=== PATIENT | female | born 1950 | race African-American/Black ===

== ENCOUNTER 2017-09-14 17:20 | Inpatient (IN) | payer OTHER ==
[~2017-09-14] VITALS: Ht 157.5 cm; Wt 89.8 kg
[2017-09-14] MEDS ORDERED: SODIUM CHLORIDE 0.9% 1000ML 1,000 ML IV STA (17:35)
[2017-09-14] MEDS ORDERED: PANTOPRAZOLE 40 MG 10ML VIAL IV STA (17:35)
[2017-09-14] MEDS ORDERED: FUROSEMIDE INJ 10 MG/ML 4 ML VIAL IV ONE (17:45)
[2017-09-14 17:51] LABS: BILIRUBIN,URINE NEGATIVE (NEGATIVE); CLARITY,URINE CLEAR (CLEAR); COLOR,URINE YELLOW (YELLOW); KETONES,URINE NEGATIVE (NEGATIVE); LEUKOCYTE ESTERASE ,URINE NEGATIVE (NEGATIVE); NITRITE,URINE NEGATIVE (NEGATIVE); URINE UROBILINOGEN 0.2 mg/dL (0.2 - 1)
[2017-09-14 17:52] LABS: PROTEIN,URINE DIPSTICK 2+ (NEGATIVE)
[2017-09-14] MEDS ORDERED: JANUVIA100 MG PO (17:52)
[2017-09-14 17:53] LABS: BASOPHILS % 0.6 % (0.0-1.0); EOSINOPHILS # (AUTO) 0.2 (0.0-0.4); EOSINOPHILS % 3.4 % (0.0-6.0); LYMPHOCYTES # (AUTO) 0.6 (1.0-3.2); LYMPHOCYTES % 10.9 % (18.0-39.1); MEAN CORPUSCULAR HEMOGLOBIN 27.1 pg (28-32); MEAN CORPUSCULAR HGB CONC 31.2 g/dL (31-35); MEAN CORPUSCULAR VOLUME 86.9 fL (81-99); MONOCYTES # (AUTO) 0.6 (0.2-0.8); MONOCYTES % 12.3 % (4.4-11.3); NEUTROPHILS # (AUTO) 3.7 (2.1-6.9); NEUTROPHILS % 72.6 % (38.7-80.0); PLATELET COUNT 247 x10e3/uL (140-360); RED BLOOD COUNT 2.14 x10e6/uL (3.6-5.1)
[2017-09-14] MEDS ORDERED: LORATADINE10 MG PO (17:54)
[2017-09-14] MEDS ORDERED: HYDRALAZINE HCL25 MG PO (17:54)
[2017-09-14] MEDS ORDERED: PRAVASTATIN SOD40 MG PO (17:54)
[2017-09-14] MEDS ORDERED: FUROSEMIDE40 MG PO (17:54)
[2017-09-14] MEDS ORDERED: FOLIC ACID1 MG PO (17:54)
[2017-09-14] MEDS ORDERED: CARVEDILOL12.5 MG PO (17:54)
[2017-09-14] MEDS ORDERED: FERROUS SULFAT325 M1 PO (17:54)
[2017-09-14] MEDS ORDERED: GLIMEPIRIDE2 MG PO (17:54)
[2017-09-14] MEDS ORDERED: AMLODIPINE BESY10 MG PO (17:54)
[2017-09-14 17:57] LABS: HEMATOCRIT 18.6 % (34.2-44.1); HEMOGLOBIN 5.8 g/dL (12.0-16.0)
[2017-09-14 18:00] LABS: INR 1.28
[2017-09-14 18:01] LABS: PARTIAL THROMBOPLASTIN TIME 33.6 seconds (23.8-35.5)
[2017-09-14 18:05] LABS: EPITHELIAL CELLS,URINE MANY /LPF
[2017-09-14 18:09] LABS: ALBUMIN 3.4 g/dL (3.5-5.0); ALBUMIN/GLOBULIN RATIO 0.8 (0.8-2.0); CALCIUM 8.7 mg/dL (8.4-10.2); CREATININE, SERUM 6.56 mg/dL (0.57-1.11); MAGNESIUM 2.7 MG/DL (1.3-2.1)
[2017-09-14] MEDS ORDERED: ACETAMINOPHEN 325 MG TAB PO STA (18:16)
--- NOTE | 2017-09-14 18:24 | Diagnostic Imaging Report ---
PROCEDURE:X-RAY RIGHT SHOULDER, COMPLETE COMPARISON:None. INDICATIONS:SHOULDER SORENESS FINDINGS: Mild osteopenia. No acute displaced fracture or dislocation. No lytic or blastic lesion. 1.4 cm calcified oval shaped structure lateral to the right humeral head likely represents ligamentous calcification. Moderate to marked degenerative changes in the acromioclavicular joint. No a.c. separation. Soft tissues are grossly unremarkable. CONCLUSION: 1. No acute displaced fracture or dislocation. 2. Moderate to marked degenerative changes in the right acromioclavicular joint. MRI of shoulder is recommended if there is continued pain and clinical concern for ligamentous or labral injury Nathanael Clark M.D. Dictated by: Nathanael Clark M.D. on 09/14/2017 at 18:24 Electronically approved by: Nathanael Clark M.D. on 09/14/2017 at 18:24
[2017-09-14 18:28] LABS: CREATINE KINASE MB 2.5 ng/mL (0-5.0); THYROID STIMULATING HORMONE 0.747 uIU/mL (0.350-4.940)
[2017-09-14] MEDS ORDERED: DIPHENHYDRAMINE HCL INJ 50 MG/ML VIAL IV ONE ×2 (18:30→23:30)
[2017-09-14] MEDS ORDERED: DEXTROSE 50% SYRINGE 50 ML IV PRN (18:30)
[2017-09-14] MEDS ORDERED: SODIUM CHLORIDE 0.9% 250ML 250 ML IV ONE (18:30)
--- NOTE | 2017-09-14 18:32 | Diagnostic Imaging Report ---
PROCEDURE: CT ABDOMEN AND PELVIS WITHOUT CONTRAST TECHNIQUE: The abdomen and pelvis were scanned utilizing a multidetector helical scanner from the diaphragm to the lesser trochanter after the oral administration of water. No IV contrast was administered due to renal failure. Coronal and sagittal multiplanar reformations were obtained. COMPARISON: None. INDICATIONS: renal failure, anemia, stone protocol, sob, swelling in legs FINDINGS: ABSENCE OF INTRAVENOUS CONTRAST DECREASES SENSITIVITY FOR DETECTION OF FOCAL LESIONS AND VASCULAR PATHOLOGY. LOWER THORAX: Bilateral lower lobe, lingular, and right middle lobe Mosaic attenuation/groundglass opacities. 2 mm pulmonary nodule in the lateral right lower lobe (series 3, image 8). 3 mm pulmonary nodule in the right lower lobe (series 3, image 18). Calcification of the mitral annulus. HEPATOBILIARY: No focal hepatic lesions. No biliary ductal dilatation. Layering material in the dependent portion of the gallbladder lumen likely represents sludge. No radiopaque stones. No wall thickening or pericholecystic fluid. SPLEEN: No splenomegaly. PANCREAS: No focal masses or ductal dilatation. ADRENALS: No adrenal nodules. KIDNEYS/URETERS: No hydronephrosis, stones, or renal contour abnormalities. PELVIC ORGANS/BLADDER: The bladder is grossly unremarkable. The uterus is enlarged and shows innumerable lobulations and dystrophic and rounded calcifications, likely representing multiple calcified fibroids. No adnexal masses. PERITONEUM / RETROPERITONEUM: No ascites. LYMPH NODES: No lymphadenopathy. VESSELS: Atherosclerotic calcification of the abdominal aorta, aortic branches, and iliac vessels. GI TRACT: Bowel shows no dilation or evidence of obstruction. Appendix is well identified and normal in caliber. BONES AND SOFT TISSUES: No aggressive lytic lesion. Generalized anasarca. IMPRESSION: 1. no acute abdominopelvic abnormalities. 2. Findings in the lung bases, likely represent interstitial edema. Given the generalized anasarca and history of renal failure, findings are consistent with fluid overload. 3. Nonspecific subcentimeter pulmonary nodules in the lung bases. Per Fleischner Society 2017 criteria, no followup is indicated if this is a low risk patient. 4. Enlarged, distorted uterus likely secondary to innumerable fibroids, most of which are calcified. 5. Findings in the gallbladder lumen likely represents sludge. No radiopaque stones or CT evidence of cholecystitis. Nathanael Clark M.D. Dictated by: Nathanael Clark M.D. on 09/14/2017 at 18:32 Electronically approved by: Nathanael Clark M.D. on 09/14/2017 at 18:32
--- OUTSIDE RECORDS SUMMARY | 2017-09-14 18:54 | XMS REPORT ---
Author Author [facility] Address Unknown Phone Unavailable Care Team Providers Care Librarian Special Library Name Role Phone MAXIMILIANO MALLORY Unavailable Unavailable Problems This patient has no known problems. Allergies, Adverse Reactions, Alerts This patient has no known allergies or adverse reactions. Medications This patient has no known medications. Results Test Description Test Time Test Comments Text Results Atomic Results Result Comments SHOULDER RIGHT COMPLETE [place] [address] Patient Name: LEIGHTON GUERRERO MR #: [id number] : 1950 Age/Sex: 66/F Req #: [id number] [facility] Physician: Ordered by: MOHAMUD ELLIS, MAXIMILIANO ELLIS Report #: [id number] Location: ER Room/Bed: Procedure: [id number] DX/SHOULDER RIGHT COMPLETE Exam Date: 09/14/17 Exam Time: 1806 REPORT STATUS: Signed PROCEDURE: X-RAY RIGHT SHOULDER, COMPLETE COMPARISON: None. INDICATIONS: SHOULDER SORENESS FINDINGS: Mild osteopenia. No acute displaced fracture or dislocation. No lytic or blastic lesion. 1.4 cm calcified oval shaped structure lateral to the right humeral head likely represents ligamentous calcification. Moderate to marked degenerative changes in the acromioclavicular joint. No a.c. separation. Soft tissues are grossly unremarkable. CONCLUSION: 1. No acute displaced fracture or dislocation. 2. Moderate to marked degenerative changes in the right acromioclavicular joint. MRI of shoulder is recommended if there is continued pain and clinical concern for ligamentous or labral injury John Clark M.D. Dictated by: John Clark M.D. on 02/2018 at 18:24 Electronically approved by: John Clark M.D. on 09/14/2017 at 18:24 Dictated By: JOHN CLARK MD 23 Transcribed By: NEISHA on 09/14/171823 COPY TO: MAXIMILIANO MALLORY CT ABDOMEN/PELVIS WO [place] [address] Patient Name: LEIGHTON GUERRERO MR #: [id number] : 1950 Age/Sex: 66/F Req #: [id number] Adm Physician: Ordered by: MAXIMILIANO MALLORY MD, MD Report #: [id number] Location: ER Room/Bed: Procedure: [id number] CT/CT ABDOMEN/PELVIS WO Exam Date: 09/14/17 Exam Time: 1757 REPORT STATUS: Signed PROCEDURE: CT ABDOMEN AND PELVIS WITHOUT CONTRAST TECHNIQUE: The abdomen and pelvis were scanned utilizing a multidetector helical scanner from the diaphragm to the lesser trochanter after the oral administration of water. No IV contrast was administered due to renal failure. Coronal and sagittal multiplanar reformations were obtained. COMPARISON: None. INDICATIONS: renal failure, anemia, stone protocol, sob, swelling in legs FINDINGS: ABSENCE OF INTRAVENOUS CONTRAST DECREASES SENSITIVITY FOR DETECTION OF FOCAL LESIONS AND VASCULAR PATHOLOGY. LOWER THORAX: Bilateral lower lobe , lingular, and right middle lobe Mosaic attenuation/groundglass opacities. 2 mm pulmonary nodule in the lateral right lower lobe (series 3, image 8). 3 mm pulmonary nodule in the right lower lobe (series 3, image 18). Calcification of the mitral annulus. HEPATOBILIARY: No focal hepatic lesions. No biliary ductal dilatation. Layering material in the dependent portion of the gallbladder lumen likely represents sludge. No radiopaque stones. No wall thickening or pericholecystic fluid. SPLEEN: No splenomegaly. PANCREAS: No focal masses or ductal dilatation. ADRENALS: No adrenal nodules. KIDNEYS/URETERS: No hydronephrosis, stones, or renal contour abnormalities. PELVIC ORGANS/BLADDER: The bladder is grossly unremarkable. The uterus is enlarged and shows innumerable lobulations and dystrophic and rounded calcifications, likely representing multiple calcified fibroids. No adnexal masses. PERITONEUM / RETROPERITONEUM: No ascites. LYMPH NODES: No lymphadenopathy. VESSELS: Atherosclerotic calcification of the abdominal aorta, aortic branches, and iliac vessels. GI TRACT: Bowel shows no dilation or evidence of obstruction. Appendix is well identified and normal in caliber. BONES AND SOFT TISSUES: No aggressive lytic lesion. Generalized anasarca. IMPRESSION: 1. no acute abdominopelvic abnormalities. 2. Findings in the lung bases, likely represent interstitial edema. Given the generalized anasarca and history of renal failure, findings are consistent with fluid overload. 3. Nonspecific subcentimeter pulmonary nodules in the lung bases. Per Fleischner Society 2017 criteria, no followup is indicated if this is a low risk patient. 4. Enlarged, distorted uterus likely secondary to innumerable fibroids, most of which are calcified. 5. Findings in the gallbladder lumen likely represents sludge. No radiopaque stones or CT evidence of cholecystitis. John Clark M.D. Dictated by: John Clark M.D. on 09/14/2017 at 18:32 Electronically approved by: John Clark M.D. on 2017 at 18:32 Dictated By: JOHN CLARK MD 31 Transcribed By: NEISHA on 1831 COPY TO: MAXIMILIANO MALLORY
[2017-09-14] MEDS ORDERED: FUROSEMIDE INJ 10 MG/ML 2 ML VIAL IV PRN (19:00)
--- NOTE | 2017-09-14 19:36 | Diagnostic Imaging Report ---
EXAMINATION: CHEST SINGLE (PORTABLE) INDICATION: \S\ERMD ORDER \S\[id number] \S\1802 \S\Y COMPARISON: None FINDINGS: AP view TUBES and LINES: None. LUNGS: Lungs are well inflated. Bilateral central pulmonary vascular congestion. No lobar consolidations. PLEURA: No pleural effusion or pneumothorax. HEART AND MEDIASTINUM: Moderate enlargement of the cardiac silhouette.. BONES AND SOFT TISSUES: No acute osseous lesion. Soft tissues are unremarkable. UPPER ABDOMEN: No free air under the diaphragm. IMPRESSION: Moderate enlargement of the cardiac silhouette due to cardiomegaly and/or pericardial effusion. Bilateral central pulmonary vascular congestion. Signed by: Dr. Dione Yost M.D. on 09/14/2017 7:32 PM
[2017-09-14 20:04] LABS: PHOSPHORUS 5.6 MG/DL (2.3-4.7)
[2017-09-14 20:07] LABS: CREATININE,URINE RANDOM 43.23 mg/dL (47-110); TOTAL PROTEIN, URINE 89.1 mg/dL (1-14)
--- NOTE | 2017-09-14 20:58 | Consultation ---
DATE OF CONSULTATION: September 14, 2017 REASON FOR CONSULTATION: Chronic kidney disease. This is a 66-year-old female who came in with worsening edema that started 14 days ago. The patient also stated that she had a stress test in mid August and was told 2 weeks later that she had hemoglobin of 6 and to come to the emergency room. The patient has seen me previously a few years back in the clinic. The patient also stated that she was told that her kidney function recently has deteriorated to 10%. PAST MEDICAL HISTORY: 1. Type 2 diabetes mellitus. 2. Hypertension. 3. Coronary artery disease. 4. Peripheral vascular disease. 5. Diabetic retinopathy. 6. Retinal detachment. 7. Congestive heart failure. PAST SURGICAL HISTORY: Retinal repair 2013. ALLERGIES: NO KNOWN DRUG ALLERGIES. REVIEW OF SYSTEMS: Positive for shortness of breath, positive edema, positive increased weight, positive decreased appetite. No nausea, no vomiting, no blood in the stool. No blood in the urine. No sensory loss. No motor loss. No new changes on her skin. Basically, otherwise negative. PHYSICAL EXAMINATION VITAL SIGNS: Blood pressure 136/49, afebrile. GENERAL: Alert and following commands. HEENT: Pupils equal and react to light and accommodation. NECK: No JVD, no bruits. LUNGS: Rhonchi, no rales. HEART: Regular rate and rhythm. No S3 or S4. ABDOMEN: Nontender, nondistended, no hepatosplenomegaly. EXTREMITIES: Positive anasarca. LABORATORY DATA: White count 5.4, hemoglobin 5.8, platelets 247,000. Sodium 137, potassium 5, chloride 107, BUN 76, creatinine 6.56, glucose 139, AST 26, albumin 3.4. ASSESSMENT AND PLAN: 1. Worsening renal function with severe volume overload. The patient is receiving Lasix 40, but for now change her Lasix to 80 IV q.8 h. We have her on strict I and O. Will also get a renal ultrasound, and fractional secretion of sodium and urine protein electrophoresis. 2. The patient also is having severe anemia, so she will be transfused today, and between units will give her Lasix. Will also evaluate her for iron deficiency and anemia of chronic disease. So, in short, this is a patient who might be in end-stage renal disease, requiring dialysis soon, but for now we will treat her medically with IV Lasix, transfusion as needed. Work up to evaluate treatment for anemia and for worsening renal function. If no improvement, as in cardiorenal cases, usually the renal will improve once the patient is euvolemic, and then will need to start heading towards a diagnosis of end-stage renal disease. Job#: [id number] ELLIE
[2017-09-14] MEDS ORDERED: SODIUM CHLORIDE 0.9% 50ML 50 ML ONE (21:54)
[2017-09-14 22:00] VITALS: BP 193/79
[2017-09-14] MEDS ORDERED: FUROSEMIDE INJ 10 MG/ML 4 ML VIAL IV SCH (22:00)
[2017-09-14] MEDS: INSULIN REGULAR, HUMAN 100 UNIT/1 ML 3ML VIAL SQ SCH (22:30)
[2017-09-14] MEDS ORDERED: HYDRALAZINE HCL 25 MG TAB PO ONE (23:30)
[2017-09-14] MEDS: ACETAMINOPHEN 325 MG TAB PO PRN (23:43)
[2017-09-15] VITALS: BP 194/82
[2017-09-15] MEDS ORDERED: SODIUM CHLORIDE 0.9% 250ML 250 ML ONE (00:27)
[2017-09-15] MEDS ORDERED: FUROSEMIDE INJ 10 MG/ML 2 ML VIAL IV PRN (03:28)
[2017-09-15 04:00] VITALS: BP 186/92
[2017-09-15 06:19] LABS: BASOPHILS % 0.8 % (0.0-1.0); EOSINOPHILS # (AUTO) 0.3 (0.0-0.4); EOSINOPHILS % 4.8 % (0.0-6.0); LYMPHOCYTES # (AUTO) 0.5 (1.0-3.2); LYMPHOCYTES % 9.4 % (18.0-39.1); MEAN CORPUSCULAR HGB CONC 31.3 g/dL (31-35); MEAN CORPUSCULAR VOLUME 86.5 fL (81-99); MONOCYTES # (AUTO) 0.6 (0.2-0.8); NEUTROPHILS # (AUTO) 3.8 (2.1-6.9); NEUTROPHILS % 72.8 % (38.7-80.0); PLATELET COUNT 217 x10e3/uL (140-360); RED BLOOD COUNT 2.44 x10e6/uL (3.6-5.1); RED CELL DISTRIBUTION WIDTH 16.5 % (11.7-14.4)
[2017-09-15 06:40] LABS: CREATINE KINASE MB 3.2 ng/mL (0-5.0)
[2017-09-15 06:46] LABS: ALBUMIN 3.2 g/dL (3.5-5.0); ALBUMIN/GLOBULIN RATIO 0.8 (0.8-2.0); ANION GAP 17.7 mmol/L (8-16); CALCIUM 8.7 mg/dL (8.4-10.2); CREATININE, SERUM 6.33 mg/dL (0.57-1.11); POTASSIUM 4.7 mmol/L (3.5-5.1)
[2017-09-15 06:47] LABS: HEMATOCRIT 21.1 % (34.2-44.1); HEMOGLOBIN 6.6 g/dL (12.0-16.0)
[2017-09-15] MEDS: INSULIN REGULAR, HUMAN 100 UNIT/1 ML 3ML VIAL SQ SCH ×4 (07:23→21:00)
[2017-09-15 07:49] VITALS: BP 168/88
[2017-09-15] MEDS: FERROUS SULFATE 325 MG TAB PO SCH (08:02)
[2017-09-15] MEDS: CARVEDILOL 12.5 MG TAB PO SCH ×2 (08:02→18:03)
[2017-09-15] MEDS: FOLIC ACID 1 MG TAB PO SCH (08:02)
[2017-09-15] MEDS: GLIMEPIRIDE 2 MG TAB PO SCH (08:02)
[2017-09-15] MEDS: LORATADINE 10 MG TAB PO SCH (08:02)
[2017-09-15] MEDS: SITAGLIPTIN 100 MG TAB PO SCH (08:02)
[2017-09-15] MEDS: PRAVASTATIN 20 MG TAB PO SCH (08:03)
[2017-09-15] MEDS: AMLODIPINE BESYLATE 10 MG TAB PO SCH (08:03)
[2017-09-15] MEDS ORDERED: FUROSEMIDE INJ 10 MG/ML 4 ML VIAL IV SCH (09:00)
[2017-09-15] MEDS ORDERED: FUROSEMIDE 40 MG TAB PO SCH (09:00)
[2017-09-15] MEDS ORDERED: HYDRALAZINE HCL 25 MG TAB PO SCH (09:00)
[2017-09-15] MEDS ORDERED: SODIUM CHLORIDE 0.9% 250ML 250 ML IV ONE (10:00)
[2017-09-15] MEDS ORDERED: FUROSEMIDE INJ 10 MG/ML 2 ML VIAL IV SCH (10:00)
--- NOTE | 2017-09-15 10:10 | History and Physical ---
She is a 66-year-old female patient of [facility] who is chronically very sick with a history of anemia, chronic kidney disease, diabetes mellitus, hypertension, hypertensive heart disease, nephrotic syndrome, anemia, and chronic arthritis, who presented to the emergency room with the complaint of generalized swelling and severe leg swelling. Also, having some shortness of breath. REVIEW OF SYSTEMS: Generalized swelling and shortness of breath. The patient denied any chest pain or fevers. SURGICAL HISTORY: The patient had retinal surgery in 2013. PAST MEDICAL HISTORY: Significant for history of diabetes mellitus, coronary artery disease, peripheral arterial disease, cataracts, chronic back pain, arthritis, diastolic congestive heart failure. ALLERGIES: NO KNOWN DRUG ALLERGIES. SOCIAL HISTORY: Denies smoking. Denies using alcohol. FAMILY HISTORY: Diabetes mellitus, hypertension. PHYSICAL EXAMINATION GENERAL: She is an elderly female patient lying in bed not in any acute distress. VITALS: Temperature 98, pulse rate 88, respiratory rate 20, blood pressure 170/90, O2 sat 99%. HEENT: Normocephalic and atraumatic. JVD present. LUNGS: Bilateral basal rales present. HEART: S1 and S2 regular. Systolic murmur. Heart sounds muffled. NEUROLOGICAL: No focal neurological deficit. EXTREMITIES: Four plus pedal edema. Hemoglobin on admission was 5.8. Phosphorus was 5.6. BNP was 1959. Creatinine of 6.33. ADMITTING IMPRESSION/DIAGNOSES 1. Severe anemia. 2. Anemia of chronic disease, possible blood loss complicating the matter. 3. Diabetes mellitus. 4. Hypertension. 5. Hypertensive heart disease. 6. Shoulder arthritis. PLAN: The patient will be admitted with the above diagnoses. Will give the patient IV Lasix and packed RBCs. Blood transfusion and also obtain GI and hematology consultation. Probably going to need IV iron. Will do Accu-Cheks a.c. and at night with sliding scale. Case discussed with quality assurance calibrator, Dr. Mello. The patient does need hemodialysis, but at this time the patient had refused for any hemodialysis treatment. Job#: [id number] LEVON
--- NOTE | 2017-09-15 10:46 | Consultation ---
DATE OF CONSULTATION: September 14, 2017 CARDIOLOGY CONSULTATION REASON FOR CONSULTATION: CHF. CONSULTING PHYSICIAN: Dr. Santos HPI: This is a 66-year-old female that presented with shortness of breath. According to the patient, for the last 2 weeks she had increased shortness of breath and increased bilateral lower extremity edema that she presented to the ER for evaluation. She stated having a history of CHF and being treated by the PCP with beta jessie and diuretics. She also stated she had a recent stress test in August. She denies any chest pain, any palpitation, any dizziness, headache, or diaphoresis. Troponin was negative. EKG showed normal sinus rhythm with no S/T abnormalities. BNP 1959. Chest x-ray showed bilateral central pulmonary vascular congestion. PAST MEDICAL HISTORY: Hypertension, diabetes, CHF, anemia, CAD, PVD, diabetic retinopathy, retinal detachment. PAST SURGICAL HISTORY: Bilateral retina repair. FAMILY HISTORY: Positive for hypertension. SOCIAL HISTORY: No smoking. No drinking. She lives at home with the that smokes. MEDICATIONS: She was on Norvasc, Coreg, ferrous sulfate, folic acid, furosemide, glimepiride, hydralazine, Claritin, Pravastatin, and Januvia. ALLERGIES: SHE IS NOT ALLERGIC TO ANY MEDICATIONS. REVIEW OF SYSTEMS: Negative except those mentioned above. Positive for shortness of breath and +4 bilateral lower extremity edema. PHYSICAL EXAMINATION VITAL SIGNS: Temperature 98, heart rate 87, blood pressure 180/92, respirations 15, oxygen saturation 96% on 2 L nasal cannula. GENERAL: She is morbidly obese, awake, alert, and oriented times 3. HEENT: Mucous membranes moist. NECK: Supple. LUNGS: Bilateral with decreased breath sounds. CARDIOVASCULAR: S1 and S2 present. ABDOMEN: Soft. NEUROLOGICAL: Intact. EXTREMITIES: Bilateral lower extremities with 4+ edema. LABS: Sodium 140, potassium 4.7, chloride 108, CO2 19, BUN is 74, creatinine 6.33, glucose 100. White blood cells 5.23, hemoglobin is 6.6, hematocrit 21.1, and platelets 217,000. PT 15, PTT 33.6 and INR is 1.28. IMPRESSION 1. Congestive heart failure. 2. Fluid overload. 3. Anemia. 4. Chronic kidney disease. 5. Hypertension. 6. Diabetes. 7. Generalized anasarca. ASSESSMENT AND PLAN: She received 1 unit of blood yesterday. She went from 5.8 to 6.6 today. Will get an echo to assess the LV and the valve function. Will continue diuretics, beta jessie and calcium channel jessie. No MALA inhibitor for now. Will get bilateral lower extremity venous Doppler to rule out any DVT. Renal is on the case and hematology. Further cardiac workup pending clinical course. Thank you for this consultation. DICTATED BY GRACE TERRAZAS NP Job#: [id number] LEVON
[2017-09-15 11:13] VITALS: BP 168/88
[2017-09-15 12:41] LABS: % IRON SATURATION 18 % (15-50); IRON 49 ug/dL (50-170); TOTAL IRON BINDING CAPACITY 274 ug/dL (261-478); TRANSFERRIN 196 mg/dL (180-382)
[2017-09-15] MEDS ORDERED: SODIUM CHLORIDE 0.9% 250ML 250 ML IV NR (15:00)
[2017-09-15 15:11] LABS: CREATINE KINASE MB 2.4 ng/mL (0-5.0)
--- NOTE | 2017-09-15 15:38 | Diagnostic Imaging Report ---
EXAM: Renal Ultrasound INDICATION: \S\renal fasilure COMPARISON: CT dated 09/14/2017 TECHNIQUE: Transverse and longitudinal images of the kidneys and bladder were obtained. FINDINGS: Right Kidney: Size: 9.7 cm Echogenicity: Normal Parenchymal thickness: Normal Collecting system: No hydronephrosis Stones: None Cyst/Mass: None Left Kidney: Size: 8.5 cm Echogenicity: Normal Parenchymal thickness: Normal Collecting system: No hydronephrosis Stones: None Cyst/Mass: None Bladder: Decompressed by a Stewart catheter in place. IMPRESSION: Unremarkable renal ultrasound exam. Signed by: Dr. Ad Sargent MD on 09/15/2017 3:35 PM
--- NOTE | 2017-09-15 15:40 | Consultation ---
DATE OF CONSULTATION: September 15, 2017 REQUESTING PHYSICIAN: Dr. Benito Hurst. REASON FOR CONSULTATION: Anemia. Thank you very kindly Dr. Hurst for letting me participate in the care of this very pleasant 66-year-old -[place] female. I have interviewed the patient, examined her, reviewed the chart. Briefly, she was admitted with weakness, shortness of breath, and swelling of the feet. The patient stated that she had been generally well till a few weeks back and developed what she thought was a flu-like illness and she has progressively declined since that time becoming increasingly weak, short of breath with minimal activity, and increasing swelling of the feet. She denies any history of bleeding or fever. She has gained some weight. No history of change in bowel habits and as mentioned, no history of bleeding from any site that she could recognize. PAST HISTORY: Positive for diabetes mellitus, hypertension. She thought she was told that there might be mild renal dysfunction in the past. No history of liver disease. No history of GI problems previously. SOCIAL HISTORY: The patient does not smoke and does not use alcohol. FAMILY HISTORY: Positive for heart disease. Denied any history of malignancy. SYSTEM REVIEW: Positive for weight gain, weakness, shortness of breath, swelling of feet. Negative for bone pains, bleeding, or chest pains. PHYSICAL EXAMINATION GENERAL: She is well-developed, ill-looking, using supplemental oxygen. HEENT: Conjunctivae are pale. There is no icterus. NECK: There is no palpable peripheral adenopathy. BREASTS: Negative. LUNGS: Limited by patient's shallow respiration. HEART: Size cannot be well demarcated. ABDOMEN: Modestly distended. There is edema of the abdominal wall. EXTREMITIES: Diffuse edema of the both lower extremities. LABORATORY EVALUATION: Significant for hemoglobin of 6.1, normocytic, normochromic, white count of 5.2, and platelet count of 217,000. Renal function was markedly abnormal with creatinine of 6.33 and BUN of 74. INR was 1.28. Liver functions were normal. Serum globulin levels were elevated. IMPRESSION 1. Renal failure, probably [id number]. 2. Severe anemia, normocytic, normochromic with no history of bleeding. 3. Elevated globulin. The anemia could be chronic anemia from renal failure with possibly an element of acute blood loss, though there is no history of it. The indices are normal suggesting that this unlikely to be a chronic blood loss. Dr. Chery, the information security, has already ordered serum protein studies to evaluate for the possibility of a myeloma. She is getting transfusion and management of congestive heart failure. I will follow the patient and await serum protein studies. Job#: [id number] VAS cc:DR JAIRO NOGUEIRA
[2017-09-15] MEDS: HYDRALAZINE HCL 25 MG TAB PO SCH ×2 (16:45→21:36)
[2017-09-15] MEDS: FUROSEMIDE INJ 100 MG in SODIUM CHLORIDE 0.9% 100 ML 90 ML IV SCH (18:02)
[2017-09-15 21:11] VITALS: BP 156/72
[2017-09-15] MEDS ORDERED: PEG (High)/E-LYTE SOLN 4,000 ML BTL PO ONE (23:00)
[2017-09-16 00:43] VITALS: BP 162/86
[2017-09-16] MEDS: ACETAMINOPHEN 325 MG TAB PO PRN ×3 (00:45→17:51)
[2017-09-16] MEDS: HYDRALAZINE HCL 25 MG TAB PO SCH ×4 (06:00→21:14)
[2017-09-16 07:01] LABS: BASOPHILS % 0.5 % (0.0-1.0); EOSINOPHILS # (AUTO) 0.5 (0.0-0.4); EOSINOPHILS % 7.7 % (0.0-6.0); HEMATOCRIT 25.1 % (34.2-44.1); LYMPHOCYTES # (AUTO) 0.6 (1.0-3.2); LYMPHOCYTES % 9.3 % (18.0-39.1); MEAN CORPUSCULAR HEMOGLOBIN 26.4 pg (28-32); MEAN CORPUSCULAR HGB CONC 31.9 g/dL (31-35); MEAN CORPUSCULAR VOLUME 82.8 fL (81-99); MONOCYTES # (AUTO) 0.8 (0.2-0.8); MONOCYTES % 12.8 % (4.4-11.3); NEUTROPHILS # (AUTO) 4.2 (2.1-6.9); NEUTROPHILS % 69.4 % (38.7-80.0); PLATELET COUNT 228 x10e3/uL (140-360); RED BLOOD COUNT 3.03 x10e6/uL (3.6-5.1); RED CELL DISTRIBUTION WIDTH 17.1 % (11.7-14.4)
[2017-09-16 07:18] LABS: ALBUMIN 3.1 g/dL (3.5-5.0); ALBUMIN/GLOBULIN RATIO 0.8 (0.8-2.0); CALCIUM 8.6 mg/dL (8.4-10.2); CREATININE, SERUM 6.05 mg/dL (0.57-1.11)
[2017-09-16] MEDS: INSULIN REGULAR, HUMAN 100 UNIT/1 ML 3ML VIAL SQ SCH ×4 (07:30→20:33)
[2017-09-16] MEDS: GLIMEPIRIDE 2 MG TAB PO SCH (08:00)
[2017-09-16 08:24] VITALS: BP 159/67
[2017-09-16 08:28] LABS: FOLATE > 20.0 ng/mL (7.0-15.4)
[2017-09-16] MEDS: LORATADINE 10 MG TAB PO SCH (08:45)
[2017-09-16] MEDS: FERROUS SULFATE 325 MG TAB PO SCH (08:46)
[2017-09-16] MEDS: SITAGLIPTIN 100 MG TAB PO SCH (08:46)
[2017-09-16] MEDS: AMLODIPINE BESYLATE 10 MG TAB PO SCH (08:46)
[2017-09-16] MEDS: FOLIC ACID 1 MG TAB PO SCH (08:46)
[2017-09-16] MEDS: CARVEDILOL 12.5 MG TAB PO SCH ×2 (08:46→17:10)
[2017-09-16] MEDS: PRAVASTATIN 20 MG TAB PO SCH (08:46)
[2017-09-16] MEDS: FUROSEMIDE INJ 100 MG in SODIUM CHLORIDE 0.9% 100 ML 90 ML IV SCH (08:46)
[2017-09-16 10:34] VITALS: BP 159/67
[2017-09-16 11:36] VITALS: BP 165/74
[2017-09-16 16:25] VITALS: BP 160/63
[2017-09-16 20:05] VITALS: BP 159/72
[2017-09-17] VITALS (7 sets, daily range): BP systolic 136–177; BP diastolic 73–96
[2017-09-17] MEDS: HYDRALAZINE HCL 25 MG TAB PO SCH ×5 (05:37→22:07)
[2017-09-17] MEDS: INSULIN REGULAR, HUMAN 100 UNIT/1 ML 3ML VIAL SQ SCH ×4 (07:30→22:32)
[2017-09-17 07:44] LABS: BASOPHILS % 0.3 % (0.0-1.0); EOSINOPHILS # (AUTO) 0.3 (0.0-0.4); HEMATOCRIT 25.9 % (34.2-44.1); HEMOGLOBIN 8.4 g/dL (12.0-16.0); LYMPHOCYTES # (AUTO) 0.6 (1.0-3.2); LYMPHOCYTES % 8.5 % (18.0-39.1); MEAN CORPUSCULAR HEMOGLOBIN 26.7 pg (28-32); MEAN CORPUSCULAR HGB CONC 32.4 g/dL (31-35); MEAN CORPUSCULAR VOLUME 82.2 fL (81-99); MONOCYTES # (AUTO) 0.9 (0.2-0.8); MONOCYTES % 13.1 % (4.4-11.3); NEUTROPHILS # (AUTO) 4.9 (2.1-6.9); NEUTROPHILS % 72.7 % (38.7-80.0); PLATELET COUNT 235 x10e3/uL (140-360); RED BLOOD COUNT 3.15 x10e6/uL (3.6-5.1); RED CELL DISTRIBUTION WIDTH 17.1 % (11.7-14.4)
[2017-09-17] MEDS: GLIMEPIRIDE 2 MG TAB PO SCH (07:58)
[2017-09-17 08:06] LABS: ANION GAP 17.3 mmol/L (8-16); CALCIUM 8.4 mg/dL (8.4-10.2); CREATININE, SERUM 6.01 mg/dL (0.57-1.11); POTASSIUM 4.3 mmol/L (3.5-5.1)
[2017-09-17] MEDS: LORATADINE 10 MG TAB PO SCH (09:23)
[2017-09-17] MEDS: SITAGLIPTIN 100 MG TAB PO SCH (09:23)
[2017-09-17] MEDS: FUROSEMIDE INJ 100 MG in SODIUM CHLORIDE 0.9% 100 ML 90 ML IV SCH (09:23)
[2017-09-17] MEDS: PRAVASTATIN 20 MG TAB PO SCH (09:23)
[2017-09-17] MEDS: FERROUS SULFATE 325 MG TAB PO SCH (09:23)
[2017-09-17] MEDS: CARVEDILOL 12.5 MG TAB PO SCH ×2 (09:23→17:00)
[2017-09-17] MEDS: FOLIC ACID 1 MG TAB PO SCH (09:23)
[2017-09-17] MEDS: AMLODIPINE BESYLATE 10 MG TAB PO SCH (09:24)
[2017-09-17] MEDS: ACETAMINOPHEN 325 MG TAB PO PRN (17:27)
[2017-09-18] VITALS (7 sets, daily range): BP systolic 142–163; BP diastolic 65–81
[2017-09-18] MEDS: HYDRALAZINE HCL 25 MG TAB PO SCH ×5 (05:39→21:13)
[2017-09-18] MEDS: ACETAMINOPHEN 325 MG TAB PO PRN ×2 (05:44→18:54)
[2017-09-18 06:40] LABS: BASOPHILS % 0.6 % (0.0-1.0); EOSINOPHILS # (AUTO) 0.4 (0.0-0.4); EOSINOPHILS % 5.5 % (0.0-6.0); HEMATOCRIT 29.5 % (34.2-44.1); HEMOGLOBIN 9.4 g/dL (12.0-16.0); LYMPHOCYTES # (AUTO) 0.6 (1.0-3.2); LYMPHOCYTES % 7.9 % (18.0-39.1); MEAN CORPUSCULAR HEMOGLOBIN 26.6 pg (28-32); MEAN CORPUSCULAR HGB CONC 31.9 g/dL (31-35); MEAN CORPUSCULAR VOLUME 83.3 fL (81-99); MONOCYTES # (AUTO) 0.8 (0.2-0.8); MONOCYTES % 11.6 % (4.4-11.3); NEUTROPHILS # (AUTO) 5.4 (2.1-6.9); NEUTROPHILS % 74.1 % (38.7-80.0); PLATELET COUNT 248 x10e3/uL (140-360); RED BLOOD COUNT 3.54 x10e6/uL (3.6-5.1); RED CELL DISTRIBUTION WIDTH 16.3 % (11.7-14.4)
[2017-09-18 07:02] LABS: ALBUMIN 3.2 g/dL (3.5-5.0); ALBUMIN/GLOBULIN RATIO 0.8 (0.8-2.0); ANION GAP 19.2 mmol/L (8-16); CALCIUM 8.9 mg/dL (8.4-10.2); CREATININE, SERUM 5.83 mg/dL (0.57-1.11); POTASSIUM 4.2 mmol/L (3.5-5.1)
[2017-09-18] MEDS: INSULIN REGULAR, HUMAN 100 UNIT/1 ML 3ML VIAL SQ SCH ×4 (07:30→21:00)
[2017-09-18] MEDS: FERROUS SULFATE 325 MG TAB PO SCH (09:00)
[2017-09-18] MEDS: AMLODIPINE BESYLATE 10 MG TAB PO SCH (09:00)
[2017-09-18] MEDS: SITAGLIPTIN 100 MG TAB PO SCH (09:00)
[2017-09-18] MEDS: FOLIC ACID 1 MG TAB PO SCH (09:00)
[2017-09-18] MEDS: CARVEDILOL 12.5 MG TAB PO SCH ×2 (09:00→17:51)
[2017-09-18] MEDS: GLIMEPIRIDE 2 MG TAB PO SCH (09:00)
[2017-09-18] MEDS: LORATADINE 10 MG TAB PO SCH (09:00)
[2017-09-18] MEDS: PRAVASTATIN 20 MG TAB PO SCH (09:00)
[2017-09-18] MEDS: FUROSEMIDE INJ 100 MG in SODIUM CHLORIDE 0.9% 100 ML 90 ML IV SCH (09:45)
[2017-09-19] VITALS (7 sets, daily range): BP systolic 133–164; BP diastolic 60–75
[2017-09-19 06:32] LABS: BASOPHILS % 0.5 % (0.0-1.0); EOSINOPHILS # (AUTO) 0.2 (0.0-0.4); EOSINOPHILS % 2.4 % (0.0-6.0); HEMOGLOBIN 8.2 g/dL (12.0-16.0); LYMPHOCYTES # (AUTO) 0.5 (1.0-3.2); LYMPHOCYTES % 8.7 % (18.0-39.1); MEAN CORPUSCULAR HGB CONC 32.8 g/dL (31-35); MEAN CORPUSCULAR VOLUME 82.2 fL (81-99); MONOCYTES # (AUTO) 0.9 (0.2-0.8); MONOCYTES % 14.4 % (4.4-11.3); NEUTROPHILS # (AUTO) 4.6 (2.1-6.9); NEUTROPHILS % 73.7 % (38.7-80.0); PLATELET COUNT 224 x10e3/uL (140-360); RED BLOOD COUNT 3.04 x10e6/uL (3.6-5.1)
[2017-09-19 06:46] LABS: MAGNESIUM 1.9 MG/DL (1.3-2.1); PHOSPHORUS 5.8 MG/DL (2.3-4.7)
[2017-09-19 06:55] LABS: ALBUMIN/GLOBULIN RATIO 0.8 (0.8-2.0); ANION GAP 14.8 mmol/L (8-16); CALCIUM 8.2 mg/dL (8.4-10.2); CREATININE, SERUM 5.8 mg/dL (0.57-1.11); POTASSIUM 3.8 mmol/L (3.5-5.1)
[2017-09-19] MEDS ORDERED: ACETAMINOPHEN 325 MG TAB PO PRN (07:30)
[2017-09-19] MEDS: INSULIN REGULAR, HUMAN 100 UNIT/1 ML 3ML VIAL SQ SCH ×4 (07:30→21:00)
[2017-09-19 08:17] LABS: ALPHA 2 GLOBULIN URINE PEP 9.2 % (.)
[2017-09-19] MEDS: GLIMEPIRIDE 2 MG TAB PO SCH (08:19)
[2017-09-19] MEDS: HYDRALAZINE HCL 25 MG TAB PO SCH ×3 (08:20→21:19)
[2017-09-19] MEDS: FERROUS SULFATE 325 MG TAB PO SCH (08:20)
[2017-09-19] MEDS: FOLIC ACID 1 MG TAB PO SCH (08:20)
[2017-09-19] MEDS: LORATADINE 10 MG TAB PO SCH (08:20)
[2017-09-19] MEDS: SITAGLIPTIN 100 MG TAB PO SCH (08:20)
[2017-09-19] MEDS: CARVEDILOL 12.5 MG TAB PO SCH ×2 (08:20→16:51)
[2017-09-19] MEDS: AMLODIPINE BESYLATE 10 MG TAB PO SCH (08:20)
[2017-09-19] MEDS: FUROSEMIDE INJ 100 MG in SODIUM CHLORIDE 0.9% 100 ML 90 ML IV SCH ×2 (08:21→18:34)
[2017-09-19] MEDS: PRAVASTATIN 20 MG TAB PO SCH (08:21)
[2017-09-19] MEDS ORDERED: SITAGLIPTIN 100 MG TAB PO SCH (09:00)
[2017-09-19] MEDS ORDERED: FAMOTIDINE 20 MG TAB PO SCH (09:00)
[2017-09-19] MEDS: FUROSEMIDE 40 MG TAB PO SCH (18:34)
[2017-09-19] MEDS ORDERED: SIMETHICONE 80 MG CHEW PO PRN (19:30)
[2017-09-20] VITALS: BP 142/71
[2017-09-20 04:00] VITALS: BP 147/65
[2017-09-20] MEDS: FUROSEMIDE INJ 100 MG in SODIUM CHLORIDE 0.9% 100 ML 90 ML IV SCH ×2 (04:40→13:45)
[2017-09-20] MEDS: FUROSEMIDE 40 MG TAB PO SCH (05:16)
[2017-09-20 06:42] LABS: BASOPHILS % 0.5 % (0.0-1.0); EOSINOPHILS # (AUTO) 0.3 (0.0-0.4); EOSINOPHILS % 4.9 % (0.0-6.0); HEMATOCRIT 24.9 % (34.2-44.1); HEMOGLOBIN 8.2 g/dL (12.0-16.0); LYMPHOCYTES # (AUTO) 0.6 (1.0-3.2); MEAN CORPUSCULAR HEMOGLOBIN 26.8 pg (28-32); MEAN CORPUSCULAR HGB CONC 32.9 g/dL (31-35); MEAN CORPUSCULAR VOLUME 81.4 fL (81-99); MONOCYTES # (AUTO) 1.1 (0.2-0.8); MONOCYTES % 18.4 % (4.4-11.3); NEUTROPHILS # (AUTO) 3.7 (2.1-6.9); NEUTROPHILS % 64.5 % (38.7-80.0); PLATELET COUNT 207 x10e3/uL (140-360); RED BLOOD COUNT 3.06 x10e6/uL (3.6-5.1); RED CELL DISTRIBUTION WIDTH 15.9 % (11.7-14.4)
[2017-09-20 06:49] LABS: ANION GAP 14.8 mmol/L (8-16); CALCIUM 7.9 mg/dL (8.4-10.2); CREATININE, SERUM 6.09 mg/dL (0.57-1.11); POTASSIUM 3.8 mmol/L (3.5-5.1)
[2017-09-20] MEDS ORDERED: FAMOTIDINE 20 MG TAB PO SCH (07:30)
[2017-09-20] MEDS: INSULIN REGULAR, HUMAN 100 UNIT/1 ML 3ML VIAL SQ SCH ×2 (07:30→11:30)
[2017-09-20 07:57] VITALS: BP 155/72
[2017-09-20 08:00] VITALS: BP 155/72
[2017-09-20] MEDS ORDERED: GLIMEPIRIDE 2 MG TAB PO SCH (08:00)
[2017-09-20] MEDS: FOLIC ACID 1 MG TAB PO SCH (09:00)
[2017-09-20] MEDS: HYDRALAZINE HCL 25 MG TAB PO SCH (09:00)
[2017-09-20] MEDS: CARVEDILOL 12.5 MG TAB PO SCH (09:00)
[2017-09-20] MEDS: PRAVASTATIN 20 MG TAB PO SCH (09:00)
[2017-09-20] MEDS: AMLODIPINE BESYLATE 10 MG TAB PO SCH (09:00)
[2017-09-20] MEDS: LORATADINE 10 MG TAB PO SCH (09:00)
[2017-09-20] MEDS: FERROUS SULFATE 325 MG TAB PO SCH (09:00)
[2017-09-20] MEDS ORDERED: GLIMEPIRIDE2 MG PO ×2 (09:42→09:43)
[2017-09-20 12:00] VITALS: BP 158/67
[2017-09-23] MEDS ORDERED: EPOETIN ALFA 10000 UNIT/ML VIAL SC SCH (09:00)
== END 2017-09-20 14:58 | disposition home or self-care (01) | DRG 291 ==
LOC: ER 17:20 → ERHOLD 18:52 → MED/SURG2 21:00
PROVIDERS: ADMIT Internal Medicine; ATTEND Internal Medicine
PROC: 30233N1 Transfusion of Nonautologous Red Blood Cells into Peripheral Vein, Percutaneous Approach (ICD-10-PCS; principal; 2017-09-15)
DX: I13.2 Hypertensive heart and chronic kidney disease with heart failure and with stage 5 chronic kidney disease, or end stage renal disease (principal); I50.33 Acute on chronic diastolic (congestive) heart failure; N17.9 Acute kidney failure, unspecified; E11.22 Type 2 diabetes mellitus with diabetic chronic kidney disease; E11.51 Type 2 diabetes mellitus with diabetic peripheral angiopathy without gangrene; D59.9 Acquired hemolytic anemia, unspecified; E11.319 Type 2 diabetes mellitus with unspecified diabetic retinopathy without macular edema; N18.5 Chronic kidney disease, stage 5; D63.1 Anemia in chronic kidney disease; M19.019 Primary osteoarthritis, unspecified shoulder; I25.10 Atherosclerotic heart disease of native coronary artery without angina pectoris; D64.9 Anemia, unspecified; K30 Functional dyspepsia
CPT/HCPCS: 36415; 36430; 51700; 71045; 74176; 76770; 80048; 80053; 81001; 82270; 82550; 82553; 82570; 82607; 82746; 82948; 83540; 83690; 83735; 83880; 83970; 84100; 84156; 84166; 84300; 84443; 84466; 84484; 85025; 85610; 85730; 86160; 86850; 86900; 86920; 87086; 93005; 93306; 93970; 99284; J1200; J1940; J7030; J7050; J7799; P9016

== ENCOUNTER 2019-01-15 23:56 | Inpatient (IN) | payer OTHER ==
[~2019-01-15] VITALS: Ht 157.5 cm; Wt 58.7 kg
[~2019-01-15 23:56] MED LIST: AMLODIPINE BESY10 MG PO; CARVEDILOL12.5 MG PO; FERROUS SULFAT325 M1 PO; FOLIC ACID1 MG PO; FUROSEMIDE40 MG PO; GLIMEPIRIDE2 MG PO; HYDRALAZINE HCL25 MG PO; JANUVIA100 MG PO; LORATADINE10 MG PO; PRAVASTATIN SOD40 MG PO
[2019-01-16] VITALS (9 sets, daily range): BP systolic 144–185; BP diastolic 64–80
--- OUTSIDE RECORDS SUMMARY | 2019-01-16 | XMS REPORT | Continuity of Care Document ---
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 Name Role Phone [facility] Unavailable Unavailable Problems Problem Status Onset Date Classification Date Reported Comments Source Type 2 diabetes mellitus with other specified complication 06/27/2018 01/07/2019 [facility] DKA, ACUTE RENAL FAILURE Active 06/09/2018 [facility] SHOULDER PAIN OR INJURY Active 06/11/2013 [facility] COMPLICATIONS AFFECTING OTHER SPECIFIED BODY SYSTEMS, H Active 02/08/2012 [facility] ROUTINE SCREENING Active 08/24/2011 [facility] Anemia Active Problem 2017 [facility] Cardiomegaly Active Problem 2017 [facility] Congestive heart failure with left ventricular diastolic dysfunction Active Problem 2017 [facility] Kidney failure Active Problem 2017 [facility] Obesity Active Problem 2017 [facility] Weakness Active Problem 2017 [facility] Diabetes mellitus type 2 Active Problem 01/07/2019 [facility] HTN - Hypertension Active Problem 01/07/2019 [facility] Hyperlipidemia Active Problem 01/07/2019 [facility] Acute kidney failure, unspecified 01/07/2019 [facility] Gas gangrene 01/07/2019 [facility] Osteomyelitis, unspecified 01/07/2019 [facility] Non-pressure chronic ulcer of left heel and midfoot with unspecified severity 01/07/2019 [facility] Non-pressure chronic ulcer of right heel and midfoot with unspecified severity 01/07/2019 [facility] Hypertensive heart and chronic kidney disease with heart failure and with stage 5 chronic kidney disease, or end stage renal disease 01/07/2019 [facility] Hypo-osmolality and hyponatremia 01/07/2019 [facility] Acidosis 01/07/2019 [facility] Type 2 diabetes mellitus with diabetic peripheral angiopathy with gangrene 01/07/2019 [facility] Cutaneous abscess of left foot 01/07/2019 [facility] Cellulitis of left lower limb 01/07/2019 [facility] Type 2 diabetes mellitus with foot ulcer 01/07/2019 [facility] Type 2 diabetes mellitus with diabetic nephropathy 01/07/2019 [facility] Type 2 diabetes mellitus with hyperglycemia 01/07/2019 [facility] End stage renal disease 01/07/2019 [facility] Type 2 diabetes mellitus with unspecified diabetic retinopathy without macular edema 01/07/2019 [facility] Heart failure, unspecified 01/07/2019 [facility] Hyperlipidemia, unspecified 01/07/2019 [facility] Type 2 diabetes mellitus with diabetic polyneuropathy 01/07/2019 [facility] Patient's noncompliance with other medical treatment and regimen 01/07/2019 [facility] Personal history of nicotine dependence 01/07/2019 [facility] Hypokalemia 01/07/2019 [facility] [employer] use of insulin 01/07/2019 [facility] Type 2 diabetes mellitus with diabetic chronic kidney disease 01/07/2019 [facility] ACUTE KIDNEY FAILURE, UNSPECIFIED Active [facility] SINGLE LIVEBORN INFANT, DELIVERED VAGINA Active [facility] Medications Medication Details Route Status Patient Instructions Ordering Provider Order Date Source Doxycycline 150 MG Oral Capsule 150 mg=1 cap, PO, BID, X 10 day, # 84 cap, 0 Refill(s), Pharmacy: [facility] [id number] No Longer Active 06/20/2018 [facility] Ciprofloxacin 500 MG Oral Tablet [Cipro] 500 mg=1 tab, PO, Q12H, # 84 tab, 0 Refill(s), Pharmacy: [facility] [id number] Inactive 06/20/2018 [facility] Hydralazine 10 mg, 0.5 mL, Route: IV, Drug form: INJ, ONCE, Dosing Weight 71.727, kg, Start date: 06/18/18 15:41:00 PROPERTY MASTER, Stop date: 06/18/18 15:41:00 CSTNotes: (Same as: Apresoline) Push over 5 minutes Inactive 06/18/2018 [facility] Acetaminophen 325 MG / Hydrocodone Bitartrate 7.5 MG Oral Tablet [[place] 7.5/325] 1 tab, Route: PO, Drug Form: TAB, Dosing Weight 71.727, kg, Q6H, PRN Pain Score 4-6, Start date: 06/16/18 11:53:00 PROPERTY MASTER, Duration: 30 day, Stop date: 07/16/18 11:52:00 CSTNotes: Same as [place] 325-7.5mg Do not exceed 4gm/day of acetaminophen. No Longer Active 06/16/2018 [facility] Oxycodone 5 mg, 1 tab, Route: PO, Drug form: TAB, Q4H, Dosing Weight 71.727, kg, PRN Pain Score 4-6, Start date: 06/15/18 16:21:00 PROPERTY MASTER, Duration: 30 day, Stop date: 07/15/18 16:20:00 CSTNotes: (Same as: Roxicodone) No Longer Active 06/15/2018 [facility] Acetaminophen 1,000 mg, 2 tab, Route: PO, Drug form: TAB, ONCE, Dosing Weight 71.727, kg, PRN Pain Score 1-3, Start date: 06/15/18 16:21:00 CSTNotes: Max acetaminophen 4000 mg/day (4 gm/day). (Same as: Tylenol Extra Strength) No Longer Active 06/15/2018 [facility] Labetalol 10 mg, 2 mL, Route: IVP, Drug form: INJ, Q5Min, Dosing Weight 71.727, kg, PRN Elevated BP, Start date: 06/15/18 16:21:00 PROPERTY MASTER, Duration: 5 doses or times, Stop date: Limited # of timesNotes: (Same as: No rmodyne, Trandate) Push over 2 minutes Give bolus over 2-3 minutes. No Longer Active 06/15/2018 [facility] Hydralazine 10 mg, 0.5 mL, Route: IVP, Drug form: INJ, Q20Min, Dosing Weight 71.727, kg, PRN Elevated BP, Start date: 06/15/18 16:21:00 PROPERTY MASTER, Duration: 2 doses or times, Stop date: Limited # of timesNotes: (Same as: Apresoline) Push over 5 minutes No Longer Active 06/15/2018 [facility] Ondansetron 4 mg, 2 mL, Route: IVP, Drug form: INJ, ONCE, Dosing Weight 71.727, kg, PRN Nausea & Vomiting, Start date: 06/15/18 16:21:00 CSTNotes: (Same as: Zofran) MEDICATION WASTE Product Size: 4 mg Product Wasted: ___ mg No Longer Active 06/15/2018 [facility] Diphenhydramine 12.5 mg, 0.25 mL, Route: IVP, Drug form: INJ, Q6H, Dosing Weight 71.727, kg, PRN Itching, Start date: 06/15/18 16:21:00 PROPERTY MASTER, Duration: 30 day, Stop date: 07/15/18 16:20:00 CSTNotes: (Same as: Manasa caballero) No Longer Active 06/15/2018 [facility] Naloxone 0.4 mg, 1 mL, Route: IVP, Drug form: INJ, Q2MIN, Dosing Weight 71.727, kg, PRN Narcotic Reversal, Start date: 06/15/18 16:21:00 PROPERTY MASTER, Duration: 8 doses or times, Stop date: Limited # of timesNotes: Same as Narcan No Longer Active 06/15/2018 [facility] Flumazenil 0.2 mg, 2 mL, Route: IVP, Drug form: INJ, PRN, Dosing Weight 71.727, kg, PRN Benzodiazepine Reversal, Initial dose, Start date: 06/15/18 16:21:00 PROPERTY MASTER, Duration: 30 day, Stop date: 07/15/18 16:20:00 C STNotes: (Same as: Romazicon) No Longer Active 06/15/2018 [facility] Fentanyl 50 microgram, 1 mL, Route: IVP, Drug form: INJ, Q5Min, Dosing Weight 71.727, kg, PRN Pain Score 7-10, Priority: Routine, Start date: 06/15/18 16:21:00 PROPERTY MASTER, Duration: 2 doses or times, Stop date: Limited # of timesNotes: (Same as: Sublimaze) Preservative free. No Longer Active 06/15/2018 [facility] Hydromorphone 0.5 mg, 0.5 mL, Route: IVP, Drug form: SOLN, Q5Min, Dosing Weight 71.727, kg, PRN Pain Score 7-10, Start date: 06/15/18 16:21:00 PROPERTY MASTER, Duration: 4 doses or times, Stop date: Limited # of timesNotes: ( Same as: Dilaudid) No Longer Active 06/15/2018 [facility] phenylephrine (ANES) Route: IV, Drug form: INJ, ONCE, Stop date: 06/15/18 16:03:00 PROPERTY MASTER Inactive 06/15/2018 [facility] metoclopramide (ANES) Route: IV, Drug form: INJ, ONCE, Stop date: 06/15/18 15:48:00 PROPERTY MASTER Inactive 06/15/2018 [facility] propofol (ANES) Route: IV, Drug form: INJ, ONCE, Stop date: 06/15/18 15:48:00 PROPERTY MASTER Inactive 06/15/2018 [facility] fentaNYL (ANES) Route: IV, Drug form: INJ, ONCE, Stop date: 06/15/18 15:48:00 PROPERTY MASTER Inactive 06/15/2018 [facility] lidocaine (ANES) Route: IV, Drug form: INJ, ONCE, Stop date: 06/15/18 15:48:00 PROPERTY MASTER Inactive 06/15/2018 [facility] ondansetron (ANES) Route: IV, Drug form: INJ, ONCE, Stop date: 06/15/18 15:48:00 PROPERTY MASTER Inactive 06/15/2018 [facility] midazolam (ANES) Route: IV, Drug form: SOLN, ONCE, Stop date: 06/15/18 15:43:00 PROPERTY MASTER Inactive 06/15/2018 [facility] Sodium Chloride 0.9% IV (ANES) 1000 mL Route: IV, Total Volume: 1,000, Start date: 06/15/18 14:58:00 PROPERTY MASTER, Stop date: 06/15/18 15:58:00 PROPERTY MASTER Inactive 06/15/2018 [facility] NS 500 mL 500 mL, Rate: 10 ml/hr, Infuse over: 50 hr, Route: IV, Dosing Weight 71.727 kg, Total Volume: 500, Start date: 06/15/18 13:53:00 PROPERTY MASTER, Duration: 1 day, Stop date: 06/16/18 13:52:00 PROPERTY MASTER, 1.78, m2 No Longer Active 06/15/2018 [facility] Clonidine 0.1 mg, 1 tab, Route: PO, Drug form: TAB, Q6H, Dosing Weight 71.727, kg, PRN Elevated BP, Start date: 06/14/18 6:40:00 PROPERTY MASTER, Duration: 30 day, Stop date: 07/14/18 6:39:00 CSTNotes: (Same As: Catapres) No Longer Active 06/14/2018 [facility] Lasix 40 mg, 4 mL, Route: IVP, Drug form: INJ, ONCE, Dosing Weight 71.727, kg, Start date: 06/13/18 17:48:00 PROPERTY MASTER, Stop date: 06/13/18 17:48:00 CSTNotes: (Same as: Lasix) MEDICATION WASTE Product Size: 40 mg Product Wasted: ___ mg Inactive 06/13/2018 [facility] Potassium Chloride 40 mEq, 2 tab, Route: PO, Drug form: ERTAB, ONCE, Dosing Weight 71.727, kg, Start date: 06/12/18 16:21:00 PROPERTY MASTER, Stop date: 06/12/18 16:21:00 CSTNotes: (Same as: K-Dur 20) "Do Not Crush" Give with food and full glass of water For patients unable to swallow tablet, dissolve in one half glass of water. Allow about 2 minutes for the tablets to disintegrate. Stir before giving to prepare slurry and administer. Please exclude Patients with feeding tube less than 14 Swedish (Dobhoff, J-tube etc) and pediatric and patients. Inactive 06/12/2018 [facility] Zyvox 600 mg, 1 tab, Route: PO, Drug form: TAB, [id number], Dosing Weight 71.727, kg, Start date: 06/12/18 12:00:00 PROPERTY MASTER, Duration: 10 day, Stop date: 06/22/18 0:00:00 PROPERTY MASTER, ABX Indication: Bone/Joint InfectionNotes: Protect from light. (Same as: Zyvox) No Longer Active 06/12/2018 [facility] Acetaminophen 325 MG / Hydrocodone Bitartrate 5 MG Oral Tablet [[place] 5/325] 1 tab, Route: PO, Drug Form: TAB, Dosing Weight 71.727, kg, Q8H, PRN Pain Score 7-10, Start date: 06/11/18 19:56:00 PROPERTY MASTER, Duration: 30 day, Stop date: 07/11/18 19:55:00 CSTNotes: (Same as: [place] 325/5) Do not exceed 4gm/day of acetaminophen. No Longer Active 06/12/2018 [facility] Vancomycin Dosing Protocol Vancomycin Dosing Protocol, Reminder, Drug form: MISC, Route: MISC, Continuous, 06/11/18 13:30:00 PROPERTY MASTER, Duration: 30 day, Stop date: 07/11/18 13:29:00 PROPERTY MASTER No Longer Active 06/11/2018 [facility] Ceftriaxone 1 gm, Route: IVP, [id number], Dosing Weight 71.727, kg, Start date: 06/11/18 11:00:00 PROPERTY MASTER, Duration: 14 day, Stop date: 06/24/18 11:00:00 PROPERTY MASTER, ABX Indication: Bone/Joint InfectionNotes: (Same As: Rocephin). Use with 100 mL NS and infuse over 30 min MEDICATION WASTE Product Size: 1000 mg Product Wasted: ___ mg No Longer Active 06/11/2018 [facility] Vancomycin 1 ea, Route: MISC, ONCALL, Dosing Weight 71.727, kg, Start date: 06/11/18 11:00:00 PROPERTY MASTER, Duration: 14 day, Stop date: 06/25/18 10:59:00 PROPERTY MASTER, Pharmacy to dose, ABX Indication: Bone/Joint Infection Inactive 06/11/2018 [facility] Pravastatin 40 mg, 2 tab, Route: PO, Drug form: TAB, Daily, Dosing Weight 71.727, kg, Start date: 06/11/18 9:00:00 PROPERTY MASTER, Duration: 30 day, Stop date: 07/10/18 21:00:00 CSTNotes: (Same as: Pravachol) No Longer Active 06/11/2018 [facility] gabapentin 100 MG Oral Capsule 100 mg, 1 cap, Route: PO, Drug form: CAP, BID, Dosing Weight 71.727, kg, Start date: 06/11/18 9:00:00 PROPERTY MASTER, Duration: 30 day, Stop date: 07/10/18 17:00:00 PROPERTY MASTER No Longer Active 06/11/2018 [facility] Famotidine 40 mg, Route: PO, BID, Dosing Weight 71.727, kg, Start date: 06/11/18 9:00:00 PROPERTY MASTER, Duration: 30 day, Stop date: 07/10/18 17:00:00 PROPERTY MASTER No Longer Active 06/11/2018 [facility] Neurontin 50 mg, 1 mL, Route: PO, Drug form: SOLN, Q24H, Start date: 06/10/18 22:00:00 PROPERTY MASTER, Duration: 30 day, Stop date: 07/09/18 22:00:00 CSTNotes: (Same as: Neurontin) No Longer Active 06/11/2018 [facility] famotidine 20 mg, 1 tab, Route: PO, Drug form: TAB, Q24H, Start date: 06/10/18 22:00:00 PROPERTY MASTER, Duration: 30 day, Stop date: 07/09/18 22:00:00 CSTNotes: (Same as: Pepcid) No Longer Active 06/11/2018 [facility] Hydralazine Hydrochloride 50 MG Oral Tablet 50 mg, 1 tab, Route: PO, Drug form: TAB, BID, Dosing Weight 71.727, kg, Start date: 06/10/18 21:30:00 PROPERTY MASTER, Duration: 30 day, Stop date: 07/10/18 17:00:00 CSTNotes: (Same as: Apresoline) May interfere w/enteral feedings Take With Food No Longer Active 06/11/2018 [facility] carvedilol 25 mg, 2 tab, Route: PO, Drug form: TAB, BID, Dosing Weight 71.727, kg, Start date: 06/10/18 21:30:00 PROPERTY MASTER, Duration: 30 day, Stop date: 07/10/18 21:00:00 CSTNotes: Give with food. (Same As: Coreg) No Longer Active 06/11/2018 [facility] Glucagon 1 mg, Route: IM, PRN, Dosing Weight 71.727, kg, PRN Blood Glucose Results, Start date: 06/10/18 20:52:00 PROPERTY MASTER, Duration: 30 day, Stop date: 07/10/18 20:51:00 PROPERTY MASTER Inactive 06/11/2018 [facility] Dextrose 50% Syringe 50 mL, Route: IVP, Dosing Weight 71.727, kg, PRN, PRN Blood Glucose Results, Start date: 06/10/18 20:52:00 PROPERTY MASTER, Duration: 30 day, Stop date: 07/10/18 20:51:00 PROPERTY MASTER Inactive 06/11/2018 [facility] Insulin Lispro 2 unit, 0.02 mL, Route: SUB-Q, Drug form: SOLN, TID-Before Meals, Dosing Weight 71.727, kg, PRN Blood Glucose Results, Start date: 06/10/18 20:52:00 PROPERTY MASTER, Duration: 30 day, Stop date: 07/10/18 20:51:0 0 CSTNotes: (Same as: Humalog ) Roll in palms of hands gently; Do not shake `vigorously. "Single Patient Use Only " WASTE: F/P - Black; E - Municipal Trash Bin Stable for 28 days at room temperature. Expires in days from Date No Longer Active 06/11/2018 [facility] Vancomycin 1,000 mg, Route: IVPB, [id number], Dosing Weight 71.727, kg, Start date: 06/10/18 14:00:00 PROPERTY MASTER, Duration: 1 day, Stop date: 06/10/18 14:00:00 PROPERTY MASTER, ABX Indication: Bone/Joint InfectionNotes: TIME CRITICAL MEDICATION (Same As: Vancocin) Infusion rate 2001 mg: infuse over 2.5 hours For adult patients only: Round to nearest 250 mg per Medical Staff approval MEDICATION WASTE Product Size: 1000 mg Product Wasted: ___ mg Inactive 06/10/2018 [facility] Sodium Bicarbonate 650 mg, 1 tab, Route: PO, Drug form: TAB, TID, Dosing Weight 71.727, kg, Start date: 06/10/18 13:00:00 PROPERTY MASTER, Duration: 30 day, Stop date: 07/10/18 9:00:00 CSTNotes: "Dissolve tablet in a glass of water prior to oral administration. STOMACH WARNING: To avoid serious injury, do not take until tablet is completely dissolved. It is very important not to take this product when overly full from food or drink." No Longer Active 06/10/2018 [facility] Docusate 100 mg, 1 cap, Route: PO, Drug form: CAP, BID, Dosing Weight 71.727, kg, Start date: 06/10/18 9:00:00 PROPERTY MASTER, Duration: 30 day, Stop date: 07/09/18 17:00:00 CSTNotes: (Same as: Colace) (Do Not Crush) No Longer Active 06/10/2018 [facility] gabapentin 100 MG Oral Capsule 100 mg=1 cap, PO, BID, 0 Refill(s) Active 06/10/2018 [facility] Famotidine 40 mg, PO, BID, # 60 tab, 0 Refill(s) Active 06/10/2018 [facility] glimepiride 1 mg oral tablet 1 mg=1 tab, PO, Daily, 0 Refill(s) Active 06/10/2018 [facility] pravastatin 40 mg oral tablet 40 mg=1 tab, PO, Daily, 0 Refill(s) Active 06/10/2018 [facility] carvedilol 25 mg, PO, BID, 0 Refill(s) Active 06/10/2018 [facility] Hydralazine Hydrochloride 50 MG Oral Tablet 50 mg=1 tab, PO, BID, 0 Refill(s) Active 06/10/2018 [facility] Folic Acid 1 MG Oral Tablet 1 mg=1 tab, PO, Daily, 0 Refill(s) Active 06/10/2018 [facility] Furosemide 40 MG Oral Tablet 40 mg=1 tab, PO, Q8H, 0 Refill(s) Active 06/10/2018 [facility] Streptococcus pneumoniae serotype 1 capsular antigen diphtheria [id number] protein conjugate vaccine / Streptococcus pneumoniae serotype 14 capsular antigen diphtheria [id number] protein conjugate vaccine / Streptococcus pneumoniae serotype 18C capsular antigen d 0.5 mL, Route: IM, Drug Form: INJ, ONCALL, Start date: 06/10/18 1:56:07 PROPERTY MASTER, Stop date: 07/10/18 1:51:07 CSTNotes: Shake well prior to use (Same as: Prevnar 13) No Longer Active 06/10/2018 [facility] cefepime 1 gm, Route: IVPB, [id number], Dosing Weight 71.727, kg, (CrCl Notes: (Same As: Maxipime) MEDICATION WASTE Product Size: 1000 mg Product Wasted: ___ mg No Longer Active 06/10/2018 [facility] Clindamycin 600 mg, 50 mL, Route: IVPB, Drug form: INJ, [id number], Dosing Weight 71.727, kg, Start date: 06/10/18 1:00:00 PROPERTY MASTER, Duration: 7 day, Stop date: 06/16/18 17:00:00 PROPERTY MASTER, ABX Indication: Skin/Soft Tissue Inf ection No Longer Active 06/10/2018 [facility] Dextrose 50% Syringe 25 gm, Route: IVP, Dosing Weight 71.727, kg, ONCE, STAT, Start date: 06/10/18 0:39:00 PROPERTY MASTER, Stop date: 06/10/18 0:39:00 PROPERTY MASTER Inactive 06/10/2018 [facility] Insulin Lispro 4 unit, 0.04 mL, Route: SUB-Q, Drug form: SOLN, Bedtime, Dosing Weight 71.727, kg, PRN Blood Glucose Results, Start date: 06/10/18 0:27:00 PROPERTY MASTER, Duration: 30 day, Stop date: 07/10/18 0:26:00 CSTNotes: (S kris as: Humalog ) Roll in palms of hands gently; Do not shake `vigorously. "Single Patient Use Only " WASTE: F/P - Black; E - Municipal Trash Bin Stable for 28 days at room temperature. Expires in days from Date No Longer Active 06/10/2018 [facility] Dextrose 50% Syringe 25 gm, 50 mL, Route: IVP, Drug Form: INJ, Dosing Weight 71.727, kg, PRN, PRN Blood Glucose Results, Start date: 06/10/18 0:27:00 PROPERTY MASTER, Duration: 30 day, Stop date: 07/10/18 0:26:00 PROPERTY MASTER No Longer Active 06/10/2018 [facility] Glucagon 1 mg, Route: IM, Drug form: PDR/INJ, PRN, Dosing Weight 71.727, kg, PRN Blood Glucose Results, Start date: 06/10/18 0:27:00 PROPERTY MASTER, Duration: 30 day, Stop date: 07/10/18 0:26:00 PROPERTY MASTER Inactive 06/10/2018 [facility] NS 1,000 mL 1,000 mL, Rate: 75 ml/hr, Infuse over: 13.3 hr, Route: IV, Dosing Weight 71.727 kg, Total Volume: 1,000, Start date: 06/10/18 0:23:00 PROPERTY MASTER, Duration: 30 day, Stop date: 07/10/18 0:22:00 PROPERTY MASTER, 1.78, m2 No Longer Active 06/10/2018 [facility] Dextrose 50% Syringe 12.5 gm, 25 mL, Route: IVP, Drug Form: INJ, Dosing Weight 71.727, kg, PRN, PRN Blood Glucose Results, Start date: 06/10/18 0:20:00 PROPERTY MASTER, Duration: 30 day, Stop date: 07/10/18 0:19:00 PROPERTY MASTER No Longer Active 06/10/2018 [facility] Acetaminophen 650 mg, 2 tab, Route: PO, Drug form: TAB, Q4H, Dosing Weight 71.727, kg, PRN For Temp > 100.4 F, Start date: 06/10/18 0:20:00 PROPERTY MASTER, Duration: 30 day, Stop date: 07/10/18 0:19:00 CSTNotes: Do not exceed 4 gm/day. (Same as: Tylenol) No Longer Active 06/10/2018 [facility] Glucagon 1 mg, Route: IM, Drug form: PDR/INJ, PRN, Dosing Weight 71.727, kg, PRN Blood Glucose Results, Start date: 06/10/18 0:20:00 PROPERTY MASTER, Duration: 30 day, Stop date: 07/10/18 0:19:00 PROPERTY MASTER No Longer Active 06/10/2018 [facility] Glimepiride 2 Mg Tablet, 4 Mg Oral Active 2017 [facility] [place] 5/325 oral tablet 1-2 tab, PO, Q4-6H, Pain, # 15 tab, 0 Refill(s) Active Surgient 06/12/2013 [facility] Zofran 4 mg, Route: IVP, Drug form: INJ, ONCE, Dosing Weight 81.818, kg, Priority: STAT, Start date: 06/11/13 20:36:00, Stop date: 06/11/13 20:36:00 Inactive Surgient 06/12/2013 [facility] morphine Sulfate 4 mg, Route: IVP, Drug form: INJ, ONCE, Dosing Weight 81.818, kg, Priority: STAT, Start date: 06/11/13 20:35:00, Stop date: 06/11/13 20:35:00 Inactive Surgient 06/12/2013 [facility] Amlodipine Besylate 10 Mg Tablet Daily Active [facility] Carvedilol 12.5 Mg Tablet Twice A Day Active [facility] Ferrous Sulfate 325 Mg Tablet.dr Daily Active [facility] Folic Acid 1 Mg Tablet Daily Active [facility] Furosemide 40 Mg Tablet Daily Active [facility] Glimepiride 2 Mg Tablet Daily Active [facility] Hydralazine Hcl 25 Mg Tab Active [facility] Loratadine 10 Mg Tablet Daily Active [facility] Pravastatin Sodium 40 Mg Tablet Daily Active [facility] Sitagliptin Phosphate (Januvia) 100 Mg Tablet Daily Active [facility] Allergies, Adverse Reactions, Alerts Substance Category Reaction Severity Reaction type Status Date Reported Comments Source No Known Medication Allergies Assertion Drug allergy [facility] Immunizations Immunization Date Given Site Status Last Updated Comments Source influenza virus vaccine, inactivated 06/21/2018 Left Deltoid completed Ty [facility] Results Order Name Results Value Reference Range Date Interpretation Comments Source CHEM PANEL eGFR 10 06/20/2018 Result Comment: The eGFR is calculated using the CKD-EPI formula. In most young, healthy individuals the eGFR will be >90 mL/min/1.73m2. The eGFR declines with age. An eGFR of 60-89 may be normal in some populations, particularly the elderly, for whom the CKD-EPI formula has not been extensively validated. Use of the eGFR is not recommended in the following populations:

Individuals with unstable creatinine concentrations, including patients and those with serious co-morbid conditions.

Patients with extremes in muscle mass or diet.

The data above are obtained from the National Kidney Disease Education Program (NKDEP) which additionally recommends that when the eGFR is used in patients with extremes of body mass index for purposes of drug dosing, the eGFR should be multiplied by the estimated BMI. [facility] CHEM PANEL AGAP 14.5 10.0 - 20.0 06/20/2018 [facility] CHEM PANEL Calcium Lvl 8.1 8.5 - 10.5 06/20/2018 [facility] CHEM PANEL CO2 19 24 - 32 06/20/2018 [facility] CHEM PANEL Chloride Lvl 104 95 - 109 06/20/2018 [facility] CHEM PANEL Potassium Lvl 3.5 3.5 - 5.1 06/20/2018 [facility] CHEM PANEL Creatinine Lvl 4.84 0.50 - 1.40 06/20/2018 [facility] CHEM PANEL BUN 53 7 - 22 06/20/2018 [facility] CHEM PANEL Sodium Lvl 134 135 - 145 06/20/2018 [facility] CHEM PANEL Glucose Lvl 156 70 - 99 06/20/2018 [facility] CHEM PANEL eGFR 10 06/19/2018 Result Comment: The eGFR is calculated using the CKD-EPI formula. In most young, healthy individuals the eGFR will be >90 mL/min/1.73m2. The eGFR declines with age. An eGFR of 60-89 may be normal in some populations, particularly the elderly, for whom the CKD-EPI formula has not been extensively validated. Use of the eGFR is not recommended in the following populations:

Individuals with unstable creatinine concentrations, including patients and those with serious co-morbid conditions.

Patients with extremes in muscle mass or diet.

The data above are obtained from the National Kidney Disease Education Program (NKDEP) which additionally recommends that when the eGFR is used in patients with extremes of body mass index for purposes of drug dosing, the eGFR should be multiplied by the estimated BMI. [facility] CHEM PANEL Chloride Lvl 107 95 - 109 06/19/2018 [facility] CHEM PANEL Sodium Lvl 140 135 - 145 06/19/2018 [facility] CHEM PANEL Creatinine Lvl 4.94 0.50 - 1.40 06/19/2018 [facility] CHEM PANEL BUN 56 7 - 22 06/19/2018 [facility] CHEM PANEL AGAP 17.7 10.0 - 20.0 06/19/2018 [facility] CHEM PANEL Calcium Lvl 7.9 8.5 - 10.5 06/19/2018 [facility] CHEM PANEL CO2 19 24 - 32 06/19/2018 [facility] CHEM PANEL Potassium Lvl 3.7 3.5 - 5.1 06/19/2018 [facility] CHEM PANEL Glucose Lvl 142 70 - 99 06/19/2018 [facility] CHEM PANEL eGFR 9 06/18/2018 Result Comment: The eGFR is calculated using the CKD-EPI formula. In most young, healthy individuals the eGFR will be >90 mL/min/1.73m2. The eGFR declines with age. An eGFR of 60-89 may be normal in some populations, particularly the elderly, for whom the CKD-EPI formula has not been extensively validated. Use of the eGFR is not recommended in the following populations:

Individuals with unstable creatinine concentrations, including patients and those with serious co-morbid conditions.

Patients with extremes in muscle mass or diet.

The data above are obtained from the National Kidney Disease Education Program (NKDEP) which additionally recommends that when the eGFR is used in patients with extremes of body mass index for purposes of drug dosing, the eGFR should be multiplied by the estimated BMI. [facility] CHEM PANEL AGAP 15.8 10.0 - 20.0 06/18/2018 [facility] CHEM PANEL CO2 18 24 - 32 06/18/2018 [facility] CHEM PANEL Calcium Lvl 7.7 8.5 - 10.5 06/18/2018 [facility] CHEM PANEL Chloride Lvl 107 95 - 109 06/18/2018 [facility] CHEM PANEL Potassium Lvl 3.8 3.5 - 5.1 06/18/2018 [facility] CHEM PANEL Sodium Lvl 137 135 - 145 06/18/2018 [facility] CHEM PANEL Creatinine Lvl 5.10 0.50 - 1.40 06/18/2018 [facility] CHEM PANEL BUN 58 7 - 22 06/18/2018 [facility] CHEM PANEL Glucose Lvl 117 70 - 99 06/18/2018 [facility] HEMATOLOGY Lymphocytes # 0.5 1.0 - 5.5 06/16/2018 [facility] HEMATOLOGY Monocytes # 1.6 0.0 - 0.8 06/16/2018 [facility] HEMATOLOGY Basophils # 0.1 0.0 - 0.2 06/16/2018 [facility] HEMATOLOGY Eosinophils 0.1 0.0 - 4.0 06/16/2018 [facility] HEMATOLOGY Monocytes 8.0 2.0 - 12.0 06/16/[address] [facility] Neutrophils # 17.9 1.5 - 8.1 06/16/[address] [facility] Basophils 0.3 0.0 - 1.0 06/16/2018 [facility] HEMATOLOGY Segs 89.1 45.0 - 75.0 06/16/[address] [facility] Lymphocytes 2.5 20.0 - 40.0 06/16/[address] [facility] RDW 15.5 11.5 - 14.5 06/16/[address] [facility] MCHC 31.6 32.0 - 36.0 06/16/[address] [facility] MPV 7.6 7.4 - 10.4 06/16/[address] [facility] Platelet 303 133 - 450 06/16/[address] [facility] Hgb 9.3 12.0 - 16.0 06/16/[address] [facility] RBC 3.32 4.20 - 5.40 06/16/2018 [facility] HEMATOLOGY WBC 20.1 3.7 - 10.4 06/16/2018 [facility] HEMATOLOGY MCV 88.1 80.0 - 98.0 06/16/2018 [facility] HEMATOLOGY Hct 29.3 36.0 - 48.0 06/16/2018 [facility] HEMATOLOGY MCH 27.8 27.0 - 31.0 06/16/2018 [facility] IMIPENEM:SUSC:PT:ISOLATE:ORDQN:KERVIN Gram Stain Report Many Gram Negative Rods Many Gram Positive Cocci Many Wbc 06/15/2018 [facility] IMIPENEM:SUSC:PT:ISOLATE:ORDQN:KERVIN Culture: Wound/Abscess w/Gram Stain Many Citrobacter Freundii Complex Growth In Subculture Broth Only : Enterococcus Species Many Pseudomonas aeruginosa Refer To Culture # [id number], collected on 06/15/18 For Susceptibility Results 06/15/2018 [facility] IMIPENEM:SUSC:PT:ISOLATE:ORDQN:KERVIN Citrobacter Freundii Complex Citrobacter Freundii Complex 06/15/2018 [facility] Culture: Anaerobic No Anaerobes Isolated 06/15/2018 [facility] Culture: Anaerobic Many Prevotella Species Beta Lactamase Negative . Many Bacteroides Species Beta Lactamase Positive 06/15/2018 [facility] CEFEPIME:SUSC:PT:ISOLATE:ORDQN:KERVIN Gram Stain Report Few Wbc'S; Moderate Gram Positive Cocci 06/15/2018 [facility] CEFEPIME:SUSC:PT:ISOLATE:ORDQN:KERVIN Culture: Wound/Abscess w/Gram Stain Few Pseudomonas aeruginosa Moderate Enterococcus Species . Few Yeast 06/15/2018 [facility] CEFEPIME:SUSC:PT:ISOLATE:ORDQN:KERVIN Enterococcus Species Enterococcus Species 06/15/2018 [facility] CEFEPIME:SUSC:PT:ISOLATE:ORDQN:KERVIN Pseudomonas aeruginosa Pseudomonas aeruginosa 06/15/2018 [facility] BLOOD BANK RESULTS ABO/Rh B POS 06/15/2018 [facility] BLOOD BANK RESULTS Antibody Scrn Negative (06/15/18 7:13 AM) 06/15/2018 [facility] HEMATOLOGY Eosinophils # 0.1 0.0 - 0.5 06/15/2018 [facility] HEMATOLOGY Monocytes # 1.5 0.0 - 0.8 06/15/2018 [facility] HEMATOLOGY Basophils # 0.1 0.0 - 0.2 06/15/2018 [facility] HEMATOLOGY Lymphocytes # 0.7 1.0 - 5.5 06/15/2018 [facility] HEMATOLOGY Basophils 0.3 0.0 - 1.0 06/15/2018 [facility] HEMATOLOGY Neutrophils # 15.0 1.5 - 8.1 06/15/2018 [facility] HEMATOLOGY Segs 86.0 45.0 - 75.0 06/15/2018 [facility] HEMATOLOGY Lymphocytes 4.1 20.0 - 40.0 06/15/2018 [facility] HEMATOLOGY Monocytes 8.7 2.0 - 12.0 06/15/2018 [facility] HEMATOLOGY Eosinophils 0.9 0.0 - 4.0 06/15/[address] [facility] MCHC 32.0 32.0 - 36.0 06/15/[address] [facility] RDW 15.3 11.5 - 14.5 06/15/[address] [facility] Platelet 365 133 - 450 06/15/[address] [facility] MPV 7.6 7.4 - 10.4 06/15/[address] [facility] WBC 17.4 3.7 - 10.4 06/15/[address] [facility] MCV 87.5 80.0 - 98.0 06/15/[address] [facility] MCH 28.0 27.0 - 31.0 06/15/[address] [facility] RBC 3.34 4.20 - 5.40 06/15/[address] [facility] Hgb 9.3 12.0 - 16.0 06/15/[address] [facility] Hct 29.2 36.0 - 48.0 06/15/[address] [facility] Basophils # 0.1 0.0 - 0.2 06/14/[address] [facility] Lymphocytes # 0.7 1.0 - 5.5 06/14/[address] [facility] Eosinophils # 0.1 0.0 - 0.5 06/14/[address] [facility] Monocytes # 1.7 0.0 - 0.8 06/14/[address] [facility] Plt Morph Normal (06/14/18 5:45 AM) 06/14/2018 [facility] HEMATOLOGY RBC Morph Normal (06/14/18 5:45 AM) 06/14/[address] [facility] Monocytes 9.1 2.0 - 12.0 06/14/[address] [facility] Eosinophils 0.6 0.0 - 4.0 06/14/[address] [facility] Lymphocytes 4.1 20.0 - 40.0 06/14/[address] [facility] Neutrophils # 15.6 1.5 - 8.1 06/14/2018 [facility] HEMATOLOGY Segs 85.9 45.0 - 75.0 06/14/2018 [facility] HEMATOLOGY Basophils 0.3 0.0 - 1.0 06/14/2018 [facility] HEMATOLOGY Platelet 337 133 - 450 06/14/2018 [facility] HEMATOLOGY RDW 15.3 11.5 - 14.5 06/14/2018 [facility] HEMATOLOGY Hct 29.8 36.0 - 48.0 06/14/2018 [facility] HEMATOLOGY RBC 3.43 4.20 - 5.40 06/14/2018 [facility] HEMATOLOGY Hgb 9.7 12.0 - 16.0 06/14/[address] [facility] MCV 86.8 80.0 - 98.0 06/14/[address] [facility] MPV 7.4 7.4 - 10.4 06/14/[address] [facility] MCHC 32.5 32.0 - 36.0 06/14/[address] [facility] MCH 28.2 27.0 - 31.0 06/14/2018 [facility] HEMATOLOGY WBC 18.1 3.7 - 10.4 06/14/2018 [facility] TOXICOLOGY Vanco Lvl 16.9 06/14/2018 [facility] BLOOD BANK RESULTS RBC product Product available 4 (06/13/18 2:59 PM) 06/13/2018 Result Comment: 06/13/2018 15:36 [id number]
spoke to [email or web address] on 06/13/2018 15:36 by Karri. [facility] CHEM PANEL Phosphorus 5.5 2.5 - 4.5 06/13/2018 [facility] CHEM PANEL Magnesium Lvl 1.8 1.8 - 2.4 06/13/2018 [facility] CHEM PANEL Phosphorus 5.8 2.5 - 4.5 06/12/2018 [facility] CHEM PANEL Magnesium Lvl 1.9 1.8 - 2.4 06/12/2018 [facility] HEMATOLOGY Eosinophils # 0.1 0.0 - 0.5 06/12/2018 [facility] SPECIAL CHEMISTRY Hgb A1C 6.3 <=5.6 % 06/12/2018 [facility] TOXICOLOGY Vanco Lvl 25.2 06/12/2018 [facility] ANEMIA STUDY Ferritin Lvl 839 5 - 204 06/11/2018 [facility] ANEMIA STUDY % Satur Fe 26 12 - 57 06/11/2018 [facility] ANEMIA STUDY Iron 27 30 - 160 06/11/2018 [facility] ANEMIA STUDY TIBC 104 228 - 428 06/11/2018 [facility] ANEMIA STUDY UIBC 77 110 - 370 06/11/2018 [facility] TOXICOLOGY Vanco Lvl 26.6 06/11/2018 [facility] BLOOD BANK RESULTS ABO/Rh B POS 06/11/2018 [facility] BLOOD BANK RESULTS Antibody Scrn Negative (06/11/18 9:31 AM) 06/11/2018 [facility] CHEM PANEL Magnesium Lvl 2.1 1.8 - 2.4 06/11/2018 [facility] CHEM PANEL Phosphorus 6.6 2.5 - 4.5 06/11/2018 [facility] HEMATOLOGY Anisocyte 1+ *ABN* (06/11/18 5:01 AM) None Seen 06/11/2018 [facility] HEMATOLOGY Hypochrom 1+ (06/11/18 5:01 AM) None Seen 06/11/2018 [facility] HEMATOLOGY Plt Morph Normal (06/11/18 5:01 AM) 06/11/2018 [facility] URINE AND STOOL UA Glucose 150 mg/dL Negative mg/dL 06/10/2018 [facility] URINE AND STOOL UA Protein 100 mg/dL Negative mg/dL 06/10/2018 [facility] URINE AND STOOL UA pH 5.0 5.0 - 8.0 06/10/2018 [facility] URINE AND STOOL UA Color Ltyellow 06/10/2018 [facility] URINE AND STOOL UA Turbidity Slight *ABN* (06/10/18 2:04 PM) Clear 06/10/2018 [facility] URINE AND STOOL UA RBC 3 0 - 2 06/10/2018 [facility] URINE AND STOOL UA Bacteria Occasional /HPF None Seen /HPF 06/10/2018 [facility] URINE AND STOOL UA Sq Epi Occasional /LPF Few /LPF 06/10/2018 [facility] URINE AND STOOL UA WBC 24 0 - 5 06/10/2018 [facility] URINE AND STOOL UA Leuk Est Moderate *ABN* (06/10/18 2:04 PM) Negative 06/10/2018 [facility] URINE AND STOOL UA Urobilinogen <=1.0 mg/dL 0.1 - 1.0 06/10/2018 [facility] URINE AND STOOL UA Nitrite Negative (06/10/18 2:04 PM) Negative 06/10/2018 [facility] URINE AND STOOL UA Blood Small *ABN* (06/10/18 2:04 PM) Negative 06/10/2018 [facility] URINE AND STOOL UA Ketones Negative *NA* (06/10/18 2:04 PM) Negative 06/10/2018 [facility] URINE AND STOOL UA Bili Negative *NA* (06/10/18 2:04 PM) Negative 06/10/2018 [facility] URINE AND STOOL UA Spec Grav 1.008 <=1.030 06/10/2018 [facility] URINE CHEM U Protein 94.0 06/10/2018 [facility] URINE CHEM U Creatinine 32.30 06/10/2018 [facility] URINE CHEM U Prot/Creat 2.91 06/10/2018 [facility] CHEM PANEL ALT 32 0 - 65 06/10/2018 [facility] CHEM PANEL AST 22 0 - 37 06/10/2018 [facility] CHEM PANEL Alk Phos 78 39 - 136 06/10/2018 [facility] CHEM PANEL Bili Total 0.3 0.2 - 1.3 06/10/2018 [facility] CHEM PANEL Total Protein 7.4 6.4 - 8.4 06/10/2018 [facility] CHEM PANEL Albumin Lvl 2.1 3.5 - 5.0 06/10/2018 [facility] CHEM PANEL B/C Ratio 11 6 - 25 06/10/2018 [facility] CHEM PANEL A/G Ratio 0.4 0.7 - 1.6 06/10/2018 [facility] CHEM PANEL Globulin 5.3 2.7 - 4.2 06/10/2018 [facility] Capillary blood glucose measurement by glucometer (mass/volume) Capillary blood glucose measurement by glucometer (mass/volume) 92 70 - 120 2017 [facility] Automated blood basophil count (count/volume) Automated blood basophil count (count/volume) 0.0 0.0 - 0.1 2017 [facility] Automated blood basophil count as percentage of total leukocytes Automated blood basophil count as percentage of total leukocytes 0.5 0.0 - 1.0 2017 [facility] Automated blood eosinophil count Automated blood eosinophil count 0.3 0.0 - 0.4 2017 [facility] Automated blood eosinophil count as percentage of total leukocytes Automated blood eosinophil count as percentage of total leukocytes 4.9 0.0 - 6.0 2017 [facility] Automated blood hematocrit (volume fraction) Automated blood hematocrit (volume fraction) 24.9 34.2 - 44.1 2017 [facility] Automated blood lymphocyte count as percentage ot total leukocytes Automated blood lymphocyte count as percentage ot total leukocytes 11.0 18.0 - 39.1 2017 [facility] Automated blood monocyte count as percentage of total leukocytes Automated blood monocyte count as percentage of total leukocytes 18.4 4.4 - 11.3 2017 [facility] Automated blood neutrophil count Automated blood neutrophil count 3.7 2.1 - 6.9 2017 [facility] Automated blood platelet count (count/volume) Automated blood platelet count (count/volume) 207 140 - 360 2017 [facility] Automated blood segmented neutrophil count as percentage of total leukocytes Automated blood segmented neutrophil count as percentage of total leukocytes 64.5 38.7 - 80.0 2017 [facility] Automated erythrocyte mean corpuscular hemoglobin (mass per erythrocyte) Automated erythrocyte mean corpuscular hemoglobin (mass per erythrocyte) 26.8 28 - 32 2017 [facility] Automated erythrocyte mean corpuscular hemoglobin concentration measurement (mass/volume) Automated erythrocyte mean corpuscular hemoglobin concentration measurement (mass/volume) 32.9 31 - 35 2017 [facility] Automated erythrocyte mean corpuscular volume Automated erythrocyte mean corpuscular volume 81.4 81 - 99 2017 [facility] Blood erythrocytes automated count (number/volume) Blood erythrocytes automated count (number/volume) 3.06 3.6 - 5.1 2017 [facility] Blood hemoglobin measurement (moles/volume) Blood hemoglobin measurement (moles/volume) 8.2 12.0 - 16.0 2017 [facility] Blood leukocytes automated count (number/volume) Blood leukocytes automated count (number/volume) 5.75 4.8 - 10.8 2017 [facility] Blood lymphocytes count (number/volume) Blood lymphocytes count (number/volume) 0.6 1.0 - 3.2 2017 [facility] Blood monocytes automated count (number/volume) Blood monocytes automated count (number/volume) 1.1 0.2 - 0.8 2017 [facility] Estimated glomerular filtration rate (GFR) determination Estimated glomerular filtration rate (GFR) determination 8 60 2017 [facility] Glucose measurement Glucose measurement 41 74 - 118 2017 [facility] Serum or plasma anion gap Serum or plasma anion gap 14.8 8 - 16 2017 [facility] Serum or plasma calcium measurement (mass/volume) Serum or plasma calcium measurement (mass/volume) 7.9 8.4 - 10.2 2017 [facility] Serum or plasma carbon dioxide, total measurement (moles/volume) Serum or plasma carbon dioxide, total measurement (moles/volume) 23 22 - 29 2017 [facility] Serum or plasma chloride measurement (moles/volume) Serum or plasma chloride measurement (moles/volume) 99 98 - 107 2017 [facility] Serum or plasma creatinine measurement (mass/volume) Serum or plasma creatinine measurement (mass/volume) 6.09 0.57 - 1.11 2017 [facility] Serum or plasma potassium measurement (moles/volume) Serum or plasma potassium measurement (moles/volume) 3.8 3.5 - 5.1 2017 [facility] Serum or plasma sodium measurement (moles/volume) Serum or plasma sodium measurement (moles/volume) 133 136 - 145 2017 [facility] Serum or plasma urea nitrogen measurement (mass/volume) Serum or plasma urea nitrogen measurement (mass/volume) 63 7 - 26 2017 [facility] Serum or plasma urea nitrogen/creatinine mass ratio Serum or plasma urea nitrogen/creatinine mass ratio 10 6 - 25 2017 [facility] Red Cell Distribution Width 15.9 11.7 - 14.4 2017 [facility] IM GRANULOCYTES % 0.7 0.0 - 1.0 2017 [facility] Absolute Immature Granulocyte (auto 0.04 0 - 0.1 2017 [facility] Phosphorus measurement Phosphorus measurement 5.8 2.3 - 4.7 09/19/2017 [facility] Plasma globulin measurement (mass/volume) Plasma globulin measurement (mass/volume) 3.7 2.3 - 3.5 09/19/2017 [facility] Serum or plasma alanine aminotransferase measurement (enzymatic activity/volume) Serum or plasma alanine aminotransferase measurement (enzymatic activity/volume) 21 0 - 55 09/19/2017 [facility] Serum or plasma albumin measurement (mass/volume) Serum or plasma albumin measurement (mass/volume) 3.0 3.5 - 5.0 09/19/2017 [facility] Serum or plasma albumin/globulin mass ratio Serum or plasma albumin/globulin mass ratio 0.8 0.8 - 2.0 09/19/2017 [facility] Serum or plasma alkaline phosphatase measurement (enzymatic activity/volume) Serum or plasma alkaline phosphatase measurement (enzymatic activity/volume) 76 40 - 150 09/19/2017 [facility] Serum or plasma magnesium measurement (mass/volume) Serum or plasma magnesium measurement (mass/volume) 1.9 1.3 - 2.1 09/19/2017 [facility] Serum or plasma protein measurement (mass/volume) Serum or plasma protein measurement (mass/volume) 6.7 6.5 - 8.1 09/19/2017 [facility] Serum or plasma total bilirubin measurement (mass/volume) Serum or plasma total bilirubin measurement (mass/volume) 0.4 0.2 - 1.2 09/19/2017 [facility] Aspartate Amino Transf (AST/SGOT) 23 5 - 34 09/19/2017 [facility] B-Type Natriuretic Peptide 1274.1 0 - 100 09/19/2017 [facility] Blood cobalamin (vitamin B12) measurement (mass/volume) Blood cobalamin (vitamin B12) measurement (mass/volume) >2000 213 - 816 09/16/2017 [facility] Serum or plasma folate measurement (mass/volume) Serum or plasma folate measurement (mass/volume) >20.0 7.0 - 15.4 09/16/2017 [facility] Stool gastrointestinal hemoglobin detection Stool gastrointestinal hemoglobin detection NEGATIVE NEGATIVE 09/16/2017 [facility] Serum or plasma creatine kinase MB measurement (mass/volume) Serum or plasma creatine kinase MB measurement (mass/volume) 2.40 0 - 5.0 09/15/2017 [facility] Serum or plasma creatine kinase measurement (enzymatic activity/volume) Serum or plasma creatine kinase measurement (enzymatic activity/volume) 78 29 - 168 09/15/2017 [facility] Troponin I measurement by highly sensitive enzyme immunoassay Troponin I measurement by highly sensitive enzyme immunoassay 0.021 0 - 0.300 09/15/2017 [facility] Serum or plasma iron binding capacity measurement (mass/volume) Serum or plasma iron binding capacity measurement (mass/volume) 274 261 - 478 09/15/2017 [facility] Serum or plasma iron measurement (mass/volume) Serum or plasma iron measurement (mass/volume) 49 50 - 170 09/15/2017 [facility] Serum or plasma iron saturation measurement (mass fraction) Serum or plasma iron saturation measurement (mass fraction) 18 15 - 50 09/15/2017 [facility] Serum or plasma transferrin measurement (mass/volume) Serum or plasma transferrin measurement (mass/volume) 196 180 - 382 09/15/2017 [facility] Serum or plasma calcium measurement (mass/volume) Serum or plasma calcium measurement (mass/volume) 8.4 8.7 - 10.3 09/14/2017 [facility] Serum or plasma complement C3 measurement (mass/volume) Serum or plasma complement C3 measurement (mass/volume) 112 82 - 167 09/14/2017 [facility] Serum or plasma complement C4 measurement (mass/volume) Serum or plasma complement C4 measurement (mass/volume) 31 14 - 44 09/14/2017 [facility] Serum or plasma intact pararthyroid hormone measurement (mass/volume) Serum or plasma intact pararthyroid hormone measurement (mass/volume) 436 15 - 65 09/14/2017 [facility] Parathyroid Hormone Interpretation Comment . 09/14/2017 [facility] Activated partial thromboplastin time (aPTT) in platelet poor plasma bycoagulation assay Activated partial thromboplastin time (aPTT) in platelet poor plasma bycoagulation assay 33.6 23.8 - 35.5 09/14/2017 [facility] Automated urine sediment leukocyte count by microscopy (number/high power field) Automated urine sediment leukocyte count by microscopy (number/high power field) NONE 0 - 5 09/14/2017 [facility] Bacteria detection in urine sediment by light microscopy Bacteria detection in urine sediment by light microscopy NONE NONE 09/14/2017 [facility] Epithelial cells detection in urine sediment by light microscopy Epithelial cells detection in urine sediment by light microscopy MANY NONE 09/14/2017 [facility] Erythrocytes detection in urine sediment by light microscopy Erythrocytes detection in urine sediment by light microscopy NONE 0 - 5 09/14/2017 [facility] INR in Platelet poor plasma by Coagulation assay INR in Platelet poor plasma by Coagulation assay 1.28 09/14/2017 [facility] Prothrombin time (PT) in platelet poor plasma by coagulation assay Prothrombin time (PT) in platelet poor plasma by coagulation assay 15.0 11.9 - 14.5 09/14/2017 [facility] Serum or plasma lipase measurement (enzymatic activity/volume) Serum or plasma lipase measurement (enzymatic activity/volume) 19 8 - 78 09/14/2017 [facility] Serum or plasma thyrotropin measurement by detection limit <=0.005 miu/l (units/volume) Serum or plasma thyrotropin measurement by detection limit <=0.005 miu/l (units/volume) 0.747 0.350 - 4.940 09/14/2017 [facility] Specific gravity of Urine by Test strip Specific gravity of Urine by Test strip 1.010 1.010 - 1.025 09/14/2017 [facility] Urine clarity Urine clarity CLEAR CLEAR 09/14/2017 [facility] Urine color determination Urine color determination YELLOW YELLOW 09/14/2017 [facility] Urine erythrocytes detection Urine erythrocytes detection NEGATIVE NEGATIVE 09/14/2017 [facility] Urine glucose detection Urine glucose detection NEGATIVE NEGATIVE 09/14/2017 [facility] Urine ketones detection by automated test strip Urine ketones detection by automated test strip NEGATIVE NEGATIVE 09/14/2017 [facility] Urine leukocyte esterase detection by dipstick Urine leukocyte esterase detection by dipstick NEGATIVE NEGATIVE 09/14/2017 [facility] Urine nitrite detection Urine nitrite detection NEGATIVE NEGATIVE 09/14/2017 [facility] Urine pH measurement by automated test strip Urine pH measurement by automated test strip 6 5 - 7 09/14/2017 [facility] Urine protein measurement by test strip (mass/volume) Urine protein measurement by test strip (mass/volume) 2+ NEGATIVE 09/14/2017 [facility] Urine total bilirubin measurement (mass/volume) Urine total bilirubin measurement (mass/volume) NEGATIVE NEGATIVE 09/14/2017 [facility] Urine urobilinogen measurement by test strip (mass/volume) Urine urobilinogen measurement by test strip (mass/volume) 0.2 0.2 - 1 09/14/2017 [facility] 24 hour urine albumin/total protein ratio by electrophoresis 24 hour urine albumin/total protein ratio by electrophoresis 71.1 . 09/14/2017 [facility] 24 hour urine alpha 1 globulin/total protein by electrophoresis 24 hour urine alpha 1 globulin/total protein by electrophoresis 6.1 . 09/14/2017 [facility] 24 hour urine alpha 2 globulin/total protein by electrophoresis 24 hour urine alpha 2 globulin/total protein by electrophoresis 9.2 . 09/14/2017 [facility] 24 hour urine beta globulin/total protein ratio by electrophoresis 24 hour urine beta globulin/total protein ratio by electrophoresis 7.6 . 09/14/2017 [facility] 24 hour urine gamma globulin/total protein ratio by electrophoresis 24 hour urine gamma globulin/total protein ratio by electrophoresis 6.0 . 09/14/2017 [facility] Urine creatinine measurement (mass/volume) Urine creatinine measurement (mass/volume) 43.23 47 - 110 09/14/2017 [facility] Urine protein measurement (mass/volume) Urine protein measurement (mass/volume) 89.1 1 - 14 09/14/2017 [facility] Urine protein measurement (mass/volume) Urine protein measurement (mass/volume) 90.1 Not Estab. 09/14/2017 [facility] Urine protein monoclonal/total protein by electrophoresis Urine protein monoclonal/total protein by electrophoresis Not Observed Not Observed 09/14/2017 [facility] Urine sodium measurement (moles/volume) Urine sodium measurement (moles/volume) 79 09/14/2017 [facility] Protein Electrophoresis Note Comment . 09/14/2017 [facility] Pathology Reports No Data Provided for This Section Diagnostic Reports Report Value Date Source Ext Lower Arterial bilat w pressure US Please refer to heart lab report, located under Vascular in [facility]. 06/14/2018 [facility] Foot wo contrast MRI MRI left foot without contrast. INDICATION: Left heel ulcer for 2 weeks. Osteomyelitis. Peripheral vascular disease. Neuropathic foot. Diabetes. COMPARISON: 06/10/2018 left radiographs. TECHNIQUE: Multi-planar, multi-sequence MR imaging of the foot was performed using routine protocol without gadolinium-based contrast. A full and complete exam was performed. FINDINGS: . Bones: Moderate to severe degenerative change of the fourth and fifth tarsometatarsal joints and mildly of the remaining tarsometatarsal joints with subchondral cysts/edema and minimal spurring. No acute fracture. No osteomyelitis. . Joints: No joint effusion or malalignment. . Flexor tendons: Partially imaged but within normal limits. . Extensor tendons: Partially imaged but within normal limits. . Peroneal tendons: Partially imaged but within normal limits. . Plantar fascia: Unremarkable in visualized portions. . Soft tissues: Plantar soft tissue wound is seen in the first metatarsal head region as well as plantar hindfoot medially and laterally. Low signal foci within the soft tissues of the lateral hindfoot likely represent gas. No organized drainable fluid collections. Prominent T2 hyperintense soft tissue fluid/edema in this area which does not appear definitively organized. IMPRESSION: 1. Multiple plantar soft tissue wounds present with soft tissue gas in the lateral hindfoot. Prominent soft tissue edema/cellulitis in lateral hindfoot without definite drainable fluid collection. No osteomyelitis. 2. Degenerative changes of the tarsometatarsal joints appearing greatest laterally which may be consistent with neuropathic joint. SL: [id number] 06/13/2018 [facility] Foot wo contrast MRI MRI right foot without contrast. INDICATION: Right foot osteomyelitis. Diabetes. Peripheral vascular disease. Neuropathic foot ulcer. COMPARISON: 06/10/2018 right foot radiographs. TECHNIQUE: Multi-planar, multi-sequence MR imaging of the foot was performed using routine protocol without gadolinium-based contrast. A full and complete exam was performed. FINDINGS: . Bones: Moderate to severe degenerative changes of the tarsometatarsal joints seen appearing greatest laterally with joint space narrowing, subchondral cysts/edema, and spurring. Otherwise normal marrow signal. No acute fracture. No osteomyelitis. . Joints: No joint effusion or malalignment. . Flexor tendons: Partially imaged but within normal limits. . Extensor tendons: Partially imaged but within normal limits. . Peroneal tendons: Partially imaged but within normal limits. . Plantar fascia: Unremarkable in visualized portions. . Soft tissues: Plantar hindfoot soft tissue wound is present with underlying T1 hypointense T2 hyperintense soft tissue changes. No organized drainable fluid collection. IMPRESSION: 1. Plantar hindfoot soft tissue wound. No osteomyelitis or abscess. 2. Moderate to severe degenerative changes of the tarsometatarsal joints which may be consistent with neuropathic joint. SL: [id number] 06/13/2018 [facility] Chest 1view DX Clinical Indication: Abnormal breath sounds. Comparison: None FINDINGS: A portable AP single view radiograph is provided for review. The exam demonstrates limited decreased lung volumes without interstitial or airspace opacities, pleural effusions or pneumothorax. The heart size and pulmonary vasculature are normal. The trachea is midline. There are no clinically significant osseous abnormalities noted. IMPRESSION: No chest radiographic evidence of acute cardiopulmonary disease. RASHMI: RAYRAY 06/12/2018 [facility] Bone scan 3 phase NM Bone scan 3 phase NM CLINICAL HISTORY: - Rule out osteomyelitis of bilateral heel. COMPARISON: Bilateral foot series, 06/10/2018 TECHNIQUE: 26 mCi of technetium 99m MDP were administered intravenously. Flow, blood pool and delayed images of both feet were performed in AP, PA and lateral projections. IV Site: Left forearm FINDINGS: The flow and blood pool images reveal mild increase in tracer activity in the right hindfoot and left hindfoot and in the right midfoot region. The delayed images demonstrate focal increase in tracer activity involving the posterior inferior aspect of the calcaneus bilaterally. Increase tracer activity is present in the right midfoot region at the metatarsophalangeal joints. This may be related to arthrosis. IMPRESSION: Findings suggestive of osteomyelitis involving the posterior inferior aspect of the calcaneus bilaterally. More definitive evaluation may be obtained with MRI of the feet as clinically indicated. SL: [id number] 06/11/2018 [facility] Ext Lower Arterial Doppler bilat US Patient Name: LEIGHTON GUERRERO : 1950; Age: 67 years y/o Female MR: [id number] Study: Ext Lower Arterial Doppler bilat US dated 06/10/2018. Clinical Indication: - BILATERAL LOWER EXTEMOTY WOUNDS CONCERNING FOR PVD; Comparison: None Color Doppler, spectral Doppler waveform analysis and grayscale imaging were performed of the lower extremity arteries bilaterally. Right lower extremity: Atherosclerotic disease is seen along the right common femoral artery. Triphasic waveforms are seen to the right common femoral artery, throughout the right superficial femoral artery and in the right popliteal artery. Monophasic waveforms are seen to the right posterior tibial artery and right dorsalis pedis artery. No elevated velocities are identified to the right lower extremity arteries. Left lower extremity: Monophasic waveforms are seen to the left common femoral artery, throughout the left superficial femoral artery, within the left popliteal artery, left dorsalis pedis artery and left posterior tibial artery. Elevated velocities seen in the left posterior tibial artery to 185 cm/sec. CONCLUSIONS: 1. Findings as above suggesting arterial disease between the right popliteal artery and the right calf arteries. 2. Findings as above suggesting inflow arterial disease to the left lower extremity arteries. SL: [id number] 06/10/2018 [facility] Foot 2 views bilateral DX Study: Bilateral feet, 4 views Clinical Indication: - Rule out osteo-, bilateral foot pain Comparison: None FINDINGS: Multiple views of the bilateral feet show no acute bony fracture, joint dislocation, or discrete osseous erosion. Bones are demineralized. 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 Ulceration along the plantar soft tissues of the bilateral hindfeet are seen. The underlying calcaneus are intact and without osseous erosion. Diffuse arterial calcifications are seen. IMPRESSION: No acute bony abnormality of the bilateral feet and no radiographic evidence of osteomyelitis. SL: [id number] 06/10/2018 [facility] Retroperitoneal Complete US Retroperitoneal ultrasound, complete Clinical Indication: - renal failure. Comparison: 02/13/2012. TECHNIQUE: Multiple longitudinal and transverse real time sonographic images of the kidneys and urinary bladder are obtained. FINDINGS: KIDNEY: The right kidney measures 11.5 cm in length. The left kidney measures 10.2 cm in length. Normal shape, contour, and position. No hydronephrosis. No echogenic foci/nephrolithiasis. No abnormal perinephric collections. BLADDER: Decompressed by a Stewart catheter AORTA AND IVC: Not well seen due to bowel gas. ASCITES: No ascites noted. IMPRESSION: 1. Unremarkable renal ultrasound. SL: [id number] 06/10/2018 [facility] Humerus AP lateral HISTORY: Fall, pain. RIGHT HUMERUS 2 VIEWS: No fracture subluxation or lesion. SL:13 06/11/2013 [facility] Shoulder series HISTORY: Trauma. RIGHT SHOULDER 3 VIEWS: No acute fracture subluxation or lesion is evident. SL:13 06/11/2013 [facility] Consultation Notes No Data Provided for This Section Discharge Summaries No Data Provided for This Section History and Physicals No Data Provided for This Section Vital Signs Vital Sign Value Date Comments Source Systolic (mm Hg) 185 06/21/2018 [facility] Diastolic (mm Hg) 76 06/21/2018 [facility] Heart Rate 88 06/21/2018 [facility] Temperature Oral (F) 98.5 F 06/21/2018 [facility] Heart Rate 82 06/20/2018 [facility] Systolic (mm Hg) 163 06/20/2018 [facility] Diastolic (mm Hg) 69 06/20/2018 [facility] Respitory Rate 18 06/20/2018 [facility] Temperature Oral (F) 98.5 F 06/20/2018 [facility] Systolic (mm Hg) 193 06/20/2018 [facility] Diastolic (mm Hg) 71 06/20/2018 [facility] Temperature Oral (F) 98.4 F 06/20/2018 [facility] Heart Rate 84 06/20/2018 [facility] Respitory Rate 16 06/19/2018 [facility] Respitory Rate 16 06/19/2018 [facility] BMI Calculated 29.88 06/10/2018 [facility] Weight 71.727 06/10/2018 [facility] Height 154.94 cm 06/10/2018 [facility] Weight 71.727 06/10/2018 [facility] BMI Calculated 29.88 06/10/2018 [facility] Height 154.94 cm 06/10/2018 [facility] Systolic (mm Hg) 184 06/12/2013 [facility] Temperature Oral (F) 98.6 F 06/12/2013 [facility] Respitory Rate 18 06/12/2013 [facility] Diastolic (mm Hg) 89 06/12/2013 [facility] Heart Rate 88 06/12/2013 [facility] Weight 81.818 06/12/2013 [facility] Diastolic (mm Hg) 84 06/12/2013 [facility] Heart Rate 95 06/12/2013 [facility] Respitory Rate 20 06/12/2013 [facility] Systolic (mm Hg) 200 06/12/2013 [facility] Temperature Oral (F) 98.3 F 06/12/2013 [facility] Encounters Location Location Details Encounter Type Encounter Number Reason For Visit Attending Provider ADM Date DC Date Status Source [facility] Outpatient [id number] ROUTINE SCREENING LYUBOV HURST 08/30/2011 Active [facility] Outpatient [id number] COMPLICATIONS AFFECTING OTHER SPECIFIED BODY SYSTEMS, Christiana ASHER 02/13/2012 Active [facility] Emergency [id number] SHOULDER PAIN OR INJURY PIERRE DELGADILLO 06/11/2013 06/11/2013 Active [facility] Discharged Inpatient [id number] LYUBOV HURST MD 09/14/2017 2017 [facility] Inpatient [id number] Magy Mougouris 06/10/2018 06/21/2018 [facility] Procedures Procedure Code Date Perfomer Comments Source Ultrasound, renal [id number] 09/15/2017 LAKESH[place] [facility] CT of abdomen and pelvis without contrast [id number] 09/14/2017 MOHAMUD [facility] Cataract surgery<sup>1</sup> [id number] bilateral eyes [facility] Assessment and Plan Assessment and Plan Date Source Extracted from:Title: Clinical Document Author: Jairo Asher MD Date: 06/20/18 Progress Note Nephrology SUBJECTIVE depressed about renal function Physical Exam alert, oriented HEENT : peerla NECK: no jvd, no bruits, HEART : RRR no s3 no S4, no murmur, no rub LUNGS: no wheezes no rales, no rhonci ABDOMEN: NTND no organomegaly no hepatomegaly positive bowel sounds EXT: no clubbing no cyanosis no edema NEURO:no focalities, no sensory defecits, no motor defecits SKIN: no rash, no bruises, wounds no changes ASSESSMENT 1. Acute kidney injury on chronic kidney disease stage V. Patient adamantly refuses to be on dialysis. cr slight improvement at 4.9, had similar course of hospitalization at [facility] 2. Metabolic acidosis on p.o. bicarbonate. 3. Lower extremity diabetic wound, status post debridement. Continue with the wound care and antibiotic.refuses amputation 4. Peripheral arterial disease. Patient is not willing to take a risk on the kidneys to do the angiogram. Dr. Nance is following. Discussed with the . Discussed with them. Discussed with the . PLAN and TREATMENT poor prognosis refuses bka refuses dialysis going home on abx discussed with her again follow up, patient does not comply OBJECTIVE Vitals Tmp(F) Tmp(C) Ttype BP MAP Pulse RR SpO2 FIO2 ETCO2 06/20 19:38 98.5 36.94 oral 185/76 --- 88 -- 97 --- --- 06/20 11:34 98.5 36.94 oral 163/69 100 82 18 99 --- --- 06/20 07:50 98.4 36.89 oral 193/71 --- 84 -- 100 --- --- 06/20 02:56 98.7 37.06 oral 185/73 --- 84 -- 100 --- --- 06/19 22:51 98.4 36.89 oral 174/73 --- 84 -- 98 --- --- 24 Hr Tmax: 98.7F (37.06c) at 06/20 02:56 Vital Signs are the last 5 in the past 48 hours. 24 Hr Tmin: 98.4F (36.89c) at 06/20 07:50 Weights are the last 5 in 60 days, plus initial. Date Wt(kg) Wt(lb) Ht(cm) Ht(in) Method BMI BSA 06/09 (initial) 71.73 157.80 Measured 29.9 1.76 06/09 154.94 61.00 Stated 24 Hr Point of Care Glucoses 06/20 1137 Glucose POC 150 H 06/20 0850 Glucose POC 153 H 06/20 0258 Glucose POC 155 H 06/19 2257 Glucose POC 177 H Most Recent Scores: 06/20/18 Pul[place] Fall Score 12 06/20/18 [place] Coma Score 15 06/20/18 Rivera Score 16 06/20/18 Pain Intensity NRS (0-10) 0 Lines, Tubes, and Drains: 06/18/2018 11:01 Peripheral Lines: Forearm Right 22 gauge Over the needle catheter Surgical Procedures: 06/15/18 15:13 ULCER / BONE DEBRIDEMENT, LORENZO HEEL [id number] Primary Surgeon: Mario Hurst DPM (Service: POD) Input/Output Record In Out Bal 06/20 24hr Tot 190 1300 -1110 06/19 24hr Tot 311 1420 -1109 Scheduled Meds (9):carvedilol, cefTRIAXone + sterile water 10 mL, docusate, famotidine, gabapentin (Neurontin), hydrALAZINE (hydrALAZINE 50 mg oral tablet), linezolid (Zyvox), pravastatin, sodium bicarbonate Unscheduled Meds (1):pneumococcal 13-valent vaccine PRN Meds (15):Dextrose 50% in Water IV (Dextrose 50% Syringe), Dextrose 50% in Water IV (Dextrose 50% Syringe), acetaminophen-hydrocodone ([place] 7.5/325 oral tablet), acetaminophen, cloNIDine, glucagon, insulin lispro, insulin lispro, insulin lispro, insulin lispro, insulin lispro, insulin lispro, insulin lispro, insulin lispro, insulin lispro One Time Meds: None Continuous Infusions: None Labs (Last four charted values) WBC H 20.1 (JUN 16) H 17.4 (JUN 15) H 18.1 (JUN 14) H 19.2 (JUN 13) Hgb L 9.3 (JUN 16) L 9.3 (JUN 15) L 9.7 (JUN 14) C 6.9 (JUN 13) Hct L 29.3 (JUN 16) L 29.2 (JUN 15) L 29.8 (JUN 14) L 21.9 (JUN 13) Plt 303 (JUN 16) 365 (JUN 15) 337 (JUN 14) 346 (JUN 13) Na L 134 (JUN 20) 140 (JUN 19) 137 (JUN 18) 136 (JUN 16) K 3.5 (JUN 20) 3.7 (JUN 19) 3.8 (JUN 18) 3.5 (JUN 16) CO2 L 19 (JUN 20) L 19 (JUN 19) L 18 (JUN 10) L 18 (JUN 16) Cl 104 (JUN 20) 107 (JUN 19) 107 (JUN 18) 108 (JUN 16) Cr H 4.84 (JUN 20) H 4.94 (JUN 19) H 5.10 (JUN 18) H 5.18 (JUN 16) BUN H 53 (JUN 20) H 56 (JUN 19) H 58 (JUN 18) H 62 (JUN 16) Glucose Random H 156 (JUN 20) H 142 (JUN 19) H 117 (JUN 18) 96 (JUN 16) Mg 1.8 (JUN 13) 1.9 (JUN 12) 2.1 (JUN 11) Phos H 5.5 (JUN 13) H 5.8 (JUN 12) H 6.6 (JUN 11) Ca L 8.1 (JUN 20) L 7.9 (JUN 19) L 7.7 (JUN 18) L 7.5 (JUN 16) 06/21/2018 [facility] Plan of Care Plan of Care Date Source Discharge Date 09/20/17 2:58pm Disposition HOME, SELF-CARE Instructions/Education Provided Chest Pain - Noncardiac Prescriptions See Medication Section Referrals JAIRO ASHER MD (Internal Medicine) Order Date: 2 Weeks Entered Date: 2017 9:48am Address: [address] [place] [id number] Additional Instructions/Education ADA DIET ,ACTIVITY TOLERATED ` FLUID RESTRICTION 1200CC PER DAY,MONITOR BLOOD PRESSURE AND FASTING BLOOD SUGAR AT HOME HOLD BLOOD SUGAR MEDICATIONS IF FASTING BLOOD SUGARBELOW 90 , REPEAT BLOOD TEST CBC AND CMP AFTER 5 DAYS 2017 [facility] Social History Social History Date Source Social History TypeResponse Substance Abuse Use: None. Alcohol Past, Last use: 50 years ago. Previous treatment: None. Smoking Status Former smoker; Type: Cigarettes; Previous treatment: None; Concerns about tobacco use in household: No; Exposure to Tobacco Smoke None; Cigarette Smoking Last 365 Days No; Reg Smoking Cessation Counseling No; Stopped at age: 17; entered on: 06/10/18 06/10/2018 [facility] Social History Problem Response Recorded Date/Time Onset Date Status Hx Psychiatric Problems No 09/14/2017 10:00pm Not Applicable Not Applicable Hx Eating Disorder No 09/14/2017 10:00pm Not Applicable Not Applicable Hx Substance Use Disorder No 09/14/2017 10:00pm Not Applicable Not Applicable Hx Depression No 09/14/2017 10:00pm Not Applicable Not Applicable Hx Alcohol Use No 09/14/2017 10:00pm Not Applicable Not Applicable Hx Substance Use Treatment No 09/14/2017 10:00pm Not Applicable Not Applicable Hx Physical Abuse No 09/14/2017 10:00pm Not Applicable Not Applicable Smoking Status Start Date Stop Date Never Smoker 2017 [facility] Family History Value Date Source Relationship Condition Age at Onset Recorded Date/Time 09 Brother Family history of diabetes mellitus Not Recorded 09/15/2017 2:50am 32 Mother Family history of acute myocardial infarction Not Recorded 09/15/2017 2:50am 33 Mother Family history of hypertension Not Recorded 09/15/2017 2:50am 2017 [facility] Advance Directives Order Name Results Value Date Source Advance Directives Advance Directives Directive Response Recorded Date/Time Does the patient have an advance directive? No 11/29/13 1:55pm If yes, is advance directive on file with [facility]? No 09/14/17 10:00pm If not on file with [facility] will patient provide a copy? No 11/29/13 1:55pm Do you have a Directive to Physician? No 09/14/17 5:37pm Do you have a Medical Power of Obstetrician? No 09/14/17 5:37pm Do you have an out of hospital Do Not Resuscitate Order? No 09/14/17 5:37pm Do you have any special needs we should be aware of? No 09/14/17 5:37pm Do you have a support person here with you today? Yes 09/14/17 5:37pm Did patient receive Notice of Privacy Practices? Yes 09/14/17 5:37pm Did patient receive patient rights and responsibilities? Yes 09/14/17 5:37pm 2017 [facility] Functional Status No Data Provided for This Section
--- OUTSIDE RECORDS SUMMARY | 2019-01-16 00:02 | XMS REPORT | Summary of Care ---
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 with unspecified severity (Final) - Non-pressure chronic ulcer of right heel and midfoot with unspecified severity (Final) - Hypertensive heart and chronic kidney disease with heart failure and with stage 5 chronic kidney disease, or end stage renal disease (Final) - Hypo-osmolality and hyponatremia (Final) - Acidosis (Final) - Type 2 diabetes mellitus with diabetic peripheral angiopathy with gangrene (Final) - Cutaneous abscess of left foot (Final) - Cellulitis of left lower limb (Final) - Type 2 diabetes mellitus with foot ulcer (Final) - 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) - Type 2 diabetes mellitus with hyperglycemia (Final) - Acute kidney failure, unspecified (Final) - End stage renal disease (Final) - Type 2 diabetes mellitus with unspecified diabetic retinopathy without macular e salina (Final) - Heart failure, unspecified (Final) - Hyperlipidemia, unspecified (Final) - Type 2 diabetes mellitus with diabetic polyneuropathy (Final) - Patient's noncompliance with other medical treatment and regimen (Final) - Personal history of nicotine dependence (Final) - Hypokalemia (Final) - retirement (current) use of insulin (Final) - Type 2 diabetes mellitus with diabetic chronic kidney disease (Final) - Discharge Disposition: Home Care with Home Health Attending Physician: Magy Contreras MD Admitting Physician: Magy Contreras MD Referring Physician: Tc Mccann MD Vital Signs 1 2 3 Most recent to oldest [Reference Range]: 154.94 cm (06/09/18 11:54 PM) 154.94 cm (06/09/18 11:00 PM) Height 98.5 DegF (06/20/18 7:38 PM) 98.5 DegF (06/20/18 11:34 AM) 98.4 DegF (06/20/18 7:50 AM) Temperature Oral [96.4-99.1 DegF] 185/76 mmHg *HI* (06/20/18 7:38 PM) 163/69 mmHg *HI* (06/20/18 11:34 AM) 193/71 mmHg *HI* (06/20/18 7:50 AM) Blood Pressure [90-140/60-90 mmHg] 18 BRMIN (06/20/18 11:34 AM) 16 BRMIN (06/19/18 4:09 AM) 16 BRMIN (06/18/18 11:50 PM) Respiratory Rate [14-20 BRMIN] 88 bpm (06/20/18 7:38 PM) 82 bpm (06/20/18 11:34 AM) 84 bpm (06/20/18 7:50 AM) Peripheral Pulse Rate [60-100 bpm] 71.727 kg (06/09/18 11:54 PM) 71.727 kg (06/09/18 11:00 PM) Weight 29.88 m2 (06/09/18 11:54 PM) 29.88 m2 (06/09/18 11:00 PM) Body Mass Index Problem List Condition Effective Dates Status Health Status Informant Diabetes mellitus Active type 2(Confirmed) HTN - Active Hypertension(Confirm ed) Hyperlipidemia(Confi Active rmed) Allergies, Adverse Reactions, Alerts No Known Medication Allergies Medications acetaminophen 650 mg, 2 tab, Route: PO, Drug form: TAB, Q4H, Dosing Weight 71.727, kg, PRN For Temp > 100.4 F, Start date: 06/10/18 0:20:00 [employer], Duration: 30 day, Stop date: 07/10/18 0:19:00 [employer] Notes: Do not exceed 4 gm/day. (Same as: Tylenol) Start Date: 06/10/18 Stop Date: 06/20/18 Status: Discontinued ANES acetaminophen 1,000 mg, 2 tab, Route: PO, Drug form: TAB, ONCE, Dosing Weight 71.727, kg, PRN Pain Score 1-3, Start date: 06/15/18 16:21:00 [employer] Notes: Max acetaminophen 4000 mg/day (4 gm/day). (Same as: Tylenol Extra Streng th) Start Date: 06/15/18 Stop Date: 06/16/18 Status: Discontinued ANES diphenhydrAMINE 12.5 mg, 0.25 mL, Route: IVP, Drug form: INJ, Q6H, Dosing Weight 71.727, kg, PRN Itching, Start date: 06/15/18 16:21:00 [employer], Duration: 30 day, Stop date: 16:20:00 [employer] Notes: (Same as: Benadryl) Start Date: 06/15/18 Stop Date: 06/16/18 Status: Discontinued ANES fentaNYL 50 microgram, 1 mL, Route: IVP, Drug form: INJ, Q5Min, Dosing Weight 71.727, kg, PRN Pain Score 7-10, Priority: Routine, Start date: 06/15/18 16:21:00 [employer], Dura tion: 2 doses or times, Stop date: Limited # of times Notes: (Same as: Sublimaze) Preservative free. Start Date: 06/15/18 Stop Date: 06/16/18 Status: Discontinued ANES flumazenil 0.2 mg, 2 mL, Route: IVP, Drug form: INJ, PRN, Dosing Weight 71.727, kg, PRN Clive zodiazepine Reversal, Initial dose, Start date: 06/15/18 16:21:00 [employer], Duration: 30 day, Stop date: 07/15/18 16:20:00 [employer] Notes: (Same as: Romazicon) Start Date: 06/15/18 Stop Date: 06/16/18 Status: Discontinued ANES hydrALAZINE 10 mg, 0.5 mL, Route: IVP, Drug form: INJ, Q20Min, Dosing Weight 71.727, kg, PRN Elevated BP, Start date: 06/15/18 16:21:00 [employer], Duration: 2 doses or times, Stop date: Limited # of times Notes: (Same as: Apresoline)Push over 5 minutes Start Date: 06/15/18 Stop Date: 06/16/18 Status: Discontinued ANES HYDROmorphone 0.5 mg, 0.5 mL, Route: IVP, Drug form: SOLN, Q5Min, Dosing Weight 71.727, kg, WI N Pain Score 7-10, Start date: 06/15/18 16:21:00 [employer], Duration: 4 doses or times , Stop date: Limited # of times Notes: (Same as: Dilaudid) Start Date: 06/15/18 Stop Date: 06/16/18 Status: Discontinued ANES labetalol 10 mg, 2 mL, Route: IVP, Drug form: INJ, Q5Min, Dosing Weight 71.727, kg, PRN El evated BP, Start date: 06/15/18 16:21:00 [employer], Duration: 5 doses or times, Stop d ate: Limited # of times Notes: (Same as: Normodyne, Trandate)Push over 2 minutes Give bolus over 2-3 mi nutes. Start Date: 06/15/18 Stop Date: 06/16/18 Status: Discontinued ANES naloxone 0.4 mg, 1 mL, Route: IVP, Drug form: INJ, Q2MIN, Dosing Weight 71.727, kg, PRN N arcotic Reversal, Start date: 06/15/18 16:21:00 [employer], Duration: 8 doses or times, Stop date: Limited # of times Notes: Same as Narcan Start Date: 06/15/18 Stop Date: 06/16/18 Status: Discontinued ANES ondansetron 4 mg, 2 mL, Route: IVP, Drug form: INJ, ONCE, Dosing Weight 71.727, kg, PRN Naus ea & Vomiting, Start date: 06/15/18 16:21:00 [employer] Notes: (Same as: Meli) MEDICATION WASTE Product Size: 4 mgProduct Was germán: ___ mg Start Date: 06/15/18 Stop Date: 06/16/18 Status: Discontinued ANES oxyCODONE 5 mg, 1 tab, Route: PO, Drug form: TAB, Q4H, Dosing Weight 71.727, kg, PRN Pain Score 4-6, Start date: 06/15/18 16:21:00 [employer], Duration: 30 day, Stop date: 07/15 16:20:00 [employer] Notes: (Same as: Roxicodone) Start Date: 06/15/18 Stop Date: 06/16/18 Status: Discontinued ANES oxyCODONE 10 mg, 2 tab, Route: PO, Drug form: TAB, Q4H, Dosing Weight 71.727, kg, PRN Pain Score 7-10, Start date: 06/15/18 16:21:00 [employer], Duration: 30 day, Stop date: 12/26 16:20:00 [employer] Notes: (Same as: Roxicodone) Start Date: 06/15/18 Stop Date: 06/16/18 Status: Discontinued carvedilol 25 mg, 2 tab, Route: PO, Drug form: TAB, BID, Dosing Weight 71.727, kg, Start da te: 06/10/18 21:30:00 [employer], Duration: 30 day, Stop date: 07/10/18 21:00:00 [employer] Notes: Give with food. (Same As: Coreg) Start Date: 06/10/18 Stop Date: 06/20/18 Status: Discontinued carvedilol 25 mg, PO, BID, 0 Refill(s) Start Date: 06/10/18 Status: Ordered cefepime + Sodium Chloride 0.9% IV 100 mL 1 gm, Route: IVPB, [id number], Dosing Weight 71.727, kg, (CrCl <10 ml/min or IHD, REFUND CLERK infection or neutropenic fever), Start date: 06/10/18 1:00:00 [employer], Duration: 7 day, Stop date: 06/15/18 9:00:00 [employer], ABX Indication: Skin/Soft Tissue Infection Notes: (Same As: Maxipime) MEDICATION WASTE Product Size: 1000 mgProduc t Wasted: ___ mg Start Date: 06/10/18 Stop Date: 06/11/18 Status: Discontinued cefTRIAXone + sterile water 10 mL 1 gm, Route: IVP, [id number], Dosing Weight 71.727, kg, Start date: 06/11/18 11:00: 00 [employer], Duration: 14 day, Stop date: 06/24/18 11:00:00 [employer], ABX Indication: Bone /Joint Infection Notes: (Same As: Rocephin).Use with 100 mL NS and infuse over 30 min MEDICA TION WASTE Product Size: 1000 mgProduct Wasted: ___ mg Start Date: 06/11/18 Stop Date: 06/20/18 Status: Discontinued Cipro 500 mg oral tablet 500 mg=1 tab, PO, Q12H, # 84 tab, 0 Refill(s), Pharmacy: [facility] [id number] Start Date: 06/20/18 Stop Date: 06/20/18 Status: Completed clindamycin 600 mg, 50 mL, Route: IVPB, Drug form: INJ, [id number], Dosing Weight 71.727, kg, St art date: 06/10/18 1:00:00 [employer], Duration: 7 day, Stop date: 06/16/18 17:00:00 CS T, ABX Indication: Skin/Soft Tissue Infection Start Date: 06/10/18 Stop Date: 06/11/18 Status: Discontinued cloNIDine 0.1 mg, 1 tab, Route: PO, Drug form: TAB, Q6H, Dosing Weight 71.727, kg, PRN Jasmyne vated BP, Start date: 06/14/18 6:40:00 [employer], Duration: 30 day, Stop date: 9 6:39:00 [employer] Notes: (Same As: Catapres) Start Date: 06/14/18 Stop Date: 06/20/18 Status: Discontinued Dextrose 50% Syringe 50 mL, Route: IVP, Dosing Weight 71.727, kg, PRN, PRN Blood Glucose Results, Sta rt date: 06/10/18 20:52:00 [employer], Duration: 30 day, Stop date: 07/10/18 20:51:[address] Start Date: 06/10/18 Stop Date: 06/10/18 Status: Deleted Dextrose 50% Syringe 25 mL, Route: IVP, Dosing Weight 71.727, kg, PRN, PRN Blood Glucose Results, Sta rt date: 06/10/18 20:52:00 [employer], Duration: 30 day, Stop date: 07/10/18 20:51:[address] Start Date: 06/10/18 Stop Date: 06/10/18 Status: Deleted Dextrose 50% Syringe 25 gm, 50 mL, Route: IVP, Drug Form: INJ, Dosing Weight 71.727, kg, PRN, PRN Blo od Glucose Results, Start date: 06/10/18 0:27:00 [employer], Duration: 30 day, Stop zhanna e: 07/10/18 0:26:00 [employer] Start Date: 06/10/18 Stop Date: 06/20/18 Status: Discontinued Dextrose 50% Syringe 12.5 gm, 25 mL, Route: IVP, Drug Form: INJ, Dosing Weight 71.727, kg, PRN, PRN B lood Glucose Results, Start date: 06/10/18 0:27:00 [employer], Duration: 30 day, Stop d ate: 07/10/18 0:26:00 [employer] Start Date: 06/10/18 Stop Date: 06/10/18 Status: Discontinued Dextrose 50% Syringe 12.5 gm, 25 mL, Route: IVP, Drug Form: INJ, Dosing Weight 71.727, kg, PRN, PRN B lood Glucose Results, Start date: 06/10/18 0:20:00 [employer], Duration: 30 day, Stop d ate: 07/10/18 0:19:00 [employer] Start Date: 06/10/18 Stop Date: 06/20/18 Status: Discontinued Dextrose 50% Syringe 25 gm, 50 mL, Route: IVP, Drug Form: INJ, Dosing Weight 71.727, kg, PRN, PRN Blo od Glucose Results, Start date: 06/10/18 0:20:00 [employer], Duration: 30 day, Stop zhanna e: 07/10/18 0:19:00 [employer] Start Date: 06/10/18 Stop Date: 06/10/18 Status: Discontinued Dextrose 50% Syringe 25 gm, Route: IVP, Dosing Weight 71.727, kg, ONCE, STAT, Start date: 06/10/18 0: 39:00 [employer], Stop date: 06/10/18 0:39:00 [employer] Start Date: 06/10/18 Stop Date: 06/10/18 Status: Completed docusate 100 mg, 1 cap, Route: PO, Drug form: CAP, BID, Dosing Weight 71.727, kg, Start d ate: 06/10/18 9:00:00 [employer], Duration: 30 day, Stop date: 07/09/18 17:00:00 [employer] Notes: (Same as: Colace) (Do Not Crush) Start Date: 06/10/18 Stop Date: 06/20/18 Status: Discontinued doxycycline monohydrate 150 mg oral capsule 150 mg=1 cap, PO, BID, X 10 day, # 84 cap, 0 Refill(s), Pharmacy: [facility] [id number] Start Date: 06/20/18 Stop Date: 06/30/18 Status: Completed famotidine 40 mg, PO, BID, # 60 tab, 0 Refill(s) Start Date: 06/10/18 Stop Date: 07/10/18 Status: Ordered famotidine 20 mg, 1 tab, Route: PO, Drug form: TAB, Q24H, Start date: 06/10/18 22:00:00 [employer] , Duration: 30 day, Stop date: 07/09/18 22:00:00 [employer] Notes: (Same as: Pepcid) Start Date: 06/10/18 Stop Date: 06/20/18 Status: Discontinued famotidine 40 mg, Route: PO, BID, Dosing Weight 71.727, kg, Start date: 06/11/18 9:00:00 CS T, Duration: 30 day, Stop date: 07/10/18 17:00:00 [employer] Start Date: 06/11/18 Stop Date: 06/10/18 Status: Deleted fentaNYL (ANES) Route: IV, Drug form: INJ, ONCE, Stop date: 06/15/18 15:48:00 [employer] Start Date: 06/15/18 Stop Date: 06/15/18 Status: Completed folic acid 1 mg oral tablet 1 mg=1 tab, PO, Daily, 0 Refill(s) Start Date: 06/10/18 Status: Ordered furosemide 40 mg oral tablet 40 mg=1 tab, PO, Q8H, 0 Refill(s) Start Date: 06/10/18 Status: Ordered gabapentin 100 mg oral capsule 100 mg=1 cap, PO, BID, 0 Refill(s) Start Date: 06/10/18 Status: Ordered gabapentin 100 mg oral capsule 100 mg, 1 cap, Route: PO, Drug form: CAP, BID, Dosing Weight 71.727, kg, Start d ate: 06/11/18 9:00:00 [employer], Duration: 30 day, Stop date: 07/10/18 17:00:00 [employer] Start Date: 06/11/18 Stop Date: 06/10/18 Status: Deleted glimepiride 1 mg oral tablet 1 mg=1 tab, PO, Daily, 0 Refill(s) Start Date: 06/10/18 Status: Ordered glucagon 1 mg, Route: IM, PRN, Dosing Weight 71.727, kg, PRN Blood Glucose Results, Start date: 06/10/18 20:52:00 [employer], Duration: 30 day, Stop date: 07/10/18 20:51:00 [employer] Start Date: 06/10/18 Stop Date: 06/10/18 Status: Deleted glucagon 1 mg, Route: IM, Drug form: PDR/INJ, PRN, Dosing Weight 71.727, kg, PRN Blood Gl ucose Results, Start date: 06/10/18 0:27:00 [employer], Duration: 30 day, Stop date: 0:26:00 [employer] Start Date: 06/10/18 Stop Date: 06/10/18 Status: Discontinued glucagon 1 mg, Route: IM, Drug form: PDR/INJ, PRN, Dosing Weight 71.727, kg, PRN Blood Gl ucose Results, Start date: 06/10/18 0:20:00 [employer], Duration: 30 day, Stop date: 0:19:00 [employer] Start Date: 06/10/18 Stop Date: 06/20/18 Status: Discontinued hydrALAZINE 10 mg, 0.5 mL, Route: IV, Drug form: INJ, ONCE, Dosing Weight 71.727, kg, Start date: 06/18/18 15:41:00 [employer], Stop date: 06/18/18 15:41:00 [employer] Notes: (Same as: Apresoline)Push over 5 minutes Start Date: 06/18/18 Stop Date: 06/18/18 Status: Completed hydrALAZINE 50 mg oral tablet 50 mg, 1 tab, Route: PO, Drug form: TAB, BID, Dosing Weight 71.727, kg, Start da te: 06/10/18 21:30:00 [employer], Duration: 30 day, Stop date: 07/10/18 17:00:00 [employer] Notes: (Same as: Apresoline) May interfere w/enteral feedings Take With Food Start Date: 06/10/18 Stop Date: 06/20/18 Status: Discontinued hydrALAZINE 50 mg oral tablet 50 mg=1 tab, PO, BID, 0 Refill(s) Start Date: 06/10/18 Status: Ordered insulin lispro 2 unit, 0.02 mL, Route: SUB-Q, Drug form: SOLN, TID-Before Meals, Dosing Weight 71.727, kg, PRN Blood Glucose Results, Start date: 06/10/18 20:52:00 [employer], Durati on: 30 day, Stop date: 07/10/18 20:51:00 [employer] Notes: (Same as: Humalog ) Roll in palms of hands gently; Do not shake `vigorou sly. "Single Patient Use Only " WASTE: F/P - Black; E - [facility] [employer] [address] able for 28 days at room temperature.Expires in days from Da te Start Date: 06/10/18 Stop Date: 06/20/18 Status: Discontinued insulin lispro 6 unit, 0.06 mL, Route: SUB-Q, Drug form: SOLN, TID-Before Meals, Dosing Weight 71.727, kg, PRN Blood Glucose Results, Start date: 06/10/18 20:52:00 [employer], Durati on: 30 day, Stop date: 07/10/18 20:51:00 [employer] Notes: (Same as: Humalog ) Roll in palms of hands gently; Do not shake `vigorou sly. "Single Patient Use Only " WASTE: F/P - Black; E - [facility] [address] able for 28 days at room temperature.Expires in days from Da te Start Date: 06/10/18 Stop Date: 06/20/18 Status: Discontinued insulin lispro 8 unit, 0.08 mL, Route: SUB-Q, Drug form: SOLN, TID-Before Meals, Dosing Weight 71.727, kg, PRN Blood Glucose Results, Start date: 06/10/18 20:52:00 [employer], Durati on: 30 day, Stop date: 07/10/18 20:51:00 [employer] Notes: (Same as: Humalog ) Roll in palms of hands gently; Do not shake `vigorou sly. "Single Patient Use Only " WASTE: F/P - Black; E - [facility] [address] able for 28 days at room temperature.Expires in days from Da te Start Date: 06/10/18 Stop Date: 06/20/18 Status: Discontinued insulin lispro 10 unit, 0.1 mL, Route: SUB-Q, Drug form: SOLN, TID-Before Meals, Dosing Weight 71.727, kg, PRN Blood Glucose Results, Start date: 06/10/18 20:52:00 [employer], Durati on: 30 day, Stop date: 07/10/18 20:51:00 CONTRACT [employer] Notes: (Same as: Humalog ) Roll in palms of hands gently; Do not shake `vigorou sly. "Single Patient Use Only " WASTE: F/P - Black; E - [facility] [address] able for 28 days at room temperature.Expires in days from Da te Start Date: 06/10/18 Stop Date: 06/20/18 Status: Discontinued insulin lispro 4 unit, 0.04 mL, Route: SUB-Q, Drug form: SOLN, TID-Before Meals, Dosing Weight 71.727, kg, PRN Blood Glucose Results, Start date: 06/10/18 20:52:00 [employer], Durati on: 30 day, Stop date: 07/10/18 20:51:00 CONTRACT [employer] Notes: (Same as: Humalog ) Roll in palms of hands gently; Do not shake `vigorou sly. "Single Patient Use Only " WASTE: F/P - Black; E - [facility] [address] able for 28 days at room temperature.Expires in days from Da te Start Date: 06/10/18 Stop Date: 06/20/18 Status: Discontinued insulin lispro 4 unit, 0.04 mL, Route: SUB-Q, Drug form: SOLN, Bedtime, Dosing Weight 71.727, k g, PRN Blood Glucose Results, Start date: 06/10/18 0:27:00 [employer], Duration: 30 day , Stop date: 07/10/18 0:26:00 CONTRACT [employer] Notes: (Same as: Humalog ) Roll in palms of hands gently; Do not shake `vigorou sly. "Single Patient Use Only " WASTE: F/P - Black; E - [facility] [address] able for 28 days at room temperature.Expires in days from Da te Start Date: 06/10/18 Stop Date: 06/20/18 Status: Discontinued insulin lispro 3 unit, 0.03 mL, Route: SUB-Q, Drug form: SOLN, Bedtime, Dosing Weight 71.727, k g, PRN Blood Glucose Results, Start date: 06/10/18 0:27:00 [employer], Duration: 30 day , Stop date: 07/10/18 0:26:00 CONTRACT [employer]GAL Notes: (Same as: Humalog ) Roll in palms of hands gently; Do not shake `vigorou sly. "Single Patient Use Only " WASTE: F/P - Black; E - [facility] [address] able for 28 days at room temperature.Expires in days from Da te Start Date: 06/10/18 Stop Date: 06/20/18 Status: Discontinued insulin lispro 2 unit, 0.02 mL, Route: SUB-Q, Drug form: SOLN, Bedtime, Dosing Weight 71.727, k g, PRN Blood Glucose Results, Start date: 06/10/18 0:27:00 CONTRACT [employer], Duration: 30 day , Stop date: 07/10/18 0:26:00 CONTRACT [employer]GAL Notes: (Same as: Humalog ) Roll in palms of hands gently; Do not shake `vigorou sly. "Single Patient Use Only " WASTE: F/P - Black; E - [facility] [address] able for 28 days at room temperature.Expires in days from Da te Start Date: 06/10/18 Stop Date: 06/20/18 Status: Discontinued insulin lispro 1 unit, 0.01 mL, Route: SUB-Q, Drug form: SOLN, Bedtime, Dosing Weight 71.727, k g, PRN Blood Glucose Results, Start date: 06/10/18 0:27:00 [employer], Duration: 30 day , Stop date: 07/10/18 0:26:00 CONTRACT [employer] Notes: (Same as: Humalog ) Roll in palms of hands gently; Do not shake `vigorou sly. "Single Patient Use Only " WASTE: F/P - Black; E - [facility] [address] able for 28 days at room temperature.Expires in days from Da te Start Date: 06/10/18 Stop Date: 06/20/18 Status: Discontinued insulin lispro 1 unit, 0.01 mL, Route: SUB-Q, Drug form: SOLN, TID-Before Meals, Dosing Weight 71.727, kg, PRN Blood Glucose Results, Start date: 06/10/18 0:27:00 CONTRACT [employer], Duratio n: 30 day, Stop date: 07/10/18 0:26:00 CONTRACT [employer]GAL Notes: (Same as: Humalog ) Roll in palms of hands gently; Do not shake `vigorou sly. "Single Patient Use Only " WASTE: F/P - Black; E - [facility] [address] able for 28 days at room temperature.Expires in days from Da te Start Date: 06/10/18 Stop Date: 06/10/18 Status: Discontinued insulin lispro 2 unit, 0.02 mL, Route: SUB-Q, Drug form: SOLN, TID-Before Meals, Dosing Weight 71.727, kg, PRN Blood Glucose Results, Start date: 06/10/18 0:27:00 CONTRACT [employer], Duratio n: 30 day, Stop date: 07/10/18 0:26:00 CONTRACT [employer]GAL Notes: (Same as: Humalog ) Roll in palms of hands gently; Do not shake `vigorou sly. "Single Patient Use Only " WASTE: F/P - Black; E - [facility] [address] able for 28 days at room temperature.Expires in days from Da te Start Date: 06/10/18 Stop Date: 06/10/18 Status: Discontinued insulin lispro 5 unit, 0.05 mL, Route: SUB-Q, Drug form: SOLN, TID-Before Meals, Dosing Weight 71.727, kg, PRN Blood Glucose Results, Start date: 06/10/18 0:27:00 CONTRACT [employer], Duratio n: 30 day, Stop date: 07/10/18 0:26:00 CONTRACT [employer]GAL Notes: (Same as: Humalog ) Roll in palms of hands gently; Do not shake `vigorou sly. "Single Patient Use Only " WASTE: F/P - Black; E - [facility] [address] able for 28 days at room temperature.Expires in days from Da te Start Date: 06/10/18 Stop Date: 06/10/18 Status: Discontinued insulin lispro 4 unit, 0.04 mL, Route: SUB-Q, Drug form: SOLN, TID-Before Meals, Dosing Weight 71.727, kg, PRN Blood Glucose Results, Start date: 06/10/18 0:27:00 CONTRACT [employer], Duratio n: 30 day, Stop date: 07/10/18 0:26:00 CONTRACT [employer]GAL Notes: (Same as: Humalog ) Roll in palms of hands gently; Do not shake `vigorou sly. "Single Patient Use Only " WASTE: F/P - Black; E - [facility] [address] able for 28 days at room temperature.Expires in days from Da te Start Date: 06/10/18 Stop Date: 06/10/18 Status: Discontinued insulin lispro 3 unit, 0.03 mL, Route: SUB-Q, Drug form: SOLN, TID-Before Meals, Dosing Weight 71.727, kg, PRN Blood Glucose Results, Start date: 06/10/18 0:27:00 CONTRACT [employer], Dillono n: 30 day, Stop date: 07/10/18 0:26:00 CONTRACT [employer] Notes: (Same as: Humalog ) Roll in palms of hands gently; Do not shake `vigorou sly. "Single Patient Use Only " WASTE: F/P - Black; E - [facility] [address] able for 28 days at room temperature.Expires in days from Da te Start Date: 06/10/18 Stop Date: 06/10/18 Status: Discontinued Lasix 40 mg, 4 mL, Route: IVP, Drug form: INJ, ONCE, Dosing Weight 71.727, kg, Start d ate: 06/13/18 17:48:00 [employer], Stop date: 06/13/18 17:48:00 [employer] Notes: (Same as: Lasix) MEDICATION WASTE Product Size: 40 mgProduct Was germán: ___ mg Start Date: 06/13/18 Stop Date: 06/13/18 Status: Completed lidocaine (ANES) Route: IV, Drug form: INJ, ONCE, Stop date: 06/15/18 15:48:00 [employer] Start Date: 06/15/18 Stop Date: 06/15/18 Status: Completed metoclopramide (ANES) Route: IV, Drug form: INJ, ONCE, Stop date: 06/15/18 15:48:00 CONTRACT [employer]GAL Start Date: 06/15/18 Stop Date: 06/15/18 Status: Completed midazolam (ANES) Route: IV, Drug form: SOLN, ONCE, Stop date: 06/15/18 15:43:00 CONTRACT [employer] Start Date: 06/15/18 Stop Date: 06/15/18 Status: Completed Neurontin 50 mg, 1 mL, Route: PO, Drug form: SOLN, Q24H, Start date: 06/10/18 22:00:00 CONTRACT [employer] , Duration: 30 day, Stop date: 07/09/18 22:00:00 CONTRACT [employer]GAL Notes: (Same as: Neurontin) Start Date: 06/10/18 Stop Date: 06/20/18 Status: Discontinued Gifford 5/325 oral tablet 1 tab, Route: PO, Drug Form: TAB, Dosing Weight 71.727, kg, Q8H, PRN Pain Score 7-10, Start date: 06/11/18 19:56:00 CONTRACT [employer], Duration: 30 day, Stop date: 07/11/18 1 9:55:00 CONTRACT [employer]GAL Notes: (Same as: Gifford 325/5) Do not exceed 4gm/day of acetaminophen. Start Date: 06/11/18 Stop Date: 06/16/18 Status: Discontinued Gifford 7.5/325 oral tablet 1 tab, Route: PO, Drug Form: TAB, Dosing Weight 71.727, kg, Q6H, PRN Pain Score 4-6, Start date: 06/16/18 11:53:00 CONTRACT [employer], Duration: 30 day, Stop date: 07/16/18 11 :52:00 CONTRACT [employer]ALEGAL Notes: Same as Gifford 325-7.5mg Do not exceed 4gm/day of acetaminophen. Start Date: 06/16/18 Stop Date: 06/20/18 Status: Discontinued NS 1,000 mL 1,000 mL, Rate: 75 ml/hr, Infuse over: 13.3 hr, Route: IV, Dosing Weight 71.727 kg, Total Volume: 1,000, Start date: 06/10/18 0:23:00 [employer], Duration: 30 day, Sto p date: 07/10/18 0:22:00 CONTRACT [employer], 1.78, m2 Start Date: 06/10/18 Stop Date: 06/18/18 Status: Discontinued NS 500 mL 500 mL, Rate: 10 ml/hr, Infuse over: 50 hr, Route: IV, Dosing Weight 71.727 kg, Total Volume: 500, Start date: 06/15/18 13:53:00 CONTRACT [employer]GAL, Duration: 1 day, Stop date : 06/16/18 13:52:00 CONTRACT [employer], 1.78, m2 Start Date: 06/15/18 Stop Date: 06/16/18 Status: Completed ondansetron (ANES) Route: IV, Drug form: INJ, ONCE, Stop date: 06/15/18 15:48:00 CONTRACT [employer]GAL Start Date: 06/15/18 Stop Date: 06/15/18 Status: Completed phenylephrine (ANES) Route: IV, Drug form: INJ, ONCE, Stop date: 06/15/18 16:03:00 CONTRACT [employer]GAL Start Date: 06/15/18 Stop Date: 06/15/18 Status: Completed pneumococcal 13-valent vaccine 0.5 mL, Route: IM, Drug Form: INJ, ONCALL, Start date: 06/10/18 1:56:07 CONTRACT [employer]GAL, Sto p date: 07/10/18 1:51:07 CONTRACT [employer]ALEGAL Notes: Shake well prior to use (Same as: Prevnar 13) Start Date: 06/10/18 Stop Date: 06/20/18 Status: Discontinued potassium chloride 40 mEq, 2 tab, Route: PO, Drug form: ERTAB, ONCE, Dosing Weight 71.727, kg, Star t date: 06/12/18 16:21:00 CONTRACT [employer]GAL, Stop date: 06/12/18 16:21:00 CONTRACT PARALEGAL Notes: (Same as: K-Jorge 20)"Do Not Crush" Give with food and full glass of water For patients unable to swallow tablet, dissolve in one half glass of water. Allo w about 2 minutes for the tablets to disintegrate. Stir before giving to prepare slurry and administer.Please exclude Patients with feeding tube less than 14 Italian (Dobhoff, J-tube etc) and pediatric and patients. Start Date: 06/12/18 Stop Date: 06/12/18 Status: Completed pravastatin 40 mg, 2 tab, Route: PO, Drug form: TAB, Daily, Dosing Weight 71.727, kg, Start date: 06/11/18 9:00:00 CONTRACT [employer]GAL, Duration: 30 day, Stop date: 07/10/18 21:00:00 CONTRACT [employer]GAL Notes: (Same as: Pravachol) Start Date: 06/11/18 Stop Date: 06/20/18 Status: Discontinued pravastatin 40 mg oral tablet 40 mg=1 tab, PO, Daily, 0 Refill(s) Start Date: 06/10/18 Status: Ordered propofol (ANES) Route: IV, Drug form: INJ, ONCE, Stop date: 06/15/18 15:48:00 CONTRACT [employer]GAL Start Date: 06/15/18 Stop Date: 06/15/18 Status: Completed sodium bicarbonate 650 mg, 1 tab, Route: PO, Drug form: TAB, TID, Dosing Weight 71.727, kg, Start d ate: 06/10/18 13:00:00 CONTRACT [employer]GAL, Duration: 30 day, Stop date: 07/10/18 9:00:00 CONTRACT PARALEGAL Notes: "Dissolve tablet in a glass of water prior to oral administration. STOMA CH WARNING: To avoid serious injury, do not take until tablet is completely diss olved. It is very important not to take this product when overly full from food or drink." Start Date: 06/10/18 Stop Date: 06/20/18 Status: Discontinued Sodium Chloride 0.9% IV (ANES) 1000 mL Route: IV, Total Volume: 1,000, Start date: 06/15/18 14:58:00 CONTRACT [employer]GAL, Stop date: 15:58:00 CONTRACT [employer]GAL Start Date: 06/15/18 Stop Date: 06/15/18 Status: Completed vancomycin + Sodium Chloride 0.9% IV 250 mL 1,000 mg, Route: IVPB, [id number], Dosing Weight 71.727, kg, Start date: 06/10/18 1 4:00:00 CONTRACT [employer]GAL, Duration: 1 day, Stop date: 06/10/18 14:00:00 CONTRACT [employer]GAL, ABX Indication: Bone/Joint Infection Notes: TIME CRITICAL MEDICATION(Same As: Vancocin)Infusion rate< 1000 mg: infuse over 1 [id number] - 1500 mg: infuse over 1.5 [id number] - 2000 mg: infuse over 2 hours> 2001 mg: infuse over 2.5 hoursFor adult patients only: Round to nearest 250 mg per Medical Staff approval MEDICATION WASTE Product Size: 1000 mgProduct Wasted: ___ mg Start Date: 06/10/18 Stop Date: 06/10/18 Status: Completed Vancomycin Dosing Protocol Vancomycin Dosing Protocol, Reminder, Drug form: TITIC, Route: ROSLYN, Continuous, 06/11/18 13:30:00 CONTRACT [employer]GAL, Duration: 30 day, Stop date: 07/11/18 13:29:00 CONTRACT [employer]GAL Start Date: 06/11/18 Stop Date: 06/12/18 Status: Discontinued Vancomycin Pharmacy Dosing 1 ea, Route: ROSLYN ONCALL, Dosing Weight 71.727, kg, Start date: 06/11/18 11:00: 00 CONTRACT [employer]GAL, Duration: 14 day, Stop date: 06/25/18 10:59:00 CONTRACT PARALEGAL, Pharmacy to dose, AB X Indication: Bone/Joint Infection Start Date: 06/11/18 Stop Date: 06/11/18 Status: Completed Zyvox 600 mg, 1 tab, Route: PO, Drug form: TAB, [id number], Dosing Weight 71.727, kg, Sta rt date: 06/12/18 12:00:00 CONTRACT [employer]ALEGAL, Duration: 10 day, Stop date: 06/22/18 0:00:00 CS T, ABX Indication: Bone/Joint Infection Notes: Protect from light. (Same as: Zyvox) Start Date: 06/12/18 Stop Date: 06/20/18 Status: Discontinued Results 1 2 3 Most recent to oldest [Reference Range]: 17.9 K/CMM *HI* (06/16/18 3:59 AM) 15.0 K/CMM *HI* (06/15/18 5:19 AM) 15.6 K/CMM *HI* (06/14/18 5:45 AM) Neutrophils # [1.5-8.1 K/CMM] 0.5 K/CMM *LOW* (06/16/18 3:59 AM) 0.7 K/CMM *LOW* (06/15/18 5:19 AM) 0.7 K/CMM *LOW* (06/14/18 5:45 AM) Lymphocytes # [1.0-5.5 K/CMM] 1.6 K/CMM *HI* (06/16/18 3:59 AM) 1.5 K/CMM *HI* (06/15/18 5:19 AM) 1.7 K/CMM *HI* (06/14/18 5:45 AM) Monocytes # [0.0-0.8 K/CMM] 0.1 K/CMM (06/15/18 5:19 AM) 0.1 K/CMM (06/14/18 5:45 AM) 0.1 K/CMM (06/12/18 5:52 AM) Eosinophils # [0.0-0.5 K/CMM] 0.1 K/CMM (06/16/18 3:59 AM) 0.1 K/CMM (06/15/18 5:19 AM) 0.1 K/CMM (06/14/18 5:45 AM) Basophils # [0.0-0.2 K/CMM] Normal (06/14/18 5:45 AM) Normal (06/11/18 5:01 AM) Plt Morph 2.91 *NA* (06/10/18 2:04 PM) U Prot/Creat 10 mL/min/1.73m2 1 *NA* (06/20/18 3:51 AM) 10 mL/min/1.73m2 2 *NA* (06/19/18 3:32 AM) 9 mL/min/1.73m2 3 *NA* (06/18/18 4:27 AM) eGFR Product available 4 (06/13/18 2:59 PM) RBC product B POS *Unknown* (06/15/18 7:13 AM) B POS *Unknown* (06/11/18 9:31 AM) ABO/Rh 26 % (06/11/18 1:09 PM) % Satur Fe [12-57 %] 0.4 *LOW* (06/10/18 1:57 AM) A/G Ratio [0.7-1.6] Negative (06/15/18 7:13 AM) Negative (06/11/18 9:31 AM) Antibody Scrn 2.1 g/dL *LOW* (06/10/18 1:57 AM) Albumin Lvl [3.5-5.0 g/dL] 78 unit/L (06/10/18 1:57 AM) Alk Phos [39-136 unit/L] 32 unit/L (06/10/18 1:57 AM) ALT [0-65 unit/L] 14.5 mEq/L (06/20/18 3:51 AM) 17.7 mEq/L (06/19/18 3:32 AM) 15.8 mEq/L (06/18/18 4:27 AM) AGAP [10.0-20.0 mEq/L] 1+ *ABN* (06/11/18 5:01 AM) Anisocyte [None Seen] 22 unit/L (06/10/18 1:57 AM) AST [0-37 unit/L] 11 (06/10/18 1:57 AM) B/C Ratio [6-25] 0.3 % (06/16/18 3:59 AM) 0.3 % (06/15/18 5:19 AM) 0.3 % (06/14/18 5:45 AM) Basophils [0.0-1.0 %] 53 mg/dL *HI* (06/20/18 3:51 AM) 56 mg/dL *HI* (06/19/18 3:32 AM) 58 mg/dL *HI* (06/18/18 4:27 AM) BUN [7-22 mg/dL] 8.1 mg/dL *LOW* (06/20/18 3:51 AM) 7.9 mg/dL *LOW* (06/19/18 3:32 AM) 7.7 mg/dL *LOW* (06/18/18 4:27 AM) Calcium Lvl [8.5-10.5 mg/dL] 104 mEq/L (06/20/18 3:51 AM) 107 mEq/L (06/19/18 3:32 AM) 107 mEq/L (06/18/18 4:27 AM) Chloride Lvl [95-109 mEq/L] 19 mEq/L *LOW* (06/20/18 3:51 AM) 19 mEq/L *LOW* (06/19/18 3:32 AM) 18 mEq/L *LOW* (06/18/18 4:27 AM) CO2 [24-32 mEq/L] 4.84 mg/dL *HI* (06/20/18 3:51 AM) 4.94 mg/dL *HI* (06/19/18 3:32 AM) 5.10 mg/dL *HI* (06/18/18 4:27 AM) Creatinine Lvl [0.50-1.40 mg/dL] 0.1 % (06/16/18 3:59 AM) 0.9 % (06/15/18 5:19 AM) 0.6 % (06/14/18 5:45 AM) Eosinophils [0.0-4.0 %] 839 ng/mL *HI* (06/11/18 1:09 PM) Ferritin Lvl [5-204 ng/mL] 5.3 g/dL *HI* (06/10/18 1:57 AM) Globulin [2.7-4.2 g/dL] 156 mg/dL *HI* (06/20/18 3:51 AM) 142 mg/dL *HI* (06/19/18 3:32 AM) 117 mg/dL *HI* (06/18/18 4:27 AM) Glucose Lvl [70-99 mg/dL] 29.3 % *LOW* (06/16/18 3:59 AM) 29.2 % *LOW* (06/15/18 5:19 AM) 29.8 % *LOW* (06/14/18 5:45 AM) Hct [36.0-48.0 %] 9.3 g/dL *LOW* (06/16/18 3:59 AM) 9.3 g/dL *LOW* (06/15/18 5:19 AM) 9.7 g/dL *LOW* (06/14/18 5:45 AM) Hgb [12.0-16.0 g/dL] 6.3 % *HI* (06/12/18 5:52 AM) Hgb A1C [<=5.6 %] 1+ (06/11/18 5:01 AM) Hypochrom [None Seen] 27 ug/dl *LOW* (06/11/18 1:09 PM) Iron [30-160 ug/dl] 3.5 mEq/L (06/20/18 3:51 AM) 3.7 mEq/L (06/19/18 3:32 AM) 3.8 mEq/L (06/18/18 4:27 AM) Potassium Lvl [3.5-5.1 mEq/L] 2.5 % *LOW* (06/16/18 3:59 AM) 4.1 % *LOW* (06/15/18 5:19 AM) 4.1 % *LOW* (06/14/18 5:45 AM) Lymphocytes [20.0-40.0 %] 27.8 pg (06/16/18 3:59 AM) 28.0 pg (06/15/18 5:19 AM) 28.2 pg (06/14/18 5:45 AM) MCH [27.0-31.0 pg] 31.6 g/dL *LOW* (06/16/18 3:59 AM) 32.0 g/dL (06/15/18 5:19 AM) 32.5 g/dL (06/14/18 5:45 AM) MCHC [32.0-36.0 g/dL] 88.1 fL (06/16/18 3:59 AM) 87.5 fL (06/15/18 5:19 AM) 86.8 fL (06/14/18 5:45 AM) MCV [80.0-98.0 fL] 1.8 mg/dL (06/13/18 5:25 AM) 1.9 mg/dL (06/12/18 5:52 AM) 2.1 mg/dL (06/11/18 5:01 AM) Magnesium Lvl [1.8-2.4 mg/dL] 8.0 % (06/16/18 3:59 AM) 8.7 % (06/15/18 5:19 AM) 9.1 % (06/14/18 5:45 AM) Monocytes [2.0-12.0 %] 7.6 fL (06/16/18 3:59 AM) 7.6 fL (06/15/18 5:19 AM) 7.4 fL (06/14/18 5:45 AM) MPV [7.4-10.4 fL] 134 mEq/L *LOW* (06/20/18 3:51 AM) 140 mEq/L (06/19/18 3:32 AM) 137 mEq/L (06/18/18 4:27 AM) Sodium Lvl [135-145 mEq/L] 5.5 mg/dL *HI* (06/13/18 5:25 AM) 5.8 mg/dL *HI* (06/12/18 5:52 AM) 6.6 mg/dL *HI* (06/11/18 5:01 AM) Phosphorus [2.5-4.5 mg/dL] 303 K/CMM (06/16/18 3:59 AM) 365 K/CMM (06/15/18 5:19 AM) 337 K/CMM (06/14/18 5:45 AM) Platelet [133-450 K/CMM] 89.1 % *HI* (06/16/18 3:59 AM) 86.0 % *HI* (06/15/18 5:19 AM) 85.9 % *HI* (06/14/18 5:45 AM) Segs [45.0-75.0 %] 7.4 g/dL (06/10/18 1:57 AM) Total Protein [6.4-8.4 g/dL] 3.32 M/CMM *LOW* (06/16/18 3:59 AM) 3.34 M/CMM *LOW* (06/15/18 5:19 AM) 3.43 M/CMM *LOW* (06/14/18 5:45 AM) RBC [4.20-5.40 M/CMM] Normal (06/14/18 5:45 AM) RBC Morph 15.5 % *HI* (06/16/18 3:59 AM) 15.3 % *HI* (06/15/18 5:19 AM) 15.3 % *HI* (06/14/18 5:45 AM) RDW [11.5-14.5 %] 0.3 mg/dL (06/10/18 1:57 AM) Bili Total [0.2-1.3 mg/dL] 104 ug/dl *LOW* (06/11/18 1:09 PM) TIBC [228-428 ug/dl] Occasional /HPF *NA* (06/10/18 2:04 PM) UA Bacteria [None Seen /HPF] Negative *NA* (06/10/18 2:04 PM) UA Bili [Negative] Small *ABN* (06/10/18 2:04 PM) UA Blood [Negative] Ltyellow *NA* (06/10/18 2:04 PM) UA Color 32.30 mg/dL *NA* (06/10/18 2:04 PM) U Creatinine 150 mg/dL *ABN* (06/10/18 2:04 PM) UA Glucose [Negative mg/dL] Negative *NA* (06/10/18 2:04 PM) UA Ketones [Negative] Moderate *ABN* (06/10/18 2:04 PM) UA Leuk Est [Negative] Negative (06/10/18 2:04 PM) UA Nitrite [Negative] 5.0 (06/10/18 2:04 PM) UA pH [5.0-8.0] 94.0 mg/dL *NA* (06/10/18 2:04 PM) U Protein 100 mg/dL *ABN* (06/10/18 2:04 PM) UA Protein [Negative mg/dL] 3 /HPF *HI* (06/10/18 2:04 PM) UA RBC [0-2 /HPF] 1.008 (06/10/18 2:04 PM) UA Spec Grav [<=1.030] Occasional /LPF (06/10/18 2:04 PM) UA Sq Epi [Few /LPF] Slight *ABN* (06/10/18 2:04 PM) UA Turbidity [Clear] <=1.0 mg/dL *NA* (06/10/18 2:04 PM) UA Urobilinogen [0.1-1.0 mg/dL] 24 /HPF *HI* (06/10/18 2:04 PM) UA WBC [0-5 /HPF] 77 ug/dl *LOW* (06/11/18 1:09 PM) UIBC [110-370 ug/dl] 16.9 ug/ml *NA* (06/14/18 5:45 AM) 25.2 ug/ml *NA* (06/12/18 5:52 AM) 26.6 ug/ml *NA* (06/11/18 1:09 PM) Vanco Lvl 20.1 K/CMM *HI* (06/16/18 3:59 AM) 17.4 K/CMM *HI* (06/15/18 5:19 AM) 18.1 K/CMM *HI* (06/14/18 5:45 AM) WBC [3.7-10.4 K/CMM] 1Result Comment: The eGFR is calculated using the [...] from the National Kidney Disease Education Program ( NKDEP) which additionally recommends that when the eGFR is used in patients with extremes of body mass index for purposes of drug dosing, the eGFR should be mul tiplied by the estimated BMI. 2Result Comment: The eGFR is calculated using the [...] from the National Kidney Disease Education Program ( NKDEP) which additionally recommends that when the eGFR is used in patients with extremes of body mass index for purposes of drug dosing, the eGFR should be mul tiplied by the estimated BMI. 3Result Comment: The eGFR is calculated using the [...] from the National Kidney Disease Education Program ( NKDEP) which additionally recommends that when the eGFR is used in patients with extremes of body mass index for purposes of drug dosing, the eGFR should be mul tiplied by the estimated BMI. 4Result Comment: 06/13/2018 15:36 [id number] spoke to Maddie,3A on 06/13/2018 15:36 by Karri. Microbiology Reports TEST: Culture: Anaerobic STATUS: Auth (Verified) BODY SITE: Right Foot SOURCE: Wound, Non Surgical COLLECTED DATE/TIME: 06/15/18 4:30 PM FINAL REPORT No Anaerobes Isolated TEST: Culture: Anaerobic STATUS: Auth (Verified) BODY SITE: Left Foot SOURCE: Wound, Non Surgical COLLECTED DATE/TIME: 06/15/18 4:30 PM FINAL REPORT Many Prevotella Species Beta Lactamase Negative . Many Bacteroides Species Beta Lactamase Positive TEST: Culture: Wound/Abscess w/Gram Stain STATUS: Auth (Verified) BODY SITE: Left Foot SOURCE: Wound, Non Surgical COLLECTED DATE/TIME: 06/15/18 4:30 PM FINAL REPORT Many Citrobacter Freundii Complex Growth In Subculture Broth Only : Enterococcus Species Many Pseudomonas aeruginosa Refer To Culture # [id number], collected on 06/15/18 For Susceptibility Results STAIN REPORT Many Gram Negative Rods Many Gram Positive Cocci Many Wbc ORGANISM:Citrobacter Freundii Complex TEST: Culture: Wound/Abscess w/Gram Stain STATUS: Auth (Verified) BODY SITE: Right Foot SOURCE: Wound, Non Surgical COLLECTED DATE/TIME: 06/15/18 8:27 AM FINAL REPORT Few Pseudomonas aeruginosa Moderate Enterococcus Species . Few Yeast STAIN REPORT Few Wbc'S; Moderate Gram Positive Cocci ORGANISM:Pseudomonas aeruginosa ORGANISM:Enterococcus Species Immunizations Given and Recorded Vaccine Date Status Refusal Reason influenza virus vaccine, inactivated 06/20/18 Given Procedures Procedure Date Related Diagnosis Body Site Status Cataract surgery1 Completed 1bilateral eyes Social History Social History Type Response Substance Abuse Use: None. Alcohol Past, Last use: 50 years ago. Previous treatment: None. Smoking Status Former smoker; Type: Cigarettes; Previous treatment: None; Concerns about tobacco use in household: No; Exposure to Tobacco Smoke None; Cigarette Smoking Last 365 Days No; Reg Smoking Cessation Counseling No; Stopped at age: 17; entered on: 06/10/18 Assessment and Plan Extracted from: Title: Clinical Document Author: Israel Chery MD Date: 06/20/18 Progress Note Nephrology SUBJECTIVE [...] 4.9, [place] [facility] [place]. Metabolic acidosis on p.o. bicarbonate. 3. Lower extremity diabetic wound, status post debridement. Continue with the wound care and antibiotic.refuses amputation 4. Peripheral arterial disease. Patient is not willing to take a risk on the kidneys to do the angiogram. Dr. Nance is following. Discussed with the . Discussed with them. Discussed with the . PLAN & TREATMENT poor prognosis refuses bka refuses dialysis going home on abx discussed with her again follow up, patient does not comply OBJECTIVE VitalsTmp(F)Tmp(C)[id number] 06/20 19:3898.536.75vybu093/76---88--97------ 06/20 11:[id number]/[id number]------ 06/20 07:5098.436.45pynr373/71---84--100------ 06/20 02:5698.737.92vmpk101/73---84--100------ 06/19 22:5198.436.70eckf968/73---84--98------ 24 Hr Tmax: 98.7F (37.06c) at 06/20 02:56Vital Signs are the last 5 in the past 48 hours. 24 Hr Tmin: 98.4F (36.89c) at 06/20 07:50Weights are the last 5 in 60 days, plus initial. DateWt(kg)Wt(lb)Ht(cm)Ht(in)MethodBMIBSA 06/09 (initial) 71.73 157.80Measured 29.91.76 80468.94 61.00Stated 24 Hr Point of Care Glucoses 06/20 1137Glucose UJG784 H 06/20 0850Glucose MDA706 H 06/20 0258Glucose SCO387 H 06/19 2257Glucose HPZ911 H Most Recent Scores: 06/20/18[place] Fall Score12 06/20/18Glasgow Coma Score15 06/20/18Braden Score16 06/20/18Pain Intensity NRS (0-10)0 Lines, Tubes, and Drains: 06/18/2018 11:01 Peripheral Lines: Forearm Right 22 gauge Over the needle catheter Surgical Procedures: 06/15/18 15:13ULCER / BONE DEBRIDEMENT, LORENZO HEEL [id number] Surgeon: Mario Hurst DPM (Service: POD) Input/Output RecordInOutBal 4hr Tot 190 [id number] 1124hr Tot 311 [id number] Scheduled Meds (9):carvedilol, cefTRIAXone + sterile water 10 mL, docusate, famotidine, gabapentin (Neurontin), hydrALAZINE (hydrALAZINE 50 mg oral tablet), linezolid (Zyvox), pravastatin, sodium bicarbonate Unscheduled Meds (1):pneumococcal 13-valent vaccine PRN Meds (15):Dextrose 50% in Water IV (Dextrose 50% Syringe), Dextrose 50% in Water IV (Dextrose 50% Syringe), acetaminophen-hydrocodone (Gifford 7.5/325 oral tablet), acetaminophen, cloNIDine, glucagon, insulin lispro, insulin lispro, insulin lispro, insulin lispro, insulin lispro, insulin lispro, insulin lispro, insulin lispro, insulin lispro One Time Meds: None Continuous Infusions: None Labs (Last four charted values) WBC H 20.1(JUN 16)H 17.4(JUN 15)H 18.1(JUN 14)H 19.2(JUN 13) Hgb L 9.3(JUN 16)L 9.3(JUN 15)L 9.7(JUN 14)C 6.9(JUN 13) Hct L 29.3(JUN 16)L 29.2(JUN 15)L 29.8(JUN 14)L 21.9(JUN 13) Plt 303(JUN 16)365(JUN 15)337(JUN 14)346(JUN 13) Na L 134(JUN 20)140(JUN 19)137(JUN 18)136(JUN 16) K 3.5(JUN 20)3.7(JUN 19)3.8(JUN 18)3.5(JUN 16) CO2 L 19(JUN 20)L 19(JUN 19)L 18(JUN 18)L 18(JUN 16) Cl 104(JUN 20)107(JUN 19)107(JUN 18)108(JUN 16) Cr H 4.84(JUN 20)H 4.94(JUN 19)H 5.10(JUN 18)H 5.18(JUN 16) BUN H 53(JUN 20)H 56(JUN 19)H 58(JUN 18)H 62(JUN 16) Glucose Random H 156(JUN 20)H 142(JUN 19)H 117(JUN 18)96(JUN 16) Mg 1.8(JUN 13)1.9(JUN 12)2.1(JUN 11) Phos H 5.5(JUN 13)H 5.8(JUN 12)H 6.6(JUN 11) Ca L 8.1(JUN 20)L 7.9(JUN 19)L 7.7(JUN 18)L 7.5(JUN 16)
--- OUTSIDE RECORDS SUMMARY | 2019-01-16 00:03 | XMS REPORT | CCD ---
Author Author Auto Generated Organization [facility] Address Unknown Phone Unavailable Care Team Providers Care [place] [employer] Member Name Role Phone Anson Farris CP Allergies, Adverse Reactions, Alerts Substance Reaction Status NKDA Active Problem List Condition Effective Dates Status Diabetes mellitus type 2 Active HTN - Hypertension Active Hyperlipidemia Active Medications Medication Instructions Start Date End Date Status Alpine 5/325 oral 1-2 tab, PO, Q4-6H, Pain, # 15 tab, 06/11/2013 06/16/2013 Ordered tablet 0 Refill(s) Zofran 4 mg, Route: IVP, Drug form: INJ, 06/11/2013 06/11/2013 Completed ONCE, Dosing Weight 81.818, kg, Priority: STAT, Start date: 06/11/13 20:36:00, Stop date: 06/11/13 20:36:00 morphine Sulfate 4 mg, Route: IVP, Drug form: INJ, 06/11/2013 06/11/2013 Completed ONCE, Dosing Weight 81.818, kg, Priority: STAT, Start date: 06/11/13 20:35:00, Stop date: 06/11/13 20:35:00 Vital Signs Most recent to oldest [Reference Range]: 1 2 Temperature Oral [96.4-99.1 DegF] 98.6 DegF (06/11/2013 22:10:00) 98.3 DegF (06/11/2013 19:52:00) Systolic Blood Pressure [90-140 mmHg] 184 mmHg *HI* (06/11/2013 22:10:00) 200 mmHg *HI* (06/11/2013 19:52:00) Diastolic Blood Pressure [60-90 mmHg] 89 mmHg (06/11/2013 22:10:00) 84 mmHg (06/11/2013 19:52:00) Respiratory Rate [14-20 BRMIN] 18 BRMIN (06/11/2013 22:10:00) 20 BRMIN (06/11/2013 19:52:00) Peripheral Pulse Rate [60-100 bpm] 88 bpm (06/11/2013 22:10:00) 95 bpm (06/11/2013 19:52:00) Weight 81.818 kg (06/11/2013 19:52:00)
[2019-01-16 00:47] LABS: BASOPHILS % 0.4 % (0.0-1.0); EOSINOPHILS # (AUTO) 0.1 (0.0-0.4); EOSINOPHILS % 0.5 % (0.0-6.0); LYMPHOCYTES # (AUTO) 1.1 (1.0-3.2); LYMPHOCYTES % 12.2 % (18.0-39.1); MEAN CORPUSCULAR HEMOGLOBIN 23.8 pg (28-32); MEAN CORPUSCULAR HGB CONC 28.7 g/dL (31-35); MEAN CORPUSCULAR VOLUME 82.9 fL (81-99); MONOCYTES # (AUTO) 0.9 (0.2-0.8); NEUTROPHILS # (AUTO) 7.1 (2.1-6.9); PLATELET COUNT 478 x10e3/uL (140-360); RED BLOOD COUNT 2.52 x10e6/uL (3.6-5.1); RED CELL DISTRIBUTION WIDTH 17.4 % (11.7-14.4)
[2019-01-16 00:57] LABS: HEMATOCRIT 20.9 % (34.2-44.1)
[2019-01-16] MEDS ORDERED: SODIUM CHLORIDE 0.9% 250ML 250 ML IV ONE (01:00)
[2019-01-16 01:06] LABS: ALANINE AMINOTRANSFERASE 7 IU/L (0-55); ALBUMIN 1.9 g/dL (3.5-5.0); ALBUMIN/GLOBULIN RATIO 0.3 (0.8-2.0); ALKALINE PHOSPHATASE 91 IU/L (40-150); ANION GAP 16.5 mmol/L (8-16); BLOOD UREA NITROGEN 74 mg/dL (7-26); BUN/CREATININE RATIO 11 (6-25); CARBON DIOXIDE 22 mmol/L (22-29); CHLORIDE 103 mmol/L (98-107); CREATINE KINASE 15 IU/L (29-168); CREATININE, SERUM 6.75 mg/dL (0.57-1.11); EST GLOMERULAR FILTRATION RATE 7 ML/MIN (60-); GLUCOSE 148 mg/dL (74-118); POTASSIUM 4.5 mmol/L (3.5-5.1); SODIUM 137 mmol/L (136-145)
[2019-01-16] MEDS ORDERED: DEXTROSE 50% SYRINGE 50 ML IV STA (01:07)
[2019-01-16] MEDS ORDERED: DEXTROSE 50% SYRINGE 50 ML IV ONE (01:11)
--- NOTE | 2019-01-16 01:38 | Diagnostic Imaging Report ---
EXAMINATION: CHEST SINGLE (PORTABLE) INDICATION: weakness COMPARISON: Chest radiograph 09/14/2017 FINDINGS: AP view TUBES and LINES: None. LUNGS: Lungs are well inflated. Lungs are clear. There is mild prominence of the central pulmonary vasculature, consistent with pulmonary venous congestion. PLEURA: No pleural effusion or pneumothorax. HEART AND MEDIASTINUM: Cardiac size is mildly enlarged. Aortic arch calcifications. BONES AND SOFT TISSUES: No acute osseous lesion. Soft tissues are unremarkable. UPPER ABDOMEN: No free air under the diaphragm. IMPRESSION: No acute thoracic abnormality. Mild cardiomegaly and pulmonary vascular congestion. Signed by: Lan Swanson DO on 01/16/2019 1:35 AM
[2019-01-16] MEDS ORDERED: SODIUM CHLORIDE FLUSH 10 ML SYR INJ PRN (01:45)
[2019-01-16] MEDS ORDERED: DEXTROSE 50% SYRINGE 50 ML IV PRN (01:45)
[2019-01-16] MEDS ORDERED: ONDANSETRON HCL INJ 2MG/ML 2ML 2 MG/ML VIAL IV PRN (01:45)
[2019-01-16 01:47] LABS: BILIRUBIN,URINE NEGATIVE (NEGATIVE); CLARITY,URINE CLEAR (CLEAR); COLOR,URINE YELLOW (YELLOW); KETONES,URINE NEGATIVE (NEGATIVE); LEUKOCYTE ESTERASE ,URINE TRACE (NEGATIVE); NITRITE,URINE NEGATIVE (NEGATIVE); PROTEIN,URINE DIPSTICK 1+ (NEGATIVE); URINE UROBILINOGEN 0.2 mg/dL (0.2 - 1)
--- OUTSIDE RECORDS SUMMARY | 2019-01-16 01:47 | XMS REPORT | Continuity of Care Document ---
Author Author [email or web address] Address Unknown Phone Unavailable Care Team Providers Care Staff Development Manager Name Role Phone [employer] Information [email or web address] Unavailable Unavailable Problems Problem Status Onset Date Classification Date Reported Comments Source Type 2 diabetes mellitus with other specified complication 06/27/2018 01/07/2019 [facility] DKA, ACUTE RENAL FAILURE Active 06/09/2018 [facility] SHOULDER PAIN OR INJURY Active 06/11/2013 [facility] COMPLICATIONS AFFECTING OTHER SPECIFIED BODY SYSTEMS, H Active 02/08/2012 [facility] ROUTINE SCREENING Active 08/24/2011 [facility] Anemia Active Problem 2017 [facility] Cardiomegaly Active Problem 2017 [facility] Congestive heart failure with left ventricular diastolic dysfunction Active Problem 2017 [facility] Kidney failure Active Problem 2017 [facility] Obesity Active Problem 2017 [facility] Weakness Active Problem 2017 [facility] Diabetes mellitus type 2 Active Problem 01/07/2019 [facility] HTN - Hypertension Active Problem 01/07/2019 [facility] Hyperlipidemia Active Problem 01/07/2019 [facility] Acute kidney failure, unspecified 01/07/2019 [facility] Gas gangrene 01/07/2019 [facility] Osteomyelitis, unspecified 01/07/2019 [facility] Non-pressure chronic ulcer of left heel and midfoot with unspecified severity 01/07/2019 [facility] Non-pressure chronic ulcer of right heel and midfoot with unspecified severity 01/07/2019 [facility] Hypertensive heart and chronic kidney disease with heart failure and with stage 5 chronic kidney disease, or end stage renal disease 01/07/2019 [facility] Hypo-osmolality and hyponatremia 01/07/2019 [facility] Acidosis 01/07/2019 [facility] Type 2 diabetes mellitus with diabetic peripheral angiopathy with gangrene 01/07/2019 [facility] Cutaneous abscess of left foot 01/07/2019 [facility] Cellulitis of left lower limb 01/07/2019 [facility] Type 2 diabetes mellitus with foot ulcer 01/07/2019 [facility] Type 2 diabetes mellitus with diabetic nephropathy 01/07/2019 [facility] Type 2 diabetes mellitus with hyperglycemia 01/07/2019 [facility] End stage renal disease 01/07/2019 [facility] Type 2 diabetes mellitus with unspecified diabetic retinopathy without macular edema 01/07/2019 [facility] Heart failure, unspecified 01/07/2019 [facility] Hyperlipidemia, unspecified 01/07/2019 [facility] Type 2 diabetes mellitus with diabetic polyneuropathy 01/07/2019 [facility] Patient's noncompliance with other medical treatment and regimen 01/07/2019 [facility] Personal history of nicotine dependence 01/07/2019 [facility] Hypokalemia 01/07/2019 [facility] 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 01/07/2019 [facility] Type 2 diabetes mellitus with diabetic chronic kidney disease 01/07/2019 [facility] ACUTE KIDNEY FAILURE, UNSPECIFIED Active [facility] SINGLE LIVEBORN INFANT, DELIVERED VAGINA Active [facility] Medications Medication Details Route Status Patient Instructions Ordering Provider Order Date Source Doxycycline 150 MG Oral Capsule 150 mg=1 cap, PO, BID, X 10 day, # 84 cap, 0 Refill(s), Pharmacy: [place] [id number] No Longer Active 06/20/2018 [facility] Ciprofloxacin 500 MG Oral Tablet [Cipro] 500 mg=1 tab, PO, Q12H, # 84 tab, 0 Refill(s), Pharmacy: [place] [id number] Inactive 06/20/2018 [facility] Hydralazine 10 mg, 0.5 mL, Route: IV, Drug form: INJ, ONCE, Dosing Weight 71.727, kg, Start date: 06/18/18 15:41:00 EXHAUST MACHINE OPERATOR, Stop date: 06/18/18 15:41:00 CSTNotes: (Same as: Apresoline) Push over 5 minutes Inactive 06/18/2018 [facility] Acetaminophen 325 MG / Hydrocodone Bitartrate 7.5 MG Oral Tablet [Deane 7.5/325] 1 tab, Route: PO, Drug Form: TAB, Dosing Weight 71.727, kg, Q6H, PRN Pain Score 4-6, Start date: 06/16/18 11:53:00 EXHAUST MACHINE OPERATOR, Duration: 30 day, Stop date: 07/16/18 11:52:00 CSTNotes: Same as Deane 325-7.5mg Do not exceed 4gm/day of acetaminophen. No Longer Active 06/16/2018 [facility] Oxycodone 5 mg, 1 tab, Route: PO, Drug form: TAB, Q4H, Dosing Weight 71.727, kg, PRN Pain Score 4-6, Start date: 06/15/18 16:21:00 EXHAUST MACHINE OPERATOR, Duration: 30 day, Stop date: 07/15/18 16:20:00 CSTNotes: (Same as: Roxicodone) No Longer Active 06/15/2018 [facility] Acetaminophen 1,000 mg, 2 tab, Route: PO, Drug form: TAB, ONCE, Dosing Weight 71.727, kg, PRN Pain Score 1-3, Start date: 06/15/18 16:21:00 CSTNotes: Max acetaminophen 4000 mg/day (4 gm/day). (Same as: Tylenol Extra Strength) No Longer Active 06/15/2018 [facility] Labetalol 10 mg, 2 mL, Route: IVP, Drug form: INJ, Q5Min, Dosing Weight 71.727, kg, PRN Elevated BP, Start date: 06/15/18 16:21:00 EXHAUST MACHINE OPERATOR, Duration: 5 doses or times, Stop date: Limited # of timesNotes: (Same as: No rmodyne, Trandate) Push over 2 minutes Give bolus over 2-3 minutes. No Longer Active 06/15/2018 [facility] Hydralazine 10 mg, 0.5 mL, Route: IVP, Drug form: INJ, Q20Min, Dosing Weight 71.727, kg, PRN Elevated BP, Start date: 06/15/18 16:21:00 EXHAUST MACHINE OPERATOR, Duration: 2 doses or times, Stop date: Limited # of timesNotes: (Same as: Apresoline) Push over 5 minutes No Longer Active 06/15/2018 [facility] Ondansetron 4 mg, 2 mL, Route: IVP, Drug form: INJ, ONCE, Dosing Weight 71.727, kg, PRN Nausea & Vomiting, Start date: 06/15/18 16:21:00 CSTNotes: (Same as: Zofran) MEDICATION WASTE Product Size: 4 mg Product Wasted: ___ mg No Longer Active 06/15/2018 [facility] Diphenhydramine 12.5 mg, 0.25 mL, Route: IVP, Drug form: INJ, Q6H, Dosing Weight 71.727, kg, PRN Itching, Start date: 06/15/18 16:21:00 EXHAUST MACHINE OPERATOR, Duration: 30 day, Stop date: 07/15/18 16:20:00 CSTNotes: (Same as: Manasa caballero) No Longer Active 06/15/2018 [facility] Naloxone 0.4 mg, 1 mL, Route: IVP, Drug form: INJ, Q2MIN, Dosing Weight 71.727, kg, PRN Narcotic Reversal, Start date: 06/15/18 16:21:00 EXHAUST MACHINE OPERATOR, Duration: 8 doses or times, Stop date: Limited # of timesNotes: Same as Narcan No Longer Active 06/15/2018 [facility] Flumazenil 0.2 mg, 2 mL, Route: IVP, Drug form: INJ, PRN, Dosing Weight 71.727, kg, PRN Benzodiazepine Reversal, Initial dose, Start date: 06/15/18 16:21:00 EXHAUST MACHINE OPERATOR, Duration: 30 day, Stop date: 07/15/18 16:20:00 C STNotes: (Same as: Romazicon) No Longer Active 06/15/2018 [facility] Fentanyl 50 microgram, 1 mL, Route: IVP, Drug form: INJ, Q5Min, Dosing Weight 71.727, kg, PRN Pain Score 7-10, Priority: Routine, Start date: 06/15/18 16:21:00 EXHAUST MACHINE OPERATOR, Duration: 2 doses or times, Stop date: Limited # of timesNotes: (Same as: Sublimaze) Preservative free. No Longer Active 06/15/2018 [facility] Hydromorphone 0.5 mg, 0.5 mL, Route: IVP, Drug form: SOLN, Q5Min, Dosing Weight 71.727, kg, PRN Pain Score 7-10, Start date: 06/15/18 16:21:00 EXHAUST MACHINE OPERATOR, Duration: 4 doses or times, Stop date: Limited # of timesNotes: ( Same as: Dilaudid) No Longer Active 06/15/2018 [facility] phenylephrine (ANES) Route: IV, Drug form: INJ, ONCE, Stop date: 06/15/18 16:03:00 EXHAUST MACHINE OPERATOR Inactive 06/15/2018 [facility] metoclopramide (ANES) Route: IV, Drug form: INJ, ONCE, Stop date: 06/15/18 15:48:00 EXHAUST MACHINE OPERATOR Inactive 06/15/2018 [facility] propofol (ANES) Route: IV, Drug form: INJ, ONCE, Stop date: 06/15/18 15:48:00 EXHAUST MACHINE OPERATOR Inactive 06/15/2018 [facility] fentaNYL (ANES) Route: IV, Drug form: INJ, ONCE, Stop date: 06/15/18 15:48:00 EXHAUST MACHINE OPERATOR Inactive 06/15/2018 [facility] lidocaine (ANES) Route: IV, Drug form: INJ, ONCE, Stop date: 06/15/18 15:48:00 EXHAUST MACHINE OPERATOR Inactive 06/15/2018 [facility] ondansetron (ANES) Route: IV, Drug form: INJ, ONCE, Stop date: 06/15/18 15:48:00 EXHAUST MACHINE OPERATOR Inactive 06/15/2018 [facility] midazolam (ANES) Route: IV, Drug form: SOLN, ONCE, Stop date: 06/15/18 15:43:00 EXHAUST MACHINE OPERATOR Inactive 06/15/2018 [facility] Sodium Chloride 0.9% IV (ANES) 1000 mL Route: IV, Total Volume: 1,000, Start date: 06/15/18 14:58:00 EXHAUST MACHINE OPERATOR, Stop date: 06/15/18 15:58:00 EXHAUST MACHINE OPERATOR Inactive 06/15/2018 [facility] NS 500 mL 500 mL, Rate: 10 ml/hr, Infuse over: 50 hr, Route: IV, Dosing Weight 71.727 kg, Total Volume: 500, Start date: 06/15/18 13:53:00 EXHAUST MACHINE OPERATOR, Duration: 1 day, Stop date: 06/16/18 13:52:00 EXHAUST MACHINE OPERATOR, 1.78, m2 No Longer Active 06/15/2018 [facility] Clonidine 0.1 mg, 1 tab, Route: PO, Drug form: TAB, Q6H, Dosing Weight 71.727, kg, PRN Elevated BP, Start date: 06/14/18 6:40:00 EXHAUST MACHINE OPERATOR, Duration: 30 day, Stop date: 07/14/18 6:39:00 CSTNotes: (Same As: Catapres) No Longer Active 06/14/2018 [facility] Lasix 40 mg, 4 mL, Route: IVP, Drug form: INJ, ONCE, Dosing Weight 71.727, kg, Start date: 06/13/18 17:48:00 EXHAUST MACHINE OPERATOR, Stop date: 06/13/18 17:48:00 CSTNotes: (Same as: Lasix) MEDICATION WASTE Product Size: 40 mg Product Wasted: ___ mg Inactive 06/13/2018 [facility] Potassium Chloride 40 mEq, 2 tab, Route: PO, Drug form: ERTAB, ONCE, Dosing Weight 71.727, kg, Start date: 06/12/18 16:21:00 EXHAUST MACHINE OPERATOR, Stop date: 06/12/18 16:21:00 CSTNotes: (Same as: K-Dur 20) "Do Not Crush" Give with food and full glass of water For patients unable to swallow tablet, dissolve in one half glass of water. Allow about 2 minutes for the tablets to disintegrate. Stir before giving to prepare slurry and administer. Please exclude Patients with feeding tube less than 14 Serbian (Dobhoff, J-tube etc) and pediatric and patients. Inactive 06/12/2018 [facility] Zyvox 600 mg, 1 tab, Route: PO, Drug form: TAB, [id number], Dosing Weight 71.727, kg, Start date: 06/12/18 12:00:00 EXHAUST MACHINE OPERATOR, Duration: 10 day, Stop date: 06/22/18 0:00:00 EXHAUST MACHINE OPERATOR, ABX Indication: Bone/Joint InfectionNotes: Protect from light. (Same as: Zyvox) No Longer Active 06/12/2018 [facility] Acetaminophen 325 MG / Hydrocodone Bitartrate 5 MG Oral Tablet [Deane 5/325] 1 tab, Route: PO, Drug Form: TAB, Dosing Weight 71.727, kg, Q8H, PRN Pain Score 7-10, Start date: 06/11/18 19:56:00 EXHAUST MACHINE OPERATOR, Duration: 30 day, Stop date: 07/11/18 19:55:00 CSTNotes: (Same as: Deane 325/5) Do not exceed 4gm/day of acetaminophen. No Longer Active 06/12/2018 [facility] Vancomycin Dosing Protocol Vancomycin Dosing Protocol, Reminder, Drug form: MISC, Route: MISC, Continuous, 06/11/18 13:30:00 EXHAUST MACHINE OPERATOR, Duration: 30 day, Stop date: 07/11/18 13:29:00 EXHAUST MACHINE OPERATOR No Longer Active 06/11/2018 [facility] Ceftriaxone 1 gm, Route: IVP, [id number], Dosing Weight 71.727, kg, Start date: 06/11/18 11:00:00 EXHAUST MACHINE OPERATOR, Duration: 14 day, Stop date: 06/24/18 11:00:00 EXHAUST MACHINE OPERATOR, ABX Indication: Bone/Joint InfectionNotes: (Same As: Rocephin). Use with 100 mL NS and infuse over 30 min MEDICATION WASTE Product Size: 1000 mg Product Wasted: ___ mg No Longer Active 06/11/2018 [facility] Vancomycin 1 ea, Route: MISC, ONCALL, Dosing Weight 71.727, kg, Start date: 06/11/18 11:00:00 EXHAUST MACHINE OPERATOR, Duration: 14 day, Stop date: 06/25/18 10:59:00 EXHAUST MACHINE OPERATOR, Pharmacy to dose, ABX Indication: Bone/Joint Infection Inactive 06/11/2018 [facility] Pravastatin 40 mg, 2 tab, Route: PO, Drug form: TAB, Daily, Dosing Weight 71.727, kg, Start date: 06/11/18 9:00:00 EXHAUST MACHINE OPERATOR, Duration: 30 day, Stop date: 07/10/18 21:00:00 CSTNotes: (Same as: Pravachol) No Longer Active 06/11/2018 [facility] gabapentin 100 MG Oral Capsule 100 mg, 1 cap, Route: PO, Drug form: CAP, BID, Dosing Weight 71.727, kg, Start date: 06/11/18 9:00:00 EXHAUST MACHINE OPERATOR, Duration: 30 day, Stop date: 07/10/18 17:00:00 EXHAUST MACHINE OPERATOR No Longer Active 06/11/2018 [facility] Famotidine 40 mg, Route: PO, BID, Dosing Weight 71.727, kg, Start date: 06/11/18 9:00:00 EXHAUST MACHINE OPERATOR, Duration: 30 day, Stop date: 07/10/18 17:00:00 EXHAUST MACHINE OPERATOR No Longer Active 06/11/2018 [facility] Neurontin 50 mg, 1 mL, Route: PO, Drug form: SOLN, Q24H, Start date: 06/10/18 22:00:00 EXHAUST MACHINE OPERATOR, Duration: 30 day, Stop date: 07/09/18 22:00:00 CSTNotes: (Same as: Neurontin) No Longer Active 06/11/2018 [facility] famotidine 20 mg, 1 tab, Route: PO, Drug form: TAB, Q24H, Start date: 06/10/18 22:00:00 EXHAUST MACHINE OPERATOR, Duration: 30 day, Stop date: 07/09/18 22:00:00 CSTNotes: (Same as: Pepcid) No Longer Active 06/11/2018 [facility] Hydralazine Hydrochloride 50 MG Oral Tablet 50 mg, 1 tab, Route: PO, Drug form: TAB, BID, Dosing Weight 71.727, kg, Start date: 06/10/18 21:30:00 EXHAUST MACHINE OPERATOR, Duration: 30 day, Stop date: 07/10/18 17:00:00 CSTNotes: (Same as: Apresoline) May interfere w/enteral feedings Take With Food No Longer Active 06/11/2018 [facility] carvedilol 25 mg, 2 tab, Route: PO, Drug form: TAB, BID, Dosing Weight 71.727, kg, Start date: 06/10/18 21:30:00 EXHAUST MACHINE OPERATOR, Duration: 30 day, Stop date: 07/10/18 21:00:00 CSTNotes: Give with food. (Same As: Coreg) No Longer Active 06/11/2018 [facility] Glucagon 1 mg, Route: IM, PRN, Dosing Weight 71.727, kg, PRN Blood Glucose Results, Start date: 06/10/18 20:52:00 EXHAUST MACHINE OPERATOR, Duration: 30 day, Stop date: 07/10/18 20:51:00 EXHAUST MACHINE OPERATOR Inactive 06/11/2018 [facility] Dextrose 50% Syringe 50 mL, Route: IVP, Dosing Weight 71.727, kg, PRN, PRN Blood Glucose Results, Start date: 06/10/18 20:52:00 EXHAUST MACHINE OPERATOR, Duration: 30 day, Stop date: 07/10/18 20:51:00 EXHAUST MACHINE OPERATOR Inactive 06/11/2018 [facility] Insulin Lispro 2 unit, 0.02 mL, Route: SUB-Q, Drug form: SOLN, TID-Before Meals, Dosing Weight 71.727, kg, PRN Blood Glucose Results, Start date: 06/10/18 20:52:00 EXHAUST MACHINE OPERATOR, Duration: 30 day, Stop date: 07/10/18 20:51:0 0 CSTNotes: (Same as: Humalog ) Roll in palms of hands gently; Do not shake `vigorously. "Single Patient Use Only " WASTE: F/P - Black; E - Municipal Trash Bin Stable for 28 days at room temperature. Expires in days from Date No Longer Active 06/11/2018 [facility] Vancomycin 1,000 mg, Route: IVPB, [id number], Dosing Weight 71.727, kg, Start date: 06/10/18 14:00:00 EXHAUST MACHINE OPERATOR, Duration: 1 day, Stop date: 06/10/18 14:00:00 EXHAUST MACHINE OPERATOR, ABX Indication: Bone/Joint InfectionNotes: TIME CRITICAL MEDICATION (Same As: Vancocin) Infusion rate 2001 mg: infuse over 2.5 hours For adult patients only: Round to nearest 250 mg per Medical Staff approval MEDICATION WASTE Product Size: 1000 mg Product Wasted: ___ mg Inactive 06/10/2018 [facility] Sodium Bicarbonate 650 mg, 1 tab, Route: PO, Drug form: TAB, TID, Dosing Weight 71.727, kg, Start date: 06/10/18 13:00:00 EXHAUST MACHINE OPERATOR, Duration: 30 day, Stop date: 07/10/18 9:00:00 CSTNotes: "Dissolve tablet in a glass of water prior to oral administration. STOMACH WARNING: To avoid serious injury, do not take until tablet is completely dissolved. It is very important not to take this product when overly full from food or drink." No Longer Active 06/10/2018 [facility] Docusate 100 mg, 1 cap, Route: PO, Drug form: CAP, BID, Dosing Weight 71.727, kg, Start date: 06/10/18 9:00:00 EXHAUST MACHINE OPERATOR, Duration: 30 day, Stop date: 07/09/18 17:00:00 CSTNotes: (Same as: Colace) (Do Not Crush) No Longer Active 06/10/2018 [facility] gabapentin 100 MG Oral Capsule 100 mg=1 cap, PO, BID, 0 Refill(s) Active 06/10/2018 [facility] Famotidine 40 mg, PO, BID, # 60 tab, 0 Refill(s) Active 06/10/2018 [facility] glimepiride 1 mg oral tablet 1 mg=1 tab, PO, Daily, 0 Refill(s) Active 06/10/2018 [facility] pravastatin 40 mg oral tablet 40 mg=1 tab, PO, Daily, 0 Refill(s) Active 06/10/2018 [facility] carvedilol 25 mg, PO, BID, 0 Refill(s) Active 06/10/2018 [facility] Hydralazine Hydrochloride 50 MG Oral Tablet 50 mg=1 tab, PO, BID, 0 Refill(s) Active 06/10/2018 [facility] Folic Acid 1 MG Oral Tablet 1 mg=1 tab, PO, Daily, 0 Refill(s) Active 06/10/2018 [facility] Furosemide 40 MG Oral Tablet 40 mg=1 tab, PO, Q8H, 0 Refill(s) Active 06/10/2018 [facility] Streptococcus pneumoniae serotype 1 capsular antigen diphtheria [id number] protein conjugate vaccine / Streptococcus pneumoniae serotype 14 capsular antigen diphtheria [id number] protein conjugate vaccine / Streptococcus pneumoniae serotype 18C capsular antigen d 0.5 mL, Route: IM, Drug Form: INJ, ONCALL, Start date: 06/10/18 1:56:07 EXHAUST MACHINE OPERATOR, Stop date: 07/10/18 1:51:07 CSTNotes: Shake well prior to use (Same as: Prevnar 13) No Longer Active 06/10/2018 [facility] cefepime 1 gm, Route: IVPB, [id number], Dosing Weight 71.727, kg, (CrCl Notes: (Same As: Maxipime) MEDICATION WASTE Product Size: 1000 mg Product Wasted: ___ mg No Longer Active 06/10/2018 [facility] Clindamycin 600 mg, 50 mL, Route: IVPB, Drug form: INJ, [id number], Dosing Weight 71.727, kg, Start date: 06/10/18 1:00:00 EXHAUST MACHINE OPERATOR, Duration: 7 day, Stop date: 06/16/18 17:00:00 EXHAUST MACHINE OPERATOR, ABX Indication: Skin/Soft Tissue Inf ection No Longer Active 06/10/2018 [facility] Dextrose 50% Syringe 25 gm, Route: IVP, Dosing Weight 71.727, kg, ONCE, STAT, Start date: 06/10/18 0:39:00 EXHAUST MACHINE OPERATOR, Stop date: 06/10/18 0:39:00 EXHAUST MACHINE OPERATOR Inactive 06/10/2018 [facility] Insulin Lispro 4 unit, 0.04 mL, Route: SUB-Q, Drug form: SOLN, Bedtime, Dosing Weight 71.727, kg, PRN Blood Glucose Results, Start date: 06/10/18 0:27:00 EXHAUST MACHINE OPERATOR, Duration: 30 day, Stop date: 07/10/18 0:26:00 CSTNotes: (S kris as: Humalog ) Roll in palms of hands gently; Do not shake `vigorously. "Single Patient Use Only " WASTE: F/P - Black; E - Municipal Trash Bin Stable for 28 days at room temperature. Expires in days from Date No Longer Active 06/10/2018 [facility] Dextrose 50% Syringe 25 gm, 50 mL, Route: IVP, Drug Form: INJ, Dosing Weight 71.727, kg, PRN, PRN Blood Glucose Results, Start date: 06/10/18 0:27:00 EXHAUST MACHINE OPERATOR, Duration: 30 day, Stop date: 07/10/18 0:26:00 EXHAUST MACHINE OPERATOR No Longer Active 06/10/2018 [facility] Glucagon 1 mg, Route: IM, Drug form: PDR/INJ, PRN, Dosing Weight 71.727, kg, PRN Blood Glucose Results, Start date: 06/10/18 0:27:00 EXHAUST MACHINE OPERATOR, Duration: 30 day, Stop date: 07/10/18 0:26:00 EXHAUST MACHINE OPERATOR Inactive 06/10/2018 [facility] NS 1,000 mL 1,000 mL, Rate: 75 ml/hr, Infuse over: 13.3 hr, Route: IV, Dosing Weight 71.727 kg, Total Volume: 1,000, Start date: 06/10/18 0:23:00 EXHAUST MACHINE OPERATOR, Duration: 30 day, Stop date: 07/10/18 0:22:00 EXHAUST MACHINE OPERATOR, 1.78, m2 No Longer Active 06/10/2018 [facility] Dextrose 50% Syringe 12.5 gm, 25 mL, Route: IVP, Drug Form: INJ, Dosing Weight 71.727, kg, PRN, PRN Blood Glucose Results, Start date: 06/10/18 0:20:00 EXHAUST MACHINE OPERATOR, Duration: 30 day, Stop date: 07/10/18 0:19:00 EXHAUST MACHINE OPERATOR No Longer Active 06/10/2018 [facility] Acetaminophen 650 mg, 2 tab, Route: PO, Drug form: TAB, Q4H, Dosing Weight 71.727, kg, PRN For Temp > 100.4 F, Start date: 06/10/18 0:20:00 EXHAUST MACHINE OPERATOR, Duration: 30 day, Stop date: 07/10/18 0:19:00 CSTNotes: Do not exceed 4 gm/day. (Same as: Tylenol) No Longer Active 06/10/2018 [facility] Glucagon 1 mg, Route: IM, Drug form: PDR/INJ, PRN, Dosing Weight 71.727, kg, PRN Blood Glucose Results, Start date: 06/10/18 0:20:00 EXHAUST MACHINE OPERATOR, Duration: 30 day, Stop date: 07/10/18 0:19:00 EXHAUST MACHINE OPERATOR No Longer Active 06/10/2018 [facility] Glimepiride 2 Mg Tablet, 4 Mg Oral Active 2017 [facility] Deane 5/325 oral tablet 1-2 tab, PO, Q4-6H, Pain, # 15 tab, 0 Refill(s) Active [place] 06/12/2013 [facility] Zofran 4 mg, Route: IVP, Drug form: INJ, ONCE, Dosing Weight 81.818, kg, Priority: STAT, Start date: 06/11/13 20:36:00, Stop date: 06/11/13 20:36:00 Inactive [place] 06/12/2013 [facility] morphine Sulfate 4 mg, Route: IVP, Drug form: INJ, ONCE, Dosing Weight 81.818, kg, Priority: STAT, Start date: 06/11/13 20:35:00, Stop date: 06/11/13 20:35:00 Inactive [place] 06/12/2013 [facility] Amlodipine Besylate 10 Mg Tablet Daily Active [facility] Carvedilol 12.5 Mg Tablet Twice A Day Active [facility] Ferrous Sulfate 325 Mg Tablet.dr Daily Active [facility] Folic Acid 1 Mg Tablet Daily Active [facility] Furosemide 40 Mg Tablet Daily Active [facility] Glimepiride 2 Mg Tablet Daily Active [facility] Hydralazine Hcl 25 Mg Tab Active [facility] Loratadine 10 Mg Tablet Daily Active [facility] Pravastatin Sodium 40 Mg Tablet Daily Active [facility] Sitagliptin Phosphate (Januvia) 100 Mg Tablet Daily Active [facility] Allergies, Adverse Reactions, Alerts Substance Category Reaction Severity Reaction type Status Date Reported Comments Source No Known Medication Allergies Assertion Drug allergy [facility] Immunizations Immunization Date Given Site Status Last Updated Comments Source influenza virus vaccine, inactivated 06/21/2018 Left Deltoid completed Ty [facility] Results Order Name Results Value Reference [...] should be multiplied by the estimated BMI. [facility] CHEM PANEL AGAP 14.5 10.0 - 20.0 06/20/2018 [facility] CHEM PANEL Calcium Lvl 8.1 8.5 - 10.5 06/20/2018 [facility] CHEM PANEL CO2 19 24 - 32 06/20/2018 [facility] CHEM PANEL Chloride Lvl 104 95 - 109 06/20/2018 [facility] CHEM PANEL Potassium Lvl 3.5 3.5 - 5.1 06/20/2018 [facility] CHEM PANEL Creatinine Lvl 4.84 0.50 - 1.40 06/20/2018 [facility] CHEM PANEL BUN 53 7 - 22 06/20/2018 [facility] CHEM PANEL Sodium Lvl 134 135 - 145 06/20/2018 [facility] [facility] CHEM PANEL Glucose Lvl 156 70 - 99 06/20/2018 [facility] CHEM PANEL eGFR 10 06/19/2018 Result [...] should be multiplied by the estimated BMI. [facility] CHEM PANEL Chloride Lvl 107 95 - 109 06/19/2018 [facility] CHEM PANEL Sodium Lvl 140 135 - 145 06/19/2018 [facility] CHEM PANEL Creatinine Lvl 4.94 0.50 - 1.40 06/19/2018 [facility] CHEM PANEL BUN 56 7 - 22 06/19/2018 [facility] CHEM PANEL AGAP 17.7 10.0 - 20.0 06/19/2018 [facility] CHEM PANEL Calcium Lvl 7.9 8.5 - 10.5 06/19/2018 [facility] CHEM PANEL CO2 19 24 - 32 06/19/2018 [facility] CHEM PANEL Potassium Lvl 3.7 3.5 - 5.1 06/19/2018 [facility] CHEM PANEL Glucose Lvl 142 70 - 99 06/19/2018 [facility] CHEM PANEL eGFR 9 06/18/2018 Result [...] should be multiplied by the estimated BMI. [facility] CHEM PANEL AGAP 15.8 10.0 - 20.0 06/18/2018 [facility] CHEM PANEL CO2 18 24 - 32 06/18/2018 [facility] CHEM PANEL Calcium Lvl 7.7 8.5 - 10.5 06/18/2018 [facility] CHEM PANEL Chloride Lvl 107 95 - 109 06/18/2018 [facility] CHEM PANEL Potassium Lvl 3.8 3.5 - 5.1 06/18/2018 [facility] CHEM PANEL Sodium Lvl 137 135 - 145 06/18/2018 [facility] CHEM PANEL Creatinine Lvl 5.10 0.50 - 1.40 06/18/2018 [facility] CHEM PANEL BUN 58 7 - 22 06/18/2018 [facility] CHEM PANEL Glucose Lvl 117 70 - 99 06/18/2018 [facility] HEMATOLOGY Lymphocytes # 0.5 1.0 - 5.5 06/16/2018 [facility] HEMATOLOGY Monocytes # 1.6 0.0 - 0.8 06/16/2018 [facility] HEMATOLOGY Basophils # 0.1 0.0 - 0.2 06/16/2018 [facility] HEMATOLOGY Eosinophils 0.1 0.0 - 4.0 06/16/2018 [facility] HEMATOLOGY Monocytes 8.0 2.0 - 12.0 06/16/2018 [facility] Neutrophils # 17.9 1.5 - 8.1 06/16/2018 [facility] Basophils 0.3 0.0 - 1.0 06/16/2018 [facility] HEMATOLOGY Segs 89.1 45.0 - 75.0 06/16/2018 [facility] Lymphocytes 2.5 20.0 - 40.0 06/16/2018 [facility] RDW 15.5 11.5 - 14.5 06/16/2018 [facility] MCHC 31.6 32.0 - 36.0 06/16/2018 [facility] MPV 7.6 7.4 - 10.4 06/16/2018 [facility] Platelet 303 133 - 450 06/16/2018 [facility] Hgb 9.3 12.0 - 16.0 06/16/2018 [facility] RBC 3.32 4.20 - 5.40 06/16/2018 [facility] HEMATOLOGY WBC 20.1 3.7 - 10.4 06/16/2018 [facility] HEMATOLOGY MCV 88.1 80.0 - 98.0 06/16/2018 [facility] HEMATOLOGY Hct 29.3 36.0 - 48.0 06/16/2018 [facility] HEMATOLOGY MCH 27.8 27.0 - 31.0 06/16/2018 [facility] IMIPENEM:SUSC:PT:ISOLATE:ORDQN:KERVIN Gram Stain Report Many Gram Negative Rods Many Gram Positive Cocci Many Wbc 06/15/2018 [facility] IMIPENEM:SUSC:PT:ISOLATE:ORDQN:KERVIN Culture: Wound/Abscess w/Gram Stain Many Citrobacter Freundii Complex Growth In Subculture Broth Only : Enterococcus Species Many Pseudomonas aeruginosa Refer To Culture # [id number], collected on 06/15/18 For Susceptibility Results 06/15/2018 [facility] IMIPENEM:SUSC:PT:ISOLATE:ORDQN:KERVIN Citrobacter Freundii Complex Citrobacter Freundii Complex 06/15/2018 [facility] Culture: Anaerobic No Anaerobes Isolated 06/15/2018 [facility] Culture: Anaerobic Many Prevotella Species Beta Lactamase Negative . Many Bacteroides Species Beta Lactamase Positive 06/15/2018 [facility] CEFEPIME:SUSC:PT:ISOLATE:ORDQN:KERVIN Gram Stain Report Few Wbc'S; Moderate Gram Positive Cocci 06/15/2018 [facility] CEFEPIME:SUSC:PT:ISOLATE:ORDQN:KERVIN Culture: Wound/Abscess w/Gram Stain Few Pseudomonas aeruginosa Moderate Enterococcus Species . Few Yeast 06/15/2018 [facility] CEFEPIME:SUSC:PT:ISOLATE:ORDQN:KERVIN Enterococcus Species Enterococcus Species 06/15/2018 [facility] CEFEPIME:SUSC:PT:ISOLATE:ORDQN:KERVIN Pseudomonas aeruginosa Pseudomonas aeruginosa 06/15/2018 [facility] BLOOD BANK RESULTS ABO/Rh B POS 06/15/2018 [facility] BLOOD BANK RESULTS Antibody Scrn Negative (06/15/18 7:13 AM) 06/15/2018 [facility] HEMATOLOGY Eosinophils # 0.1 0.0 - 0.5 06/15/2018 [facility] HEMATOLOGY Monocytes # 1.5 0.0 - 0.8 06/15/2018 [facility] HEMATOLOGY Basophils # 0.1 0.0 - 0.2 06/15/2018 [facility] HEMATOLOGY Lymphocytes # 0.7 1.0 - 5.5 06/15/2018 [facility] HEMATOLOGY Basophils 0.3 0.0 - 1.0 06/15/2018 [facility] HEMATOLOGY Neutrophils # 15.0 1.5 - 8.1 06/15/2018 [facility] HEMATOLOGY Segs 86.0 45.0 - 75.0 06/15/2018 [facility] HEMATOLOGY Lymphocytes 4.1 20.0 - 40.0 06/15/2018 [facility] HEMATOLOGY Monocytes 8.7 2.0 - 12.0 06/15/2018 [facility] HEMATOLOGY Eosinophils 0.9 0.0 - 4.0 06/15/2018 [facility] MCHC 32.0 32.0 - 36.0 06/15/2018 [facility] RDW 15.3 11.5 - 14.5 06/15/2018 [facility] Platelet 365 133 - 450 06/15/2018 [facility] MPV 7.6 7.4 - 10.4 06/15/2018 [facility] WBC 17.4 3.7 - 10.4 06/15/2018 [facility] MCV 87.5 80.0 - 98.0 06/15/2018 [facility] MCH 28.0 27.0 - 31.0 06/15/2018 [facility] RBC 3.34 4.20 - 5.40 06/15/2018 [facility] Hgb 9.3 12.0 - 16.0 06/15/2018 [facility] Hct 29.2 36.0 - 48.0 06/15/2018 [facility] Basophils # 0.1 0.0 - 0.2 06/14/2018 [facility] Lymphocytes # 0.7 1.0 - 5.5 06/14/2018 [facility] Eosinophils # 0.1 0.0 - 0.5 06/14/2018 [facility] Monocytes # 1.7 0.0 - 0.8 06/14/2018 [facility] Plt Morph Normal (06/14/18 5:45 AM) 06/14/2018 [facility] HEMATOLOGY RBC Morph Normal (06/14/18 5:45 AM) 06/14/2018 [facility] Monocytes 9.1 2.0 - 12.0 06/14/2018 [facility] Eosinophils 0.6 0.0 - 4.0 06/14/2018 [facility] Lymphocytes 4.1 20.0 - 40.0 06/14/2018 [facility] Neutrophils # 15.6 1.5 - 8.1 06/14/2018 [facility] HEMATOLOGY Segs 85.9 45.0 - 75.0 06/14/2018 [facility] HEMATOLOGY Basophils 0.3 0.0 - 1.0 06/14/2018 [facility] HEMATOLOGY Platelet 337 133 - 450 06/14/2018 [facility] HEMATOLOGY RDW 15.3 11.5 - 14.5 06/14/2018 [facility] HEMATOLOGY Hct 29.8 36.0 - 48.0 06/14/2018 [facility] HEMATOLOGY RBC 3.43 4.20 - 5.40 06/14/2018 [facility] HEMATOLOGY Hgb 9.7 12.0 - 16.0 06/14/2018 [facility] MCV 86.8 80.0 - 98.0 06/14/2018 [facility] MPV 7.4 7.4 - 10.4 06/14/2018 [facility] MCHC 32.5 32.0 - 36.0 06/14/2018 [facility] MCH 28.2 27.0 - 31.0 06/14/2018 [facility] HEMATOLOGY WBC 18.1 3.7 - 10.4 06/14/2018 [facility] TOXICOLOGY Vanco Lvl 16.9 06/14/2018 [facility] BLOOD BANK RESULTS RBC product Product available 4 (06/13/18 2:59 PM) 06/13/2018 Result Comment: 06/13/2018 15:36 [id number]
spoke to [email or web address] on 06/13/2018 15:36 by Karri. [facility] CHEM PANEL Phosphorus 5.5 2.5 - 4.5 06/13/2018 [facility] CHEM PANEL Magnesium Lvl 1.8 1.8 - 2.4 06/13/2018 [facility] CHEM PANEL Phosphorus 5.8 2.5 - 4.5 06/12/2018 [facility] CHEM PANEL Magnesium Lvl 1.9 1.8 - 2.4 06/12/2018 [facility] HEMATOLOGY Eosinophils # 0.1 0.0 - 0.5 06/12/2018 [facility] SPECIAL CHEMISTRY Hgb A1C 6.3 <=5.6 % 06/12/2018 [facility] TOXICOLOGY Vanco Lvl 25.2 06/12/2018 [facility] ANEMIA STUDY Ferritin Lvl 839 5 - 204 06/11/2018 [facility] ANEMIA STUDY % Satur Fe 26 12 - 57 06/11/2018 [facility] ANEMIA STUDY Iron 27 30 - 160 06/11/2018 [facility] ANEMIA STUDY TIBC 104 228 - 428 06/11/2018 [facility] ANEMIA STUDY UIBC 77 110 - 370 06/11/2018 [facility] TOXICOLOGY Vanco Lvl 26.6 06/11/2018 [facility] BLOOD BANK RESULTS ABO/Rh B POS 06/11/2018 [facility] BLOOD BANK RESULTS Antibody Scrn Negative (06/11/18 9:31 AM) 06/11/2018 [facility] CHEM PANEL Magnesium Lvl 2.1 1.8 - 2.4 06/11/2018 [facility] CHEM PANEL Phosphorus 6.6 2.5 - 4.5 06/11/2018 [facility] HEMATOLOGY Anisocyte 1+ *ABN* (06/11/18 5:01 AM) None Seen 06/11/2018 [facility] HEMATOLOGY Hypochrom 1+ (06/11/18 5:01 AM) None Seen 06/11/2018 [facility] HEMATOLOGY Plt Morph Normal (06/11/18 5:01 AM) 06/11/2018 [facility] URINE AND STOOL UA Glucose 150 mg/dL Negative mg/dL 06/10/2018 [facility] URINE AND STOOL UA Protein 100 mg/dL Negative mg/dL 06/10/2018 [facility] URINE AND STOOL UA pH 5.0 5.0 - 8.0 06/10/2018 [facility] URINE AND STOOL UA Color Ltyellow 06/10/2018 [facility] URINE AND STOOL UA Turbidity Slight *ABN* (06/10/18 2:04 PM) Clear 06/10/2018 [facility] URINE AND STOOL UA RBC 3 0 - 2 06/10/2018 [facility] URINE AND STOOL UA Bacteria Occasional /HPF None Seen /HPF 06/10/2018 [facility] URINE AND STOOL UA Sq Epi Occasional /LPF Few /LPF 06/10/2018 [facility] URINE AND STOOL UA WBC 24 0 - 5 06/10/2018 [facility] URINE AND STOOL UA Leuk Est Moderate *ABN* (06/10/18 2:04 PM) Negative 06/10/2018 [facility] URINE AND STOOL UA Urobilinogen <=1.0 mg/dL 0.1 - 1.0 06/10/2018 [facility] URINE AND STOOL UA Nitrite Negative (06/10/18 2:04 PM) Negative 06/10/2018 [facility] URINE AND STOOL UA Blood Small *ABN* (06/10/18 2:04 PM) Negative 06/10/2018 [facility] URINE AND STOOL UA Ketones Negative *NA* (06/10/18 2:04 PM) Negative 06/10/2018 [facility] URINE AND STOOL UA Bili Negative *NA* (06/10/18 2:04 PM) Negative 06/10/2018 [facility] URINE AND STOOL UA Spec Grav 1.008 <=1.030 06/10/2018 [facility] URINE CHEM U Protein 94.0 06/10/2018 [facility] URINE CHEM U Creatinine 32.30 06/10/2018 [facility] URINE CHEM U Prot/Creat 2.91 06/10/2018 [facility] CHEM PANEL ALT 32 0 - 65 06/10/2018 [facility] CHEM PANEL AST 22 0 - 37 06/10/2018 [facility] CHEM PANEL Alk Phos 78 39 - 136 06/10/2018 [facility] CHEM PANEL Bili Total 0.3 0.2 - 1.3 06/10/2018 [facility] CHEM PANEL Total Protein 7.4 6.4 - 8.4 06/10/2018 [facility] CHEM PANEL Albumin Lvl 2.1 3.5 - 5.0 06/10/2018 [facility] CHEM PANEL B/C Ratio 11 6 - 25 06/10/2018 [facility] CHEM PANEL A/G Ratio 0.4 0.7 - 1.6 06/10/2018 [facility] CHEM PANEL Globulin 5.3 2.7 - 4.2 06/10/2018 [facility] Capillary blood glucose measurement by glucometer (mass/volume) Capillary blood glucose measurement by glucometer (mass/volume) 92 70 - 120 2017 [facility] Automated blood basophil count (count/volume) Automated blood basophil count (count/volume) 0.0 0.0 - 0.1 2017 [facility] Automated blood basophil count as percentage of total leukocytes Automated blood basophil count as percentage of total leukocytes 0.5 0.0 - 1.0 2017 [facility] Automated blood eosinophil count Automated blood eosinophil count 0.3 0.0 - 0.4 2017 [facility] Automated blood eosinophil count as percentage of total leukocytes Automated blood eosinophil count as percentage of total leukocytes 4.9 0.0 - 6.0 2017 [facility] Automated blood hematocrit (volume fraction) Automated blood hematocrit (volume fraction) 24.9 34.2 - 44.1 2017 [facility] Automated blood lymphocyte count as percentage ot total leukocytes Automated blood lymphocyte count as percentage ot total leukocytes 11.0 18.0 - 39.1 2017 [facility] Automated blood monocyte count as percentage of total leukocytes Automated blood monocyte count as percentage of total leukocytes 18.4 4.4 - 11.3 2017 [facility] Automated blood neutrophil count Automated blood neutrophil count 3.7 2.1 - 6.9 2017 [facility] Automated blood platelet count (count/volume) Automated blood platelet count (count/volume) 207 140 - 360 2017 [facility] Automated blood segmented neutrophil count as percentage of total leukocytes Automated blood segmented neutrophil count as percentage of total leukocytes 64.5 38.7 - 80.0 2017 [facility] Automated erythrocyte mean corpuscular hemoglobin (mass per erythrocyte) Automated erythrocyte mean corpuscular hemoglobin (mass per erythrocyte) 26.8 28 - 32 2017 [facility] Automated erythrocyte mean corpuscular hemoglobin concentration measurement (mass/volume) Automated erythrocyte mean corpuscular hemoglobin concentration measurement (mass/volume) 32.9 31 - 35 2017 [facility] Automated erythrocyte mean corpuscular volume Automated erythrocyte mean corpuscular volume 81.4 81 - 99 2017 [facility] Blood erythrocytes automated count (number/volume) Blood erythrocytes automated count (number/volume) 3.06 3.6 - 5.1 2017 [facility] Blood hemoglobin measurement (moles/volume) Blood hemoglobin measurement (moles/volume) 8.2 12.0 - 16.0 2017 [facility] Blood leukocytes automated count (number/volume) Blood leukocytes automated count (number/volume) 5.75 4.8 - 10.8 2017 [facility] Blood lymphocytes count (number/volume) Blood lymphocytes count (number/volume) 0.6 1.0 - 3.2 2017 [facility] Blood monocytes automated count (number/volume) Blood monocytes automated count (number/volume) 1.1 0.2 - 0.8 2017 [facility] Estimated glomerular filtration rate (GFR) determination Estimated glomerular filtration rate (GFR) determination 8 60 2017 [facility] Glucose measurement Glucose measurement 41 74 - 118 2017 [facility] Serum or plasma anion gap Serum or plasma anion gap 14.8 8 - 16 2017 [facility] Serum or plasma calcium measurement (mass/volume) Serum or plasma calcium measurement (mass/volume) 7.9 8.4 - 10.2 2017 [facility] Serum or plasma carbon dioxide, total measurement (moles/volume) Serum or plasma carbon dioxide, total measurement (moles/volume) 23 22 - 29 2017 [facility] Serum or plasma chloride measurement (moles/volume) Serum or plasma chloride measurement (moles/volume) 99 98 - 107 2017 [facility] Serum or plasma creatinine measurement (mass/volume) Serum or plasma creatinine measurement (mass/volume) 6.09 0.57 - 1.11 2017 [facility] Serum or plasma potassium measurement (moles/volume) Serum or plasma potassium measurement (moles/volume) 3.8 3.5 - 5.1 2017 [facility] Serum or plasma sodium measurement (moles/volume) Serum or plasma sodium measurement (moles/volume) 133 136 - 145 2017 [facility] Serum or plasma urea nitrogen measurement (mass/volume) Serum or plasma urea nitrogen measurement (mass/volume) 63 7 - 26 2017 [facility] Serum or plasma urea nitrogen/creatinine mass ratio Serum or plasma urea nitrogen/creatinine mass ratio 10 6 - 25 2017 [facility] Red Cell Distribution Width 15.9 11.7 - 14.4 2017 [facility] IM GRANULOCYTES % 0.7 0.0 - 1.0 2017 [facility] Absolute Immature Granulocyte (auto 0.04 0 - 0.1 2017 [facility] Phosphorus measurement Phosphorus measurement 5.8 2.3 - 4.7 09/19/2017 [facility] Plasma globulin measurement (mass/volume) Plasma globulin measurement (mass/volume) 3.7 2.3 - 3.5 09/19/2017 [facility] Serum or plasma alanine aminotransferase measurement (enzymatic activity/volume) Serum or plasma alanine aminotransferase measurement (enzymatic activity/volume) 21 0 - 55 09/19/2017 [facility] Serum or plasma albumin measurement (mass/volume) Serum or plasma albumin measurement (mass/volume) 3.0 3.5 - 5.0 09/19/2017 [facility] Serum or plasma albumin/globulin mass ratio Serum or plasma albumin/globulin mass ratio 0.8 0.8 - 2.0 09/19/2017 [facility] Serum or plasma alkaline phosphatase measurement (enzymatic activity/volume) Serum or plasma alkaline phosphatase measurement (enzymatic activity/volume) 76 40 - 150 09/19/2017 [facility] Serum or plasma magnesium measurement (mass/volume) Serum or plasma magnesium measurement (mass/volume) 1.9 1.3 - 2.1 09/19/2017 [facility] Serum or plasma protein measurement (mass/volume) Serum or plasma protein measurement (mass/volume) 6.7 6.5 - 8.1 09/19/2017 [facility] Serum or plasma total bilirubin measurement (mass/volume) Serum or plasma total bilirubin measurement (mass/volume) 0.4 0.2 - 1.2 09/19/2017 [facility] Aspartate Amino Transf (AST/SGOT) 23 5 - 34 09/19/2017 [facility] B-Type Natriuretic Peptide 1274.1 0 - 100 09/19/2017 [facility] Blood cobalamin (vitamin B12) measurement (mass/volume) Blood cobalamin (vitamin B12) measurement (mass/volume) >2000 213 - 816 09/16/2017 [facility] Serum or plasma folate measurement (mass/volume) Serum or plasma folate measurement (mass/volume) >20.0 7.0 - 15.4 09/16/2017 [facility] Stool gastrointestinal hemoglobin detection Stool gastrointestinal hemoglobin detection NEGATIVE NEGATIVE 09/16/2017 [facility] Serum or plasma creatine kinase MB measurement (mass/volume) Serum or plasma creatine kinase MB measurement (mass/volume) 2.40 0 - 5.0 09/15/2017 [facility] Serum or plasma creatine kinase measurement (enzymatic activity/volume) Serum or plasma creatine kinase measurement (enzymatic activity/volume) 78 29 - 168 09/15/2017 [facility] Troponin I measurement by highly sensitive enzyme immunoassay Troponin I measurement by highly sensitive enzyme immunoassay 0.021 0 - 0.300 09/15/2017 [facility] Serum or plasma iron binding capacity measurement (mass/volume) Serum or plasma iron binding capacity measurement (mass/volume) 274 261 - 478 09/15/2017 [facility] Serum or plasma iron measurement (mass/volume) Serum or plasma iron measurement (mass/volume) 49 50 - 170 09/15/2017 [facility] Serum or plasma iron saturation measurement (mass fraction) Serum or plasma iron saturation measurement (mass fraction) 18 15 - 50 09/15/2017 [facility] Serum or plasma transferrin measurement (mass/volume) Serum or plasma transferrin measurement (mass/volume) 196 180 - 382 09/15/2017 [facility] Serum or plasma calcium measurement (mass/volume) Serum or plasma calcium measurement (mass/volume) 8.4 8.7 - 10.3 09/14/2017 [facility] Serum or plasma complement C3 measurement (mass/volume) Serum or plasma complement C3 measurement (mass/volume) 112 82 - 167 09/14/2017 [facility] Serum or plasma complement C4 measurement (mass/volume) Serum or plasma complement C4 measurement (mass/volume) 31 14 - 44 09/14/2017 [facility] Serum or plasma intact pararthyroid hormone measurement (mass/volume) Serum or plasma intact pararthyroid hormone measurement (mass/volume) 436 15 - 65 09/14/2017 [facility] Parathyroid Hormone Interpretation Comment . 09/14/2017 [facility] Activated partial thromboplastin time (aPTT) in platelet poor plasma bycoagulation assay Activated partial thromboplastin time (aPTT) in platelet poor plasma bycoagulation assay 33.6 23.8 - 35.5 09/14/2017 [facility] Automated urine sediment leukocyte count by microscopy (number/high power field) Automated urine sediment leukocyte count by microscopy (number/high power field) NONE 0 - 5 09/14/2017 [facility] Bacteria detection in urine sediment by light microscopy Bacteria detection in urine sediment by light microscopy NONE NONE 09/14/2017 [facility] Epithelial cells detection in urine sediment by light microscopy Epithelial cells detection in urine sediment by light microscopy MANY NONE 09/14/2017 [facility] Erythrocytes detection in urine sediment by light microscopy Erythrocytes detection in urine sediment by light microscopy NONE 0 - 5 09/14/2017 [facility] INR in Platelet poor plasma by Coagulation assay INR in Platelet poor plasma by Coagulation assay 1.28 09/14/2017 [facility] Prothrombin time (PT) in platelet poor plasma by coagulation assay Prothrombin time (PT) in platelet poor plasma by coagulation assay 15.0 11.9 - 14.5 09/14/2017 [facility] Serum or plasma lipase measurement (enzymatic activity/volume) Serum or plasma lipase measurement (enzymatic activity/volume) 19 8 - 78 09/14/2017 [facility] Serum or plasma thyrotropin measurement by detection limit <=0.005 miu/l (units/volume) Serum or plasma thyrotropin measurement by detection limit <=0.005 miu/l (units/volume) 0.747 0.350 - 4.940 09/14/2017 [facility] Specific gravity of Urine by Test strip Specific gravity of Urine by Test strip 1.010 1.010 - 1.025 09/14/2017 [facility] Urine clarity Urine clarity CLEAR CLEAR 09/14/2017 [facility] Urine color determination Urine color determination YELLOW YELLOW 09/14/2017 [facility] Urine erythrocytes detection Urine erythrocytes detection NEGATIVE NEGATIVE 09/14/2017 [facility] Urine glucose detection Urine glucose detection NEGATIVE NEGATIVE 09/14/2017 [facility] Urine ketones detection by automated test strip Urine ketones detection by automated test strip NEGATIVE NEGATIVE 09/14/2017 [facility] Urine leukocyte esterase detection by dipstick Urine leukocyte esterase detection by dipstick NEGATIVE NEGATIVE 09/14/2017 [facility] Urine nitrite detection Urine nitrite detection NEGATIVE NEGATIVE 09/14/2017 [facility] Urine pH measurement by automated test strip Urine pH measurement by automated test strip 6 5 - 7 09/14/2017 [facility] Urine protein measurement by test strip (mass/volume) Urine protein measurement by test strip (mass/volume) 2+ NEGATIVE 09/14/2017 [facility] Urine total bilirubin measurement (mass/volume) Urine total bilirubin measurement (mass/volume) NEGATIVE NEGATIVE 09/14/2017 [facility] Urine urobilinogen measurement by test strip (mass/volume) Urine urobilinogen measurement by test strip (mass/volume) 0.2 0.2 - 1 09/14/2017 [facility] 24 hour urine albumin/total protein ratio by electrophoresis 24 hour urine albumin/total protein ratio by electrophoresis 71.1 . 09/14/2017 [facility] 24 hour urine alpha 1 globulin/total protein by electrophoresis 24 hour urine alpha 1 globulin/total protein by electrophoresis 6.1 . 09/14/2017 [facility] 24 hour urine alpha 2 globulin/total protein by electrophoresis 24 hour urine alpha 2 globulin/total protein by electrophoresis 9.2 . 09/14/2017 [facility] 24 hour urine beta globulin/total protein ratio by electrophoresis 24 hour urine beta globulin/total protein ratio by electrophoresis 7.6 . 09/14/2017 [facility] 24 hour urine gamma globulin/total protein ratio by electrophoresis 24 hour urine gamma globulin/total protein ratio by electrophoresis 6.0 . 09/14/2017 [facility] Urine creatinine measurement (mass/volume) Urine creatinine measurement (mass/volume) 43.23 47 - 110 09/14/2017 [facility] Urine protein measurement (mass/volume) Urine protein measurement (mass/volume) 89.1 1 - 14 09/14/2017 [facility] Urine protein measurement (mass/volume) Urine protein measurement (mass/volume) 90.1 Not Estab. 09/14/2017 [facility] Urine protein monoclonal/total protein by electrophoresis Urine protein monoclonal/total protein by electrophoresis Not Observed Not Observed 09/14/2017 [facility] Urine sodium measurement (moles/volume) Urine sodium measurement (moles/volume) 79 09/14/2017 [facility] Protein Electrophoresis Note Comment . 09/14/2017 [facility] Pathology Reports No Data Provided for This Section Diagnostic Reports Report Value Date Source Ext Lower Arterial bilat w pressure US Please refer to heart lab report, located under Vascular in [facility]. 06/14/2018 [facility] Foot wo contrast MRI MRI left [...] may be consistent with neuropathic joint. SL: [id number] 06/13/2018 [facility] Foot wo contrast MRI MRI right [...] may be consistent with neuropathic joint. SL: [id number] 06/13/2018 [facility] Chest 1view DX Clinical Indication: Abnormal [...] of acute cardiopulmonary disease. RASHMI: RAYRAY 06/12/2018 [facility] Bone scan 3 phase NM Bone [...] of the feet as clinically indicated. SL: [id number] 06/11/2018 [facility] Ext Lower Arterial Doppler bilat US Patient Name: LEIGHTON GUERRERO : 1950; Age: 67 years y/o Female MR: [id number] Study: Ext Lower Arterial Doppler bilat US [...] left lower extremity arteries. SL: [id number] 06/10/2018 [facility] Foot 2 views bilateral DX Study: [...] and no radiographic evidence of osteomyelitis. SL: [id number] 06/10/2018 [facility] Retroperitoneal Complete US Retroperitoneal ultrasound, complete [...] 1. Unremarkable renal ultrasound. SL: [id number] 06/10/2018 [facility] Humerus AP lateral HISTORY: Fall, pain. RIGHT HUMERUS 2 VIEWS: No fracture subluxation or lesion. SL:13 06/11/2013 [facility] Shoulder series HISTORY: Trauma. RIGHT SHOULDER 3 VIEWS: No acute fracture subluxation or lesion is evident. SL:13 06/11/2013 [facility] Consultation Notes No Data Provided for This Section Discharge Summaries No Data Provided for This Section History and Physicals No Data Provided for This Section Vital Signs Vital Sign Value Date Comments Source Systolic (mm Hg) 185 06/21/2018 [facility] Diastolic (mm Hg) 76 06/21/2018 [facility] Heart Rate 88 06/21/2018 [facility] Temperature Oral (F) 98.5 F 06/21/2018 [facility] Heart Rate 82 06/20/2018 [facility] Systolic (mm Hg) 163 06/20/2018 [facility] Diastolic (mm Hg) 69 06/20/2018 [facility] Respitory Rate 18 06/20/2018 [facility] Temperature Oral (F) 98.5 F 06/20/2018 [facility] Systolic (mm Hg) 193 06/20/2018 [facility] Diastolic (mm Hg) 71 06/20/2018 [facility] Temperature Oral (F) 98.4 F 06/20/2018 [facility] Heart Rate 84 06/20/2018 [facility] Respitory Rate 16 06/19/2018 [facility] Respitory Rate 16 06/19/2018 [facility] BMI Calculated 29.88 06/10/2018 [facility] Weight 71.727 06/10/2018 [facility] Height 154.94 cm 06/10/2018 [facility] Weight 71.727 06/10/2018 [facility] BMI Calculated 29.88 06/10/2018 [facility] Height 154.94 cm 06/10/2018 [facility] Systolic (mm Hg) 184 06/12/2013 [facility] Temperature Oral (F) 98.6 F 06/12/2013 [facility] Respitory Rate 18 06/12/2013 [facility] Diastolic (mm Hg) 89 06/12/2013 [facility] Heart Rate 88 06/12/2013 [facility] Weight 81.818 06/12/2013 [facility] Diastolic (mm Hg) 84 06/12/2013 [facility] Heart Rate 95 06/12/2013 [facility] Respitory Rate 20 06/12/2013 [facility] Systolic (mm Hg) 200 06/12/2013 [facility] Temperature Oral (F) 98.3 F 06/12/2013 [facility] Encounters Location Location Details Encounter Type Encounter Number Reason For Visit Attending Provider ADM Date DC Date Status Source [facility] Outpatient [id number] ROUTINE SCREENING LYUBOV HURST 08/30/2011 Active [facility] Outpatient [id number] COMPLICATIONS AFFECTING OTHER SPECIFIED BODY SYSTEMS, Christiana ASHER 02/13/2012 Active [facility] Emergency [id number] SHOULDER PAIN OR INJURY PIERRE DELGADILLO 06/11/2013 06/11/2013 Active [facility] Discharged Inpatient [id number] LYUBOV HURST MD 09/14/2017 2017 [facility] Inpatient [id number] Magy Mougouris 06/10/2018 06/21/2018 [facility] Procedures Procedure Code Date Perfomer Comments Source Ultrasound, renal [id number] 09/15/2017 LAKESHIA [facility] CT of abdomen and pelvis without contrast [id number] 09/14/2017 MOHAMUD [facility] Cataract surgery<sup>1</sup> [id number] bilateral eyes [facility] Assessment and Plan Assessment and Plan [...] 4.9, had similar course of hospitalization at [facility] 2. Metabolic acidosis on p.o. bicarbonate. 3. [...] 06/20/18 [place] Fall Score 12 06/20/18 [place] Coma Score 15 06/20/18 Rivera Score 16 06/20/18 Pain Intensity NRS (0-10) 0 Lines, Tubes, and Drains: 06/18/2018 11:01 Peripheral Lines: Forearm Right 22 gauge Over the needle catheter Surgical Procedures: 06/15/18 15:13 ULCER / BONE DEBRIDEMENT, LORENZO HEEL [id number] Primary Surgeon: Mario Hurst DPM (Service: POD) [...] in Water IV (Dextrose 50% Syringe), acetaminophen-hydrocodone (Deane 7.5/325 oral tablet), acetaminophen, cloNIDine, glucagon, insulin [...] (JUN 18) L 7.5 (JUN 16) 06/21/2018 [facility] Plan of Care Plan of Care Date Source Discharge Date 09/20/17 2:58pm Disposition HOME, SELF-CARE Instructions/Education Provided Chest Pain - Noncardiac Prescriptions See Medication Section Referrals JAIRO ASHER MD (Internal Medicine) Order Date: 2 Weeks Entered Date: 2017 9:48am Address: [address] [place] [id number] Additional Instructions/Education ADA DIET ,ACTIVITY TOLERATED ` FLUID RESTRICTION 1200CC PER DAY,MONITOR BLOOD PRESSURE AND FASTING BLOOD SUGAR AT HOME HOLD BLOOD SUGAR MEDICATIONS IF FASTING BLOOD SUGARBELOW 90 , REPEAT BLOOD TEST CBC AND CMP AFTER 5 DAYS 2017 [facility] Social History Social History Date Source Social History TypeResponse Substance Abuse Use: None. Alcohol Past, Last use: 50 years ago. Previous treatment: None. Smoking Status Former smoker; Type: Cigarettes; Previous treatment: None; Concerns about tobacco use in household: No; Exposure to Tobacco Smoke None; Cigarette Smoking Last 365 Days No; Reg Smoking Cessation Counseling No; Stopped at age: 17; entered on: 06/10/18 06/10/2018 [facility] Social History Problem Response Recorded Date/Time [...] Start Date Stop Date Never Smoker 2017 [facility] Family History Value Date Source Relationship Condition Age at Onset Recorded Date/Time 09 Brother Family history of diabetes mellitus Not Recorded 09/15/2017 2:50am 32 Mother Family history of acute myocardial infarction Not Recorded 09/15/2017 2:50am 33 Mother Family history of hypertension Not Recorded 09/15/2017 2:50am 2017 [facility] Advance Directives Order Name Results Value Date Source Advance Directives Advance Directives Directive Response Recorded Date/Time Does the patient have an advance directive? No 11/29/13 1:55pm If yes, is advance directive on file with [facility]? No 09/14/17 10:00pm If not on file with [facility] will patient provide a copy? No 11/29/13 1:55pm Do you have a Directive to Physician? No 09/14/17 5:37pm Do you have a Medical Power of Instrument And Electrical Technician? No 09/14/17 5:37pm Do you have an [...] rights and responsibilities? Yes 09/14/17 5:37pm 2017 [facility] Functional Status No Data Provided for This Section
[2019-01-16] MEDS ORDERED: TYLENOL WITH C1 EACH PO (01:59)
[2019-01-16 02:00] LABS: BACTERIA,URINE MODERATE /HPF; EPITHELIAL CELLS,URINE FEW /LPF; HYALINE CASTS 0-1 (0-1); WBC,URINE (MAN) 21-50 /HPF (0-5)
[2019-01-16] MEDS ORDERED: GABAPENTIN100 MG PO (02:01)
[2019-01-16] MEDS: INSULIN REGULAR, HUMAN 100 UNIT/1 ML 3ML VIAL SQ SCH ×4 (07:30→20:15)
--- NOTE | 2019-01-16 09:31 | NUR ---
2nd unit of blood started, no adverse reaction noted in 15 min, not in any distress, call light in reach, family at bed side
--- NOTE | 2019-01-16 11:54 | NUR ---
WOUND CARE NURSE INITIAL CONSULTATION. 68 YEAR OLD FEMALE ADMITTED TO [facility] WITH DX OF ANEMIA, KIDNEY FAILURE AND WEAKNESS. HEAD TO TOE SKIN ASSESSMENT PERFORMED TODAY. ULCERS APPEAR TO BE A COMBINATION OF PRESSURE AND DIABETES. DESCRIPTIONS AND MEASUREMENTS ARE FOLLOWS: 1- RIGHT HEEL, 5.5X5X0.4CM 85% NECROTIC SLOUGH. MALODOROUS WITH MODERATE GREED DRAINAGE. 2- LEFT HEEL [id number]. 85% NECROTIC SLOUGH. MALODOROUS WITH MODERATE GREED DRAINAGE. BONE AND TENDON EXPOSED. FRAGMENTS OF BONE ARE FALLING APART WHEN WOUND WAS BEING CLEANED. 3-LEFT PLANTAR 5TH MET HEAD 0.5X1X0.4CM. 100% SLOUGH. 4-LEFT DORSAL FOOT 4X3.5X0.2CM. 90% GRANULAR AND 10% FIBROTIC. 5-LEFT HALLUX 1X1X0.1 DRY AND STABLE ESCHAR. NO OTHER AREAS OF CONCERN WERE NOTED AT THIS TIME. PER PT ULCERS ON BILATERAL HEELS HAVE BEEN PRESENT SINCE SEPTEMBER AND SHE HAS BEEN UNDER THE CARE OF DR. GARTH MOE. NO PALPABLE PULSES. PT EDUCATED ON PLAN OF CARE, DRESSING CHANGES, NUTRITION AND PRESSURE RELIEF TO THE AFFECTED AREAS. STATES UNDERSTANDING. LABS: WBC: 9.28 GLUCOSE: 148 ALB: 1.9 OBTAINED WOUND CULTURES FROM BILATERAL HEELS. RECOMMENDATIONS. SCRUB BILATERAL FOOT WOUNDS WITH HIBICLENS OR SURGICAL BRUSH, IRRIGATE WITH SALINE. PAT DRY AND APPLY MAXORB AG TO BILATERAL HEELS, LEFT PLANTAR 5TH METATARSAL HEAD, AND LEFT DORSAL FOOT, COVER WITH 4X4 GAUZE, KERLIX AND TAPE. CHANGE DRESSING DAILY. LEAVE LEFT HALLUX ESCHAR OPEN TO AIR AND MONITOR DAILY. PLACE PT ON ALTERNATING LOW AIR LOSS MATTRESS PROVIDE PT WITH BILATERAL HEEL PROTECTORS AND PILLOW SUSPENSIONS. TURN PT EVERY TWO HOURS AND PRN. BILATERAL FOOT X-RAYS ARTERIAL DOPLERS WITH HOLLAND'S AND TBI'S. PODIATRY IS MUCH RECOMMENDED. AWAITING ON DR. Kellie MOE TO RETURN PHONE CALL IN REGARDS PLAN OF CARE. THANKS DR. MOE FOR THIS CONSULTATION. Addendum: 01/16/19 at 1215 by Chely Nicholson RN Amended: Links added.
--- NOTE | 2019-01-16 15:16 | NUR ---
Nutrition Intervention Note RD Recommendation(s) for Physician: -Continue current diet as ordered -Rec Glucerna once a day to increase protein-calorie intake -The patient meets criteria for MODERATE protein-calorie malnutrition. Plan of Care: RD following, monitoring for tolerance and adequacy, ONS recommendation Nutrition reason for involvement: Nutrition Risk Trigger MST RD Assessment 01/16 68yo F, who was admitted for anemia, kidney failure and weakness. Visited pt in the room. Pt reported improvement in her appetite with 100% recorded meal intake. Pt stated that she was not eating much since her surgery in June 2018. Pt reported ~40lbs weight loss in 6 months. Bedside scale showed ~130lbs. No complains of nausea or vomiting. LBM 01/15. Pt denied any chewing or swallowing difficulty. Pt has some moderate fat/ muscle loss upon NFPA (see below). Will continue to monitor and follow. Principal Problems/Diagnoses: anemia, kidney failure and weakness PMH: anemia, chronic kidney disease, diabetes mellitus, hypertension, hypertensive heart disease, nephrotic syndrome, chronic arthritis GI: abdomen non-tender Skin: bilateral foot ulcers, per wound care Labs: (01/16) BUN 74 H, Creatinine 6.75 H, Glucose 142 H, Ca 8.0 L Meds: reviewed Ht: 62in Wt: 130lb (bedside scale) BMI: 23.8kg/m2 IBW: 110lb +/- 10% Malnutrition Evaluation (01/16/2019) The patient meets criteria for MODERATE protein-calorie malnutrition. Energy intake: <75% of estimated energy requirements for >3 months Weight loss: >10% in 6 months (Chronic) Fat loss: Moderate some protrusion of clavicle Muscle loss: Moderate depression of interosseous, temporal depression Supporting Evidence: Fluid accumulation: none Functional Status: reduced Nutrition Prescription (Diet Order): ADA 1800 Estimated Nutritional Needs: Calories: 1770 2065kcal(30-35kcal/kg/d) Weight used: CBW Protein: 59 88g (1-1.5g/kg/d) Weight used: CBW Diet Adequacy: Meeting calorie needs, Not meeting protein needs Diet Education Needs Assessment: Diet education not indicated. Nutrition Care Level: mod Nutrition Diagnosis: Moderate malnutrition related to inadequate oral intake as evidenced by <75% of estimated energy requirements for >3 months, >10% weight loss in 6 months, and moderate fat/ muscle loss. Goal: Patient will meet 75-100% of estimated needs by follow up Progress: Progressing Interventions: Carbohydrate-modified diet, Commercial beverage Monitoring/Evaluation: Total energy intake, Total protein intake, Modified diet, Liquid supplement, Weight change Signed: Neva Novak MS, RD, LD
--- NOTE | 2019-01-16 16:52 | Diagnostic Imaging Report ---
Exam: Bilateral foot series, 3 views of each side. Clinical History: BILATERAL foot wounds Comparison: None Findings: Left foot: No acute fracture or dislocation. Diffuse osteopenia. There is extensive soft tissue defect along the heel of the left foot with soft tissue loss and osseous destruction of the calcaneus. Extensive atherosclerotic vascular calcifications. Scattered degenerative changes. Right foot: No acute fracture or dislocation. Diffuse osteopenia. Soft tissue defect and bandage at the right heel. No significant underlying erosion or periosteal reaction. Extensive atherosclerotic vascular calcifications. Marked degenerative changes of the midfoot. Impression: Extensive soft tissue defect at the left heel with soft tissue loss and osseous destruction of the underlying calcaneus compatible with osteomyelitis. Soft tissue defect at the right heel without significant underlying erosion or periosteal reaction. Diffuse osteopenia and degenerative changes as above, most notably at the right midfoot. Signed by: Gabriela Hogan MD on 01/16/2019 4:48 PM
[2019-01-16] MEDS ORDERED: SODIUM CHLORIDE 0.9% 250ML 250 ML ONE (19:58)
[2019-01-16] MEDS: ACETAMINOPHEN/CODEINE 300MG - 30MG TAB PO PRN (20:00)
[2019-01-16] MEDS: PIPERACILLIN/TAZO 2.25 GM 50 ML IV SCH ×2 (20:14→23:08)
[2019-01-16] MEDS: PRAVASTATIN 20 MG TAB PO SCH (20:14)
[2019-01-16] MEDS: GABAPENTIN 100 MG CAP PO SCH (20:14)
[2019-01-16 21:26] LABS: IRON 22 ug/dL (50-170); TRANSFERRIN < 70 mg/dL (180-382)
[2019-01-16] MEDS: FUROSEMIDE 40 MG TAB PO SCH (21:48)
[2019-01-17] VITALS (7 sets, daily range): BP systolic 123–173; BP diastolic 61–84
--- NOTE | 2019-01-17 00:16 | Consultation ---
DATE OF CONSULTATION: SENIOR ELECTRICAL PROJECT MANAGER: Dr. Mario Hurst. Covering for Dr. Mario Hurst. REASON FOR CONSULTATION: Ulcerations to both lower extremities with bone exposed to the left heel. HISTORY OF PRESENT ILLNESS: This is a pleasant 68-year-old female, was seen accompanied by spouse, who relates that she presented to the emergency room after feeling weak and has fallen a couple of times within a couple of weeks now. She was found to have anemia, was given 2 units of packed red blood cells. She is currently deny any history of fever, chills, nausea, or vomiting. She relates that she has had this ulcerations since June and has been seeing Dr. Mario Hurst every other week for debridement of heel ulcerations. PAST MEDICAL HISTORY: Remarkable for erf-[id number]-yfzbrhtsr diabetes x3 years, hypertension. PAST SURGICAL HISTORY: Remarkable for eye surgery and multiple heel debridements per Dr. Mario Hurst. ALLERGIES: THE PATIENT DENIES. SOCIAL HISTORY: Denies any smoking, drinking, or recreational drug use. CURRENT MEDICATIONS: Note listed in chart including IV Zosyn. FAMILY HISTORY: Noncontributory. REVIEW OF SYSTEMS: CARDIAC: Denies any palpitations or arrhythmias. RESPIRATORY: Denies any shortness of breath or productive cough. GASTROINTESTINAL: Denies any diarrhea or constipation. PHYSICAL EXAMINATION: VITAL SIGNS: Afebrile, pulse rate 83, respirations 21, blood pressure 176/80, O2 saturation 95%. LABS: Noted. She has a white blood cell count of 9.2, hemoglobin 6.0 with a platelet count of 478. PODIATRIC PHYSICAL EXAMINATION: Reveals the following: VASCULATURE: Pedal pulses of both the DP and PT are nonpalpable. NEUROLOGIC: Seems to have a decreased and protective sensation when utilizing a [place] 5.07 monofilament wire. MUSCULOSKELETAL: Shows muscle mass to be symmetrical and wasted. Muscle strength to be 3 to 4/5 to all muscle groups. More muscle weakness to the left lower extremity than the right. DERMATOLOGIC: Shows grade 4 ulcer to the left heel, grade 3 ulcer to the right with a grade 2 ulcer dorsal aspect left foot with pregangrenous changes noted to the left great toe. Ulcers are approximately 5 x 5.5 cm down the right heel. Bone felt through the necrotic tissue. Has bone exposed to the left foot ulcer, which is approximately 13 x 10 cm in diameter with necrosis and plantar fascia exposed. There is foul smell to both lower extremities and drainage. Has a clean ulceration dorsal aspect left foot with granulation tissue noted down to the subcutaneous tissue with gangrenous changes noted to the left great toe. IMAGING DATA: X-rays were evaluated. No gas in the tissue. Severe calcification of vessels noted. ASSESSMENT: Peripheral arterial disease, osteomyelitis left heel with a grade 4 ulcer, grade 3 ulcer of the right with diabetic neuropathy. PLAN: 1. Recommend vascular consult of Dr. Hurst of choice for vascular evaluation. 2. Sharp excisional debridement of the ulcers to both heels were performed down to bone and subcutaneous tissue of left and right heel respectively. Devitalized tissue sharply excised via use of a sterile 10 blade and good viable bleeding tissue was achieved. Deep cultures were taken for aerobic and anaerobic growth. Sterile dressings were applied. We will start applying Santyl followed by diluted wet-to-dry Betadine to bilateral heels, Bactroban ointment for the left dorsal ulceration. We will treat conservatively. Ordered couple of heel protectors. Continue IV antibiotics. The patient understands that she may end up with a [id number] amputation with the left lower extremity being more at risk. We will treat conservatively for now. Upon discharge, the patient will follow up with Dr. Mario Hurst. BUSTER Britt/ROCIOL /[id number]
--- NOTE | 2019-01-17 00:47 | History and Physical ---
HISTORY OF PRESENT ILLNESS: This is a 68-year-old female patient of mine, presented to the emergency room with complaint of severe weakness and the patient had outpatient testing and was found to have severe anemia and bilateral leg ulcerations. The patient was advised to come to the hospital as the patient has a hemoglobin of 6. The patient has a bilateral leg swelling and ulceration with a foul smelling. The patient has a chronic medical condition with diabetes mellitus noncompliance, nephrotoxic renal failure and anemia of chronic disease and bilateral cataract and blindness. The patient also had bilateral leg ulceration and foul smelling and swelling of the both legs. ALLERGIES: NO KNOWN DRUG ALLERGIES. SOCIAL HISTORY: Denies smoking. Denies using alcohol. FAMILY HISTORY: Hypertension and diabetes mellitus. REVIEW OF SYSTEMS: The patient has profound weakness and bilateral leg swelling, ulceration. PHYSICAL EXAMINATION: GENERAL: This is a middle-aged patient, lying in the bed, not in any acute distress. VITAL SIGNS: Temperature 99, blood pressure 120/60, respiratory rate 18. HEENT: Normocephalic and atraumatic. JVD present. LUNGS EXAMINATION: Bilateral equal air entry with basal rales present. HEART: S1, S2. Regular. Systolic murmur. ABDOMEN: Soft. Bowel sounds are present. NEUROLOGICAL EXAMINATION: No focal neurological deficit, but decreased sensation. EXTREMITY EXAMINATION: The patient has a bilateral lower extremity edema and redness, swelling and foul smelling ulceration. LABORATORY EXAMINATION: The patient has a severe anemia with a hemoglobin of 6.8 and creatinine of 6.75. ADMITTING IMPRESSION: 1. Severe anemia with underlying anemia of chronic disease. The patient will be admitted with the above diagnosis as an inpatient as the patient has multiple issues. The patient does have bilateral leg diabetic ulcerations with diabetic foot and Charcot joint and possible osteomyelitis, which was present on admission. 2. Severe protein-calorie malnutrition present on admission. 3. The patient has diabetes mellitus, hypertension, hypertensive heart disease. The patient has severe anemia. The patient has stage 5 renal failure. PLAN: The patient will be admitted with the above diagnoses. We will treat the patient with IV antibiotics. We will obtain Podiatry and ID consultation and Nephrology consultation. We will treat patient with IV antibiotic, Zosyn. Physical therapy, occupational therapy consult will be made. The patient had received 2 unit of blood and we will repeat a hemoglobin and hematocrit and she will probably need more blood transfusion. We will also obtain Hematology consultation Dr. Molina. MD SASHA Hay/EFRAIN /[id number]
[2019-01-17] MEDS: PIPERACILLIN/TAZO 2.25 GM 50 ML IV SCH ×3 (05:21→22:07)
[2019-01-17] MEDS: GABAPENTIN 100 MG CAP PO SCH ×2 (05:22→18:01)
[2019-01-17] MEDS: FUROSEMIDE 40 MG TAB PO SCH ×3 (05:22→22:07)
[2019-01-17] MEDS: ACETAMINOPHEN/CODEINE 300MG - 30MG TAB PO PRN ×2 (05:33→18:00)
[2019-01-17 05:53] LABS: BASOPHILS % 0.3 % (0.0-1.0); EOSINOPHILS # (AUTO) 0.1 (0.0-0.4); EOSINOPHILS % 1.1 % (0.0-6.0); HEMOGLOBIN 8.2 g/dL (12.0-16.0); LYMPHOCYTES # (AUTO) 1.4 (1.0-3.2); LYMPHOCYTES % 13.2 % (18.0-39.1); MEAN CORPUSCULAR HEMOGLOBIN 24.8 pg (28-32); MEAN CORPUSCULAR HGB CONC 30.4 g/dL (31-35); MEAN CORPUSCULAR VOLUME 81.6 fL (81-99); MONOCYTES # (AUTO) 1.2 (0.2-0.8); MONOCYTES % 11.9 % (4.4-11.3); NEUTROPHILS # (AUTO) 7.5 (2.1-6.9); NEUTROPHILS % 72.8 % (38.7-80.0); PLATELET COUNT 416 x10e3/uL (140-360); RED BLOOD COUNT 3.31 x10e6/uL (3.6-5.1); RED CELL DISTRIBUTION WIDTH 16.1 % (11.7-14.4)
[2019-01-17 06:11] LABS: ALBUMIN 1.6 g/dL (3.5-5.0); ALBUMIN/GLOBULIN RATIO 0.3 (0.8-2.0); ALKALINE PHOSPHATASE 86 IU/L (40-150); ANION GAP 13.9 mmol/L (8-16); BLOOD UREA NITROGEN 64 mg/dL (7-26); BUN/CREATININE RATIO 12 (6-25); CALCIUM 7.7 mg/dL (8.4-10.2); CARBON DIOXIDE 24 mmol/L (22-29); CHLORIDE 104 mmol/L (98-107); EST GLOMERULAR FILTRATION RATE 9 ML/MIN (60-); GLUCOSE 96 mg/dL (74-118); POTASSIUM 4.9 mmol/L (3.5-5.1); SODIUM 137 mmol/L (136-145)
[2019-01-17 06:13] LABS: ALANINE AMINOTRANSFERASE < 6 IU/L (0-55)
--- NOTE | 2019-01-17 06:43 | NUR ---
eport given to day nurse. patient is resting comfortably in bed. bed is in lowest position and call soni is within reach.
[2019-01-17] MEDS: INSULIN REGULAR, HUMAN 100 UNIT/1 ML 3ML VIAL SQ SCH ×4 (07:30→21:00)
[2019-01-17] MEDS ORDERED: NON-FORMULARY MEDICATION (Pravastatin Sodium 40 MG) PO SCH (09:00)
[2019-01-17] MEDS: GLIMEPIRIDE 2 MG TAB PO SCH (09:05)
[2019-01-17] MEDS: CARVEDILOL 12.5 MG TAB PO SCH ×2 (09:05→17:32)
[2019-01-17] MEDS: HYDRALAZINE HCL 25 MG TAB PO SCH ×2 (09:05→17:32)
[2019-01-17] MEDS ORDERED: DEXAMETHASONE PHOS 10MG INJ 20 MG in SODIUM CHLORIDE 0.9% 50ML 50 ML IV ONE (10:45)
--- NOTE | 2019-01-17 10:45 | NUR ---
dressing changed , patient tolerated well, Dr Elizalde had rounds
[2019-01-17] MEDS ORDERED: DIPHENHYDRAMINE HCL INJ 25 MG in SODIUM CHLORIDE 0.9% 50ML 50 ML IV ONE (11:00)
[2019-01-17] MEDS: COLLAGENASE OINTMENT 30 GM TUBE TP SCH (11:08)
[2019-01-17] MEDS ORDERED: FAMOTIDINE INJ 20 MG in SODIUM CHLORIDE 0.9% 50ML 50 ML IV ONE (11:15)
[2019-01-17 11:45] LABS: CHOL/HDL RATIO 3.8 (3.0-3.6)
[2019-01-17] MEDS ORDERED: IRON DEXTRAN INJ 50 MG in SODIUM CHLORIDE 0.9% 100 ML IV ONE (11:45)
--- NOTE | 2019-01-17 12:00 | Progress Note ---
DATE: 01/17/2019 SUBJECTIVE: The patient seen at bedside, doing better. She is denying any history of fever, chills, nausea, or vomiting. OBJECTIVE: VITALS: Afebrile, pulse 84, respirations 18, blood pressure 122/61, and O2 saturation 100%. EXTREMITIES: Ulcerations of both lower extremities stabilizing, bone exposed to the left lower extremity, very close to bone on the right with decreased circulatory status and pregangrenous changes noted to the left great toe. LABORATORY DATA: Labs noted. Has a white blood cell count of 10.3, hemoglobin 8.2, hematocrit 27.0 with a platelet count of 416. ASSESSMENT: Peripheral arterial disease with a grade 4 ulcer and osteomyelitis, left with a grade 3 ulcer, right. PLAN: We will continue with local wound care. Continue IV Zosyn. The patient instructed she will eventually need to have a [id number] amputation of the left lower extremity. The patient does not want any type of procedures done at this time. We will continue local wound care and conservative care for now. BUSTER Britt/EFRAIN /[id number]
[2019-01-17 12:05] LABS: THYROID STIMULATING HORMONE 1.453 uIU/mL (0.350-4.940)
[2019-01-17] MEDS ORDERED: IRON DEXTRAN INJ 500 MG in SODIUM CHLORIDE 0.9% 500ML 500 ML IV PRN (12:30)
[2019-01-17] MEDS ORDERED: TETANUS/DIPHTHERIA TOX ADULT 0.5 ML SYR IM ONE (13:15)
--- NOTE | 2019-01-17 14:01 | Consultation ---
DATE OF CONSULTATION: 01/17/2019 REASON FOR CONSULTATION: PAD. CHIEF COMPLAINT: Weakness and anemia. HISTORY OF PRESENT ILLNESS: This is a 68-year-old female with history of hypertension, diabetes, anemia, chronic kidney disease stage 5, and severe peripheral vascular disease. The patient apparently presents to [facility] ER apparently with complaints of weakness and fatigue, on admission was noted with a hemoglobin of 6, the patient received 2 units of blood. Also, patient presents with bilateral lower extremity ulcers. Therefore, Cardiology was consulted to evaluate the patient. The patient is seen in room. Of note, the patient does have bilateral blindness, however. Apparently, the patient reports that she was told over two weeks ago from her primary care physician that she needed to go to the hospital for blood transfusion, however, the patient did not go, however, shows up now because of became very weak and fatigued. The patient reports bilateral lower extremity ulcerations for greater than six months, reports having some type of debridement six months ago; however, the patient is poor historian, details are unclear. Currently, the patient is in no acute distress. X-ray of the foot suggestive of osteomyelitis. PAST MEDICAL HISTORY: Diabetes, anemia, chronic kidney disease stage 5, peripheral vascular disease, chronic lower extremity ulcers, retinal detachment. PAST SURGICAL HISTORY: Bilateral retinal surgery and bilateral cataract removal and also bilateral lower extremity debridements of some sort. FAMILY HISTORY: Mother apparently in her 80s because "old age." Father in his 90s secondary to "old age." SOCIAL HISTORY: She is . She is disabled. She denies any alcohol use or tobacco use. HOME MEDICATIONS: Include Coreg 25 mg b.i.d., Lasix 40 mg q.8 h., gabapentin 100 mg q.12 h., glimepiride 1 mg daily, hydralazine 50 mg b.i.d., and pravastatin 40 mg daily. ALLERGIES: NO KNOWN ALLERGIES. REVIEW OF SYSTEMS: GENERAL: Denies any weight changes. Positive for fatigue and weakness. Denies any fevers or chills or night sweats. SKIN: Denies any rashes. Positive for lower extremity wounds, chronic greater than six months. HEENT: Denies any nausea, vomiting. Positive for blurred vision, double vision. Denies any tinnitus, vertigo, earaches, any epistaxis, sore throat, swollen neck, stiff neck. CARDIAC: Denies any chest pain. Positive for dyspnea on exertion. Denies any orthopnea, PND, or lower extremity edema. RESPIRATORY: Denies any overt shortness of breath. Denies any cough or hemoptysis. GI: Reports good appetite. Denies any nausea or vomiting, any melena, hematemesis, any diarrhea or constipation. URINARY: Denies any urgency, frequency, hematuria, nocturia, dysuria. VASCULAR: Positive for left lower extremity edema chronic. MUSCULOSKELETAL: Positive for generalized joint pains and back pains. HEMATOLOGY: Positive for anemia. Denies any bleeding issues. ENDOCRINE: Denies any heat or cold intolerance, any polyuria or polydipsia. PHYSICAL EXAMINATION: VITAL SIGNS: Height 62 inches, weight 180 pounds, BMI 36. Temperature 97.9, pulse 84, respiratory rate 16, blood pressure 123/61, and pulse ox 100% on room air. GENERAL: Chronically ill appearing, in no acute distress. SKIN: No rashes, no bruises, however, bilateral lower extremities with bilateral dressings clean and dry. HEENT: Normocephalic. Pupils are equal and reactive. Extraocular movements intact. Oral mucosa pink. NECK: Trachea midline. No JVD. No carotid bruit noted. HEART: Regular rate and rhythm. Soft systolic murmur heard in the right upper sternal border. LUNGS: Bilateral breath sounds clear to auscultation. No wheezing, no rales noted. ABDOMEN: Soft, nontender, nondistended. Organomegaly noted. MUSCULOSKELETAL: Lower extremity edema, greater on the left than the right. Also with bilateral lower extremity dressings. VASCULAR: +2 bilateral radial pulses. +1 bilateral femoral pulses. Unable to auscultate any other pulses in the lower extremities. NEUROLOGIC: Cranial nerves 2 through 12 seem intact. LABORATORY DATA: White count 9; hemoglobin 6 on admission, now 8.2 after 2 units of blood; platelets 416. Chemistry; sodium 137, potassium 4.9, chloride 104, BUN 60, creatinine 5.85, GFR 9. Troponin less than 0.001. Foot x-ray showing extensive soft tissue defect on the left heel suggestive of osteomyelitis. EKG showed normal sinus rhythm. ASSESSMENT: 1. Severe anemia of chronic kidney disease. 2. Chronic kidney disease stage 5. 3. Left foot heel osteomyelitis. 4. Severe peripheral artery disease. 5. Diabetes. 6. Hypertension. PLAN: 1. The patient presents with reported symptoms of severe weakness, fatigue, and was noted to be anemic, hemoglobin of 6, was transfused 2 units and reports feels much better since then. Cardiology was consulted secondary to peripheral artery disease. Given the patient's chronic kidney disease stage 5, for now we will treat the patient medically until the patient is on dialysis or HD needs are addressed, the patient reports she does not want to be on dialysis. For now, we will avoid antiplatelet therapy given her profound anemia. We will go ahead and check blood in stool. 2. We will go ahead and check a lipid panel. 3. We will continue the patient on her antihypertensives. 4. Further recommendations as clinical course dictates. Thank you very much for this consult. SEEN AND EXAMINED UNFORTUNATELY WE CAN NOT DO MUCH ( PATIENT REFUSES DIALYSIS ) Dictated by Ayush Bailey NP Maria Luisa Sanchez MD DC/EFRAIN /[id number] VARUN
--- NOTE | 2019-01-17 14:17 | Consultation ---
INFECTIOUS DISEASE CONSULTATION DATE OF CONSULTATION: 01/17/2019 REASON FOR CONSULTATION: Osteomyelitis. Thank you, Dr. Hurst, for asking me to see this patient, who was admitted through the emergency department. HISTORY OF PRESENT ILLNESS: The patient is a 68-year-old woman, referred for osteomyelitis. She was admitted with symptomatic anemia and bilateral heel ulcers with malodorous discharge. The patient was feeling very weak and dizzy, but there was no shortness of breath or chest pain at rest. Also, there was no fever or chills. She was evaluated outpatient by the primary care provider and complete blood count returned with hemoglobin of 6. The patient was therefore sent to the emergency department. 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 In the emergency department, she was noted to have temperature of 97.4 degrees Fahrenheit, pulse rate 86, respiratory rate 16, blood pressure 121/59, and oxygen saturation 98% on room air. Initial laboratory studies showed blood leukocyte count of 9280 with 76% neutrophils, BUN 74, creatinine 6.75, blood glucose 148, and hemoglobin A1c 6.2. X-ray of the feet showed soft tissue defect of both heels with destruction of the left calcaneus. The patient has been evaluated by the Podiatry and Cardiology services. PAST MEDICAL HISTORY: Diabetes mellitus type 2 with peripheral neuropathy, hypertension, chronic kidney disease, peripheral arterial disease. PAST SURGICAL HISTORY: Eye surgery, multiple heel wound debridements. ALLERGIES: NO KNOWN DRUG ALLERGIES. MEDICATIONS: See MAR. The current antibiotics are Zosyn 2.25 g IV piggyback q.6 hours. IMMUNIZATIONS: She received pneumococcal vaccination in 2018. She has not received tetanus-diphtheria vaccine in more than 10 years. FAMILY HISTORY: Significant for diabetes mellitus and hypertension. SOCIAL HISTORY: No alcohol, tobacco, or recreational drug use. REVIEW OF SYSTEMS: As per history of present illness. PHYSICAL EXAMINATION: GENERAL: No acute distress; markedly decreased vision both eyes. VITAL SIGNS: T-max 98.9, pulse rate 81, respiratory rate 19, blood pressure 165/77, weight 198 pounds. HEENT: Normocephalic. There is no icterus or injection of the conjunctivae. There is no ear or nasal discharge. Moist oral mucosa. No pharyngeal erythema or exudate. NECK: Supple. No meningismus. LUNGS: Good air entry bilaterally. HEART: Normal S1 and S2. Regular. ABDOMEN: Soft and nontender. EXTREMITIES: There is hyperpigmentation of the distal legs. There is edema of the legs with the left leg slightly more than the right. There is a large ulcer of the left heel with exposed bone. There is also an ulcer of the right heel. The dorsalis pedis and posterior tibial pulses are difficult to palpate in both feet. SKIN: As per extremities. BATCH ATTENDANT: Awake, alert, and oriented to person, place, and time. There is decreased sensation to monofilament test of the feet. LABORATORY AND DIAGNOSTICS: WBC 10,330, hemoglobin 8.2, platelets 416,000, neutrophils 72.8, lymphocytes 13.2, monocytes 11.9, eosinophils 1.1, basophils 0.3. BUN 64, creatinine 5.5, blood glucose 104. Left and right heel wound cultures are growing gram-negative bacillus. Lower extremity venous Doppler ultrasound is pending. Lower extremity arterial Doppler ultrasound showed severe peripheral arterial disease. Chest x-ray showed no acute thoracic abnormality. IMPRESSION: 1. Diabetic foot ulcer infection involving the left and right heels, present on admission. 2. Osteomyelitis of the left calcaneus, present on admission. 3. Probable severe peripheral arterial disease. 4. Chronic kidney disease stage 5. 5. Hyperglycemia. 6. Hypertension. 7. Symptomatic anemia status post packed red blood cells transfusion. 8. Diabetes mellitus type 2 with peripheral neuropathy and retinopathy. PLAN: 1. Decrease Zosyn to 2.25 g IV piggyback q.8 hours and administer tetanus- diphtheria vaccine. 2. Podiatry and Cardiology services inputs have been noted. The patient continues to decline hemodialysis. 3. BP control. MD KENDRA Tran/EFRAIN /[id number] MTDD
--- NOTE | 2019-01-17 18:13 | Consultation ---
DATE OF CONSULTATION: REASON FOR CONSULTATION: Chronic kidney disease, stage 5. HISTORY OF PRESENT ILLNESS: The patient is a 68-year-old female, known to us per previous hospitalization and from our office, who has past medical history of CKD stage 5, refused to be on dialysis, diabetes type 2, hypertension, bilateral cataract, with CHF, was admitted with bilateral foot ulceration with foul smell and severe anemia. She was found to have hemoglobin of 6.20, status post 2 units of PRBC hemoglobin is 8.2. On admission, creatinine was in 6, currently it is 5.5 with GFR of 9 mL/minute. Started on IV antibiotics. ID and Cardiology with Podiatry have been consulted. PAST MEDICAL HISTORY: As above. PAST SURGICAL HISTORY: Retinal repair in 2013. ALLERGIES: NO KNOWN DRUG ALLERGIES. MEDICATIONS: Currently, the patient is on: 1. Hydralazine 50 twice a day. 2. Glimepiride. 3. Carvedilol. 4. Gabapentin 100 twice a day. 5. Lasix 40 mg p.o. q.8 hours. 6. Zosyn 2.25 q.6 hours. 7. IV iron x1. REVIEW OF SYSTEMS: GENERAL: No fatigue, no fever, no chills. HEENT: No headache or blurry vision. NECK: No dysphagia. CARDIOVASCULAR: No chest pain. No PND. No orthopnea. RESPIRATORY: Had dyspnea on exertion, that resolved. No cough. No hemoptysis. GI: No nausea, vomiting, diarrhea, constipation, or abdominal pain. No hematemesis. No hematochezia. No melena. MUSCULOSKELETAL: Has mild ankle swelling and bilateral lower extremities wound. NEUROLOGIC: No numbness, weakness, or tingling. PHYSICAL EXAMINATION: VITAL SIGNS: Blood pressure 123/61, pulse of 84, respirations are 16, temperature 97.9, and 100% on room air. GENERAL: Awake, alert, and oriented x3, not in apparent distress. HEENT: Atraumatic, normocephalic. NECK: No JVD. No mass. HEART: S1 and S2. Regular rate and rhythm. LUNGS: Decreases breath sounds at the bases. No added sounds. ABDOMEN: Soft, nontender, and nondistended. Bowel sounds positive. EXTREMITIES: Trace bilateral lower extremity swelling. NEUROLOGIC: Awake and alert. Moves all extremities. LABORATORY DATA: White count 10, hemoglobin 8.2, platelet count is 416. Sodium 137, potassium 4.9, chloride 104, CO2 is 24, BUN 64, creatinine 5.5, glucose 96, calcium 7.7. LFTs within normal limit. UA is few leukocyte esterase with wbc 21-50. Would culture, gram negative bacilli. X-ray of the foot, extensive soft tissue defect in the left heel and soft tissue loss and osseous destruction of the underlying calcaneous compatible with osteomyelitis. Chest x-ray done on admission, no acute thoracic abnormality, mild cardiomegaly, and pulmonary vascular congestion. ASSESSMENT/PLAN: 1. Chronic kidney disease, stage 5. The patient has refused to be on dialysis. I will continue with chronic kidney disease diet. Monitor the renal function. No uremic signs or symptoms. 2. Bilateral lower extremity wound infection. ID consulted and change the Zosyn to 2.25 q.8 hours according to the surgeon's clearance. 3. Anemia. Could be secondary to chronic kidney disease plus infection, status post transfusion. I agree with the iron, would benefit from Epogen. 4. Hypertension, controlled. 5. Diabetes type 2 per primary team. I want to thank, Dr. Benito Hurst, for the consult. MD DANIELLA Alberto/MODJoann /[id number]
--- NOTE | 2019-01-17 18:18 | NUR ---
patient resting in bed, alert with no distress, tolerated food and meds, call light in reach keep monitoring
[2019-01-17] MEDS: PRAVASTATIN 20 MG TAB PO SCH (22:07)
[2019-01-18] VITALS (8 sets, daily range): BP systolic 120–177; BP diastolic 59–86
--- NOTE | 2019-01-18 03:30 | NUR ---
second unit of blood has started to transfuse. no adverse reaction noted. will continue to monitor transfusion process.
[2019-01-18] MEDS: FUROSEMIDE 40 MG TAB PO SCH ×3 (05:19→21:00)
[2019-01-18] MEDS: PIPERACILLIN/TAZO 2.25 GM 50 ML IV SCH ×3 (05:19→21:00)
[2019-01-18] MEDS: GABAPENTIN 100 MG CAP PO SCH ×2 (05:19→16:57)
[2019-01-18 05:59] LABS: EOSINOPHILS # (AUTO) 0.2 (0.0-0.4); HEMATOCRIT 30.2 % (34.2-44.1); HEMOGLOBIN 9.3 g/dL (12.0-16.0); LYMPHOCYTES # (AUTO) 0.7 (1.0-3.2); LYMPHOCYTES % 9.5 % (18.0-39.1); MEAN CORPUSCULAR HEMOGLOBIN 25.3 pg (28-32); MEAN CORPUSCULAR HGB CONC 30.8 g/dL (31-35); MEAN CORPUSCULAR VOLUME 82.3 fL (81-99); MONOCYTES # (AUTO) 0.1 (0.2-0.8); MONOCYTES % 1.5 % (4.4-11.3); NEUTROPHILS # (AUTO) 6.4 (2.1-6.9); NEUTROPHILS % 86.6 % (38.7-80.0); PLATELET COUNT 441 x10e3/uL (140-360); RED BLOOD COUNT 3.67 x10e6/uL (3.6-5.1); RED CELL DISTRIBUTION WIDTH 16.6 % (11.7-14.4)
[2019-01-18 06:15] LABS: ALBUMIN 1.6 g/dL (3.5-5.0); ALBUMIN/GLOBULIN RATIO 0.3 (0.8-2.0); ALKALINE PHOSPHATASE 83 IU/L (40-150); ANION GAP 17.1 mmol/L (8-16); BLOOD UREA NITROGEN 63 mg/dL (7-26); BUN/CREATININE RATIO 12 (6-25); CALCIUM 8.1 mg/dL (8.4-10.2); CARBON DIOXIDE 20 mmol/L (22-29); CHLORIDE 103 mmol/L (98-107); CREATININE, SERUM 5.35 mg/dL (0.57-1.11); EST GLOMERULAR FILTRATION RATE 10 ML/MIN (60-); GLUCOSE 157 mg/dL (74-118); POTASSIUM 5.1 mmol/L (3.5-5.1); SODIUM 135 mmol/L (136-145)
[2019-01-18 06:16] LABS: ALANINE AMINOTRANSFERASE < 6 IU/L (0-55)
[2019-01-18] MEDS: ACETAMINOPHEN/CODEINE 300MG - 30MG TAB PO PRN (07:10)
--- NOTE | 2019-01-18 07:12 | NUR ---
REPORT GIVEN TO DAY NURSE. PATIENT IS RESTING COMFORTABLY IN BED. BED IS IN LOWEST POSITION AND CALL LIGHT IS WITHIN REACH.
--- NOTE | 2019-01-18 07:15 | NUR ---
Hand off report received at bedside from BALDEMAR White. Pt is lying in bed, AAOx4 and in no acute distress noted, resp even and unlabored, dressing to bilateral feet noted with foul smelling drainage. Pt instructed to use the call light for assistance, bed is locked, and bed alarm is activated for safety. Her is in the room sleeping. Pt educated on importance of calling for assistance for her safety. Pt verbalized understanding. Will continue to monitor.
[2019-01-18] MEDS: INSULIN REGULAR, HUMAN 100 UNIT/1 ML 3ML VIAL SQ SCH ×4 (07:30→20:47)
--- NOTE | 2019-01-18 07:30 | NUR ---
hand off report received at bedside from BALDEMAR White. Pt is AAOx3 in no acute distress noted, resp even and unlabored, dressing to feet noted c/d/i. Pt is resting comfortably. Bed alarm is on for safety and call light is within reach. Will continue to monitor.
--- NOTE | 2019-01-18 08:45 | NUR ---
Critical result received from [facility], wound culture from foot wounds is positive for MDRO and possible KPC carbapenemase. Dr Trinh Davis made aware sts to place pt on contact isolation and consult Dr Mercer.
[2019-01-18] MEDS: HYDRALAZINE HCL 25 MG TAB PO SCH ×2 (08:54→16:56)
[2019-01-18] MEDS: GLIMEPIRIDE 2 MG TAB PO SCH (08:54)
[2019-01-18] MEDS: CARVEDILOL 12.5 MG TAB PO SCH ×2 (08:55→16:56)
--- NOTE | 2019-01-18 09:45 | NUR ---
Dressing change done as ordered, pt tolerated well and pt provided with bilateral heel protectors and heels are off loaded with pillows. Will continue to monitor.
[2019-01-18] MEDS ORDERED: ONDANSETRON HCL 4 MG ORAL DISINTEGRATING TAB PO PRN (11:30)
[2019-01-18] MEDS: COLLAGENASE OINTMENT 30 GM TUBE TP SCH (12:41)
[2019-01-18] MEDS: EPOETIN ALFA 10000 UNIT/ML VIAL SC SCH (12:44)
--- NOTE | 2019-01-18 14:39 | Progress Note ---
DATE: 01/18/2019 SUBJECTIVE: The patient is seen at bedside, accompanied by spouse. Denying any history of fever, chills, nausea, or vomiting. OBJECTIVE: VITAL SIGNS: Afebrile, pulse 87, respirations 17, blood pressure 155/79, O2 saturation 99%. EXTREMITIES: Ulcerations stable for now. Some foul smell present, left worse than right. Bone exposed, more than 5 to 6 cm in diameter to the left lower extremity, approximately 4.5 to 5 cm in diameter to the right foot. Ulceration to the dorsal aspect of left lower extremity, granular and healing nicely. Pedal pulses are diminished in both lower extremities. ASSESSMENT: Osteomyelitis, peripheral arterial disease with cellulitis both lower extremities. PLAN: We will continue to treat conservatively with IV antibiotics. Infectious Disease will be called secondary to a resistant bacteria. We will continue Santyl followed by diluted wet-to-dry offloading the Prevalon boots. Walking minimal with surgical shoes. The patient needs a [id number] amputation left lower extremity, refusing. We will continue to follow. BUSTER Britt/EFRAIN /[id number]
--- NOTE | 2019-01-18 15:50 | NUR ---
Change of shift report given to BALDEMAR Hook. Pt is lying in bed AA03, she is eating dinner and is at bedside, respiration is unlabored, bilat LE wounds with dressing intact legs are off loaded with pillows. Pt instructed to call for assistance, bed alarm is on for safety and call light is within her reach. Pt verbalized understanding.
[2019-01-18] MEDS: PRAVASTATIN 20 MG TAB PO SCH (20:47)
[2019-01-19] VITALS (9 sets, daily range): BP systolic 111–169; BP diastolic 49–76
[2019-01-19] MEDS: FUROSEMIDE 40 MG TAB PO SCH ×3 (05:22→22:26)
[2019-01-19] MEDS: PIPERACILLIN/TAZO 2.25 GM 50 ML IV SCH ×3 (05:22→22:00)
[2019-01-19] MEDS: GABAPENTIN 100 MG CAP PO SCH ×2 (05:23→17:00)
[2019-01-19 05:39] LABS: HEMATOCRIT 27.2 % (34.2-44.1); HEMOGLOBIN 8.2 g/dL (12.0-16.0); LYMPHOCYTES % 9.8 % (18.0-39.1); MEAN CORPUSCULAR HEMOGLOBIN 24.8 pg (28-32); MEAN CORPUSCULAR HGB CONC 30.1 g/dL (31-35); MEAN CORPUSCULAR VOLUME 82.2 fL (81-99); MONOCYTES # (AUTO) 0.8 (0.2-0.8); NEUTROPHILS # (AUTO) 8.3 (2.1-6.9); NEUTROPHILS % 81.4 % (38.7-80.0); PLATELET COUNT 421 x10e3/uL (140-360); RED BLOOD COUNT 3.31 x10e6/uL (3.6-5.1); RED CELL DISTRIBUTION WIDTH 16.7 % (11.7-14.4)
[2019-01-19 05:58] LABS: ALBUMIN 1.7 g/dL (3.5-5.0); ALBUMIN/GLOBULIN RATIO 0.3 (0.8-2.0); ALKALINE PHOSPHATASE 73 IU/L (40-150); ANION GAP 15.3 mmol/L (8-16); BLOOD UREA NITROGEN 68 mg/dL (7-26); BUN/CREATININE RATIO 13 (6-25); CALCIUM 8.2 mg/dL (8.4-10.2); CARBON DIOXIDE 23 mmol/L (22-29); CHLORIDE 103 mmol/L (98-107); CREATININE, SERUM 5.33 mg/dL (0.57-1.11); EST GLOMERULAR FILTRATION RATE 10 ML/MIN (60-); GLUCOSE 167 mg/dL (74-118); POTASSIUM 4.3 mmol/L (3.5-5.1); SODIUM 137 mmol/L (136-145)
[2019-01-19 06:00] LABS: ALANINE AMINOTRANSFERASE < 6 IU/L (0-55)
[2019-01-19] MEDS: INSULIN REGULAR, HUMAN 100 UNIT/1 ML 3ML VIAL SQ SCH ×4 (07:30→21:00)
[2019-01-19] MEDS: GLIMEPIRIDE 2 MG TAB PO SCH (08:40)
[2019-01-19] MEDS: HYDRALAZINE HCL 25 MG TAB PO SCH ×2 (08:40→17:00)
[2019-01-19] MEDS: CARVEDILOL 12.5 MG TAB PO SCH ×2 (08:40→17:00)
[2019-01-19] MEDS: COLLAGENASE OINTMENT 30 GM TUBE TP SCH (12:00)
[2019-01-19] MEDS ORDERED: SODIUM CHLORIDE 0.9% 250ML 250 ML ONE (13:36)
--- NOTE | 2019-01-19 18:50 | Consultation ---
DATE OF CONSULTATION: 01/19/2019 SUBJECTIVE: The patient is seen at bedside. She relates she is doing better. Denies any history of fever, chills, nausea, or vomiting. OBJECTIVE: VITAL SIGNS: Afebrile, pulse rate 94, respiration 18, blood pressure 139/69, and O2 saturation 100%. LABORATORY DATA: White blood cell count 10.2, hemoglobin 8.2 with a platelet count of 421. Has grade 4 ulcer of osteomyelitic changes noted to the left foot with some foul smell present. More than 7-8 cm in diameter. Has a grade 3/4 ulceration plantar aspect right heel, getting very close to bone with negative foul smell, some granulation tissue noted. Pedal pulses diminished to both lower extremities with a grade 2 ulceration, dorsal aspect left foot measuring 3-4 cm in diameter. ASSESSMENT: Peripheral arterial disease, osteomyelitis, left heel with grade 4 ulcers bilaterally. PLAN: Continue local wound care. Continue offloading. The patient does not want to have any operations or below-knee amputation, which is needed to the left lower extremity. Continue to follow and upon discharge, the patient to follow up with Dr. Darren Hurst. BUSTER Britt/EFRAIN /[id number]
--- NOTE | 2019-01-19 20:14 | NUR ---
Report called to Terrie with patient being transferred to room 207. All belongings gathered and at bedside.
[2019-01-19] MEDS: PRAVASTATIN 20 MG TAB PO SCH (22:26)
--- NOTE | 2019-01-19 22:30 | NUR ---
pt with no IV access, pt stated "you can do it in the morning i dont feel like being a pin cushion", call light in reach
[2019-01-20] VITALS (9 sets, daily range): BP systolic 117–147; BP diastolic 56–69
[2019-01-20] MEDS: GABAPENTIN 100 MG CAP PO SCH ×2 (05:48→18:10)
[2019-01-20] MEDS: FUROSEMIDE 40 MG TAB PO SCH ×3 (05:48→21:20)
--- NOTE | 2019-01-20 07:15 | NUR ---
PATIENT IN BED RESTING WITH EYES CLOSED, NO DISTRESS NOTED. DRESSING DRY AND INTACT TO BILATERAL FEET. BED IN LOWER POSITION, CALL LIGHT AT REACH.
[2019-01-20] MEDS: INSULIN REGULAR, HUMAN 100 UNIT/1 ML 3ML VIAL SQ SCH ×4 (07:30→20:58)
[2019-01-20] MEDS: PIPERACILLIN/TAZO 2.25 GM 50 ML IV SCH ×3 (08:30→21:20)
[2019-01-20] MEDS: GLIMEPIRIDE 2 MG TAB PO SCH (09:04)
[2019-01-20] MEDS: HYDRALAZINE HCL 25 MG TAB PO SCH ×2 (09:04→17:33)
[2019-01-20] MEDS: CARVEDILOL 12.5 MG TAB PO SCH ×2 (09:04→17:33)
[2019-01-20] MEDS: COLLAGENASE OINTMENT 30 GM TUBE TP SCH (11:04)
--- NOTE | 2019-01-20 11:08 | NUR ---
DRESSING CHANGED TO FEET ORDERED, PATIENT TOLERATED PROCEDURE WELL. IN BED WITH CALL LIGHT AT REACH.
--- NOTE | 2019-01-20 11:59 | Progress Note ---
DATE: 01/20/2019 SUBJECTIVE: The patient seen at bedside, accompanied by spouse, doing better. Denying any history of fever, chills, nausea or vomiting. OBJECTIVE: VITAL SIGNS: Afebrile, pulse rate 93, respirations 18, blood pressure 145/65, O2 saturation 99%. EXTREMITIES: Ulcerations, stable for now. Some necrosis noted down the bone to the left lower extremity, very close to bone to the right and foul smell to the left lower extremity with positive edema and pedal pulses diminished. Pregangrenous changes noted to the left great toe. LABORATORY DATA: Labs show white blood cell count 10.2 and hemoglobin 8.2. ASSESSMENT: Grade 4 ulcer of left, osteomyelitis of the left foot with pre-gangrene of left great toe with peripheral arterial disease bilaterally with a grade 3/4 ulceration of right foot responding with some granulation tissue, still very close to bone. PLAN: We will continue IV antibiotics. Continue local wound care, offloading. The patient does not want any type of surgical intervention. We will treat conservatively. The patient understands she will eventually have to lose her left leg, we will try to salvage right, but no guarantees can be given. BUSTER Britt/EFRAIN /[id number]
--- NOTE | 2019-01-20 15:46 | NUR ---
PATIENT ASSISTED TO THE RESTROOM AND BACK TO BED. ALL PERSONAL ITEMS CLOSE TO PATIENT. VITA LIGHT AT REACH.
[2019-01-20] MEDS: PRAVASTATIN 20 MG TAB PO SCH (20:58)
[2019-01-20] MEDS: ACETAMINOPHEN/CODEINE 300MG - 30MG TAB PO PRN (20:59)
[2019-01-21] VITALS (7 sets, daily range): BP systolic 94–127; BP diastolic 56–72
[2019-01-21 05:26] LABS: BASOPHILS % 0.2 % (0.0-1.0); EOSINOPHILS % 0.3 % (0.0-6.0); HEMATOCRIT 26.9 % (34.2-44.1); HEMOGLOBIN 8.2 g/dL (12.0-16.0); LYMPHOCYTES # (AUTO) 1.7 (1.0-3.2); LYMPHOCYTES % 14.3 % (18.0-39.1); MEAN CORPUSCULAR HEMOGLOBIN 25.1 pg (28-32); MEAN CORPUSCULAR HGB CONC 30.5 g/dL (31-35); MEAN CORPUSCULAR VOLUME 82.3 fL (81-99); MONOCYTES # (AUTO) 1.3 (0.2-0.8); MONOCYTES % 10.8 % (4.4-11.3); NEUTROPHILS # (AUTO) 8.7 (2.1-6.9); NEUTROPHILS % 72.8 % (38.7-80.0); PLATELET COUNT 345 x10e3/uL (140-360); RED BLOOD COUNT 3.27 x10e6/uL (3.6-5.1); RED CELL DISTRIBUTION WIDTH 16.8 % (11.7-14.4)
[2019-01-21 05:53] LABS: ALBUMIN 1.6 g/dL (3.5-5.0); ALBUMIN/GLOBULIN RATIO 0.3 (0.8-2.0); ANION GAP 13.8 mmol/L (8-16); CALCIUM 7.5 mg/dL (8.4-10.2); CREATININE, SERUM 4.91 mg/dL (0.57-1.11); POTASSIUM 3.8 mmol/L (3.5-5.1)
[2019-01-21] MEDS: FUROSEMIDE 40 MG TAB PO SCH ×3 (06:20→21:54)
[2019-01-21] MEDS: GABAPENTIN 100 MG CAP PO SCH ×2 (06:20→17:01)
[2019-01-21] MEDS: PIPERACILLIN/TAZO 2.25 GM 50 ML IV SCH ×3 (06:20→21:54)
[2019-01-21] MEDS: INSULIN REGULAR, HUMAN 100 UNIT/1 ML 3ML VIAL SQ SCH ×4 (07:30→20:52)
[2019-01-21] MEDS: GLIMEPIRIDE 2 MG TAB PO SCH ×2 (09:00→12:30)
[2019-01-21] MEDS: CARVEDILOL 12.5 MG TAB PO SCH ×2 (09:03→17:00)
[2019-01-21] MEDS: HYDRALAZINE HCL 25 MG TAB PO SCH ×2 (09:03→17:00)
[2019-01-21] MEDS: COLLAGENASE OINTMENT 30 GM TUBE TP SCH (09:03)
--- NOTE | 2019-01-21 11:13 | NUR ---
CM SPOKE TO PATIENT AT BEDSIDE REGARDING [facility]. PATIENT REFUSED [facility]. PATIENT STATES SHE WANTS TO RETURN HOME WITH IV INFUSION THERAPY AND WOUND CARE. PATIENT GIVEN CHOICES OF HOME INFUSION COMPANIES. PATIENT CHOSE [facility]. [facility] NOTIFIED TO SET UP HOME HEALTH COMPANY. PENDING HOME HEALTH PROVIDER. CLINICAL SENT TO [facility]. PENDING ACCEPTANCE AND HOME HEALTH AGENCY PRIOR TO DISCHARGE [facility] (P)[phone] (F) [phone]
[2019-01-21] MEDS: EPOETIN ALFA 10000 UNIT/ML VIAL SC SCH (11:45)
--- NOTE | 2019-01-21 12:30 | NUR ---
ASSESSMENT: Spiritual concern [employer] responded to Spiritual Care consult request from RN. Pt struggling with changes due to illness. Pt states she "can't do" things she once was able to do. Pt states she enjoys morning overhead prayer. Pt requested prayer. Intervention: Provided empathic listening. Provided prayer and information on how to contact hand folder, if needed. Outcome: Pt expressed appreciation for visit. Will follow as able. [facility] Department O: [phone] Pager: [phone] ([phone] calling from)
--- NOTE | 2019-01-21 14:49 | Progress Note ---
DATE: 01/21/2019 Progress Report SUBJECTIVE: The patient is seen at bedside. Denying any history of fever, chills, nausea, or vomiting. Still has some drainage to both lower extremities, left worse than right. OBJECTIVE: VITAL SIGNS: Afebrile. Pulse rate 95, respirations 18, blood pressure 118/65, and O2 saturation 100%. EXTREMITIES: Ulcerations to both lower extremities, stable for now. Foul smell through left lower extremity secondary to the bone being exposed with osteomyelitic changes. Pedal pulses diminished with pregangrenous changes in the left great toe. Skin temperature warm to the touch. Has a grade 4 ulcer also top the right heel, getting somewhat better. Some granulation tissue noted with some discoloration to the posterior aspect of the ulcer. It is more than 4-5 cm in diameter right and 8-10 cm in diameter left with ulceration to the dorsal aspect of the foot showing some granulation tissue. LABORATORY DATA: White blood cell count of 11.9, hemoglobin 8.2 with a platelet count of 345. ASSESSMENT: Peripheral arterial disease, osteomyelitis left with grade 4 ulcers bilaterally. PLAN: Continue local wound care. Does not want any type of amputation done. Continue offloading. Continue Santyl followed by diluted wet-to-dry. Continue IV antibiotics. BUSTER Britt/EFRAIN /[id number]
--- NOTE | 2019-01-21 15:17 | NUR ---
Nutrition Intervention Note RD Recommendation(s) for Physician: - Continue current diet as ordered - Continue Nepro BID to increase protein-calorie intake - The patient meets criteria for MODERATE protein-calorie malnutrition. Plan of Care: RD following, monitoring for tolerance and adequacy, ONS recommendation Nutrition reason for involvement: Follow up RD Assessment 01/21 Visited pt in the room. Pt reported good appetite. PCT recorded 75-100% meal intake since admission. Pt has been drinking all of the Nepro given. Pt continued to have declined renal function. No GI complains reported. Current diet is appropriate and adequate. 01/16 68yo F, who was admitted for anemia, kidney failure and weakness. Visited pt in the room. Pt reported improvement in her appetite with 100% recorded meal intake. Pt stated that she was not eating much since her surgery in June 2018. Pt reported ~40lbs weight loss in 6 months. Bedside scale showed ~130lbs. No complains of nausea or vomiting. LBM 01/15. Pt denied any chewing or swallowing difficulty. Pt has some moderate fat/ muscle loss upon NFPA (see below). Will continue to monitor and follow. Principal Problems/Diagnoses: anemia, kidney failure and weakness PMH: anemia, chronic kidney disease, diabetes mellitus, hypertension, hypertensive heart disease, nephrotic syndrome, chronic arthritis GI: abdomen non-tender, flat, soft, LBM 01/20 Skin: bilateral foot ulcers, per wound care Labs: (01/21) Na 133 L, BUN 77 H, Creatinine 4.91 H, Glucose 48 270, Ca 7.5 L (01/16) BUN 74 H, Creatinine 6.75 H, Glucose 142 H, Ca 8.0 L Meds: lasix, insulin, epogen Ht: 62in Wt: 130lb (bedside scale) BMI: 23.8kg/m2 IBW: 110lb +/- 10% Malnutrition Evaluation (01/16/2019) The patient meets criteria for MODERATE protein-calorie malnutrition. Energy intake: <75% of estimated energy requirements for >3 months Weight loss: >10% in 6 months (Chronic) Fat loss: Moderate some protrusion of clavicle Muscle loss: Moderate depression of interosseous, temporal depression Supporting Evidence: Fluid accumulation: none Functional Status: reduced Nutrition Prescription (Diet Order): ADA 1800 Estimated Nutritional Needs: Calories: 1770 2065kcal (30-35kcal/kg/d) Weight used: CBW Protein: 59 88g (1-1.5g/kg/d) Weight used: CBW Diet Adequacy: Meeting calorie needs, meeting protein needs Diet Education Needs Assessment: Diet education not indicated. Nutrition Care Level: low Nutrition Diagnosis: Moderate malnutrition related to inadequate oral intake as evidenced by <75% of estimated energy requirements for >3 months, >10% weight loss in 6 months, and moderate fat/ muscle loss. Goal: Patient will meet 75-100% of estimated needs by follow up Progress: Goal met Interventions: Carbohydrate-modified diet, Commercial beverage Monitoring/Evaluation: Total energy intake, Total protein intake, Modified diet, Liquid supplement, Weight change Signed: Neva Novak MS, RD, LD
--- NOTE | 2019-01-21 19:20 | NUR ---
PATIENT RECEIVED. PATIENT IS RESTING IN BED, AAOX3. RESP EVEN AND UNLABORED. NO ACUTE DISTRESS NOTED. BILATERAL FOOT DRESSING NOTED, DRY AND INTACT. PATIENT DENIED OF ANY PAIN OR DISCOMFORT AT THIS TIME. CALL LIGHT WITH REACH. BED LOW/LOCKED. CONTINUE TO MONITOR CLOSELY
[2019-01-21] MEDS: PRAVASTATIN 20 MG TAB PO SCH (21:53)
[2019-01-21] MEDS ORDERED: SODIUM CHLORIDE 0.9% 250ML 250 ML ONE (22:09)
[2019-01-22] VITALS (9 sets, daily range): BP systolic 103–156; BP diastolic 54–69
[2019-01-22] MEDS: GABAPENTIN 100 MG CAP PO SCH ×2 (05:44→17:45)
[2019-01-22] MEDS: PIPERACILLIN/TAZO 2.25 GM 50 ML IV SCH ×3 (05:44→20:52)
[2019-01-22] MEDS: FUROSEMIDE 40 MG TAB PO SCH ×3 (05:44→20:52)
--- NOTE | 2019-01-22 07:10 | NUR ---
AM ROUNDS, PT WALKING TO BATHROOM WITH WALKER PINK HEEL PROTECTORS IN PLACE, THIS RN ATTEMPTED TO STOP PATIENT FROM AMBULATING WITH HEELS PROTECTORS ON AND PLACE ORTHOPEDIC SHOES. PT STATES " NO CHILD THIS IS FINE, I GOT IT" RN EXPLAINED IT WAS A SAFETY CONCERN TO AMBULATE WITH THOSE ON AND IT WAS MD ORDERS TO WALK WITH SURGICAL SHOES. PT STATES " NO THIS WILL DO JUST FINE. " RN EXPLAINED IT WAS IMPORTANT TO CALL FOR ASSISTANCE WHEN AMBULATING, PT DID NOT AGREE AND STATES " I CAN DO IT." PT AMBULATED TO RESTROOM SAFELY BY RN. WILL CONTINUE TO MONITOR CLOSELY BED ALARM TO STAY ON AT ALL TIMES.
[2019-01-22] MEDS: INSULIN REGULAR, HUMAN 100 UNIT/1 ML 3ML VIAL SQ SCH ×4 (07:30→19:54)
[2019-01-22] MEDS: GLIMEPIRIDE 2 MG TAB PO SCH (09:00)
[2019-01-22] MEDS: CARVEDILOL 12.5 MG TAB PO SCH ×2 (09:06→17:30)
[2019-01-22] MEDS: HYDRALAZINE HCL 25 MG TAB PO SCH ×2 (09:06→17:00)
[2019-01-22] MEDS: COLLAGENASE OINTMENT 30 GM TUBE TP SCH (09:06)
[2019-01-22] MEDS: ACETAMINOPHEN/CODEINE 300MG - 30MG TAB PO PRN ×2 (09:07→19:57)
[2019-01-22] MEDS ORDERED: ACETAMINOPHEN 325 MG TAB PO PRN (11:15)
--- NOTE | 2019-01-22 12:55 | Progress Note ---
DATE: 01/22/2019 SUBJECTIVE: The patient is seen at bedside, having some discomfort to the left lower extremity. Denies any history of fever, chills, nausea, or vomiting. OBJECTIVE: VITAL SIGNS: Afebrile. Pulse rate 115, respirations 18, blood pressure 113/58, O2 saturation 100%. EXTREMITIES: Ulcerations to both lower extremity, stable for now. She has bone exposed to the left foot ulcer more than 8 cm in diameter. Some drainage and foul smell present. Pedal pulses diminished with a pregangrenous changes noted to the left great toe, has a grade 4 ulcer of the right heel, 4-5 cm in diameter, very close to bone. ASSESSMENT: Peripheral arterial disease with osteomyelitis of left foot, grade 4 ulcer bilaterally with peripheral arterial disease bilaterally. PLAN: The patient definitely needs to have a [id number] amputation of the left lower extremity. She is refusing at this point and followed by conservative care with IV antibiotics and local wound care, which is done and offloading. We will continue to monitor foot. The patient understands that the left foot will not get better, and right foot prognosis is guarded. BUSTER Britt/EFRAIN /[id number]
[2019-01-22] MEDS ORDERED: MINOCYCLINE HCL50 MG PO (12:59)
--- NOTE | 2019-01-22 15:03 | NUR ---
CM SPOKE WITH DR. KELLEY. PATIENT NOT NEEDING IV ABX. ORDER CANCELLED FOR IV ABX INFUSION FOR HOME AND ORDER FOR HOME HEALTH FOR WOUND CARE WITH WOUND CARE INSTRUCTIONS ADDED. PATIENT AWARE AND AGREEABLE. CLINICAL SENT TO [facility] DISCUSSED WITH PATIENT AT BEDSIDE. [facility] (P) [phone] (F) [phone]
[2019-01-22] MEDS: PRAVASTATIN 20 MG TAB PO SCH (20:23)
[2019-01-23] VITALS (7 sets, daily range): BP systolic 107–146; BP diastolic 52–64
[2019-01-23 05:33] LABS: BASOPHILS % 0.3 % (0.0-1.0); EOSINOPHILS # (AUTO) 0.1 (0.0-0.4); EOSINOPHILS % 0.7 % (0.0-6.0); HEMATOCRIT 25.5 % (34.2-44.1); HEMOGLOBIN 7.7 g/dL (12.0-16.0); LYMPHOCYTES # (AUTO) 1.2 (1.0-3.2); LYMPHOCYTES % 10.5 % (18.0-39.1); MEAN CORPUSCULAR HGB CONC 30.2 g/dL (31-35); MEAN CORPUSCULAR VOLUME 82.8 fL (81-99); MONOCYTES # (AUTO) 1.5 (0.2-0.8); MONOCYTES % 12.6 % (4.4-11.3); NEUTROPHILS # (AUTO) 8.6 (2.1-6.9); NEUTROPHILS % 74.4 % (38.7-80.0); PLATELET COUNT 407 x10e3/uL (140-360); RED BLOOD COUNT 3.08 x10e6/uL (3.6-5.1); RED CELL DISTRIBUTION WIDTH 17.2 % (11.7-14.4)
[2019-01-23] MEDS: PIPERACILLIN/TAZO 2.25 GM 50 ML IV SCH ×3 (05:49→21:31)
[2019-01-23] MEDS: FUROSEMIDE 40 MG TAB PO SCH ×3 (05:49→21:31)
[2019-01-23] MEDS: GABAPENTIN 100 MG CAP PO SCH ×2 (05:49→17:41)
[2019-01-23 05:53] LABS: ANION GAP 15.9 mmol/L (8-16); CREATININE, SERUM 5.2 mg/dL (0.57-1.11); POTASSIUM 3.9 mmol/L (3.5-5.1)
--- NOTE | 2019-01-23 07:10 | NUR ---
RECEIVED PATIENT AWAKE RESTING IN BED NO SIGNS OF DISTRESS. BED LOW, WHEELS LOCKED, SIDE RAILS X2. CALL LIGHT IN REACH. WILL CONTINUE TO MONITOR PATIENT.
[2019-01-23] MEDS: INSULIN REGULAR, HUMAN 100 UNIT/1 ML 3ML VIAL SQ SCH ×4 (07:30→21:00)
--- NOTE | 2019-01-23 08:45 | NUR ---
PATIENT A/O X3, EVEN RESPIRATIONS ON RA. BOWEL SOUNDS ACTIVE, NO EDEMA. LEFT FA 20 GAUGE IV SL. IV INTACT/PATENT. PATIENT AMBULATES WITH WALKER AND ASSISTANCE, VOIDS IN TOILET. BILATERAL FOOT WOUNDS. DRESSING CLEAN, DRY, AND INTACT. VITAL SIGNS STABLE. NO PAIN AT THIS TIME. EDUCATED PATIENT TO CALL NURSE FOR ASSISTANCE. CALL LIGHT IN REACH, WILL CONTINUE TO MONITOR PATIENT.
[2019-01-23] MEDS ORDERED: EPOETIN ALFA 10000 UNIT/ML VIAL SC NR (10:30)
[2019-01-23] MEDS: HYDRALAZINE HCL 25 MG TAB PO SCH ×2 (10:40→16:37)
[2019-01-23] MEDS: CARVEDILOL 12.5 MG TAB PO SCH ×2 (10:40→16:37)
[2019-01-23] MEDS: GLIMEPIRIDE 2 MG TAB PO SCH (10:40)
[2019-01-23] MEDS: COLLAGENASE OINTMENT 30 GM TUBE TP SCH (10:40)
[2019-01-23] MEDS: EPOETIN ALFA 10000 UNIT/ML VIAL SC SCH (12:33)
--- NOTE | 2019-01-23 15:01 | Progress Note ---
DATE: 01/23/2019 SUBJECTIVE: The patient is seen at bedside, having some discomfort to the left lower extremity. She is denying any history of fever, chills, nausea, or vomiting. OBJECTIVE: VITAL SIGNS: Afebrile, pulse rate 107, respiration 18, blood pressure 146/64, and O2 saturation 97%. EXTREMITIES: Ulcerations to both lower extremities shows some necrosis noted down to bone, very close to bone to the left and right foot respectively. Some foul smell noted to the left lower extremity, but some granulation tissue also noted. Ulcer to the left lower extremity more than 8 cm in diameter. Ulcer to the right more than 4 to 5 cm in diameter. Necrosis noted down the bone and subcutaneous tissue and muscle respectively. Pedal pulses diminished with pregangrenous changes noted to the left great toe, but stable. LABORATORY DATA: Labs noted, has a white blood cell count of 11.5, hemoglobin 7.7, hematocrit 25.5 with a platelet count of 407. ASSESSMENT: Peripheral arterial disease with grade 4 ulcer and osteomyelitis to the left with grade 4 ulcer to right foot, very close to bone down to muscle. PLAN: We will continue local wound care, IV antibiotics, offloading. Ulcerations will be once again debrided tomorrow to see if we can stimulate some granulation tissue. The patient refused to have any type of amputation done. BUSTER Britt/EFRAIN /[id number]
[2019-01-23] MEDS: PRAVASTATIN 20 MG TAB PO SCH (21:30)
[2019-01-23] MEDS: ACETAMINOPHEN/CODEINE 300MG - 30MG TAB PO PRN (22:34)
[2019-01-24] VITALS: BP 114/67
[2019-01-24 04:00] VITALS: BP 128/64
[2019-01-24 05:33] LABS: BASOPHILS % 0.3 % (0.0-1.0); EOSINOPHILS # (AUTO) 0.1 (0.0-0.4); EOSINOPHILS % 0.5 % (0.0-6.0); HEMATOCRIT 27.4 % (34.2-44.1); HEMOGLOBIN 8.3 g/dL (12.0-16.0); LYMPHOCYTES # (AUTO) 1.2 (1.0-3.2); LYMPHOCYTES % 10.5 % (18.0-39.1); MEAN CORPUSCULAR HEMOGLOBIN 25.5 pg (28-32); MEAN CORPUSCULAR HGB CONC 30.3 g/dL (31-35); MONOCYTES # (AUTO) 1.5 (0.2-0.8); MONOCYTES % 12.9 % (4.4-11.3); NEUTROPHILS # (AUTO) 8.6 (2.1-6.9); NEUTROPHILS % 74.8 % (38.7-80.0); PLATELET COUNT 382 x10e3/uL (140-360); RED BLOOD COUNT 3.26 x10e6/uL (3.6-5.1)
[2019-01-24] MEDS: PIPERACILLIN/TAZO 2.25 GM 50 ML IV SCH ×2 (05:50→13:00)
[2019-01-24] MEDS: FUROSEMIDE 40 MG TAB PO SCH (05:50)
[2019-01-24] MEDS: GABAPENTIN 100 MG CAP PO SCH (05:50)
[2019-01-24] MEDS: INSULIN REGULAR, HUMAN 100 UNIT/1 ML 3ML VIAL SQ SCH ×2 (07:30→12:00)
[2019-01-24 08:06] VITALS: BP 138/74
[2019-01-24] MEDS: GLIMEPIRIDE 2 MG TAB PO SCH (08:11)
[2019-01-24] MEDS: HYDRALAZINE HCL 25 MG TAB PO SCH (08:11)
[2019-01-24] MEDS: CARVEDILOL 12.5 MG TAB PO SCH (08:11)
[2019-01-24 08:13] VITALS: BP 138/74
[2019-01-24] MEDS: COLLAGENASE OINTMENT 30 GM TUBE TP SCH (08:45)
[2019-01-24] MEDS: ACETAMINOPHEN/CODEINE 300MG - 30MG TAB PO PRN (11:20)
--- NOTE | 2019-01-24 11:46 | Progress Note ---
DATE: 01/24/2019 SUBJECTIVE: The patient seen at bedside, having some discomfort to the left lower extremity. Denying any history of fever, chills, nausea, or vomiting. Does have some pain, left worse than right. OBJECTIVE: VITALS: Afebrile, pulse rate 112, respirations 18, blood pressure 137/74, and O2 saturation 96%. EXTREMITIES: Ulcerations to both lower extremities down to bone to the left lower extremity more than 8-9 cm in diameter, some necrosis down to bone including bone with some foul smell present. Ulceration to the right lower extremity, very close to bone, down to muscle and tendon and plantar fascia level. Measuring more than 4-5 cm in diameter with bone felt through the tissue. Ulceration in dorsal aspect of left foot is still showing some granulation tissue with dry gangrenous changes noted to the left great toe. Pedal pulses are diminished, but skin temperature is warm to touch. LABORATORY DATA: Labs noted, has a white blood cell count of 11.5, hemoglobin 8.3 with a platelet count of 382. Blood glucose of 128. ASSESSMENT: Diabetic neuropathy, osteomyelitis of left foot with a grade 4 ulcer with bone exposed with a grade 3 ulcer of right. PLAN: After proper consent of the patient under no anesthesia secondary to her severe peripheral neuropathy, sharp excisional debridement was carried down to bone including bone to the left lower extremity. It was sharply excised until good viable bleeding tissue was achieved. Necrotic tissue removed. Sterile dressing was applied with Santyl followed by diluted wet-to-dry Betadine to the left lower extremity after deep cultures were taken for aerobic and anaerobic growth. Ulceration to the right foot was debrided down to muscle and including muscle and plantar fascia level. Devitalized tissue sharply excised via the use of a sterile 10 blade until good viable bleeding tissue achieved. Sterile dressing was applied with Santyl followed by diluted wet-to-dry. The patient instructed the importance to continue offloading upon discharge. She is to follow up with Dr. Darren Hurst. She will be sent on oral minocycline and currently on IV Zosyn. The patient has gotten somewhat better since she has been in the hospital, but she will eventually need to have a BKA to the left lower extremity. BUSTER Britt/MODL /[id number]
[2019-01-24 12:00] VITALS: BP 100/53
--- NOTE | 2019-01-24 15:24 | NUR ---
Discharge instructions and prescriptions given to the patient and her . They verbalized understanding
--- NOTE | 2019-01-24 16:13 | Discharge Summary ---
She is a 68-year-old female, patient of mine, presented with a complaint of severe anemia and profound weakness and bilateral leg ulceration. ADMITTING IMPRESSION/DIAGNOSES: Severe anemia, which is anemia of chronic disease, which has worsened with infection and possible blood loss, chronic. The patient has severe protein calorie malnutrition, acute on chronic, present on admission. The patient has bilateral leg ulceration, osteomyelitis. The patient has stage 5 chronic kidney disease, which had worsened. HOSPITAL COURSE SUMMARY: The patient was admitted with above diagnosis. The patient had Cardiology, Nephrology, ID, and Podiatric consultation done. The patient had debridement done. Arterial Doppler was done. On the leg, the patient has significant peripheral arterial disease, but the patient is not a candidate for any angiographic evaluation as the patient can need hemodialysis treatment and patient had flatly refused for any kind of renal intervention and the patient stated that she will not go for hemodialysis treatment. The patient was given IV iron and blood transfusion for anemia. The patient had Hematology consultation also, Dr. Molina. The patient had wound care done. The patient was advised for LTAC transfer for the wound care, but patient had refused and the patient had also refused for the home IV antibiotics. So finally, the patient will be discharged on minocycline for 28 days 100 mg twice a day as per ID, Dr. Shelton. The patient will continue her carvedilol, glimepiride, Lasix, pravastatin, gabapentin and Santyl for the wound care. The patient was also recommended to possible needing of bilateral below-knee amputation by Dr. Tsang, but the patient has stated she will no way go for that kind of treatment and the patient has refused. The patient was given outpatient home health therapy, physical therapy, occupational therapy, and wound care. The patient was advised to follow closely with Dr. Hurst and Podiatry. The case was discussed with the Case Management and advised to provide the patient all the services that she will need for outpatient. The patient also needs to follow up with Hematology, Dr. Molina. MD SASHA Hay/MODL /[id number]
== END 2019-01-24 15:45 | disposition home or self-care (01) | DRG 622 ==
LOC: ER 23:56 → ERHOLD 01-16 01:43 → IMCU 01-16 02:09 → OBSVTOIN 01-16 17:57 → MED/SURG2 01-19 19:56
PROVIDERS: ADMIT Internal Medicine; ATTEND Internal Medicine
PROC: 0JBR0ZZ Excision of Left Foot Subcutaneous Tissue and Fascia, Open Approach (ICD-10-PCS; principal; 2019-01-16)
PROC: 0JBQ0ZZ Excision of Right Foot Subcutaneous Tissue and Fascia, Open Approach (ICD-10-PCS; 2019-01-16)
PROC: 30233N1 Transfusion of Nonautologous Red Blood Cells into Peripheral Vein, Percutaneous Approach (ICD-10-PCS; 2019-01-16)
PROC: 0QBM0ZZ Excision of Left Tarsal, Open Approach (ICD-10-PCS; 2019-01-24)
PROC: 0KBV0ZZ Excision of Right Foot Muscle, Open Approach (ICD-10-PCS; 2019-01-24)
DX: E11.69 Type 2 diabetes mellitus with other specified complication (principal); E43 Unspecified severe protein-calorie malnutrition; L97.426 Non-pressure chronic ulcer of left heel and midfoot with bone involvement without evidence of necrosis; L97.416 Non-pressure chronic ulcer of right heel and midfoot with bone involvement without evidence of necrosis; I13.2 Hypertensive heart and chronic kidney disease with heart failure and with stage 5 chronic kidney disease, or end stage renal disease; E11.52 Type 2 diabetes mellitus with diabetic peripheral angiopathy with gangrene; I96 Gangrene, not elsewhere classified; M86.8X7 Other osteomyelitis, ankle and foot; L03.116 Cellulitis of left lower limb; L03.115 Cellulitis of right lower limb; M86.172 Other acute osteomyelitis, left ankle and foot; M86.171 Other acute osteomyelitis, right ankle and foot; E11.628 Type 2 diabetes mellitus with other skin complications; N18.5 Chronic kidney disease, stage 5; E11.622 Type 2 diabetes mellitus with other skin ulcer; Z53.29 Procedure and treatment not carried out because of patient's decision for other reasons; E11.22 Type 2 diabetes mellitus with diabetic chronic kidney disease; E11.65 Type 2 diabetes mellitus with hyperglycemia; D63.1 Anemia in chronic kidney disease; E11.621 Type 2 diabetes mellitus with foot ulcer; I50.9 Heart failure, unspecified; Z91.19 Patient's noncompliance with other medical treatment and regimen; E88.09 Other disorders of plasma-protein metabolism, not elsewhere classified; E80.6 Other disorders of bilirubin metabolism; E83.51 Hypocalcemia; M85.80 Other specified disorders of bone density and structure, unspecified site; N17.9 Acute kidney failure, unspecified; Z68.23 Body mass index [BMI] 23.0-23.9, adult; B95.2 Enterococcus as the cause of diseases classified elsewhere; Z79.4 Long term (current) use of insulin
CPT/HCPCS: 36415; 71045; 80048; 80053; 80061; 81001; 82550; 82553; 82784; 82948; 83036; 83540; 84443; 84466; 84484; 85025; 86850; 86900; 86920; 87071; 87075; 87186; 87205; 90714; 93005; 93306; 93922; 93925; 97139; 99284; J1100; J1200; J1750; J2543; J7040; J7050; J7799; P9016; Q4081

== ENCOUNTER 2019-01-25 13:09 | Emergency (ER) | payer OTHER ==
[~2019-01-25] VITALS: Ht 157.5 cm; Wt 58.5 kg
[~2019-01-25 13:09] MED LIST changes: +GABAPENTIN100 MG PO; +MINOCYCLINE HCL50 MG PO; +TYLENOL WITH C1 EACH PO
--- OUTSIDE RECORDS SUMMARY | 2019-01-25 13:13 | XMS REPORT | Continuity of Care Document ---
Author Author Newsela Address Unknown Phone Unavailable Care Team Providers Care Manager Travel Name Role Phone [employer] Unavailable Unavailable Problems Problem Status Onset Date Classification Date Reported Comments Source Type 2 diabetes mellitus with other specified complication 06/27/2018 01/07/2019 [facility] DKA, ACUTE RENAL FAILURE Active 06/09/2018 [facility] SHOULDER PAIN OR INJURY Active 06/11/2013 [facility] COMPLICATIONS AFFECTING OTHER SPECIFIED BODY SYSTEMS, H Active 02/08/2012 [facility] ROUTINE SCREENING Active 08/24/2011 [facility] Anemia Active Problem 2017 [facility] Cardiomegaly Active Problem 2017 [facility] Congestive heart failure with left ventricular diastolic dysfunction Active Problem 2017 [facility] Kidney failure Active Problem 2017 [facility] Obesity Active Problem 2017 [facility] Weakness Active Problem 2017 [facility] Diabetes mellitus type 2 Active Problem 01/07/2019 [facility] HTN - Hypertension Active Problem 01/07/2019 [facility] Hyperlipidemia Active Problem 01/07/2019 [facility] Acute kidney failure, unspecified 01/07/2019 [facility] Gas gangrene 01/07/2019 [facility] Osteomyelitis, unspecified 01/07/2019 [facility] Non-pressure chronic ulcer of left heel and midfoot with unspecified severity 01/07/2019 [facility] Non-pressure chronic ulcer of right heel and midfoot with unspecified severity 01/07/2019 [facility] Hypertensive heart and chronic kidney disease with heart failure and with stage 5 chronic kidney disease, or end stage renal disease 01/07/2019 [facility] Hypo-osmolality and hyponatremia 01/07/2019 [facility] Acidosis 01/07/2019 [facility] Type 2 diabetes mellitus with diabetic peripheral angiopathy with gangrene 01/07/2019 [facility] Cutaneous abscess of left foot 01/07/2019 [facility] Cellulitis of left lower limb 01/07/2019 [facility] Type 2 diabetes mellitus with foot ulcer 01/07/2019 [facility] Type 2 diabetes mellitus with diabetic nephropathy 01/07/2019 [facility] Type 2 diabetes mellitus with hyperglycemia 01/07/2019 [facility] End stage renal disease 01/07/2019 [facility] Type 2 diabetes mellitus with unspecified diabetic retinopathy without macular edema 01/07/2019 [facility] Heart failure, unspecified 01/07/2019 [facility] Hyperlipidemia, unspecified 01/07/2019 [facility] Type 2 diabetes mellitus with diabetic polyneuropathy 01/07/2019 [facility] Patient's noncompliance with other medical treatment and regimen 01/07/2019 [facility] Personal history of nicotine dependence 01/07/2019 [facility] Hypokalemia 01/07/2019 [facility] 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 care 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 01/07/2019 [facility] Type 2 diabetes mellitus with diabetic chronic kidney disease 01/07/2019 [facility] ACUTE KIDNEY FAILURE, UNSPECIFIED Active [facility] SINGLE LIVEBORN INFANT, DELIVERED VAGINA Active [facility] Medications Medication Details Route Status Patient Instructions Ordering Provider Order Date Source Doxycycline 150 MG Oral Capsule 150 mg=1 cap, PO, BID, X 10 day, # 84 cap, 0 Refill(s), Pharmacy: [facility] [id number] No Longer Active 06/20/2018 [facility] Ciprofloxacin 500 MG Oral Tablet [Cipro] 500 mg=1 tab, PO, Q12H, # 84 tab, 0 Refill(s), Pharmacy: [facility] [id number] Inactive 06/20/2018 [facility] Hydralazine 10 mg, 0.5 mL, Route: IV, Drug form: INJ, ONCE, Dosing Weight 71.727, kg, Start date: 06/18/18 15:41:00 [employer]ED QUALITY [employer]INEER, Stop date: 06/18/18 15:41:00 CSTNotes: (Same as: Apresoline) Push over 5 minutes Inactive 06/18/2018 [facility] Acetaminophen 325 MG / Hydrocodone Bitartrate 7.5 MG Oral Tablet [Sadorus 7.5/325] 1 tab, Route: PO, Drug Form: TAB, Dosing Weight 71.727, kg, Q6H, PRN Pain Score 4-6, Start date: 06/16/18 11:53:00 ADVANCED QUALITY ENGINEER, Duration: 30 day, Stop date: 07/16/18 11:52:00 CSTNotes: Same as Sadorus 325-7.5mg Do not exceed 4gm/day of acetaminophen. No Longer Active 06/16/2018 [facility] Oxycodone 5 mg, 1 tab, Route: PO, Drug form: TAB, Q4H, Dosing Weight 71.727, kg, PRN Pain Score 4-6, Start date: 06/15/18 16:21:00 ADVANCED QUALITY ENGINEER, Duration: 30 day, Stop date: 07/15/18 16:20:00 CSTNotes: (Same as: Roxicodone) No Longer Active 06/15/2018 [facility] Acetaminophen 1,000 mg, 2 tab, Route: PO, Drug form: TAB, ONCE, Dosing Weight 71.727, kg, PRN Pain Score 1-3, Start date: 06/15/18 16:21:00 CSTNotes: Max acetaminophen 4000 mg/day (4 gm/day). (Same as: Tylenol Extra Strength) No Longer Active 06/15/2018 [facility] Labetalol 10 mg, 2 mL, Route: IVP, Drug form: INJ, Q5Min, Dosing Weight 71.727, kg, PRN Elevated BP, Start date: 06/15/18 16:21:00 ADVANCED QUALITY ENGINEER, Duration: 5 doses or times, Stop date: Limited # of timesNotes: (Same as: No rmodyne, Trandate) Push over 2 minutes Give bolus over 2-3 minutes. No Longer Active 06/15/2018 [facility] Hydralazine 10 mg, 0.5 mL, Route: IVP, Drug form: INJ, Q20Min, Dosing Weight 71.727, kg, PRN Elevated BP, Start date: 06/15/18 16:21:00 ADVANCED QUALITY ENGINEER, Duration: 2 doses or times, Stop date: Limited # of timesNotes: (Same as: Apresoline) Push over 5 minutes No Longer Active 06/15/2018 [facility] Ondansetron 4 mg, 2 mL, Route: IVP, Drug form: INJ, ONCE, Dosing Weight 71.727, kg, PRN Nausea & Vomiting, Start date: 06/15/18 16:21:00 CSTNotes: (Same as: Zofran) MEDICATION WASTE Product Size: 4 mg Product Wasted: ___ mg No Longer Active 06/15/2018 [facility] Diphenhydramine 12.5 mg, 0.25 mL, Route: IVP, Drug form: INJ, Q6H, Dosing Weight 71.727, kg, PRN Itching, Start date: 06/15/18 16:21:00 ADVANCED QUALITY ENGINEER, Duration: 30 day, Stop date: 07/15/18 16:20:00 CSTNotes: (Same as: Manasa caballero) No Longer Active 06/15/2018 [facility] Naloxone 0.4 mg, 1 mL, Route: IVP, Drug form: INJ, Q2MIN, Dosing Weight 71.727, kg, PRN Narcotic Reversal, Start date: 06/15/18 16:21:00 ADVANCED QUALITY ENGINEER, Duration: 8 doses or times, Stop date: Limited # of timesNotes: Same as Narcan No Longer Active 06/15/2018 [facility] Flumazenil 0.2 mg, 2 mL, Route: IVP, Drug form: INJ, PRN, Dosing Weight 71.727, kg, PRN Benzodiazepine Reversal, Initial dose, Start date: 06/15/18 16:21:00 ADVANCED QUALITY ENGINEER, Duration: 30 day, Stop date: 07/15/18 16:20:00 C STNotes: (Same as: Romazicon) No Longer Active 06/15/2018 [facility] Fentanyl 50 microgram, 1 mL, Route: IVP, Drug form: INJ, Q5Min, Dosing Weight 71.727, kg, PRN Pain Score 7-10, Priority: Routine, Start date: 06/15/18 16:21:00 ADVANCED QUALITY ENGINEER, Duration: 2 doses or times, Stop date: Limited # of timesNotes: (Same as: Sublimaze) Preservative free. No Longer Active 06/15/2018 [facility] Hydromorphone 0.5 mg, 0.5 mL, Route: IVP, Drug form: SOLN, Q5Min, Dosing Weight 71.727, kg, PRN Pain Score 7-10, Start date: 06/15/18 16:21:00 ADVANCED QUALITY ENGINEER, Duration: 4 doses or times, Stop date: Limited # of timesNotes: ( Same as: Dilaudid) No Longer Active 06/15/2018 [facility] phenylephrine (ANES) Route: IV, Drug form: INJ, ONCE, Stop date: 06/15/18 16:03:00 ADVANCED QUALITY ENGINEER Inactive 06/15/2018 [facility] metoclopramide (ANES) Route: IV, Drug form: INJ, ONCE, Stop date: 06/15/18 15:48:00 ADVANCED QUALITY ENGINEER Inactive 06/15/2018 [facility] propofol (ANES) Route: IV, Drug form: INJ, ONCE, Stop date: 06/15/18 15:48:00 ADVANCED QUALITY ENGINEER Inactive 06/15/2018 [facility] fentaNYL (ANES) Route: IV, Drug form: INJ, ONCE, Stop date: 06/15/18 15:48:00 ADVANCED QUALITY ENGINEER Inactive 06/15/2018 [facility] lidocaine (ANES) Route: IV, Drug form: INJ, ONCE, Stop date: 06/15/18 15:48:00 ADVANCED QUALITY ENGINEER Inactive 06/15/2018 [facility] ondansetron (ANES) Route: IV, Drug form: INJ, ONCE, Stop date: 06/15/18 15:48:00 ADVANCED QUALITY ENGINEER Inactive 06/15/2018 [facility] midazolam (ANES) Route: IV, Drug form: SOLN, ONCE, Stop date: 06/15/18 15:43:00 ADVANCED QUALITY ENGINEER Inactive 06/15/2018 [facility] Sodium Chloride 0.9% IV (ANES) 1000 mL Route: IV, Total Volume: 1,000, Start date: 06/15/18 14:58:00 ADVANCED QUALITY ENGINEER, Stop date: 06/15/18 15:58:00 ADVANCED QUALITY ENGINEER Inactive 06/15/2018 [facility] NS 500 mL 500 mL, Rate: 10 ml/hr, Infuse over: 50 hr, Route: IV, Dosing Weight 71.727 kg, Total Volume: 500, Start date: 06/15/18 13:53:00 ADVANCED QUALITY ENGINEER, Duration: 1 day, Stop date: 06/16/18 13:52:00 ADVANCED QUALITY ENGINEER, 1.78, m2 No Longer Active 06/15/2018 [facility] Clonidine 0.1 mg, 1 tab, Route: PO, Drug form: TAB, Q6H, Dosing Weight 71.727, kg, PRN Elevated BP, Start date: 06/14/18 6:40:00 ADVANCED QUALITY ENGINEER, Duration: 30 day, Stop date: 07/14/18 6:39:00 CSTNotes: (Same As: Catapres) No Longer Active 06/14/2018 [facility] Lasix 40 mg, 4 mL, Route: IVP, Drug form: INJ, ONCE, Dosing Weight 71.727, kg, Start date: 06/13/18 17:48:00 ADVANCED QUALITY ENGINEER, Stop date: 06/13/18 17:48:00 CSTNotes: (Same as: Lasix) MEDICATION WASTE Product Size: 40 mg Product Wasted: ___ mg Inactive 06/13/2018 [facility] Potassium Chloride 40 mEq, 2 tab, Route: PO, Drug form: ERTAB, ONCE, Dosing Weight 71.727, kg, Start date: 06/12/18 16:21:00 ADVANCED QUALITY ENGINEER, Stop date: 06/12/18 16:21:00 CSTNotes: (Same as: K-Dur 20) "Do Not Crush" Give with food and full glass of water For patients unable to swallow tablet, dissolve in one half glass of water. Allow about 2 minutes for the tablets to disintegrate. Stir before giving to prepare slurry and administer. Please exclude Patients with feeding tube less than 14 [place] (Dobhoff, J-tube etc) and pediatric and patients. Inactive 06/12/2018 [facility] Zyvox 600 mg, 1 tab, Route: PO, Drug form: TAB, [id number], Dosing Weight 71.727, kg, Start date: 06/12/18 12:00:00 ADVANCED QUALITY ENGINEER, Duration: 10 day, Stop date: 06/22/18 0:00:00 ADVANCED QUALITY ENGINEER, ABX Indication: Bone/Joint InfectionNotes: Protect from light. (Same as: Zyvox) No Longer Active 06/12/2018 [facility] Acetaminophen 325 MG / Hydrocodone Bitartrate 5 MG Oral Tablet [Sadorus 5/325] 1 tab, Route: PO, Drug Form: TAB, Dosing Weight 71.727, kg, Q8H, PRN Pain Score 7-10, Start date: 06/11/18 19:56:00 ADVANCED QUALITY ENGINEER, Duration: 30 day, Stop date: 07/11/18 19:55:00 CSTNotes: (Same as: Sadorus 325/5) Do not exceed 4gm/day of acetaminophen. No Longer Active 06/12/2018 [facility] Vancomycin Dosing Protocol Vancomycin Dosing Protocol, Reminder, Drug form: MISC, Route: MISC, Continuous, 06/11/18 13:30:00 ADVANCED QUALITY ENGINEER, Duration: 30 day, Stop date: 07/11/18 13:29:00 ADVANCED QUALITY ENGINEER No Longer Active 06/11/2018 [facility] Ceftriaxone 1 gm, Route: IVP, [id number], Dosing Weight 71.727, kg, Start date: 06/11/18 11:00:00 ADVANCED QUALITY ENGINEER, Duration: 14 day, Stop date: 06/24/18 11:00:00 ADVANCED QUALITY ENGINEER, ABX Indication: Bone/Joint InfectionNotes: (Same As: Rocephin). Use with 100 mL NS and infuse over 30 min MEDICATION WASTE Product Size: 1000 mg Product Wasted: ___ mg No Longer Active 06/11/2018 [facility] Vancomycin 1 ea, Route: MISC, ONCALL, Dosing Weight 71.727, kg, Start date: 06/11/18 11:00:00 ADVANCED QUALITY ENGINEER, Duration: 14 day, Stop date: 06/25/18 10:59:00 ADVANCED QUALITY ENGINEER, Pharmacy to dose, ABX Indication: Bone/Joint Infection Inactive 06/11/2018 [facility] Pravastatin 40 mg, 2 tab, Route: PO, Drug form: TAB, Daily, Dosing Weight 71.727, kg, Start date: 06/11/18 9:00:00 ADVANCED QUALITY ENGINEER, Duration: 30 day, Stop date: 07/10/18 21:00:00 CSTNotes: (Same as: Pravachol) No Longer Active 06/11/2018 [facility] gabapentin 100 MG Oral Capsule 100 mg, 1 cap, Route: PO, Drug form: CAP, BID, Dosing Weight 71.727, kg, Start date: 06/11/18 9:00:00 ADVANCED QUALITY ENGINEER, Duration: 30 day, Stop date: 07/10/18 17:00:00 ADVANCED QUALITY ENGINEER No Longer Active 06/11/2018 [facility] Famotidine 40 mg, Route: PO, BID, Dosing Weight 71.727, kg, Start date: 06/11/18 9:00:00 ADVANCED QUALITY ENGINEER, Duration: 30 day, Stop date: 07/10/18 17:00:00 ADVANCED QUALITY ENGINEER No Longer Active 06/11/2018 [facility] Neurontin 50 mg, 1 mL, Route: PO, Drug form: SOLN, Q24H, Start date: 06/10/18 22:00:00 ADVANCED QUALITY ENGINEER, Duration: 30 day, Stop date: 07/09/18 22:00:00 CSTNotes: (Same as: Neurontin) No Longer Active 06/11/2018 [facility] famotidine 20 mg, 1 tab, Route: PO, Drug form: TAB, Q24H, Start date: 06/10/18 22:00:00 ADVANCED QUALITY ENGINEER, Duration: 30 day, Stop date: 07/09/18 22:00:00 CSTNotes: (Same as: Pepcid) No Longer Active 06/11/2018 [facility] Hydralazine Hydrochloride 50 MG Oral Tablet 50 mg, 1 tab, Route: PO, Drug form: TAB, BID, Dosing Weight 71.727, kg, Start date: 06/10/18 21:30:00 ADVANCED QUALITY ENGINEER, Duration: 30 day, Stop date: 07/10/18 17:00:00 CSTNotes: (Same as: Apresoline) May interfere w/enteral feedings Take With Food No Longer Active 06/11/2018 [facility] carvedilol 25 mg, 2 tab, Route: PO, Drug form: TAB, BID, Dosing Weight 71.727, kg, Start date: 06/10/18 21:30:00 ADVANCED QUALITY ENGINEER, Duration: 30 day, Stop date: 07/10/18 21:00:00 CSTNotes: Give with food. (Same As: Coreg) No Longer Active 06/11/2018 [facility] Glucagon 1 mg, Route: IM, PRN, Dosing Weight 71.727, kg, PRN Blood Glucose Results, Start date: 06/10/18 20:52:00 ADVANCED QUALITY ENGINEER, Duration: 30 day, Stop date: 07/10/18 20:51:00 ADVANCED QUALITY ENGINEER Inactive 06/11/2018 [facility] Dextrose 50% Syringe 50 mL, Route: IVP, Dosing Weight 71.727, kg, PRN, PRN Blood Glucose Results, Start date: 06/10/18 20:52:00 ADVANCED QUALITY ENGINEER, Duration: 30 day, Stop date: 07/10/18 20:51:00 ADVANCED QUALITY ENGINEER Inactive 06/11/2018 [facility] Insulin Lispro 2 unit, 0.02 mL, Route: SUB-Q, Drug form: SOLN, TID-Before Meals, Dosing Weight 71.727, kg, PRN Blood Glucose Results, Start date: 06/10/18 20:52:00 ADVANCED QUALITY ENGINEER, Duration: 30 day, Stop date: 07/10/18 20:51:0 0 CSTNotes: (Same as: Humalog ) Roll in palms of hands gently; Do not shake `vigorously. "Single Patient Use Only " WASTE: F/P - Black; E - Municipal Trash Bin Stable for 28 days at room temperature. Expires in days from Date No Longer Active 06/11/2018 [facility] Vancomycin 1,000 mg, Route: IVPB, [id number], Dosing Weight 71.727, kg, Start date: 06/10/18 14:00:00 ADVANCED QUALITY ENGINEER, Duration: 1 day, Stop date: 06/10/18 14:00:00 ADVANCED QUALITY ENGINEER, ABX Indication: Bone/Joint InfectionNotes: TIME CRITICAL MEDICATION (Same As: Vancocin) Infusion rate 2001 mg: infuse over 2.5 hours For adult patients only: Round to nearest 250 mg per Medical Staff approval MEDICATION WASTE Product Size: 1000 mg Product Wasted: ___ mg Inactive 06/10/2018 [facility] Sodium Bicarbonate 650 mg, 1 tab, Route: PO, Drug form: TAB, TID, Dosing Weight 71.727, kg, Start date: 06/10/18 13:00:00 ADVANCED QUALITY ENGINEER, Duration: 30 day, Stop date: 07/10/18 9:00:00 CSTNotes: "Dissolve tablet in a glass of water prior to oral administration. STOMACH WARNING: To avoid serious injury, do not take until tablet is completely dissolved. It is very important not to take this product when overly full from food or drink." No Longer Active 06/10/2018 [facility] Docusate 100 mg, 1 cap, Route: PO, Drug form: CAP, BID, Dosing Weight 71.727, kg, Start date: 06/10/18 9:00:00 ADVANCED QUALITY ENGINEER, Duration: 30 day, Stop date: 07/09/18 17:00:00 CSTNotes: (Same as: Colace) (Do Not Crush) No Longer Active 06/10/2018 [facility] gabapentin 100 MG Oral Capsule 100 mg=1 cap, PO, BID, 0 Refill(s) Active 06/10/2018 [facility] Famotidine 40 mg, PO, BID, # 60 tab, 0 Refill(s) Active 06/10/2018 [facility] glimepiride 1 mg oral tablet 1 mg=1 tab, PO, Daily, 0 Refill(s) Active 06/10/2018 [facility] pravastatin 40 mg oral tablet 40 mg=1 tab, PO, Daily, 0 Refill(s) Active 06/10/2018 [facility] carvedilol 25 mg, PO, BID, 0 Refill(s) Active 06/10/2018 [facility] Hydralazine Hydrochloride 50 MG Oral Tablet 50 mg=1 tab, PO, BID, 0 Refill(s) Active 06/10/2018 [facility] Folic Acid 1 MG Oral Tablet 1 mg=1 tab, PO, Daily, 0 Refill(s) Active 06/10/2018 [facility] Furosemide 40 MG Oral Tablet 40 mg=1 tab, PO, Q8H, 0 Refill(s) Active 06/10/2018 [facility] Streptococcus pneumoniae serotype 1 capsular antigen diphtheria [id number] protein conjugate vaccine / Streptococcus pneumoniae serotype 14 capsular antigen diphtheria [id number] protein conjugate vaccine / Streptococcus pneumoniae serotype 18C capsular antigen d 0.5 mL, Route: IM, Drug Form: INJ, ONCALL, Start date: 06/10/18 1:56:07 ADVANCED QUALITY ENGINEER, Stop date: 07/10/18 1:51:07 CSTNotes: Shake well prior to use (Same as: Prevnar 13) No Longer Active 06/10/2018 [facility] cefepime 1 gm, Route: IVPB, [id number], Dosing Weight 71.727, kg, (CrCl Notes: (Same As: Maxipime) MEDICATION WASTE Product Size: 1000 mg Product Wasted: ___ mg No Longer Active 06/10/2018 [facility] Clindamycin 600 mg, 50 mL, Route: IVPB, Drug form: INJ, [id number], Dosing Weight 71.727, kg, Start date: 06/10/18 1:00:00 ADVANCED QUALITY ENGINEER, Duration: 7 day, Stop date: 06/16/18 17:00:00 ADVANCED QUALITY ENGINEER, ABX Indication: Skin/Soft Tissue Inf ection No Longer Active 06/10/2018 [facility] Dextrose 50% Syringe 25 gm, Route: IVP, Dosing Weight 71.727, kg, ONCE, STAT, Start date: 06/10/18 0:39:00 ADVANCED QUALITY ENGINEER, Stop date: 06/10/18 0:39:00 ADVANCED QUALITY ENGINEER Inactive 06/10/2018 [facility] Insulin Lispro 4 unit, 0.04 mL, Route: SUB-Q, Drug form: SOLN, Bedtime, Dosing Weight 71.727, kg, PRN Blood Glucose Results, Start date: 06/10/18 0:27:00 ADVANCED QUALITY ENGINEER, Duration: 30 day, Stop date: 07/10/18 0:26:00 CSTNotes: (S kris as: Humalog ) Roll in palms of hands gently; Do not shake `vigorously. "Single Patient Use Only " WASTE: F/P - Black; E - Municipal Trash Bin Stable for 28 days at room temperature. Expires in days from Date No Longer Active 06/10/2018 [facility] Dextrose 50% Syringe 25 gm, 50 mL, Route: IVP, Drug Form: INJ, Dosing Weight 71.727, kg, PRN, PRN Blood Glucose Results, Start date: 06/10/18 0:27:00 ADVANCED QUALITY ENGINEER, Duration: 30 day, Stop date: 07/10/18 0:26:00 ADVANCED QUALITY ENGINEER No Longer Active 06/10/2018 [facility] Glucagon 1 mg, Route: IM, Drug form: PDR/INJ, PRN, Dosing Weight 71.727, kg, PRN Blood Glucose Results, Start date: 06/10/18 0:27:00 ADVANCED QUALITY ENGINEER, Duration: 30 day, Stop date: 07/10/18 0:26:00 ADVANCED QUALITY ENGINEER Inactive 06/10/2018 [facility] NS 1,000 mL 1,000 mL, Rate: 75 ml/hr, Infuse over: 13.3 hr, Route: IV, Dosing Weight 71.727 kg, Total Volume: 1,000, Start date: 06/10/18 0:23:00 ADVANCED QUALITY ENGINEER, Duration: 30 day, Stop date: 07/10/18 0:22:00 ADVANCED QUALITY ENGINEER, 1.78, m2 No Longer Active 06/10/2018 [facility] Dextrose 50% Syringe 12.5 gm, 25 mL, Route: IVP, Drug Form: INJ, Dosing Weight 71.727, kg, PRN, PRN Blood Glucose Results, Start date: 06/10/18 0:20:00 ADVANCED QUALITY ENGINEER, Duration: 30 day, Stop date: 07/10/18 0:19:00 ADVANCED QUALITY ENGINEER No Longer Active 06/10/2018 [facility] Acetaminophen 650 mg, 2 tab, Route: PO, Drug form: TAB, Q4H, Dosing Weight 71.727, kg, PRN For Temp > 100.4 F, Start date: 06/10/18 0:20:00 ADVANCED QUALITY ENGINEER, Duration: 30 day, Stop date: 07/10/18 0:19:00 CSTNotes: Do not exceed 4 gm/day. (Same as: Tylenol) No Longer Active 06/10/2018 [facility] Glucagon 1 mg, Route: IM, Drug form: PDR/INJ, PRN, Dosing Weight 71.727, kg, PRN Blood Glucose Results, Start date: 06/10/18 0:20:00 ADVANCED QUALITY ENGINEER, Duration: 30 day, Stop date: 07/10/18 0:19:00 ADVANCED QUALITY ENGINEER No Longer Active 06/10/2018 [facility] Glimepiride 2 Mg Tablet, 4 Mg Oral Active 2017 [facility] Sadorus 5/325 oral tablet 1-2 tab, PO, Q4-6H, Pain, # 15 tab, 0 Refill(s) Active [facility] 06/12/2013 [facility] Zofran 4 mg, Route: IVP, Drug form: INJ, ONCE, Dosing Weight 81.818, kg, Priority: STAT, Start date: 06/11/13 20:36:00, Stop date: 06/11/13 20:36:00 Inactive [facility] 06/12/2013 [facility] morphine Sulfate 4 mg, Route: IVP, Drug form: INJ, ONCE, Dosing Weight 81.818, kg, Priority: STAT, Start date: 06/11/13 20:35:00, Stop date: 06/11/13 20:35:00 Inactive [facility] 06/12/2013 [facility] Amlodipine Besylate 10 Mg Tablet Daily Active [facility] Carvedilol 12.5 Mg Tablet Twice A Day Active [facility] Ferrous Sulfate 325 Mg Tablet.dr Daily Active [facility] Folic Acid 1 Mg Tablet Daily Active [facility] Furosemide 40 Mg Tablet Daily Active [facility] Glimepiride 2 Mg Tablet Daily Active [facility] Hydralazine Hcl 25 Mg Tab Active [facility] Loratadine 10 Mg Tablet Daily Active [facility] Pravastatin Sodium 40 Mg Tablet Daily Active [facility] Sitagliptin Phosphate (Januvia) 100 Mg Tablet Daily Active [facility] Allergies, Adverse Reactions, Alerts Substance Category Reaction Severity Reaction type Status Date Reported Comments Source No Known Medication Allergies Assertion Drug allergy [facility] Immunizations Immunization Date Given Site Status Last Updated Comments Source influenza virus vaccine, inactivated 06/21/2018 Left Deltoid completed Ty [facility] Results Order Name Results Value Reference [...] should be multiplied by the estimated BMI. [facility] CHEM PANEL AGAP 14.5 10.0 - 20.0 06/20/2018 [facility] CHEM PANEL Calcium Lvl 8.1 8.5 - 10.5 06/20/2018 [facility] CHEM PANEL CO2 19 24 - 32 06/20/2018 [facility] CHEM PANEL Chloride Lvl 104 95 - 109 06/20/2018 [facility] CHEM PANEL Potassium Lvl 3.5 3.5 - 5.1 06/20/2018 [facility] CHEM PANEL Creatinine Lvl 4.84 0.50 - 1.40 06/20/2018 [facility] CHEM PANEL BUN 53 7 - 22 06/20/2018 [facility] CHEM PANEL Sodium Lvl 134 135 - 145 06/20/2018 [facility] CHEM PANEL Glucose Lvl 156 70 - 99 06/20/2018 [facility] CHEM PANEL eGFR 10 06/19/2018 Result [...] should be multiplied by the estimated BMI. [facility] CHEM PANEL Chloride Lvl 107 95 - 109 06/19/2018 [facility] CHEM PANEL Sodium Lvl 140 135 - 145 06/19/2018 [facility] CHEM PANEL Creatinine Lvl 4.94 0.50 - 1.40 06/19/2018 [facility] CHEM PANEL BUN 56 7 - 22 06/19/2018 [facility] CHEM PANEL AGAP 17.7 10.0 - 20.0 06/19/2018 [facility] CHEM PANEL Calcium Lvl 7.9 8.5 - 10.5 06/19/2018 [facility] CHEM PANEL CO2 19 24 - 32 06/19/2018 [facility] CHEM PANEL Potassium Lvl 3.7 3.5 - 5.1 06/19/2018 [facility] CHEM PANEL Glucose Lvl 142 70 - 99 06/19/2018 [facility] CHEM PANEL eGFR 9 06/18/2018 Result [...] should be multiplied by the estimated BMI. [facility] CHEM PANEL AGAP 15.8 10.0 - 20.0 06/18/2018 [facility] CHEM PANEL CO2 18 24 - 32 06/18/2018 [facility] CHEM PANEL Calcium Lvl 7.7 8.5 - 10.5 06/18/2018 [facility] CHEM PANEL Chloride Lvl 107 95 - 109 06/18/2018 [facility] CHEM PANEL Potassium Lvl 3.8 3.5 - 5.1 06/18/2018 [facility] CHEM PANEL Sodium Lvl 137 135 - 145 06/18/2018 [facility] CHEM PANEL Creatinine Lvl 5.10 0.50 - 1.40 06/18/2018 [facility] CHEM PANEL BUN 58 7 - 22 06/18/2018 [facility] [facility] CHEM PANEL Glucose Lvl 117 70 - 99 06/18/2018 [facility] HEMATOLOGY Lymphocytes # 0.5 1.0 - 5.5 06/16/2018 [facility] HEMATOLOGY Monocytes # 1.6 0.0 - 0.8 06/16/2018 [facility] HEMATOLOGY Basophils # 0.1 0.0 - 0.2 06/16/2018 [facility] HEMATOLOGY Eosinophils 0.1 0.0 - 4.0 06/16/2018 [facility] HEMATOLOGY Monocytes 8.0 2.0 - 12.0 06/16/2018 [facility] Neutrophils # 17.9 1.5 - 8.1 06/16/2018 [facility] Basophils 0.3 0.0 - 1.0 06/16/2018 [facility] HEMATOLOGY Segs 89.1 45.0 - 75.0 06/16/2018 [facility] Lymphocytes 2.5 20.0 - 40.0 06/16/2018 [facility] RDW 15.5 11.5 - 14.5 06/16/2018 [facility] MCHC 31.6 32.0 - 36.0 06/16/2018 [facility] MPV 7.6 7.4 - 10.4 06/16/2018 [facility] Platelet 303 133 - 450 06/16/2018 [facility] Hgb 9.3 12.0 - 16.0 06/16/2018 [facility] RBC 3.32 4.20 - 5.40 06/16/2018 [facility] HEMATOLOGY WBC 20.1 3.7 - 10.4 06/16/2018 [facility] HEMATOLOGY MCV 88.1 80.0 - 98.0 06/16/2018 [facility] HEMATOLOGY Hct 29.3 36.0 - 48.0 06/16/2018 [facility] HEMATOLOGY MCH 27.8 27.0 - 31.0 06/16/2018 [facility] IMIPENEM:SUSC:PT:ISOLATE:ORDQN:KERVIN Gram Stain Report Many Gram Negative Rods Many Gram Positive Cocci Many Wbc 06/15/2018 [facility] IMIPENEM:SUSC:PT:ISOLATE:ORDQN:KERVIN Culture: Wound/Abscess w/Gram Stain Many Citrobacter Freundii Complex Growth In Subculture Broth Only : Enterococcus Species Many Pseudomonas aeruginosa Refer To Culture # [id number], collected on 06/15/18 For Susceptibility Results 06/15/2018 [facility] IMIPENEM:SUSC:PT:ISOLATE:ORDQN:KERVIN Citrobacter Freundii Complex Citrobacter Freundii Complex 06/15/2018 [facility] Culture: Anaerobic No Anaerobes Isolated 06/15/2018 [facility] Culture: Anaerobic Many Prevotella Species Beta Lactamase Negative . Many Bacteroides Species Beta Lactamase Positive 06/15/2018 [facility] CEFEPIME:SUSC:PT:ISOLATE:ORDQN:KERVIN Gram Stain Report Few Wbc'S; Moderate Gram Positive Cocci 06/15/2018 [facility] CEFEPIME:SUSC:PT:ISOLATE:ORDQN:KERVIN Culture: Wound/Abscess w/Gram Stain Few Pseudomonas aeruginosa Moderate Enterococcus Species . Few Yeast 06/15/2018 [facility] CEFEPIME:SUSC:PT:ISOLATE:ORDQN:KERVIN Enterococcus Species Enterococcus Species 06/15/2018 [facility] CEFEPIME:SUSC:PT:ISOLATE:ORDQN:KERVIN Pseudomonas aeruginosa Pseudomonas aeruginosa 06/15/2018 [facility] BLOOD BANK RESULTS ABO/Rh B POS 06/15/2018 [facility] BLOOD BANK RESULTS Antibody Scrn Negative (06/15/18 7:13 AM) 06/15/2018 [facility] HEMATOLOGY Eosinophils # 0.1 0.0 - 0.5 06/15/2018 [facility] HEMATOLOGY Monocytes # 1.5 0.0 - 0.8 06/15/2018 [facility] HEMATOLOGY Basophils # 0.1 0.0 - 0.2 06/15/2018 [facility] HEMATOLOGY Lymphocytes # 0.7 1.0 - 5.5 06/15/2018 [facility] HEMATOLOGY Basophils 0.3 0.0 - 1.0 06/15/2018 [facility] HEMATOLOGY Neutrophils # 15.0 1.5 - 8.1 06/15/2018 [facility] HEMATOLOGY Segs 86.0 45.0 - 75.0 06/15/2018 [facility] HEMATOLOGY Lymphocytes 4.1 20.0 - 40.0 06/15/2018 [facility] HEMATOLOGY Monocytes 8.7 2.0 - 12.0 06/15/2018 [facility] HEMATOLOGY Eosinophils 0.9 0.0 - 4.0 06/15/2018 [facility] MCHC 32.0 32.0 - 36.0 06/15/2018 [facility] RDW 15.3 11.5 - 14.5 06/15/2018 [facility] Platelet 365 133 - 450 06/15/2018 [facility] MPV 7.6 7.4 - 10.4 06/15/2018 [facility] WBC 17.4 3.7 - 10.4 06/15/2018 [facility] MCV 87.5 80.0 - 98.0 06/15/2018 [facility] MCH 28.0 27.0 - 31.0 06/15/2018 [facility] RBC 3.34 4.20 - 5.40 06/15/2018 [facility] Hgb 9.3 12.0 - 16.0 06/15/2018 [facility] Hct 29.2 36.0 - 48.0 06/15/2018 [facility] Basophils # 0.1 0.0 - 0.2 06/14/2018 [facility] Lymphocytes # 0.7 1.0 - 5.5 06/14/2018 [facility] Eosinophils # 0.1 0.0 - 0.5 06/14/2018 [facility] Monocytes # 1.7 0.0 - 0.8 06/14/2018 [facility] Plt Morph Normal (06/14/18 5:45 AM) 06/14/2018 [facility] HEMATOLOGY RBC Morph Normal (06/14/18 5:45 AM) 06/14/2018 [facility] Monocytes 9.1 2.0 - 12.0 06/14/2018 [facility] Eosinophils 0.6 0.0 - 4.0 06/14/2018 [facility] Lymphocytes 4.1 20.0 - 40.0 06/14/2018 [facility] Neutrophils # 15.6 1.5 - 8.1 06/14/2018 [facility] HEMATOLOGY Segs 85.9 45.0 - 75.0 06/14/2018 [facility] HEMATOLOGY Basophils 0.3 0.0 - 1.0 06/14/2018 [facility] HEMATOLOGY Platelet 337 133 - 450 06/14/2018 [facility] HEMATOLOGY RDW 15.3 11.5 - 14.5 06/14/2018 [facility] HEMATOLOGY Hct 29.8 36.0 - 48.0 06/14/2018 [facility] HEMATOLOGY RBC 3.43 4.20 - 5.40 06/14/2018 [facility] HEMATOLOGY Hgb 9.7 12.0 - 16.0 06/14/2018 [facility] MCV 86.8 80.0 - 98.0 06/14/2018 [facility] MPV 7.4 7.4 - 10.4 06/14/2018 [facility] MCHC 32.5 32.0 - 36.0 06/14/2018 [facility] MCH 28.2 27.0 - 31.0 06/14/2018 [facility] HEMATOLOGY WBC 18.1 3.7 - 10.4 06/14/2018 [facility] TOXICOLOGY Vanco Lvl 16.9 06/14/2018 [facility] BLOOD BANK RESULTS RBC product Product available 4 (06/13/18 2:59 PM) 06/13/2018 Result Comment: 06/13/2018 15:36 [id number]
spoke to [email or web address] on 06/13/2018 15:36 by Karri. [facility] CHEM PANEL Phosphorus 5.5 2.5 - 4.5 06/13/2018 [facility] CHEM PANEL Magnesium Lvl 1.8 1.8 - 2.4 06/13/2018 [facility] CHEM PANEL Phosphorus 5.8 2.5 - 4.5 06/12/2018 [facility] CHEM PANEL Magnesium Lvl 1.9 1.8 - 2.4 06/12/2018 [facility] HEMATOLOGY Eosinophils # 0.1 0.0 - 0.5 06/12/2018 [facility] SPECIAL CHEMISTRY Hgb A1C 6.3 <=5.6 % 06/12/2018 [facility] TOXICOLOGY Vanco Lvl 25.2 06/12/2018 [facility] ANEMIA STUDY Ferritin Lvl 839 5 - 204 06/11/2018 [facility] ANEMIA STUDY % Satur Fe 26 12 - 57 06/11/2018 [facility] ANEMIA STUDY Iron 27 30 - 160 06/11/2018 [facility] ANEMIA STUDY TIBC 104 228 - 428 06/11/2018 [facility] ANEMIA STUDY UIBC 77 110 - 370 06/11/2018 [facility] TOXICOLOGY Vanco Lvl 26.6 06/11/2018 [facility] BLOOD BANK RESULTS ABO/Rh B POS 06/11/2018 [facility] BLOOD BANK RESULTS Antibody Scrn Negative (06/11/18 9:31 AM) 06/11/2018 [facility] CHEM PANEL Magnesium Lvl 2.1 1.8 - 2.4 06/11/2018 [facility] CHEM PANEL Phosphorus 6.6 2.5 - 4.5 06/11/2018 [facility] HEMATOLOGY Anisocyte 1+ *ABN* (06/11/18 5:01 AM) None Seen 06/11/2018 [facility] HEMATOLOGY Hypochrom 1+ (06/11/18 5:01 AM) None Seen 06/11/2018 [facility] HEMATOLOGY Plt Morph Normal (06/11/18 5:01 AM) 06/11/2018 [facility] URINE AND STOOL UA Glucose 150 mg/dL Negative mg/dL 06/10/2018 [facility] URINE AND STOOL UA Protein 100 mg/dL Negative mg/dL 06/10/2018 [facility] URINE AND STOOL UA pH 5.0 5.0 - 8.0 06/10/2018 [facility] URINE AND STOOL UA Color Ltyellow 06/10/2018 [facility] URINE AND STOOL UA Turbidity Slight *ABN* (06/10/18 2:04 PM) Clear 06/10/2018 [facility] URINE AND STOOL UA RBC 3 0 - 2 06/10/2018 [facility] URINE AND STOOL UA Bacteria Occasional /HPF None Seen /HPF 06/10/2018 [facility] URINE AND STOOL UA Sq Epi Occasional /LPF Few /LPF 06/10/2018 [facility] URINE AND STOOL UA WBC 24 0 - 5 06/10/2018 [facility] URINE AND STOOL UA Leuk Est Moderate *ABN* (06/10/18 2:04 PM) Negative 06/10/2018 [facility] URINE AND STOOL UA Urobilinogen <=1.0 mg/dL 0.1 - 1.0 06/10/2018 [facility] URINE AND STOOL UA Nitrite Negative (06/10/18 2:04 PM) Negative 06/10/2018 [facility] URINE AND STOOL UA Blood Small *ABN* (06/10/18 2:04 PM) Negative 06/10/2018 [facility] URINE AND STOOL UA Ketones Negative *NA* (06/10/18 2:04 PM) Negative 06/10/2018 [facility] URINE AND STOOL UA Bili Negative *NA* (06/10/18 2:04 PM) Negative 06/10/2018 [facility] URINE AND STOOL UA Spec Grav 1.008 <=1.030 06/10/2018 [facility] URINE CHEM U Protein 94.0 06/10/2018 [facility] URINE CHEM U Creatinine 32.30 06/10/2018 [facility] URINE CHEM U Prot/Creat 2.91 06/10/2018 [facility] CHEM PANEL ALT 32 0 - 65 06/10/2018 [facility] CHEM PANEL AST 22 0 - 37 06/10/2018 [facility] CHEM PANEL Alk Phos 78 39 - 136 06/10/2018 [facility] CHEM PANEL Bili Total 0.3 0.2 - 1.3 06/10/2018 [facility] CHEM PANEL Total Protein 7.4 6.4 - 8.4 06/10/2018 [facility] CHEM PANEL Albumin Lvl 2.1 3.5 - 5.0 06/10/2018 [facility] CHEM PANEL B/C Ratio 11 6 - 25 06/10/2018 [facility] CHEM PANEL A/G Ratio 0.4 0.7 - 1.6 06/10/2018 [facility] CHEM PANEL Globulin 5.3 2.7 - 4.2 06/10/2018 [facility] Capillary blood glucose measurement by glucometer (mass/volume) Capillary blood glucose measurement by glucometer (mass/volume) 92 70 - 120 2017 [facility] Automated blood basophil count (count/volume) Automated blood basophil count (count/volume) 0.0 0.0 - 0.1 2017 [facility] Automated blood basophil count as percentage of total leukocytes Automated blood basophil count as percentage of total leukocytes 0.5 0.0 - 1.0 2017 [facility] Automated blood eosinophil count Automated blood eosinophil count 0.3 0.0 - 0.4 2017 [facility] Automated blood eosinophil count as percentage of total leukocytes Automated blood eosinophil count as percentage of total leukocytes 4.9 0.0 - 6.0 2017 [facility] Automated blood hematocrit (volume fraction) Automated blood hematocrit (volume fraction) 24.9 34.2 - 44.1 2017 [facility] Automated blood lymphocyte count as percentage ot total leukocytes Automated blood lymphocyte count as percentage ot total leukocytes 11.0 18.0 - 39.1 2017 [facility] Automated blood monocyte count as percentage of total leukocytes Automated blood monocyte count as percentage of total leukocytes 18.4 4.4 - 11.3 2017 [facility] Automated blood neutrophil count Automated blood neutrophil count 3.7 2.1 - 6.9 2017 [facility] Automated blood platelet count (count/volume) Automated blood platelet count (count/volume) 207 140 - 360 2017 [facility] Automated blood segmented neutrophil count as percentage of total leukocytes Automated blood segmented neutrophil count as percentage of total leukocytes 64.5 38.7 - 80.0 2017 [facility] Automated erythrocyte mean corpuscular hemoglobin (mass per erythrocyte) Automated erythrocyte mean corpuscular hemoglobin (mass per erythrocyte) 26.8 28 - 32 2017 [facility] Automated erythrocyte mean corpuscular hemoglobin concentration measurement (mass/volume) Automated erythrocyte mean corpuscular hemoglobin concentration measurement (mass/volume) 32.9 31 - 35 2017 [facility] Automated erythrocyte mean corpuscular volume Automated erythrocyte mean corpuscular volume 81.4 81 - 99 2017 [facility] Blood erythrocytes automated count (number/volume) Blood erythrocytes automated count (number/volume) 3.06 3.6 - 5.1 2017 [facility] Blood hemoglobin measurement (moles/volume) Blood hemoglobin measurement (moles/volume) 8.2 12.0 - 16.0 2017 [facility] Blood leukocytes automated count (number/volume) Blood leukocytes automated count (number/volume) 5.75 4.8 - 10.8 2017 [facility] Blood lymphocytes count (number/volume) Blood lymphocytes count (number/volume) 0.6 1.0 - 3.2 2017 [facility] Blood monocytes automated count (number/volume) Blood monocytes automated count (number/volume) 1.1 0.2 - 0.8 2017 [facility] Estimated glomerular filtration rate (GFR) determination Estimated glomerular filtration rate (GFR) determination 8 60 2017 [facility] Glucose measurement Glucose measurement 41 74 - 118 2017 [facility] Serum or plasma anion gap Serum or plasma anion gap 14.8 8 - 16 2017 [facility] Serum or plasma calcium measurement (mass/volume) Serum or plasma calcium measurement (mass/volume) 7.9 8.4 - 10.2 2017 [facility] Serum or plasma carbon dioxide, total measurement (moles/volume) Serum or plasma carbon dioxide, total measurement (moles/volume) 23 22 - 29 2017 [facility] Serum or plasma chloride measurement (moles/volume) Serum or plasma chloride measurement (moles/volume) 99 98 - 107 2017 [facility] Serum or plasma creatinine measurement (mass/volume) Serum or plasma creatinine measurement (mass/volume) 6.09 0.57 - 1.11 2017 [facility] Serum or plasma potassium measurement (moles/volume) Serum or plasma potassium measurement (moles/volume) 3.8 3.5 - 5.1 2017 [facility] Serum or plasma sodium measurement (moles/volume) Serum or plasma sodium measurement (moles/volume) 133 136 - 145 2017 [facility] Serum or plasma urea nitrogen measurement (mass/volume) Serum or plasma urea nitrogen measurement (mass/volume) 63 7 - 26 2017 [facility] Serum or plasma urea nitrogen/creatinine mass ratio Serum or plasma urea nitrogen/creatinine mass ratio 10 6 - 25 2017 [facility] Red Cell Distribution Width 15.9 11.7 - 14.4 2017 [facility] IM GRANULOCYTES % 0.7 0.0 - 1.0 2017 [facility] Absolute Immature Granulocyte (auto 0.04 0 - 0.1 2017 [facility] Phosphorus measurement Phosphorus measurement 5.8 2.3 - 4.7 09/19/2017 [facility] Plasma globulin measurement (mass/volume) Plasma globulin measurement (mass/volume) 3.7 2.3 - 3.5 09/19/2017 [facility] Serum or plasma alanine aminotransferase measurement (enzymatic activity/volume) Serum or plasma alanine aminotransferase measurement (enzymatic activity/volume) 21 0 - 55 09/19/2017 [facility] Serum or plasma albumin measurement (mass/volume) Serum or plasma albumin measurement (mass/volume) 3.0 3.5 - 5.0 09/19/2017 [facility] Serum or plasma albumin/globulin mass ratio Serum or plasma albumin/globulin mass ratio 0.8 0.8 - 2.0 09/19/2017 [facility] Serum or plasma alkaline phosphatase measurement (enzymatic activity/volume) Serum or plasma alkaline phosphatase measurement (enzymatic activity/volume) 76 40 - 150 09/19/2017 [facility] Serum or plasma magnesium measurement (mass/volume) Serum or plasma magnesium measurement (mass/volume) 1.9 1.3 - 2.1 09/19/2017 [facility] Serum or plasma protein measurement (mass/volume) Serum or plasma protein measurement (mass/volume) 6.7 6.5 - 8.1 09/19/2017 [facility] Serum or plasma total bilirubin measurement (mass/volume) Serum or plasma total bilirubin measurement (mass/volume) 0.4 0.2 - 1.2 09/19/2017 [facility] Aspartate Amino Transf (AST/SGOT) 23 5 - 34 09/19/2017 [facility] B-Type Natriuretic Peptide 1274.1 0 - 100 09/19/2017 [facility] Blood cobalamin (vitamin B12) measurement (mass/volume) Blood cobalamin (vitamin B12) measurement (mass/volume) >2000 213 - 816 09/16/2017 [facility] Serum or plasma folate measurement (mass/volume) Serum or plasma folate measurement (mass/volume) >20.0 7.0 - 15.4 09/16/2017 [facility] Stool gastrointestinal hemoglobin detection Stool gastrointestinal hemoglobin detection NEGATIVE NEGATIVE 09/16/2017 [facility] Serum or plasma creatine kinase MB measurement (mass/volume) Serum or plasma creatine kinase MB measurement (mass/volume) 2.40 0 - 5.0 09/15/2017 [facility] Serum or plasma creatine kinase measurement (enzymatic activity/volume) Serum or plasma creatine kinase measurement (enzymatic activity/volume) 78 29 - 168 09/15/2017 [facility] Troponin I measurement by highly sensitive enzyme immunoassay Troponin I measurement by highly sensitive enzyme immunoassay 0.021 0 - 0.300 09/15/2017 [facility] Serum or plasma iron binding capacity measurement (mass/volume) Serum or plasma iron binding capacity measurement (mass/volume) 274 261 - 478 09/15/2017 [facility] Serum or plasma iron measurement (mass/volume) Serum or plasma iron measurement (mass/volume) 49 50 - 170 09/15/2017 [facility] Serum or plasma iron saturation measurement (mass fraction) Serum or plasma iron saturation measurement (mass fraction) 18 15 - 50 09/15/2017 [facility] Serum or plasma transferrin measurement (mass/volume) Serum or plasma transferrin measurement (mass/volume) 196 180 - 382 09/15/2017 [facility] Serum or plasma calcium measurement (mass/volume) Serum or plasma calcium measurement (mass/volume) 8.4 8.7 - 10.3 09/14/2017 [facility] Serum or plasma complement C3 measurement (mass/volume) Serum or plasma complement C3 measurement (mass/volume) 112 82 - 167 09/14/2017 [facility] Serum or plasma complement C4 measurement (mass/volume) Serum or plasma complement C4 measurement (mass/volume) 31 14 - 44 09/14/2017 [facility] Serum or plasma intact pararthyroid hormone measurement (mass/volume) Serum or plasma intact pararthyroid hormone measurement (mass/volume) 436 15 - 65 09/14/2017 [facility] Parathyroid Hormone Interpretation Comment . 09/14/2017 [facility] Activated partial thromboplastin time (aPTT) in platelet poor plasma bycoagulation assay Activated partial thromboplastin time (aPTT) in platelet poor plasma bycoagulation assay 33.6 23.8 - 35.5 09/14/2017 [facility] Automated urine sediment leukocyte count by microscopy (number/high power field) Automated urine sediment leukocyte count by microscopy (number/high power field) NONE 0 - 5 09/14/2017 [facility] Bacteria detection in urine sediment by light microscopy Bacteria detection in urine sediment by light microscopy NONE NONE 09/14/2017 [facility] Epithelial cells detection in urine sediment by light microscopy Epithelial cells detection in urine sediment by light microscopy MANY NONE 09/14/2017 [facility] Erythrocytes detection in urine sediment by light microscopy Erythrocytes detection in urine sediment by light microscopy NONE 0 - 5 09/14/2017 [facility] INR in Platelet poor plasma by Coagulation assay INR in Platelet poor plasma by Coagulation assay 1.28 09/14/2017 [facility] Prothrombin time (PT) in platelet poor plasma by coagulation assay Prothrombin time (PT) in platelet poor plasma by coagulation assay 15.0 11.9 - 14.5 09/14/2017 [facility] Serum or plasma lipase measurement (enzymatic activity/volume) Serum or plasma lipase measurement (enzymatic activity/volume) 19 8 - 78 09/14/2017 [facility] Serum or plasma thyrotropin measurement by detection limit <=0.005 miu/l (units/volume) Serum or plasma thyrotropin measurement by detection limit <=0.005 miu/l (units/volume) 0.747 0.350 - 4.940 09/14/2017 [facility] Specific gravity of Urine by Test strip Specific gravity of Urine by Test strip 1.010 1.010 - 1.025 09/14/2017 [facility] Urine clarity Urine clarity CLEAR CLEAR 09/14/2017 [facility] Urine color determination Urine color determination YELLOW YELLOW 09/14/2017 [facility] Urine erythrocytes detection Urine erythrocytes detection NEGATIVE NEGATIVE 09/14/2017 [facility] Urine glucose detection Urine glucose detection NEGATIVE NEGATIVE 09/14/2017 [facility] Urine ketones detection by automated test strip Urine ketones detection by automated test strip NEGATIVE NEGATIVE 09/14/2017 [facility] Urine leukocyte esterase detection by dipstick Urine leukocyte esterase detection by dipstick NEGATIVE NEGATIVE 09/14/2017 [facility] Urine nitrite detection Urine nitrite detection NEGATIVE NEGATIVE 09/14/2017 [facility] Urine pH measurement by automated test strip Urine pH measurement by automated test strip 6 5 - 7 09/14/2017 [facility] Urine protein measurement by test strip (mass/volume) Urine protein measurement by test strip (mass/volume) 2+ NEGATIVE 09/14/2017 [facility] Urine total bilirubin measurement (mass/volume) Urine total bilirubin measurement (mass/volume) NEGATIVE NEGATIVE 09/14/2017 [facility] Urine urobilinogen measurement by test strip (mass/volume) Urine urobilinogen measurement by test strip (mass/volume) 0.2 0.2 - 1 09/14/2017 [facility] 24 hour urine albumin/total protein ratio by electrophoresis 24 hour urine albumin/total protein ratio by electrophoresis 71.1 . 09/14/2017 [facility] 24 hour urine alpha 1 globulin/total protein by electrophoresis 24 hour urine alpha 1 globulin/total protein by electrophoresis 6.1 . 09/14/2017 [facility] 24 hour urine alpha 2 globulin/total protein by electrophoresis 24 hour urine alpha 2 globulin/total protein by electrophoresis 9.2 . 09/14/2017 [facility] 24 hour urine beta globulin/total protein ratio by electrophoresis 24 hour urine beta globulin/total protein ratio by electrophoresis 7.6 . 09/14/2017 [facility] 24 hour urine gamma globulin/total protein ratio by electrophoresis 24 hour urine gamma globulin/total protein ratio by electrophoresis 6.0 . 09/14/2017 [facility] Urine creatinine measurement (mass/volume) Urine creatinine measurement (mass/volume) 43.23 47 - 110 09/14/2017 [facility] Urine protein measurement (mass/volume) Urine protein measurement (mass/volume) 89.1 1 - 14 09/14/2017 [facility] Urine protein measurement (mass/volume) Urine protein measurement (mass/volume) 90.1 Not Estab. 09/14/2017 [facility] Urine protein monoclonal/total protein by electrophoresis Urine protein monoclonal/total protein by electrophoresis Not Observed Not Observed 09/14/2017 [facility] Urine sodium measurement (moles/volume) Urine sodium measurement (moles/volume) 79 09/14/2017 [facility] Protein Electrophoresis Note Comment . 09/14/2017 [facility] Pathology Reports No Data Provided for This Section Diagnostic Reports Report Value Date Source Ext Lower Arterial bilat w pressure US Please refer to heart lab report, located under Vascular in [facility]. 06/14/2018 [facility] Foot wo contrast MRI MRI left [...] may be consistent with neuropathic joint. SL: [id number] 06/13/2018 [facility] Foot wo contrast MRI MRI right [...] may be consistent with neuropathic joint. SL: [id number] 06/13/2018 [facility] Chest 1view DX Clinical Indication: Abnormal [...] of acute cardiopulmonary disease. RASHMI: RAYRAY 06/12/2018 [facility] Bone scan 3 phase NM Bone [...] of the feet as clinically indicated. SL: [id number] 06/11/2018 [facility] Ext Lower Arterial Doppler bilat US Patient Name: LEIGHTON GUERRERO : 1950; Age: 67 years y/o Female MR: [id number] Study: Ext Lower Arterial Doppler bilat US [...] left lower extremity arteries. SL: [id number] 06/10/2018 [facility] Foot 2 views bilateral DX Study: [...] and no radiographic evidence of osteomyelitis. SL: [id number] 06/10/2018 [facility] Retroperitoneal Complete US Retroperitoneal ultrasound, complete [...] 1. Unremarkable renal ultrasound. SL: SGHORIJihanM 06/10/2018 [facility] Humerus AP lateral HISTORY: Fall, pain. RIGHT HUMERUS 2 VIEWS: No fracture subluxation or lesion. SL:13 06/11/2013 [facility] Shoulder series HISTORY: Trauma. RIGHT SHOULDER 3 VIEWS: No acute fracture subluxation or lesion is evident. SL:13 06/11/2013 [facility] Consultation Notes No Data Provided for This Section Discharge Summaries No Data Provided for This Section History and Physicals No Data Provided for This Section Vital Signs Vital Sign Value Date Comments Source Systolic (mm Hg) 185 06/21/2018 [facility] Diastolic (mm Hg) 76 06/21/2018 [facility] Heart Rate 88 06/21/2018 [facility] Temperature Oral (F) 98.5 F 06/21/2018 [facility] Heart Rate 82 06/20/2018 [facility] Systolic (mm Hg) 163 06/20/2018 [facility] Diastolic (mm Hg) 69 06/20/2018 [facility] Respitory Rate 18 06/20/2018 [facility] Temperature Oral (F) 98.5 F 06/20/2018 [facility] Systolic (mm Hg) 193 06/20/2018 [facility] Diastolic (mm Hg) 71 06/20/2018 [facility] Temperature Oral (F) 98.4 F 06/20/2018 [facility] Heart Rate 84 06/20/2018 [facility] Respitory Rate 16 06/19/2018 [facility] Respitory Rate 16 06/19/2018 [facility] BMI Calculated 29.88 06/10/2018 [facility] Weight 71.727 06/10/2018 [facility] Height 154.94 cm 06/10/2018 [facility] Weight 71.727 06/10/2018 [facility] BMI Calculated 29.88 06/10/2018 [facility] Height 154.94 cm 06/10/2018 [facility] Systolic (mm Hg) 184 06/12/2013 [facility] Temperature Oral (F) 98.6 F 06/12/2013 [facility] Respitory Rate 18 06/12/2013 [facility] Diastolic (mm Hg) 89 06/12/2013 [facility] Heart Rate 88 06/12/2013 [facility] Weight 81.818 06/12/2013 [facility] Diastolic (mm Hg) 84 06/12/2013 [facility] Heart Rate 95 06/12/2013 [facility] Respitory Rate 20 06/12/2013 [facility] Systolic (mm Hg) 200 06/12/2013 [facility] Temperature Oral (F) 98.3 F 06/12/2013 [facility] Encounters Location Location Details Encounter Type Encounter Number Reason For Visit Attending Provider ADM Date DC Date Status Source [facility] Outpatient [id number] ROUTINE SCREENING LYUBOV HURST 08/30/2011 Active [facility] Outpatient [id number] COMPLICATIONS AFFECTING OTHER SPECIFIED BODY SYSTEMS, Christiana ASHER 02/13/2012 Active [facility] Emergency [id number] SHOULDER PAIN OR INJURY PIERRE DELGADILLO 06/11/2013 06/11/2013 Active [facility] Discharged Inpatient [id number] LYUBOV HURST MD 09/14/2017 2017 [facility] Inpatient [id number] Magy Mougouris 06/10/2018 06/21/2018 [facility] Procedures Procedure Code Date Perfomer Comments Source Ultrasound, renal [id number] 09/15/[address] [facility] CT of abdomen and pelvis without contrast [id number] 09/14/2017 [facility]OH[facility] Cataract surgery<sup>1</sup> [id number] bilateral eyes [facility] Assessment and Plan Assessment and Plan [...] 4.9, had similar course of hospitalization at [facility] 2. Metabolic acidosis on p.o. bicarbonate. 3. [...] 06/20/18 [place] Fall Score 12 06/20/18 [place] Coma Score 15 06/20/18 Rivera Score 16 06/20/18 Pain Intensity NRS (0-10) 0 Lines, Tubes, and Drains: 06/18/2018 11:01 Peripheral Lines: Forearm Right 22 gauge Over the needle catheter Surgical Procedures: 06/15/18 15:13 ULCER / BONE DEBRIDEMENT, LORENZO HEEL [id number] Primary Surgeon: Mario Hurst DPM (Service: POD) [...] in Water IV (Dextrose 50% Syringe), acetaminophen-hydrocodone (Sadorus 7.5/325 oral tablet), acetaminophen, cloNIDine, glucagon, insulin [...] (JUN 18) L 7.5 (JUN 16) 06/21/2018 [facility] Plan of Care Plan of Care Date Source Discharge Date 09/20/17 2:58pm Disposition HOME, SELF-CARE Instructions/Education Provided Chest Pain - Noncardiac Prescriptions See Medication Section Referrals JAIRO ASHER MD (Internal Medicine) Order Date: 2 Weeks Entered Date: 2017 9:48am Address: [address] [place] [id number] Additional Instructions/Education ADA DIET ,ACTIVITY TOLERATED ` FLUID RESTRICTION 1200CC PER DAY,MONITOR BLOOD PRESSURE AND FASTING BLOOD SUGAR AT HOME HOLD BLOOD SUGAR MEDICATIONS IF FASTING BLOOD SUGARBELOW 90 , REPEAT BLOOD TEST CBC AND CMP AFTER 5 DAYS 2017 [facility] Social History Social History Date Source Social History TypeResponse Substance Abuse Use: None. Alcohol Past, Last use: 50 years ago. Previous treatment: None. Smoking Status Former smoker; Type: Cigarettes; Previous treatment: None; Concerns about tobacco use in household: No; Exposure to Tobacco Smoke None; Cigarette Smoking Last 365 Days No; Reg Smoking Cessation Counseling No; Stopped at age: 17; entered on: 06/10/18 06/10/2018 [facility] Social History Problem Response Recorded Date/Time [...] Start Date Stop Date Never Smoker 2017 [facility] Family History Value Date Source Relationship Condition Age at Onset Recorded Date/Time 09 Brother Family history of diabetes mellitus Not Recorded 09/15/2017 2:50am 32 Mother Family history of acute myocardial infarction Not Recorded 09/15/2017 2:50am 33 Mother Family history of hypertension Not Recorded 09/15/2017 2:50am 2017 [facility] Advance Directives Order Name Results Value Date Source Advance Directives Advance Directives Directive Response Recorded Date/Time Does the patient have an advance directive? No 11/29/13 1:55pm If yes, is advance directive on file with [facility]? No 09/14/17 10:00pm If not on file with [facility] will patient provide a copy? No 11/29/13 1:55pm Do you have a Directive to Physician? No 09/14/17 5:37pm Do you have a Medical Power of [employer]? No 09/14/17 5:37pm Do you have an [...] rights and responsibilities? Yes 09/14/17 5:37pm 2017 [facility] Functional Status No Data Provided for This Section
[2019-01-25] MEDS ORDERED: SODIUM CHLORIDE 0.9% 1000ML 1,000 ML IV STA (13:56)
--- NOTE | 2019-01-25 13:56 | NUR ---
Per pt Dr Tsang performed wound debridement yesterday; Dr Vance performed wound cleaning after visual examination
[2019-01-25 17:06] VITALS: BP 132/90
== END 2019-01-25 17:10 | disposition home or self-care (01) ==
LOC: ER 13:09
DX: E11.649 Type 2 diabetes mellitus with hypoglycemia without coma (principal); D64.9 Anemia, unspecified; Z79.84 Long term (current) use of oral hypoglycemic drugs
CPT/HCPCS: 36415; 82948; 99283

== ENCOUNTER 2019-02-15 13:55 | Inpatient (IN) | payer OTHER ==
[~2019-02-15] VITALS: Ht 157.5 cm; Wt 64.9 kg
--- OUTSIDE RECORDS SUMMARY | 2019-02-15 14:01 | XMS REPORT | Continuity of Care Document ---
Author Author [employer] Address Unknown Phone Unavailable Care Team Providers Care Telephone Directory Deliverer Name Role Phone [employer] Unavailable Unavailable Problems Problem Status Onset Date Classification Date Reported Comments Source Type 2 diabetes mellitus with other specified complication 06/27/2018 01/07/2019 [facility] DKA, ACUTE RENAL FAILURE Active 06/09/2018 [facility] SHOULDER PAIN OR INJURY Active 06/11/2013 [facility] COMPLICATIONS AFFECTING OTHER SPECIFIED BODY SYSTEMS, H Active 02/08/2012 [facility] ROUTINE SCREENING Active 08/24/2011 [facility] Anemia Active Problem 2017 [facility] Cardiomegaly Active Problem 2017 [facility] Congestive heart failure with left ventricular diastolic dysfunction Active Problem 2017 [facility] Kidney failure Active Problem 2017 [facility] Obesity Active Problem 2017 [facility] Weakness Active Problem 2017 [facility] Diabetes mellitus type 2 Active Problem 01/07/2019 [facility] HTN - Hypertension Active Problem 01/07/2019 [facility] Hyperlipidemia Active Problem 01/07/2019 [facility] Acute kidney failure, unspecified 01/07/2019 [facility] Gas gangrene 01/07/2019 [facility] Osteomyelitis, unspecified 01/07/2019 [facility] Non-pressure chronic ulcer of left heel and midfoot with unspecified severity 01/07/2019 [facility] Non-pressure chronic ulcer of right heel and midfoot with unspecified severity 01/07/2019 [facility] Hypertensive heart and chronic kidney disease with heart failure and with stage 5 chronic kidney disease, or end stage renal disease 01/07/2019 [facility] Hypo-osmolality and hyponatremia 01/07/2019 [facility] Acidosis 01/07/2019 [facility] Type 2 diabetes mellitus with diabetic peripheral angiopathy with gangrene 01/07/2019 [facility] Cutaneous abscess of left foot 01/07/2019 [facility] Cellulitis of left lower limb 01/07/2019 [facility] Type 2 diabetes mellitus with foot ulcer 01/07/2019 [facility] Type 2 diabetes mellitus with diabetic nephropathy 01/07/2019 [facility] Type 2 diabetes mellitus with hyperglycemia 01/07/2019 [facility] End stage renal disease 01/07/2019 [facility] Type 2 diabetes mellitus with unspecified diabetic retinopathy without macular edema 01/07/2019 [facility] Heart failure, unspecified 01/07/2019 [facility] Hyperlipidemia, unspecified 01/07/2019 [facility] Type 2 diabetes mellitus with diabetic polyneuropathy 01/07/2019 [facility] Patient's noncompliance with other medical treatment and regimen 01/07/2019 [facility] Personal history of nicotine dependence 01/07/2019 [facility] Hypokalemia 01/07/2019 [facility] 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 01/07/2019 [facility] Type 2 diabetes mellitus with diabetic chronic kidney disease 01/07/2019 [facility] ACUTE KIDNEY FAILURE, UNSPECIFIED Active [facility] SINGLE LIVEBORN INFANT, DELIVERED VAGINA Active [facility] Medications Medication Details Route Status Patient Instructions Ordering Provider Order Date Source Doxycycline 150 MG Oral Capsule 150 mg=1 cap, PO, BID, X 10 day, # 84 cap, 0 Refill(s), Pharmacy: [place] [facility] [id number] No Longer Active 06/20/2018 [facility] Ciprofloxacin 500 MG Oral Tablet [Cipro] 500 mg=1 tab, PO, Q12H, # 84 tab, 0 Refill(s), Pharmacy: [place] [id number] Inactive 06/20/2018 [facility] Hydralazine 10 mg, 0.5 mL, Route: IV, Drug form: INJ, ONCE, Dosing Weight 71.727, kg, Start date: 06/18/18 15:41:00 [employer] OPERATOR, Stop date: 06/18/18 15:41:00 CSTNotes: (Same as: Apresoline) Push over 5 minutes Inactive 06/18/2018 [facility] Acetaminophen 325 MG / Hydrocodone Bitartrate 7.5 MG Oral Tablet [[place] 7.5/325] 1 tab, Route: PO, Drug Form: TAB, Dosing Weight 71.727, kg, Q6H, PRN Pain Score 4-6, Start date: 06/16/18 11:53:00 BLACK TOP PAVER OPERATOR, Duration: 30 day, Stop date: 07/16/18 11:52:00 CSTNotes: Same as [place] 325-7.5mg Do not exceed 4gm/day of acetaminophen. No Longer Active 06/16/2018 [facility] Oxycodone 5 mg, 1 tab, Route: PO, Drug form: TAB, Q4H, Dosing Weight 71.727, kg, PRN Pain Score 4-6, Start date: 06/15/18 16:21:00 BLACK TOP PAVER OPERATOR, Duration: 30 day, Stop date: 07/15/18 16:20:00 CSTNotes: (Same as: Roxicodone) No Longer Active 06/15/2018 [facility] Acetaminophen 1,000 mg, 2 tab, Route: PO, Drug form: TAB, ONCE, Dosing Weight 71.727, kg, PRN Pain Score 1-3, Start date: 06/15/18 16:21:00 CSTNotes: Max acetaminophen 4000 mg/day (4 gm/day). (Same as: Tylenol Extra Strength) No Longer Active 06/15/2018 [facility] Labetalol 10 mg, 2 mL, Route: IVP, Drug form: INJ, Q5Min, Dosing Weight 71.727, kg, PRN Elevated BP, Start date: 06/15/18 16:21:00 BLACK TOP PAVER OPERATOR, Duration: 5 doses or times, Stop date: Limited # of timesNotes: (Same as: No rmodyne, Trandate) Push over 2 minutes Give bolus over 2-3 minutes. No Longer Active 06/15/2018 [facility] Hydralazine 10 mg, 0.5 mL, Route: IVP, Drug form: INJ, Q20Min, Dosing Weight 71.727, kg, PRN Elevated BP, Start date: 06/15/18 16:21:00 BLACK TOP PAVER OPERATOR, Duration: 2 doses or times, Stop date: Limited # of timesNotes: (Same as: Apresoline) Push over 5 minutes No Longer Active 06/15/2018 [facility] Ondansetron 4 mg, 2 mL, Route: IVP, Drug form: INJ, ONCE, Dosing Weight 71.727, kg, PRN Nausea & Vomiting, Start date: 06/15/18 16:21:00 CSTNotes: (Same as: Zofran) MEDICATION WASTE Product Size: 4 mg Product Wasted: ___ mg No Longer Active 06/15/2018 [facility] Diphenhydramine 12.5 mg, 0.25 mL, Route: IVP, Drug form: INJ, Q6H, Dosing Weight 71.727, kg, PRN Itching, Start date: 06/15/18 16:21:00 BLACK TOP PAVER OPERATOR, Duration: 30 day, Stop date: 07/15/18 16:20:00 CSTNotes: (Same as: Manasa caballero) No Longer Active 06/15/2018 [facility] Naloxone 0.4 mg, 1 mL, Route: IVP, Drug form: INJ, Q2MIN, Dosing Weight 71.727, kg, PRN Narcotic Reversal, Start date: 06/15/18 16:21:00 BLACK TOP PAVER OPERATOR, Duration: 8 doses or times, Stop date: Limited # of timesNotes: Same as Narcan No Longer Active 06/15/2018 [facility] Flumazenil 0.2 mg, 2 mL, Route: IVP, Drug form: INJ, PRN, Dosing Weight 71.727, kg, PRN Benzodiazepine Reversal, Initial dose, Start date: 06/15/18 16:21:00 BLACK TOP PAVER OPERATOR, Duration: 30 day, Stop date: 07/15/18 16:20:00 C STNotes: (Same as: Romazicon) No Longer Active 06/15/2018 [facility] Fentanyl 50 microgram, 1 mL, Route: IVP, Drug form: INJ, Q5Min, Dosing Weight 71.727, kg, PRN Pain Score 7-10, Priority: Routine, Start date: 06/15/18 16:21:00 BLACK TOP PAVER OPERATOR, Duration: 2 doses or times, Stop date: Limited # of timesNotes: (Same as: Sublimaze) Preservative free. No Longer Active 06/15/2018 [facility] Hydromorphone 0.5 mg, 0.5 mL, Route: IVP, Drug form: SOLN, Q5Min, Dosing Weight 71.727, kg, PRN Pain Score 7-10, Start date: 06/15/18 16:21:00 BLACK TOP PAVER OPERATOR, Duration: 4 doses or times, Stop date: Limited # of timesNotes: ( Same as: Dilaudid) No Longer Active 06/15/2018 [facility] phenylephrine (ANES) Route: IV, Drug form: INJ, ONCE, Stop date: 06/15/18 16:03:00 BLACK TOP PAVER OPERATOR Inactive 06/15/2018 [facility] metoclopramide (ANES) Route: IV, Drug form: INJ, ONCE, Stop date: 06/15/18 15:48:00 BLACK TOP PAVER OPERATOR Inactive 06/15/2018 [facility] propofol (ANES) Route: IV, Drug form: INJ, ONCE, Stop date: 06/15/18 15:48:00 BLACK TOP PAVER OPERATOR Inactive 06/15/2018 [facility] fentaNYL (ANES) Route: IV, Drug form: INJ, ONCE, Stop date: 06/15/18 15:48:00 BLACK TOP PAVER OPERATOR Inactive 06/15/2018 [facility] lidocaine (ANES) Route: IV, Drug form: INJ, ONCE, Stop date: 06/15/18 15:48:00 BLACK TOP PAVER OPERATOR Inactive 06/15/2018 [facility] ondansetron (ANES) Route: IV, Drug form: INJ, ONCE, Stop date: 06/15/18 15:48:00 BLACK TOP PAVER OPERATOR Inactive 06/15/2018 [facility] midazolam (ANES) Route: IV, Drug form: SOLN, ONCE, Stop date: 06/15/18 15:43:00 BLACK TOP PAVER OPERATOR Inactive 06/15/2018 [facility] Sodium Chloride 0.9% IV (ANES) 1000 mL Route: IV, Total Volume: 1,000, Start date: 06/15/18 14:58:00 BLACK TOP PAVER OPERATOR, Stop date: 06/15/18 15:58:00 BLACK TOP PAVER OPERATOR Inactive 06/15/2018 [facility] NS 500 mL 500 mL, Rate: 10 ml/hr, Infuse over: 50 hr, Route: IV, Dosing Weight 71.727 kg, Total Volume: 500, Start date: 06/15/18 13:53:00 BLACK TOP PAVER OPERATOR, Duration: 1 day, Stop date: 06/16/18 13:52:00 BLACK TOP PAVER OPERATOR, 1.78, m2 No Longer Active 06/15/2018 [facility] Clonidine 0.1 mg, 1 tab, Route: PO, Drug form: TAB, Q6H, Dosing Weight 71.727, kg, PRN Elevated BP, Start date: 06/14/18 6:40:00 BLACK TOP PAVER OPERATOR, Duration: 30 day, Stop date: 07/14/18 6:39:00 CSTNotes: (Same As: Catapres) No Longer Active 06/14/2018 [facility] Lasix 40 mg, 4 mL, Route: IVP, Drug form: INJ, ONCE, Dosing Weight 71.727, kg, Start date: 06/13/18 17:48:00 BLACK TOP PAVER OPERATOR, Stop date: 06/13/18 17:48:00 CSTNotes: (Same as: Lasix) MEDICATION WASTE Product Size: 40 mg Product Wasted: ___ mg Inactive 06/13/2018 [facility] Potassium Chloride 40 mEq, 2 tab, Route: PO, Drug form: ERTAB, ONCE, Dosing Weight 71.727, kg, Start date: 06/12/18 16:21:00 BLACK TOP PAVER OPERATOR, Stop date: 06/12/18 16:21:00 CSTNotes: (Same as: K-Dur 20) "Do Not Crush" Give with food and full glass of water For patients unable to swallow tablet, dissolve in one half glass of water. Allow about 2 minutes for the tablets to disintegrate. Stir before giving to prepare slurry and administer. Please exclude Patients with feeding tube less than 14 [place] (Dobhoff, J-tube etc) and pediatric and patients. Inactive 06/12/2018 [facility] Zyvox 600 mg, 1 tab, Route: PO, Drug form: TAB, UMAT14P, Dosing Weight 71.727, kg, Start date: 06/12/18 12:00:00 BLACK TOP PAVER OPERATOR, Duration: 10 day, Stop date: 06/22/18 0:00:00 BLACK TOP PAVER OPERATOR, ABX Indication: Bone/Joint InfectionNotes: Protect from light. (Same as: Zyvox) No Longer Active 06/12/2018 [facility] Acetaminophen 325 MG / Hydrocodone Bitartrate 5 MG Oral Tablet [[place] 5/325] 1 tab, Route: PO, Drug Form: TAB, Dosing Weight 71.727, kg, Q8H, PRN Pain Score 7-10, Start date: 06/11/18 19:56:00 BLACK TOP PAVER OPERATOR, Duration: 30 day, Stop date: 07/11/18 19:55:00 CSTNotes: (Same as: [place] 325/5) Do not exceed 4gm/day of acetaminophen. No Longer Active 06/12/2018 [facility] Vancomycin Dosing Protocol Vancomycin Dosing Protocol, Reminder, Drug form: MISC, Route: MISC, Continuous, 06/11/18 13:30:00 BLACK TOP PAVER OPERATOR, Duration: 30 day, Stop date: 07/11/18 13:29:00 BLACK TOP PAVER OPERATOR No Longer Active 06/11/2018 [facility] Ceftriaxone 1 gm, Route: IVP, [id number], Dosing Weight 71.727, kg, Start date: 06/11/18 11:00:00 BLACK TOP PAVER OPERATOR, Duration: 14 day, Stop date: 06/24/18 11:00:00 BLACK TOP PAVER OPERATOR, ABX Indication: Bone/Joint InfectionNotes: (Same As: Rocephin). Use with 100 mL NS and infuse over 30 min MEDICATION WASTE Product Size: 1000 mg Product Wasted: ___ mg No Longer Active 06/11/2018 [facility] Vancomycin 1 ea, Route: MISC, ONCALL, Dosing Weight 71.727, kg, Start date: 06/11/18 11:00:00 BLACK TOP PAVER OPERATOR, Duration: 14 day, Stop date: 06/25/18 10:59:00 BLACK TOP PAVER OPERATOR, Pharmacy to dose, ABX Indication: Bone/Joint Infection Inactive 06/11/2018 [facility] Pravastatin 40 mg, 2 tab, Route: PO, Drug form: TAB, Daily, Dosing Weight 71.727, kg, Start date: 06/11/18 9:00:00 BLACK TOP PAVER OPERATOR, Duration: 30 day, Stop date: 07/10/18 21:00:00 CSTNotes: (Same as: Pravachol) No Longer Active 06/11/2018 [facility] gabapentin 100 MG Oral Capsule 100 mg, 1 cap, Route: PO, Drug form: CAP, BID, Dosing Weight 71.727, kg, Start date: 06/11/18 9:00:00 BLACK TOP PAVER OPERATOR, Duration: 30 day, Stop date: 07/10/18 17:00:00 BLACK TOP PAVER OPERATOR No Longer Active 06/11/2018 [facility] Famotidine 40 mg, Route: PO, BID, Dosing Weight 71.727, kg, Start date: 06/11/18 9:00:00 BLACK TOP PAVER OPERATOR, Duration: 30 day, Stop date: 07/10/18 17:00:00 BLACK TOP PAVER OPERATOR No Longer Active 06/11/2018 [facility] Neurontin 50 mg, 1 mL, Route: PO, Drug form: SOLN, Q24H, Start date: 06/10/18 22:00:00 BLACK TOP PAVER OPERATOR, Duration: 30 day, Stop date: 07/09/18 22:00:00 CSTNotes: (Same as: Neurontin) No Longer Active 06/11/2018 [facility] famotidine 20 mg, 1 tab, Route: PO, Drug form: TAB, Q24H, Start date: 06/10/18 22:00:00 BLACK TOP PAVER OPERATOR, Duration: 30 day, Stop date: 07/09/18 22:00:00 CSTNotes: (Same as: Pepcid) No Longer Active 06/11/2018 [facility] Hydralazine Hydrochloride 50 MG Oral Tablet 50 mg, 1 tab, Route: PO, Drug form: TAB, BID, Dosing Weight 71.727, kg, Start date: 06/10/18 21:30:00 BLACK TOP PAVER OPERATOR, Duration: 30 day, Stop date: 07/10/18 17:00:00 CSTNotes: (Same as: Apresoline) May interfere w/enteral feedings Take With Food No Longer Active 06/11/2018 [facility] carvedilol 25 mg, 2 tab, Route: PO, Drug form: TAB, BID, Dosing Weight 71.727, kg, Start date: 06/10/18 21:30:00 BLACK TOP PAVER OPERATOR, Duration: 30 day, Stop date: 07/10/18 21:00:00 CSTNotes: Give with food. (Same As: Coreg) No Longer Active 06/11/2018 [facility] Glucagon 1 mg, Route: IM, PRN, Dosing Weight 71.727, kg, PRN Blood Glucose Results, Start date: 06/10/18 20:52:00 BLACK TOP PAVER OPERATOR, Duration: 30 day, Stop date: 07/10/18 20:51:00 BLACK TOP PAVER OPERATOR Inactive 06/11/2018 [facility] Dextrose 50% Syringe 50 mL, Route: IVP, Dosing Weight 71.727, kg, PRN, PRN Blood Glucose Results, Start date: 06/10/18 20:52:00 BLACK TOP PAVER OPERATOR, Duration: 30 day, Stop date: 07/10/18 20:51:00 BLACK TOP PAVER OPERATOR Inactive 06/11/2018 [facility] Insulin Lispro 2 unit, 0.02 mL, Route: SUB-Q, Drug form: SOLN, TID-Before Meals, Dosing Weight 71.727, kg, PRN Blood Glucose Results, Start date: 06/10/18 20:52:00 BLACK TOP PAVER OPERATOR, Duration: 30 day, Stop date: 07/10/18 20:51:0 0 CSTNotes: (Same as: Humalog ) Roll in palms of hands gently; Do not shake `vigorously. "Single Patient Use Only " WASTE: F/P - Black; E - Municipal Trash Bin Stable for 28 days at room temperature. Expires in days from Date No Longer Active 06/11/2018 [facility] Vancomycin 1,000 mg, Route: IVPB, [id number], Dosing Weight 71.727, kg, Start date: 06/10/18 14:00:00 BLACK TOP PAVER OPERATOR, Duration: 1 day, Stop date: 06/10/18 14:00:00 BLACK TOP PAVER OPERATOR, ABX Indication: Bone/Joint InfectionNotes: TIME CRITICAL MEDICATION (Same As: Vancocin) Infusion rate 2001 mg: infuse over 2.5 hours For adult patients only: Round to nearest 250 mg per Medical Staff approval MEDICATION WASTE Product Size: 1000 mg Product Wasted: ___ mg Inactive 06/10/2018 [facility] Sodium Bicarbonate 650 mg, 1 tab, Route: PO, Drug form: TAB, TID, Dosing Weight 71.727, kg, Start date: 06/10/18 13:00:00 BLACK TOP PAVER OPERATOR, Duration: 30 day, Stop date: 07/10/18 9:00:00 CSTNotes: "Dissolve tablet in a glass of water prior to oral administration. STOMACH WARNING: To avoid serious injury, do not take until tablet is completely dissolved. It is very important not to take this product when overly full from food or drink." No Longer Active 06/10/2018 [facility] Docusate 100 mg, 1 cap, Route: PO, Drug form: CAP, BID, Dosing Weight 71.727, kg, Start date: 06/10/18 9:00:00 BLACK TOP PAVER OPERATOR, Duration: 30 day, Stop date: 07/09/18 17:00:00 CSTNotes: (Same as: Colace) (Do Not Crush) No Longer Active 06/10/2018 [facility] gabapentin 100 MG Oral Capsule 100 mg=1 cap, PO, BID, 0 Refill(s) Active 06/10/2018 [facility] Famotidine 40 mg, PO, BID, # 60 tab, 0 Refill(s) Active 06/10/2018 [facility] glimepiride 1 mg oral tablet 1 mg=1 tab, PO, Daily, 0 Refill(s) Active 06/10/2018 [facility] pravastatin 40 mg oral tablet 40 mg=1 tab, PO, Daily, 0 Refill(s) Active 06/10/2018 [facility] carvedilol 25 mg, PO, BID, 0 Refill(s) Active 06/10/2018 [facility] Hydralazine Hydrochloride 50 MG Oral Tablet 50 mg=1 tab, PO, BID, 0 Refill(s) Active 06/10/2018 [facility] Folic Acid 1 MG Oral Tablet 1 mg=1 tab, PO, Daily, 0 Refill(s) Active 06/10/2018 [facility] Furosemide 40 MG Oral Tablet 40 mg=1 tab, PO, Q8H, 0 Refill(s) Active 06/10/2018 [facility] Streptococcus pneumoniae serotype 1 capsular antigen diphtheria [id number] protein conjugate vaccine / Streptococcus pneumoniae serotype 14 capsular antigen diphtheria [id number] protein conjugate vaccine / Streptococcus pneumoniae serotype 18C capsular antigen d 0.5 mL, Route: IM, Drug Form: INJ, ONCALL, Start date: 06/10/18 1:56:07 BLACK TOP PAVER OPERATOR, Stop date: 07/10/18 1:51:07 CSTNotes: Shake well prior to use (Same as: Prevnar 13) No Longer Active 06/10/2018 [facility] cefepime 1 gm, Route: IVPB, [id number], Dosing Weight 71.727, kg, (CrCl Notes: (Same As: Maxipime) MEDICATION WASTE Product Size: 1000 mg Product Wasted: ___ mg No Longer Active 06/10/2018 [facility] Clindamycin 600 mg, 50 mL, Route: IVPB, Drug form: INJ, [id number], Dosing Weight 71.727, kg, Start date: 06/10/18 1:00:00 BLACK TOP PAVER OPERATOR, Duration: 7 day, Stop date: 06/16/18 17:00:00 BLACK TOP PAVER OPERATOR, ABX Indication: Skin/Soft Tissue Inf ection No Longer Active 06/10/2018 [facility] Dextrose 50% Syringe 25 gm, Route: IVP, Dosing Weight 71.727, kg, ONCE, STAT, Start date: 06/10/18 0:39:00 BLACK TOP PAVER OPERATOR, Stop date: 06/10/18 0:39:00 BLACK TOP PAVER OPERATOR Inactive 06/10/2018 [facility] Insulin Lispro 4 unit, 0.04 mL, Route: SUB-Q, Drug form: SOLN, Bedtime, Dosing Weight 71.727, kg, PRN Blood Glucose Results, Start date: 06/10/18 0:27:00 BLACK TOP PAVER OPERATOR, Duration: 30 day, Stop date: 07/10/18 0:26:00 CSTNotes: (S kris as: Humalog ) Roll in palms of hands gently; Do not shake `vigorously. "Single Patient Use Only " WASTE: F/P - Black; E - Municipal Trash Bin Stable for 28 days at room temperature. Expires in days from Date No Longer Active 06/10/2018 [facility] Dextrose 50% Syringe 25 gm, 50 mL, Route: IVP, Drug Form: INJ, Dosing Weight 71.727, kg, PRN, PRN Blood Glucose Results, Start date: 06/10/18 0:27:00 BLACK TOP PAVER OPERATOR, Duration: 30 day, Stop date: 07/10/18 0:26:00 BLACK TOP PAVER OPERATOR No Longer Active 06/10/2018 [facility] Glucagon 1 mg, Route: IM, Drug form: PDR/INJ, PRN, Dosing Weight 71.727, kg, PRN Blood Glucose Results, Start date: 06/10/18 0:27:00 BLACK TOP PAVER OPERATOR, Duration: 30 day, Stop date: 07/10/18 0:26:00 BLACK TOP PAVER OPERATOR Inactive 06/10/2018 [facility] NS 1,000 mL 1,000 mL, Rate: 75 ml/hr, Infuse over: 13.3 hr, Route: IV, Dosing Weight 71.727 kg, Total Volume: 1,000, Start date: 06/10/18 0:23:00 BLACK TOP PAVER OPERATOR, Duration: 30 day, Stop date: 07/10/18 0:22:00 BLACK TOP PAVER OPERATOR, 1.78, m2 No Longer Active 06/10/2018 [facility] Dextrose 50% Syringe 12.5 gm, 25 mL, Route: IVP, Drug Form: INJ, Dosing Weight 71.727, kg, PRN, PRN Blood Glucose Results, Start date: 06/10/18 0:20:00 BLACK TOP PAVER OPERATOR, Duration: 30 day, Stop date: 07/10/18 0:19:00 BLACK TOP PAVER OPERATOR No Longer Active 06/10/2018 [facility] Acetaminophen 650 mg, 2 tab, Route: PO, Drug form: TAB, Q4H, Dosing Weight 71.727, kg, PRN For Temp > 100.4 F, Start date: 06/10/18 0:20:00 BLACK TOP PAVER OPERATOR, Duration: 30 day, Stop date: 07/10/18 0:19:00 CSTNotes: Do not exceed 4 gm/day. (Same as: Tylenol) No Longer Active 06/10/2018 [facility] Glucagon 1 mg, Route: IM, Drug form: PDR/INJ, PRN, Dosing Weight 71.727, kg, PRN Blood Glucose Results, Start date: 06/10/18 0:20:00 BLACK TOP PAVER OPERATOR, Duration: 30 day, Stop date: 07/10/18 0:19:00 BLACK TOP PAVER OPERATOR No Longer Active 06/10/2018 [facility] Glimepiride 2 Mg Tablet, 4 Mg Oral Active 2017 [facility] [place] 5/325 oral tablet 1-2 tab, PO, Q4-6H, Pain, # 15 tab, 0 Refill(s) Active [facility] 06/12/2013 [facility] Zofran 4 mg, Route: IVP, Drug form: INJ, ONCE, Dosing Weight 81.818, kg, Priority: STAT, Start date: 06/11/13 20:36:00, Stop date: 06/11/13 20:36:00 Inactive [facility] 06/12/2013 [facility] morphine Sulfate 4 mg, Route: IVP, Drug form: INJ, ONCE, Dosing Weight 81.818, kg, Priority: STAT, Start date: 06/11/13 20:35:00, Stop date: 06/11/13 20:35:00 Inactive [facility] 06/12/2013 [facility] Amlodipine Besylate 10 Mg Tablet Daily Active [facility] Carvedilol 12.5 Mg Tablet Twice A Day Active [facility] Ferrous Sulfate 325 Mg Tablet.dr Daily Active [facility] Folic Acid 1 Mg Tablet Daily Active [facility] Furosemide 40 Mg Tablet Daily Active [facility] Glimepiride 2 Mg Tablet Daily Active [facility] Hydralazine Hcl 25 Mg Tab Active [facility] Loratadine 10 Mg Tablet Daily Active [facility] Pravastatin Sodium 40 Mg Tablet Daily Active [facility] Sitagliptin Phosphate (Januvia) 100 Mg Tablet Daily Active [facility] Allergies, Adverse Reactions, Alerts Substance Category Reaction Severity Reaction type Status Date Reported Comments Source No Known Medication Allergies Assertion Drug allergy [facility] Immunizations Immunization Date Given Site Status Last Updated Comments Source influenza virus vaccine, inactivated 06/21/2018 Left Deltoid completed [facility] Results Order Name Results Value Reference [...] should be multiplied by the estimated BMI. [facility] CHEM PANEL AGAP 14.5 10.0 - 20.0 06/20/2018 [facility] CHEM PANEL Calcium Lvl 8.1 8.5 - 10.5 06/20/2018 [facility] CHEM PANEL CO2 19 24 - 32 06/20/2018 [facility] CHEM PANEL Chloride Lvl 104 95 - 109 06/20/2018 [facility] CHEM PANEL Potassium Lvl 3.5 3.5 - 5.1 06/20/2018 [facility] CHEM PANEL Creatinine Lvl 4.84 0.50 - 1.40 06/20/2018 [facility] CHEM PANEL BUN 53 7 - 22 06/20/2018 [facility] CHEM PANEL Sodium Lvl 134 135 - 145 06/20/2018 [facility] CHEM PANEL Glucose Lvl 156 70 - 99 06/20/2018 [facility] CHEM PANEL eGFR 10 06/19/2018 Result [...] should be multiplied by the estimated BMI. [facility] CHEM PANEL Chloride Lvl 107 95 - 109 06/19/2018 [facility] CHEM PANEL Sodium Lvl 140 135 - 145 06/19/2018 [facility] CHEM PANEL Creatinine Lvl 4.94 0.50 - 1.40 06/19/2018 [facility] CHEM PANEL BUN 56 7 - 22 06/19/2018 [facility] CHEM PANEL AGAP 17.7 10.0 - 20.0 06/19/2018 [facility] CHEM PANEL Calcium Lvl 7.9 8.5 - 10.5 06/19/2018 [facility] CHEM PANEL CO2 19 24 - 32 06/19/2018 [facility] CHEM PANEL Potassium Lvl 3.7 3.5 - 5.1 06/19/2018 [facility] CHEM PANEL Glucose Lvl 142 70 - 99 06/19/2018 [facility] CHEM PANEL eGFR 9 06/18/2018 Result [...] should be multiplied by the estimated BMI. [facility] CHEM PANEL AGAP 15.8 10.0 - 20.0 06/18/2018 [facility] CHEM PANEL CO2 18 24 - 32 06/18/2018 [facility] CHEM PANEL Calcium Lvl 7.7 8.5 - 10.5 06/18/2018 [facility] CHEM PANEL Chloride Lvl 107 95 - 109 06/18/2018 [facility] CHEM PANEL Potassium Lvl 3.8 3.5 - 5.1 06/18/2018 [facility] CHEM PANEL Sodium Lvl 137 135 - 145 06/18/2018 [facility] CHEM PANEL Creatinine Lvl 5.10 0.50 - 1.40 06/18/2018 [facility] CHEM PANEL BUN 58 7 - 22 06/18/2018 [facility] CHEM PANEL Glucose Lvl 117 70 - 99 06/18/2018 [facility] HEMATOLOGY Lymphocytes # 0.5 1.0 - 5.5 06/16/2018 [facility] HEMATOLOGY Monocytes # 1.6 0.0 - 0.8 06/16/2018 [facility] HEMATOLOGY Basophils # 0.1 0.0 - 0.2 06/16/2018 [facility] HEMATOLOGY Eosinophils 0.1 0.0 - 4.0 06/16/2018 [facility] HEMATOLOGY Monocytes 8.0 2.0 - 12.0 06/16/2018 [facility] Neutrophils # 17.9 1.5 - 8.1 06/16/2018 [facility] Basophils 0.3 0.0 - 1.0 06/16/2018 [facility] HEMATOLOGY Segs 89.1 45.0 - 75.0 06/16/2018 [facility] Lymphocytes 2.5 20.0 - 40.0 06/16/2018 [facility] RDW 15.5 11.5 - 14.5 06/16/2018 [facility] MCHC 31.6 32.0 - 36.0 06/16/2018 [facility] MPV 7.6 7.4 - 10.4 06/16/2018 [facility] Platelet 303 133 - 450 06/16/2018 [facility] Hgb 9.3 12.0 - 16.0 06/16/2018 [facility] RBC 3.32 4.20 - 5.40 06/16/2018 [facility] HEMATOLOGY WBC 20.1 3.7 - 10.4 06/16/2018 [facility] HEMATOLOGY MCV 88.1 80.0 - 98.0 06/16/2018 [facility] HEMATOLOGY Hct 29.3 36.0 - 48.0 06/16/2018 [facility] HEMATOLOGY MCH 27.8 27.0 - 31.0 06/16/2018 [facility] IMIPENEM:SUSC:PT:ISOLATE:ORDQN:KERVIN Gram Stain Report Many Gram Negative Rods Many Gram Positive Cocci Many Wbc 06/15/2018 [facility] IMIPENEM:SUSC:PT:ISOLATE:ORDQN:KERVIN Culture: Wound/Abscess w/Gram Stain Many Citrobacter Freundii Complex Growth In Subculture Broth Only : Enterococcus Species Many Pseudomonas aeruginosa Refer To Culture # [id number], collected on 06/15/18 For Susceptibility Results 06/15/2018 [facility] IMIPENEM:SUSC:PT:ISOLATE:ORDQN:KERVIN Citrobacter Freundii Complex Citrobacter Freundii Complex 06/15/2018 [facility] Culture: Anaerobic No Anaerobes Isolated 06/15/2018 [facility] Culture: Anaerobic Many Prevotella Species Beta Lactamase Negative . Many Bacteroides Species Beta Lactamase Positive 06/15/2018 [facility] CEFEPIME:SUSC:PT:ISOLATE:ORDQN:KERVIN Gram Stain Report Few Wbc'S; Moderate Gram Positive Cocci 06/15/2018 [facility] CEFEPIME:SUSC:PT:ISOLATE:ORDQN:KERVIN Culture: Wound/Abscess w/Gram Stain Few Pseudomonas aeruginosa Moderate Enterococcus Species . Few Yeast 06/15/2018 [facility] CEFEPIME:SUSC:PT:ISOLATE:ORDQN:KERVIN Enterococcus Species Enterococcus Species 06/15/2018 [facility] CEFEPIME:SUSC:PT:ISOLATE:ORDQN:KERVIN Pseudomonas aeruginosa Pseudomonas aeruginosa 06/15/2018 [facility] BLOOD BANK RESULTS ABO/Rh B POS 06/15/2018 [facility] BLOOD BANK RESULTS Antibody Scrn Negative (06/15/18 7:13 AM) 06/15/2018 [facility] HEMATOLOGY Eosinophils # 0.1 0.0 - 0.5 06/15/2018 [facility] HEMATOLOGY Monocytes # 1.5 0.0 - 0.8 06/15/2018 [facility] HEMATOLOGY Basophils # 0.1 0.0 - 0.2 06/15/2018 [facility] HEMATOLOGY Lymphocytes # 0.7 1.0 - 5.5 06/15/2018 [facility] HEMATOLOGY Basophils 0.3 0.0 - 1.0 06/15/2018 [facility] HEMATOLOGY Neutrophils # 15.0 1.5 - 8.1 06/15/2018 [facility] HEMATOLOGY Segs 86.0 45.0 - 75.0 06/15/2018 [facility] HEMATOLOGY Lymphocytes 4.1 20.0 - 40.0 06/15/2018 [facility] HEMATOLOGY Monocytes 8.7 2.0 - 12.0 06/15/2018 [facility] HEMATOLOGY Eosinophils 0.9 0.0 - 4.0 06/15/2018 [facility] MCHC 32.0 32.0 - 36.0 06/15/2018 [facility] RDW 15.3 11.5 - 14.5 06/15/2018 [facility] Platelet 365 133 - 450 06/15/2018 [facility] MPV 7.6 7.4 - 10.4 06/15/2018 [facility] WBC 17.4 3.7 - 10.4 06/15/2018 [facility] MCV 87.5 80.0 - 98.0 06/15/2018 [facility] MCH 28.0 27.0 - 31.0 06/15/2018 [facility] RBC 3.34 4.20 - 5.40 06/15/2018 [facility] Hgb 9.3 12.0 - 16.0 06/15/2018 [facility] Hct 29.2 36.0 - 48.0 06/15/2018 [facility] Basophils # 0.1 0.0 - 0.2 06/14/2018 [facility] Lymphocytes # 0.7 1.0 - 5.5 06/14/2018 [facility] Eosinophils # 0.1 0.0 - 0.5 06/14/2018 [facility] Monocytes # 1.7 0.0 - 0.8 06/14/2018 [facility] Plt Morph Normal (06/14/18 5:45 AM) 06/14/2018 [facility] HEMATOLOGY RBC Morph Normal (06/14/18 5:45 AM) 06/14/2018 [facility] Monocytes 9.1 2.0 - 12.0 06/14/2018 [facility] Eosinophils 0.6 0.0 - 4.0 06/14/2018 [facility] Lymphocytes 4.1 20.0 - 40.0 06/14/2018 [facility] Neutrophils # 15.6 1.5 - 8.1 06/14/2018 [facility] HEMATOLOGY Segs 85.9 45.0 - 75.0 06/14/2018 [facility] HEMATOLOGY Basophils 0.3 0.0 - 1.0 06/14/2018 [facility] HEMATOLOGY Platelet 337 133 - 450 06/14/2018 [facility] HEMATOLOGY RDW 15.3 11.5 - 14.5 06/14/2018 [facility] HEMATOLOGY Hct 29.8 36.0 - 48.0 06/14/2018 [facility] HEMATOLOGY RBC 3.43 4.20 - 5.40 06/14/2018 [facility] HEMATOLOGY Hgb 9.7 12.0 - 16.0 06/14/2018 [facility] MCV 86.8 80.0 - 98.0 06/14/2018 [facility] MPV 7.4 7.4 - 10.4 06/14/2018 [facility] MCHC 32.5 32.0 - 36.0 06/14/2018 [facility] MCH 28.2 27.0 - 31.0 06/14/2018 [facility] HEMATOLOGY WBC 18.1 3.7 - 10.4 06/14/2018 [facility] TOXICOLOGY Vanco Lvl 16.9 06/14/2018 [facility] BLOOD BANK RESULTS RBC product Product available 4 (06/13/18 2:59 PM) 06/13/2018 Result Comment: 06/13/2018 15:36 [id number]
spoke to [email or web address] on 06/13/2018 15:36 by Karri. [facility] CHEM PANEL Phosphorus 5.5 2.5 - 4.5 06/13/2018 [facility] CHEM PANEL Magnesium Lvl 1.8 1.8 - 2.4 06/13/2018 [facility] CHEM PANEL Phosphorus 5.8 2.5 - 4.5 06/12/2018 [facility] CHEM PANEL Magnesium Lvl 1.9 1.8 - 2.4 06/12/2018 [facility] HEMATOLOGY Eosinophils # 0.1 0.0 - 0.5 06/12/2018 [facility] SPECIAL CHEMISTRY Hgb A1C 6.3 <=5.6 % 06/12/2018 [facility] TOXICOLOGY Vanco Lvl 25.2 06/12/2018 [facility] ANEMIA STUDY Ferritin Lvl 839 5 - 204 06/11/2018 [facility] ANEMIA STUDY % [place] 26 12 - 57 06/11/2018 [facility] ANEMIA STUDY Iron 27 30 - 160 06/11/2018 [facility] ANEMIA STUDY TIBC 104 228 - 428 06/11/2018 [facility] ANEMIA STUDY UIBC 77 110 - 370 06/11/2018 [facility] TOXICOLOGY Vanco Lvl 26.6 06/11/2018 [facility] BLOOD BANK RESULTS ABO/Rh B POS 06/11/2018 [facility] BLOOD BANK RESULTS Antibody Scrn Negative (06/11/18 9:31 AM) 06/11/2018 [facility] CHEM PANEL Magnesium Lvl 2.1 1.8 - 2.4 06/11/2018 [facility] CHEM PANEL Phosphorus 6.6 2.5 - 4.5 06/11/2018 [facility] HEMATOLOGY Anisocyte 1+ *ABN* (06/11/18 5:01 AM) None Seen 06/11/2018 [facility] HEMATOLOGY Hypochrom 1+ (06/11/18 5:01 AM) None Seen 06/11/2018 [facility] HEMATOLOGY Plt Morph Normal (06/11/18 5:01 AM) 06/11/2018 [facility] URINE AND STOOL UA Glucose 150 mg/dL Negative mg/dL 06/10/2018 [facility] URINE AND STOOL UA Protein 100 mg/dL Negative mg/dL 06/10/2018 [facility] URINE AND STOOL UA pH 5.0 5.0 - 8.0 06/10/2018 [facility] URINE AND STOOL UA Color Ltyellow 06/10/2018 [facility] URINE AND STOOL UA Turbidity Slight *ABN* (06/10/18 2:04 PM) Clear 06/10/2018 [facility] URINE AND STOOL UA RBC 3 0 - 2 06/10/2018 [facility] URINE AND STOOL UA Bacteria Occasional /HPF None Seen /HPF 06/10/2018 [facility] URINE AND STOOL UA Sq Epi Occasional /LPF Few /LPF 06/10/2018 [facility] URINE AND STOOL UA WBC 24 0 - 5 06/10/2018 [facility] URINE AND STOOL UA Leuk Est Moderate *ABN* (06/10/18 2:04 PM) Negative 06/10/2018 [facility] URINE AND STOOL UA Urobilinogen <=1.0 mg/dL 0.1 - 1.0 06/10/2018 [facility] URINE AND STOOL UA Nitrite Negative (06/10/18 2:04 PM) Negative 06/10/2018 [facility] URINE AND STOOL UA Blood Small *ABN* (06/10/18 2:04 PM) Negative 06/10/2018 [facility] URINE AND STOOL UA Ketones Negative *NA* (06/10/18 2:04 PM) Negative 06/10/2018 [facility] URINE AND STOOL UA Bili Negative *NA* (06/10/18 2:04 PM) Negative 06/10/2018 [facility] URINE AND STOOL UA Spec Grav 1.008 <=1.030 06/10/2018 [facility] URINE CHEM U Protein 94.0 06/10/2018 [facility] URINE CHEM U Creatinine 32.30 06/10/2018 [facility] URINE CHEM U Prot/Creat 2.91 06/10/2018 [facility] CHEM PANEL ALT 32 0 - 65 06/10/2018 [facility] CHEM PANEL AST 22 0 - 37 06/10/2018 [facility] CHEM PANEL Alk Phos 78 39 - 136 06/10/2018 [facility] CHEM PANEL Bili Total 0.3 0.2 - 1.3 06/10/2018 [facility] CHEM PANEL Total Protein 7.4 6.4 - 8.4 06/10/2018 [facility] CHEM PANEL Albumin Lvl 2.1 3.5 - 5.0 06/10/2018 [facility] CHEM PANEL B/C Ratio 11 6 - 25 06/10/2018 [facility] CHEM PANEL A/G Ratio 0.4 0.7 - 1.6 06/10/2018 [facility] CHEM PANEL Globulin 5.3 2.7 - 4.2 06/10/2018 [facility] Capillary blood glucose measurement by glucometer (mass/volume) Capillary blood glucose measurement by glucometer (mass/volume) 92 70 - 120 2017 [facility] Automated blood basophil count (count/volume) Automated blood basophil count (count/volume) 0.0 0.0 - 0.1 2017 [facility] Automated blood basophil count as percentage of total leukocytes Automated blood basophil count as percentage of total leukocytes 0.5 0.0 - 1.0 2017 [facility] Automated blood eosinophil count Automated blood eosinophil count 0.3 0.0 - 0.4 2017 [facility] Automated blood eosinophil count as percentage of total leukocytes Automated blood eosinophil count as percentage of total leukocytes 4.9 0.0 - 6.0 2017 [facility] Automated blood hematocrit (volume fraction) Automated blood hematocrit (volume fraction) 24.9 34.2 - 44.1 2017 [facility] Automated blood lymphocyte count as percentage ot total leukocytes Automated blood lymphocyte count as percentage ot total leukocytes 11.0 18.0 - 39.1 2017 [facility] Automated blood monocyte count as percentage of total leukocytes Automated blood monocyte count as percentage of total leukocytes 18.4 4.4 - 11.3 2017 [facility] Automated blood neutrophil count Automated blood neutrophil count 3.7 2.1 - 6.9 2017 [facility] Automated blood platelet count (count/volume) Automated blood platelet count (count/volume) 207 140 - 360 2017 [facility] Automated blood segmented neutrophil count as percentage of total leukocytes Automated blood segmented neutrophil count as percentage of total leukocytes 64.5 38.7 - 80.0 2017 [facility] Automated erythrocyte mean corpuscular hemoglobin (mass per erythrocyte) Automated erythrocyte mean corpuscular hemoglobin (mass per erythrocyte) 26.8 28 - 32 2017 [facility] Automated erythrocyte mean corpuscular hemoglobin concentration measurement (mass/volume) Automated erythrocyte mean corpuscular hemoglobin concentration measurement (mass/volume) 32.9 31 - 35 2017 [facility] Automated erythrocyte mean corpuscular volume Automated erythrocyte mean corpuscular volume 81.4 81 - 99 2017 [facility] Blood erythrocytes automated count (number/volume) Blood erythrocytes automated count (number/volume) 3.06 3.6 - 5.1 2017 [facility] Blood hemoglobin measurement (moles/volume) Blood hemoglobin measurement (moles/volume) 8.2 12.0 - 16.0 2017 [facility] Blood leukocytes automated count (number/volume) Blood leukocytes automated count (number/volume) 5.75 4.8 - 10.8 2017 [facility] Blood lymphocytes count (number/volume) Blood lymphocytes count (number/volume) 0.6 1.0 - 3.2 2017 [facility] Blood monocytes automated count (number/volume) Blood monocytes automated count (number/volume) 1.1 0.2 - 0.8 2017 [facility] Estimated glomerular filtration rate (GFR) determination Estimated glomerular filtration rate (GFR) determination 8 60 2017 [facility] Glucose measurement Glucose measurement 41 74 - 118 2017 [facility] Serum or plasma anion gap Serum or plasma anion gap 14.8 8 - 16 2017 [facility] Serum or plasma calcium measurement (mass/volume) Serum or plasma calcium measurement (mass/volume) 7.9 8.4 - 10.2 2017 [facility] Serum or plasma carbon dioxide, total measurement (moles/volume) Serum or plasma carbon dioxide, total measurement (moles/volume) 23 22 - 29 2017 [facility] Serum or plasma chloride measurement (moles/volume) Serum or plasma chloride measurement (moles/volume) 99 98 - 107 2017 [facility] Serum or plasma creatinine measurement (mass/volume) Serum or plasma creatinine measurement (mass/volume) 6.09 0.57 - 1.11 2017 [facility] Serum or plasma potassium measurement (moles/volume) Serum or plasma potassium measurement (moles/volume) 3.8 3.5 - 5.1 2017 [facility] Serum or plasma sodium measurement (moles/volume) Serum or plasma sodium measurement (moles/volume) 133 136 - 145 2017 [facility] Serum or plasma urea nitrogen measurement (mass/volume) Serum or plasma urea nitrogen measurement (mass/volume) 63 7 - 26 2017 [facility] Serum or plasma urea nitrogen/creatinine mass ratio Serum or plasma urea nitrogen/creatinine mass ratio 10 6 - 25 2017 [facility] Red Cell Distribution Width 15.9 11.7 - 14.4 2017 [facility] IM GRANULOCYTES % 0.7 0.0 - 1.0 2017 [facility] Absolute Immature Granulocyte (auto 0.04 0 - 0.1 2017 [facility] Phosphorus measurement Phosphorus measurement 5.8 2.3 - 4.7 09/19/2017 [facility] Plasma globulin measurement (mass/volume) Plasma globulin measurement (mass/volume) 3.7 2.3 - 3.5 09/19/2017 [facility] Serum or plasma alanine aminotransferase measurement (enzymatic activity/volume) Serum or plasma alanine aminotransferase measurement (enzymatic activity/volume) 21 0 - 55 09/19/2017 [facility] Serum or plasma albumin measurement (mass/volume) Serum or plasma albumin measurement (mass/volume) 3.0 3.5 - 5.0 09/19/2017 [facility] Serum or plasma albumin/globulin mass ratio Serum or plasma albumin/globulin mass ratio 0.8 0.8 - 2.0 09/19/2017 [facility] Serum or plasma alkaline phosphatase measurement (enzymatic activity/volume) Serum or plasma alkaline phosphatase measurement (enzymatic activity/volume) 76 40 - 150 09/19/2017 [facility] Serum or plasma magnesium measurement (mass/volume) Serum or plasma magnesium measurement (mass/volume) 1.9 1.3 - 2.1 09/19/2017 [facility] Serum or plasma protein measurement (mass/volume) Serum or plasma protein measurement (mass/volume) 6.7 6.5 - 8.1 09/19/2017 [facility] Serum or plasma total bilirubin measurement (mass/volume) Serum or plasma total bilirubin measurement (mass/volume) 0.4 0.2 - 1.2 09/19/2017 [facility] Aspartate Amino Transf (AST/SGOT) 23 5 - 34 09/19/2017 [facility] B-Type Natriuretic Peptide 1274.1 0 - 100 09/19/2017 [facility] Blood cobalamin (vitamin B12) measurement (mass/volume) Blood cobalamin (vitamin B12) measurement (mass/volume) >2000 213 - 816 09/16/2017 [facility] Serum or plasma folate measurement (mass/volume) Serum or plasma folate measurement (mass/volume) >20.0 7.0 - 15.4 09/16/2017 [facility] Stool gastrointestinal hemoglobin detection Stool gastrointestinal hemoglobin detection NEGATIVE NEGATIVE 09/16/2017 [facility] Serum or plasma creatine kinase MB measurement (mass/volume) Serum or plasma creatine kinase MB measurement (mass/volume) 2.40 0 - 5.0 09/15/2017 [facility] Serum or plasma creatine kinase measurement (enzymatic activity/volume) Serum or plasma creatine kinase measurement (enzymatic activity/volume) 78 29 - 168 09/15/2017 [facility] Troponin I measurement by highly sensitive enzyme immunoassay Troponin I measurement by highly sensitive enzyme immunoassay 0.021 0 - 0.300 09/15/2017 [facility] Serum or plasma iron binding capacity measurement (mass/volume) Serum or plasma iron binding capacity measurement (mass/volume) 274 261 - 478 09/15/2017 [facility] Serum or plasma iron measurement (mass/volume) Serum or plasma iron measurement (mass/volume) 49 50 - 170 09/15/2017 [facility] Serum or plasma iron saturation measurement (mass fraction) Serum or plasma iron saturation measurement (mass fraction) 18 15 - 50 09/15/2017 [facility] Serum or plasma transferrin measurement (mass/volume) Serum or plasma transferrin measurement (mass/volume) 196 180 - 382 09/15/2017 [facility] Serum or plasma calcium measurement (mass/volume) Serum or plasma calcium measurement (mass/volume) 8.4 8.7 - 10.3 09/14/2017 [facility] Serum or plasma complement C3 measurement (mass/volume) Serum or plasma complement C3 measurement (mass/volume) 112 82 - 167 09/14/2017 [facility] Serum or plasma complement C4 measurement (mass/volume) Serum or plasma complement C4 measurement (mass/volume) 31 14 - 44 09/14/2017 [facility] Serum or plasma intact pararthyroid hormone measurement (mass/volume) Serum or plasma intact pararthyroid hormone measurement (mass/volume) 436 15 - 65 09/14/2017 [facility] Parathyroid Hormone Interpretation Comment . 09/14/2017 [facility] Activated partial thromboplastin time (aPTT) in platelet poor plasma bycoagulation assay Activated partial thromboplastin time (aPTT) in platelet poor plasma bycoagulation assay 33.6 23.8 - 35.5 09/14/2017 [facility] Automated urine sediment leukocyte count by microscopy (number/high power field) Automated urine sediment leukocyte count by microscopy (number/high power field) NONE 0 - 5 09/14/2017 [facility] Bacteria detection in urine sediment by light microscopy Bacteria detection in urine sediment by light microscopy NONE NONE 09/14/2017 [facility] Epithelial cells detection in urine sediment by light microscopy Epithelial cells detection in urine sediment by light microscopy MANY NONE 09/14/2017 [facility] Erythrocytes detection in urine sediment by light microscopy Erythrocytes detection in urine sediment by light microscopy NONE 0 - 5 09/14/2017 [facility] INR in Platelet poor plasma by Coagulation assay INR in Platelet poor plasma by Coagulation assay 1.28 09/14/2017 [facility] Prothrombin time (PT) in platelet poor plasma by coagulation assay Prothrombin time (PT) in platelet poor plasma by coagulation assay 15.0 11.9 - 14.5 09/14/2017 [facility] Serum or plasma lipase measurement (enzymatic activity/volume) Serum or plasma lipase measurement (enzymatic activity/volume) 19 8 - 78 09/14/2017 [facility] Serum or plasma thyrotropin measurement by detection limit <=0.005 miu/l (units/volume) Serum or plasma thyrotropin measurement by detection limit <=0.005 miu/l (units/volume) 0.747 0.350 - 4.940 09/14/2017 [facility] Specific gravity of Urine by Test strip Specific gravity of Urine by Test strip 1.010 1.010 - 1.025 09/14/2017 [facility] Urine clarity Urine clarity CLEAR CLEAR 09/14/2017 [facility] Urine color determination Urine color determination YELLOW YELLOW 09/14/2017 [facility] Urine erythrocytes detection Urine erythrocytes detection NEGATIVE NEGATIVE 09/14/2017 [facility] Urine glucose detection Urine glucose detection NEGATIVE NEGATIVE 09/14/2017 [facility] Urine ketones detection by automated test strip Urine ketones detection by automated test strip NEGATIVE NEGATIVE 09/14/2017 [facility] Urine leukocyte esterase detection by dipstick Urine leukocyte esterase detection by dipstick NEGATIVE NEGATIVE 09/14/2017 [facility] Urine nitrite detection Urine nitrite detection NEGATIVE NEGATIVE 09/14/2017 [facility] Urine pH measurement by automated test strip Urine pH measurement by automated test strip 6 5 - 7 09/14/2017 [facility] Urine protein measurement by test strip (mass/volume) Urine protein measurement by test strip (mass/volume) 2+ NEGATIVE 09/14/2017 [facility] Urine total bilirubin measurement (mass/volume) Urine total bilirubin measurement (mass/volume) NEGATIVE NEGATIVE 09/14/2017 [facility] Urine urobilinogen measurement by test strip (mass/volume) Urine urobilinogen measurement by test strip (mass/volume) 0.2 0.2 - 1 09/14/2017 [facility] 24 hour urine albumin/total protein ratio by electrophoresis 24 hour urine albumin/total protein ratio by electrophoresis 71.1 . 09/14/2017 [facility] 24 hour urine alpha 1 globulin/total protein by electrophoresis 24 hour urine alpha 1 globulin/total protein by electrophoresis 6.1 . 09/14/2017 [facility] 24 hour urine alpha 2 globulin/total protein by electrophoresis 24 hour urine alpha 2 globulin/total protein by electrophoresis 9.2 . 09/14/2017 [facility] 24 hour urine beta globulin/total protein ratio by electrophoresis 24 hour urine beta globulin/total protein ratio by electrophoresis 7.6 . 09/14/2017 [facility] 24 hour urine gamma globulin/total protein ratio by electrophoresis 24 hour urine gamma globulin/total protein ratio by electrophoresis 6.0 . 09/14/2017 [facility] Urine creatinine measurement (mass/volume) Urine creatinine measurement (mass/volume) 43.23 47 - 110 09/14/2017 [facility] Urine protein measurement (mass/volume) Urine protein measurement (mass/volume) 89.1 1 - 14 09/14/2017 [facility] Urine protein measurement (mass/volume) Urine protein measurement (mass/volume) 90.1 Not Estab. 09/14/2017 [facility] Urine protein monoclonal/total protein by electrophoresis Urine protein monoclonal/total protein by electrophoresis Not Observed Not Observed 09/14/2017 [facility] Urine sodium measurement (moles/volume) Urine sodium measurement (moles/volume) 79 09/14/2017 [facility] Protein Electrophoresis Note Comment . 09/14/2017 [facility] Pathology Reports No Data Provided for This Section Diagnostic Reports Report Value Date Source Ext Lower Arterial bilat w pressure US Please refer to heart lab report, located under Vascular in [facility]. 06/14/2018 [facility] Foot wo contrast MRI MRI left [...] may be consistent with neuropathic joint. SL: [id number] 06/13/2018 [facility] Foot wo contrast MRI MRI right [...] may be consistent with neuropathic joint. SL: [id number] 06/13/2018 [facility] Chest 1view DX Clinical Indication: Abnormal [...] of acute cardiopulmonary disease. RASHMI: RAYRAY 06/12/2018 [facility] Bone scan 3 phase NM Bone [...] of the feet as clinically indicated. SL: [id number] 06/11/2018 [facility] Ext Lower Arterial Doppler bilat US Patient Name: LEIGHTON GUERRERO : 1950; Age: 67 years y/o Female MR: [id number] Study: Ext Lower Arterial Doppler bilat US [...] left lower extremity arteries. SL: [id number] 06/10/2018 [facility] Foot 2 views bilateral DX Study: [...] and no radiographic evidence of osteomyelitis. SL: [id number] 06/10/2018 [facility] Retroperitoneal Complete US Retroperitoneal ultrasound, complete [...] 1. Unremarkable renal ultrasound. SL: [id number] 06/10/2018 [facility] Humerus AP lateral HISTORY: Fall, pain. RIGHT HUMERUS 2 VIEWS: No fracture subluxation or lesion. SL:13 06/11/2013 [facility] Shoulder series HISTORY: Trauma. RIGHT SHOULDER 3 VIEWS: No acute fracture subluxation or lesion is evident. SL:13 06/11/2013 [facility] Consultation Notes No Data Provided for This Section Discharge Summaries No Data Provided for This Section History and Physicals No Data Provided for This Section Vital Signs Vital Sign Value Date Comments Source Systolic (mm Hg) 185 06/21/2018 [facility] Diastolic (mm Hg) 76 06/21/2018 [facility] Heart Rate 88 06/21/2018 [facility] Temperature Oral (F) 98.5 F 06/21/2018 [facility] Heart Rate 82 06/20/2018 [facility] Systolic (mm Hg) 163 06/20/2018 [facility] Diastolic (mm Hg) 69 06/20/2018 [facility] Respitory Rate 18 06/20/2018 [facility] Temperature Oral (F) 98.5 F 06/20/2018 [facility] Systolic (mm Hg) 193 06/20/2018 [facility] Diastolic (mm Hg) 71 06/20/2018 [facility] Temperature Oral (F) 98.4 F 06/20/2018 [facility] Heart Rate 84 06/20/2018 [facility] Respitory Rate 16 06/19/2018 [facility] Respitory Rate 16 06/19/2018 [facility] BMI Calculated 29.88 06/10/2018 [facility] Weight 71.727 06/10/2018 [facility] Height 154.94 cm 06/10/2018 [facility] Weight 71.727 06/10/2018 [facility] BMI Calculated 29.88 06/10/2018 [facility] Height 154.94 cm 06/10/2018 [facility] Systolic (mm Hg) 184 06/12/2013 [facility] Temperature Oral (F) 98.6 F 06/12/2013 [facility] Respitory Rate 18 06/12/2013 [facility] Diastolic (mm Hg) 89 06/12/2013 [facility] Heart Rate 88 06/12/2013 [facility] Weight 81.818 06/12/2013 [facility] Diastolic (mm Hg) 84 06/12/2013 [facility] Heart Rate 95 06/12/2013 [facility] Respitory Rate 20 06/12/2013 [facility] Systolic (mm Hg) 200 06/12/2013 [facility] Temperature Oral (F) 98.3 F 06/12/2013 [facility] Encounters Location Location Details Encounter Type Encounter Number Reason For Visit Attending Provider ADM Date DC Date Status Source [facility] Outpatient [id number] ROUTINE SCREENING LYUBOV HURST 08/30/2011 Active [facility] Outpatient [id number] COMPLICATIONS AFFECTING OTHER SPECIFIED BODY SYSTEMS, Christiana ASHER 02/13/2012 Active [facility] Emergency [id number] SHOULDER PAIN OR INJURY PIERRE DELGADILLO 06/11/2013 06/11/2013 Active [facility] Discharged Inpatient [id number] LYUBOV HURST MD 09/14/2017 2017 [facility] Inpatient [id number] Magy Mougouris 06/10/2018 06/21/2018 [facility] Procedures Procedure Code Date Perfomer Comments Source Ultrasound, renal [id number] 09/15/2017 LAKESHIA [facility] CT of abdomen and pelvis without contrast [id number] 09/14/2017 MOHAMUD [facility] Cataract surgery<sup>1</sup> [id number] bilateral eyes [facility] Assessment and Plan Assessment and Plan [...] 4.9, [place] [facility] [place]. Metabolic acidosis on p.o. bicarbonate. 3. [...] 06/20/18 Pulido Powell Fall Score 12 06/20/18 [facility] Coma Score 15 06/20/18 Rivera Score 16 06/20/18 Pain Intensity NRS (0-10) 0 Lines, Tubes, and Drains: 06/18/2018 11:01 Peripheral Lines: Forearm Right 22 gauge Over the needle catheter Surgical Procedures: 06/15/18 15:13 ULCER / BONE DEBRIDEMENT, LORENZO HEEL [id number] Primary Surgeon: Mario Hurst DPM (Service: POD) [...] in Water IV (Dextrose 50% Syringe), acetaminophen-hydrocodone ([place] 7.5/325 oral tablet), acetaminophen, cloNIDine, glucagon, insulin [...] (JUN 18) L 7.5 (JUN 16) 06/21/2018 [facility] Plan of Care Plan of Care Date Source Discharge Date 09/20/17 2:58pm Disposition HOME, SELF-CARE Instructions/Education Provided Chest Pain - Noncardiac Prescriptions See Medication Section Referrals JAIRO ASHER MD (Internal Medicine) Order Date: 2 Weeks Entered Date: 2017 9:48am Address: [address] [place] [id number] Additional Instructions/Education ADA DIET ,ACTIVITY TOLERATED ` FLUID RESTRICTION 1200CC PER DAY,MONITOR BLOOD PRESSURE AND FASTING BLOOD SUGAR AT HOME HOLD BLOOD SUGAR MEDICATIONS IF FASTING BLOOD SUGARBELOW 90 , REPEAT BLOOD TEST CBC AND CMP AFTER 5 DAYS 2017 [facility] Social History Social History Date Source [...] at age: 17; entered on: 06/10/18 06/10/2018 [facility] Social History Problem Response Recorded Date/Time [...] Start Date Stop Date Never Smoker 2017 [facility] Family History Value Date Source Relationship Condition Age at Onset Recorded Date/Time 09 Brother Family history of diabetes mellitus Not Recorded 09/15/2017 2:50am 32 Mother Family history of acute myocardial infarction Not Recorded 09/15/2017 2:50am 33 Mother Family history of hypertension Not Recorded 09/15/2017 2:50am 2017 [facility] Advance Directives Order Name Results Value Date Source Advance Directives Advance Directives Directive Response Recorded Date/Time Does the patient have an advance directive? No 11/29/13 1:55pm If yes, is advance directive on file with [facility]? No 09/14/17 10:00pm If not on file with [facility] will patient provide a copy? No 11/29/13 1:55pm Do you have a Directive to Physician? No 09/14/17 5:37pm Do you have a Medical Power of [place]? No 09/14/17 5:37pm Do you have an [...] rights and responsibilities? Yes 09/14/17 5:37pm 2017 [facility] Functional Status No Data Provided for This Section
--- OUTSIDE RECORDS SUMMARY | 2019-02-15 14:02 | XMS REPORT | Continuity of Care Document ---
Author Author [employer] Address Unknown Phone Unavailable Care Team Providers Care Educational Consultant Name Role Phone [employer] Information [employer] Unavailable Unavailable Problems Problem Status Onset Date Classification Date Reported Comments Source Type 2 diabetes mellitus with other specified complication 06/27/2018 01/07/2019 [facility] DKA, ACUTE RENAL FAILURE Active 06/09/2018 [facility] SHOULDER PAIN OR INJURY Active 06/11/2013 [facility] COMPLICATIONS AFFECTING OTHER SPECIFIED BODY SYSTEMS, H Active 02/08/2012 [facility] ROUTINE SCREENING Active 08/24/2011 [facility] Anemia Active Problem 2017 [facility] Cardiomegaly Active Problem 2017 [facility] Congestive heart failure with left ventricular diastolic dysfunction Active Problem 2017 [facility] Kidney failure Active Problem 2017 [facility] Obesity Active Problem 2017 [facility] Weakness Active Problem 2017 [facility] Diabetes mellitus type 2 Active Problem 01/07/2019 [facility] HTN - Hypertension Active Problem 01/07/2019 [facility] Hyperlipidemia Active Problem 01/07/2019 [facility] Acute kidney failure, unspecified 01/07/2019 [facility] Gas gangrene 01/07/2019 [facility] Osteomyelitis, unspecified 01/07/2019 [facility] Non-pressure chronic ulcer of left heel and midfoot with unspecified severity 01/07/2019 [facility] Non-pressure chronic ulcer of right heel and midfoot with unspecified severity 01/07/2019 [facility] Hypertensive heart and chronic kidney disease with heart failure and with stage 5 chronic kidney disease, or end stage renal disease 01/07/2019 [facility] Hypo-osmolality and hyponatremia 01/07/2019 [facility] Acidosis 01/07/2019 [facility] Type 2 diabetes mellitus with diabetic peripheral angiopathy with gangrene 01/07/2019 [facility] Cutaneous abscess of left foot 01/07/2019 [facility] Cellulitis of left lower limb 01/07/2019 [facility] Type 2 diabetes mellitus with foot ulcer 01/07/2019 [facility] Type 2 diabetes mellitus with diabetic nephropathy 01/07/2019 [facility] Type 2 diabetes mellitus with hyperglycemia 01/07/2019 [facility] End stage renal disease 01/07/2019 [facility] Type 2 diabetes mellitus with unspecified diabetic retinopathy without macular edema 01/07/2019 [facility] Heart failure, unspecified 01/07/2019 [facility] Hyperlipidemia, unspecified 01/07/2019 [facility] Type 2 diabetes mellitus with diabetic polyneuropathy 01/07/2019 [facility] Patient's noncompliance with other medical treatment and regimen 01/07/2019 [facility] Personal history of nicotine dependence 01/07/2019 [facility] Hypokalemia 01/07/2019 [facility] 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 01/07/2019 [facility] Type 2 diabetes mellitus with diabetic chronic kidney disease 01/07/2019 [facility] ACUTE KIDNEY FAILURE, UNSPECIFIED Active [facility] SINGLE LIVEBORN INFANT, DELIVERED VAGINA Active [facility] Medications Medication Details Route Status Patient Instructions Ordering Provider Order Date Source Doxycycline 150 MG Oral Capsule 150 mg=1 cap, PO, BID, X 10 day, # 84 cap, 0 Refill(s), Pharmacy: [facility] [place] [id number] No Longer Active 06/20/2018 [facility] Ciprofloxacin 500 MG Oral Tablet [Cipro] 500 mg=1 tab, PO, Q12H, # 84 tab, 0 Refill(s), Pharmacy: [facility] [id number] Inactive 06/20/2018 [facility] Hydralazine 10 mg, 0.5 mL, Route: IV, Drug form: INJ, ONCE, Dosing Weight 71.727, kg, Start date: 06/18/18 15:41:00 WELFARE PROJECT MANAGER, Stop date: 06/18/18 15:41:00 CSTNotes: (Same as: Apresoline) Push over 5 minutes Inactive 06/18/2018 [facility] Acetaminophen 325 MG / Hydrocodone Bitartrate 7.5 MG Oral Tablet [[place] 7.5/325] 1 tab, Route: PO, Drug Form: TAB, Dosing Weight 71.727, kg, Q6H, PRN Pain Score 4-6, Start date: 06/16/18 11:53:00 WELFARE PROJECT MANAGER, Duration: 30 day, Stop date: 07/16/18 11:52:00 CSTNotes: Same as [place] 325-7.5mg Do not exceed 4gm/day of acetaminophen. No Longer Active 06/16/2018 [facility] Oxycodone 5 mg, 1 tab, Route: PO, Drug form: TAB, Q4H, Dosing Weight 71.727, kg, PRN Pain Score 4-6, Start date: 06/15/18 16:21:00 WELFARE PROJECT MANAGER, Duration: 30 day, Stop date: 07/15/18 16:20:00 CSTNotes: (Same as: Roxicodone) No Longer Active 06/15/2018 [facility] Acetaminophen 1,000 mg, 2 tab, Route: PO, Drug form: TAB, ONCE, Dosing Weight 71.727, kg, PRN Pain Score 1-3, Start date: 06/15/18 16:21:00 CSTNotes: Max acetaminophen 4000 mg/day (4 gm/day). (Same as: Tylenol Extra Strength) No Longer Active 06/15/2018 [facility] Labetalol 10 mg, 2 mL, Route: IVP, Drug form: INJ, Q5Min, Dosing Weight 71.727, kg, PRN Elevated BP, Start date: 06/15/18 16:21:00 WELFARE PROJECT MANAGER, Duration: 5 doses or times, Stop date: Limited # of timesNotes: (Same as: No rmodyne, Trandate) Push over 2 minutes Give bolus over 2-3 minutes. No Longer Active 06/15/2018 [facility] Hydralazine 10 mg, 0.5 mL, Route: IVP, Drug form: INJ, Q20Min, Dosing Weight 71.727, kg, PRN Elevated BP, Start date: 06/15/18 16:21:00 WELFARE PROJECT MANAGER, Duration: 2 doses or times, Stop date: Limited # of timesNotes: (Same as: Apresoline) Push over 5 minutes No Longer Active 06/15/2018 [facility] Ondansetron 4 mg, 2 mL, Route: IVP, Drug form: INJ, ONCE, Dosing Weight 71.727, kg, PRN Nausea & Vomiting, Start date: 06/15/18 16:21:00 CSTNotes: (Same as: Zofran) MEDICATION WASTE Product Size: 4 mg Product Wasted: ___ mg No Longer Active 06/15/2018 [facility] Diphenhydramine 12.5 mg, 0.25 mL, Route: IVP, Drug form: INJ, Q6H, Dosing Weight 71.727, kg, PRN Itching, Start date: 06/15/18 16:21:00 WELFARE PROJECT MANAGER, Duration: 30 day, Stop date: 07/15/18 16:20:00 CSTNotes: (Same as: Manasa caballero) No Longer Active 06/15/2018 [facility] Naloxone 0.4 mg, 1 mL, Route: IVP, Drug form: INJ, Q2MIN, Dosing Weight 71.727, kg, PRN Narcotic Reversal, Start date: 06/15/18 16:21:00 WELFARE PROJECT MANAGER, Duration: 8 doses or times, Stop date: Limited # of timesNotes: Same as Narcan No Longer Active 06/15/2018 [facility] Flumazenil 0.2 mg, 2 mL, Route: IVP, Drug form: INJ, PRN, Dosing Weight 71.727, kg, PRN Benzodiazepine Reversal, Initial dose, Start date: 06/15/18 16:21:00 WELFARE PROJECT MANAGER, Duration: 30 day, Stop date: 07/15/18 16:20:00 C STNotes: (Same as: Romazicon) No Longer Active 06/15/2018 [facility] Fentanyl 50 microgram, 1 mL, Route: IVP, Drug form: INJ, Q5Min, Dosing Weight 71.727, kg, PRN Pain Score 7-10, Priority: Routine, Start date: 06/15/18 16:21:00 WELFARE PROJECT MANAGER, Duration: 2 doses or times, Stop date: Limited # of timesNotes: (Same as: Sublimaze) Preservative free. No Longer Active 06/15/2018 [facility] Hydromorphone 0.5 mg, 0.5 mL, Route: IVP, Drug form: SOLN, Q5Min, Dosing Weight 71.727, kg, PRN Pain Score 7-10, Start date: 06/15/18 16:21:00 WELFARE PROJECT MANAGER, Duration: 4 doses or times, Stop date: Limited # of timesNotes: ( Same as: Dilaudid) No Longer Active 06/15/2018 [facility] phenylephrine (ANES) Route: IV, Drug form: INJ, ONCE, Stop date: 06/15/18 16:03:00 WELFARE PROJECT MANAGER Inactive 06/15/2018 [facility] metoclopramide (ANES) Route: IV, Drug form: INJ, ONCE, Stop date: 06/15/18 15:48:00 WELFARE PROJECT MANAGER Inactive 06/15/2018 [facility] propofol (ANES) Route: IV, Drug form: INJ, ONCE, Stop date: 06/15/18 15:48:00 WELFARE PROJECT MANAGER Inactive 06/15/2018 [facility] fentaNYL (ANES) Route: IV, Drug form: INJ, ONCE, Stop date: 06/15/18 15:48:00 WELFARE PROJECT MANAGER Inactive 06/15/2018 [facility] lidocaine (ANES) Route: IV, Drug form: INJ, ONCE, Stop date: 06/15/18 15:48:00 WELFARE PROJECT MANAGER Inactive 06/15/2018 [facility] ondansetron (ANES) Route: IV, Drug form: INJ, ONCE, Stop date: 06/15/18 15:48:00 WELFARE PROJECT MANAGER Inactive 06/15/2018 [facility] midazolam (ANES) Route: IV, Drug form: SOLN, ONCE, Stop date: 06/15/18 15:43:00 WELFARE PROJECT MANAGER Inactive 06/15/2018 [facility] Sodium Chloride 0.9% IV (ANES) 1000 mL Route: IV, Total Volume: 1,000, Start date: 06/15/18 14:58:00 WELFARE PROJECT MANAGER, Stop date: 06/15/18 15:58:00 WELFARE PROJECT MANAGER Inactive 06/15/2018 [facility] NS 500 mL 500 mL, Rate: 10 ml/hr, Infuse over: 50 hr, Route: IV, Dosing Weight 71.727 kg, Total Volume: 500, Start date: 06/15/18 13:53:00 WELFARE PROJECT MANAGER, Duration: 1 day, Stop date: 06/16/18 13:52:00 WELFARE PROJECT MANAGER, 1.78, m2 No Longer Active 06/15/2018 [facility] Clonidine 0.1 mg, 1 tab, Route: PO, Drug form: TAB, Q6H, Dosing Weight 71.727, kg, PRN Elevated BP, Start date: 06/14/18 6:40:00 WELFARE PROJECT MANAGER, Duration: 30 day, Stop date: 07/14/18 6:39:00 CSTNotes: (Same As: Catapres) No Longer Active 06/14/2018 [facility] Lasix 40 mg, 4 mL, Route: IVP, Drug form: INJ, ONCE, Dosing Weight 71.727, kg, Start date: 06/13/18 17:48:00 WELFARE PROJECT MANAGER, Stop date: 06/13/18 17:48:00 CSTNotes: (Same as: Lasix) MEDICATION WASTE Product Size: 40 mg Product Wasted: ___ mg Inactive 06/13/2018 [facility] Potassium Chloride 40 mEq, 2 tab, Route: PO, Drug form: ERTAB, ONCE, Dosing Weight 71.727, kg, Start date: 06/12/18 16:21:00 WELFARE PROJECT MANAGER, Stop date: 06/12/18 16:21:00 CSTNotes: (Same as: K-Dur 20) "Do Not Crush" Give with food and full glass of water For patients unable to swallow tablet, dissolve in one half glass of water. Allow about 2 minutes for the tablets to disintegrate. Stir before giving to prepare slurry and administer. Please exclude Patients with feeding tube less than 14 [place] (Dobhoff, J-tube etc) and pediatric and patients. Inactive 06/12/2018 [facility] Zyvox 600 mg, 1 tab, Route: PO, Drug form: TAB, [id number], Dosing Weight 71.727, kg, Start date: 06/12/18 12:00:00 WELFARE PROJECT MANAGER, Duration: 10 day, Stop date: 06/22/18 0:00:00 WELFARE PROJECT MANAGER, ABX Indication: Bone/Joint InfectionNotes: Protect from light. (Same as: Zyvox) No Longer Active 06/12/2018 [facility] Acetaminophen 325 MG / Hydrocodone Bitartrate 5 MG Oral Tablet [[place] 5/325] 1 tab, Route: PO, Drug Form: TAB, Dosing Weight 71.727, kg, Q8H, PRN Pain Score 7-10, Start date: 06/11/18 19:56:00 WELFARE PROJECT MANAGER, Duration: 30 day, Stop date: 07/11/18 19:55:00 CSTNotes: (Same as: [place] 325/5) Do not exceed 4gm/day of acetaminophen. No Longer Active 06/12/2018 [facility] Vancomycin Dosing Protocol Vancomycin Dosing Protocol, Reminder, Drug form: MISC, Route: MISC, Continuous, 06/11/18 13:30:00 WELFARE PROJECT MANAGER, Duration: 30 day, Stop date: 07/11/18 13:29:00 WELFARE PROJECT MANAGER No Longer Active 06/11/2018 [facility] Ceftriaxone 1 gm, Route: IVP, [id number], Dosing Weight 71.727, kg, Start date: 06/11/18 11:00:00 WELFARE PROJECT MANAGER, Duration: 14 day, Stop date: 06/24/18 11:00:00 WELFARE PROJECT MANAGER, ABX Indication: Bone/Joint InfectionNotes: (Same As: Rocephin). Use with 100 mL NS and infuse over 30 min MEDICATION WASTE Product Size: 1000 mg Product Wasted: ___ mg No Longer Active 06/11/2018 [facility] Vancomycin 1 ea, Route: MISC, ONCALL, Dosing Weight 71.727, kg, Start date: 06/11/18 11:00:00 WELFARE PROJECT MANAGER, Duration: 14 day, Stop date: 06/25/18 10:59:00 WELFARE PROJECT MANAGER, Pharmacy to dose, ABX Indication: Bone/Joint Infection Inactive 06/11/2018 [facility] Pravastatin 40 mg, 2 tab, Route: PO, Drug form: TAB, Daily, Dosing Weight 71.727, kg, Start date: 06/11/18 9:00:00 WELFARE PROJECT MANAGER, Duration: 30 day, Stop date: 07/10/18 21:00:00 CSTNotes: (Same as: Pravachol) No Longer Active 06/11/2018 [facility] gabapentin 100 MG Oral Capsule 100 mg, 1 cap, Route: PO, Drug form: CAP, BID, Dosing Weight 71.727, kg, Start date: 06/11/18 9:00:00 WELFARE PROJECT MANAGER, Duration: 30 day, Stop date: 07/10/18 17:00:00 WELFARE PROJECT MANAGER No Longer Active 06/11/2018 [facility] Famotidine 40 mg, Route: PO, BID, Dosing Weight 71.727, kg, Start date: 06/11/18 9:00:00 WELFARE PROJECT MANAGER, Duration: 30 day, Stop date: 07/10/18 17:00:00 WELFARE PROJECT MANAGER No Longer Active 06/11/2018 [facility] Neurontin 50 mg, 1 mL, Route: PO, Drug form: SOLN, Q24H, Start date: 06/10/18 22:00:00 WELFARE PROJECT MANAGER, Duration: 30 day, Stop date: 07/09/18 22:00:00 CSTNotes: (Same as: Neurontin) No Longer Active 06/11/2018 [facility] famotidine 20 mg, 1 tab, Route: PO, Drug form: TAB, Q24H, Start date: 06/10/18 22:00:00 WELFARE PROJECT MANAGER, Duration: 30 day, Stop date: 07/09/18 22:00:00 CSTNotes: (Same as: Pepcid) No Longer Active 06/11/2018 [facility] Hydralazine Hydrochloride 50 MG Oral Tablet 50 mg, 1 tab, Route: PO, Drug form: TAB, BID, Dosing Weight 71.727, kg, Start date: 06/10/18 21:30:00 WELFARE PROJECT MANAGER, Duration: 30 day, Stop date: 07/10/18 17:00:00 CSTNotes: (Same as: Apresoline) May interfere w/enteral feedings Take With Food No Longer Active 06/11/2018 [facility] carvedilol 25 mg, 2 tab, Route: PO, Drug form: TAB, BID, Dosing Weight 71.727, kg, Start date: 06/10/18 21:30:00 WELFARE PROJECT MANAGER, Duration: 30 day, Stop date: 07/10/18 21:00:00 CSTNotes: Give with food. (Same As: Coreg) No Longer Active 06/11/2018 [facility] Glucagon 1 mg, Route: IM, PRN, Dosing Weight 71.727, kg, PRN Blood Glucose Results, Start date: 06/10/18 20:52:00 WELFARE PROJECT MANAGER, Duration: 30 day, Stop date: 07/10/18 20:51:00 WELFARE PROJECT MANAGER Inactive 06/11/2018 [facility] Dextrose 50% Syringe 50 mL, Route: IVP, Dosing Weight 71.727, kg, PRN, PRN Blood Glucose Results, Start date: 06/10/18 20:52:00 WELFARE PROJECT MANAGER, Duration: 30 day, Stop date: 07/10/18 20:51:00 WELFARE PROJECT MANAGER Inactive 06/11/2018 [facility] Insulin Lispro 2 unit, 0.02 mL, Route: SUB-Q, Drug form: SOLN, TID-Before Meals, Dosing Weight 71.727, kg, PRN Blood Glucose Results, Start date: 06/10/18 20:52:00 WELFARE PROJECT MANAGER, Duration: 30 day, Stop date: 07/10/18 20:51:0 0 CSTNotes: (Same as: Humalog ) Roll in palms of hands gently; Do not shake `vigorously. "Single Patient Use Only " WASTE: F/P - Black; E - Municipal Trash Bin Stable for 28 days at room temperature. Expires in days from Date No Longer Active 06/11/2018 [facility] Vancomycin 1,000 mg, Route: IVPB, [id number], Dosing Weight 71.727, kg, Start date: 06/10/18 14:00:00 WELFARE PROJECT MANAGER, Duration: 1 day, Stop date: 06/10/18 14:00:00 WELFARE PROJECT MANAGER, ABX Indication: Bone/Joint InfectionNotes: TIME CRITICAL MEDICATION (Same As: Vancocin) Infusion rate 2001 mg: infuse over 2.5 hours For adult patients only: Round to nearest 250 mg per Medical Staff approval MEDICATION WASTE Product Size: 1000 mg Product Wasted: ___ mg Inactive 06/10/2018 [facility] Sodium Bicarbonate 650 mg, 1 tab, Route: PO, Drug form: TAB, TID, Dosing Weight 71.727, kg, Start date: 06/10/18 13:00:00 WELFARE PROJECT MANAGER, Duration: 30 day, Stop date: 07/10/18 9:00:00 CSTNotes: "Dissolve tablet in a glass of water prior to oral administration. STOMACH WARNING: To avoid serious injury, do not take until tablet is completely dissolved. It is very important not to take this product when overly full from food or drink." No Longer Active 06/10/2018 [facility] Docusate 100 mg, 1 cap, Route: PO, Drug form: CAP, BID, Dosing Weight 71.727, kg, Start date: 06/10/18 9:00:00 WELFARE PROJECT MANAGER, Duration: 30 day, Stop date: 07/09/18 17:00:00 CSTNotes: (Same as: Colace) (Do Not Crush) No Longer Active 06/10/2018 [facility] gabapentin 100 MG Oral Capsule 100 mg=1 cap, PO, BID, 0 Refill(s) Active 06/10/2018 [facility] Famotidine 40 mg, PO, BID, # 60 tab, 0 Refill(s) Active 06/10/2018 [facility] glimepiride 1 mg oral tablet 1 mg=1 tab, PO, Daily, 0 Refill(s) Active 06/10/2018 [facility] pravastatin 40 mg oral tablet 40 mg=1 tab, PO, Daily, 0 Refill(s) Active 06/10/2018 [facility] carvedilol 25 mg, PO, BID, 0 Refill(s) Active 06/10/2018 [facility] Hydralazine Hydrochloride 50 MG Oral Tablet 50 mg=1 tab, PO, BID, 0 Refill(s) Active 06/10/2018 [facility] Folic Acid 1 MG Oral Tablet 1 mg=1 tab, PO, Daily, 0 Refill(s) Active 06/10/2018 [facility] Furosemide 40 MG Oral Tablet 40 mg=1 tab, PO, Q8H, 0 Refill(s) Active 06/10/2018 [facility] Streptococcus pneumoniae serotype 1 capsular antigen diphtheria [id number] protein conjugate vaccine / Streptococcus pneumoniae serotype 14 capsular antigen diphtheria [id number] protein conjugate vaccine / Streptococcus pneumoniae serotype 18C capsular antigen d 0.5 mL, Route: IM, Drug Form: INJ, ONCALL, Start date: 06/10/18 1:56:07 WELFARE PROJECT MANAGER, Stop date: 07/10/18 1:51:07 CSTNotes: Shake well prior to use (Same as: Prevnar 13) No Longer Active 06/10/2018 [facility] cefepime 1 gm, Route: IVPB, [id number], Dosing Weight 71.727, kg, (CrCl Notes: (Same As: Maxipime) MEDICATION WASTE Product Size: 1000 mg Product Wasted: ___ mg No Longer Active 06/10/2018 [facility] Clindamycin 600 mg, 50 mL, Route: IVPB, Drug form: INJ, [id number], Dosing Weight 71.727, kg, Start date: 06/10/18 1:00:00 WELFARE PROJECT MANAGER, Duration: 7 day, Stop date: 06/16/18 17:00:00 WELFARE PROJECT MANAGER, ABX Indication: Skin/Soft Tissue Inf ection No Longer Active 06/10/2018 [facility] Dextrose 50% Syringe 25 gm, Route: IVP, Dosing Weight 71.727, kg, ONCE, STAT, Start date: 06/10/18 0:39:00 WELFARE PROJECT MANAGER, Stop date: 06/10/18 0:39:00 WELFARE PROJECT MANAGER Inactive 06/10/2018 [facility] Insulin Lispro 4 unit, 0.04 mL, Route: SUB-Q, Drug form: SOLN, Bedtime, Dosing Weight 71.727, kg, PRN Blood Glucose Results, Start date: 06/10/18 0:27:00 WELFARE PROJECT MANAGER, Duration: 30 day, Stop date: 07/10/18 0:26:00 CSTNotes: (S kris as: Humalog ) Roll in palms of hands gently; Do not shake `vigorously. "Single Patient Use Only " WASTE: F/P - Black; E - Municipal Trash Bin Stable for 28 days at room temperature. Expires in days from Date No Longer Active 06/10/2018 [facility] Dextrose 50% Syringe 25 gm, 50 mL, Route: IVP, Drug Form: INJ, Dosing Weight 71.727, kg, PRN, PRN Blood Glucose Results, Start date: 06/10/18 0:27:00 WELFARE PROJECT MANAGER, Duration: 30 day, Stop date: 07/10/18 0:26:00 WELFARE PROJECT MANAGER No Longer Active 06/10/2018 [facility] Glucagon 1 mg, Route: IM, Drug form: PDR/INJ, PRN, Dosing Weight 71.727, kg, PRN Blood Glucose Results, Start date: 06/10/18 0:27:00 WELFARE PROJECT MANAGER, Duration: 30 day, Stop date: 07/10/18 0:26:00 WELFARE PROJECT MANAGER Inactive 06/10/2018 [facility] NS 1,000 mL 1,000 mL, Rate: 75 ml/hr, Infuse over: 13.3 hr, Route: IV, Dosing Weight 71.727 kg, Total Volume: 1,000, Start date: 06/10/18 0:23:00 WELFARE PROJECT MANAGER, Duration: 30 day, Stop date: 07/10/18 0:22:00 WELFARE PROJECT MANAGER, 1.78, m2 No Longer Active 06/10/2018 [facility] Dextrose 50% Syringe 12.5 gm, 25 mL, Route: IVP, Drug Form: INJ, Dosing Weight 71.727, kg, PRN, PRN Blood Glucose Results, Start date: 06/10/18 0:20:00 WELFARE PROJECT MANAGER, Duration: 30 day, Stop date: 07/10/18 0:19:00 WELFARE PROJECT MANAGER No Longer Active 06/10/2018 [facility] Acetaminophen 650 mg, 2 tab, Route: PO, Drug form: TAB, Q4H, Dosing Weight 71.727, kg, PRN For Temp > 100.4 F, Start date: 06/10/18 0:20:00 WELFARE PROJECT MANAGER, Duration: 30 day, Stop date: 07/10/18 0:19:00 CSTNotes: Do not exceed 4 gm/day. (Same as: Tylenol) No Longer Active 06/10/2018 [facility] Glucagon 1 mg, Route: IM, Drug form: PDR/INJ, PRN, Dosing Weight 71.727, kg, PRN Blood Glucose Results, Start date: 06/10/18 0:20:00 WELFARE PROJECT MANAGER, Duration: 30 day, Stop date: 07/10/18 0:19:00 WELFARE PROJECT MANAGER No Longer Active 06/10/2018 [facility] Glimepiride 2 Mg Tablet, 4 Mg Oral Active 2017 [facility] [place] 5/325 oral tablet 1-2 tab, PO, Q4-6H, Pain, # 15 tab, 0 Refill(s) Active [facility] 06/12/2013 [facility] Zofran 4 mg, Route: IVP, Drug form: INJ, ONCE, Dosing Weight 81.818, kg, Priority: STAT, Start date: 06/11/13 20:36:00, Stop date: 06/11/13 20:36:00 Inactive [facility] 06/12/2013 [facility] morphine Sulfate 4 mg, Route: IVP, Drug form: INJ, ONCE, Dosing Weight 81.818, kg, Priority: STAT, Start date: 06/11/13 20:35:00, Stop date: 06/11/13 20:35:00 Inactive [facility] 06/12/2013 [facility] Amlodipine Besylate 10 Mg Tablet Daily Active [facility] Carvedilol 12.5 Mg Tablet Twice A Day Active [facility] Ferrous Sulfate 325 Mg Tablet.dr Daily Active [facility] Folic Acid 1 Mg Tablet Daily Active [facility] Furosemide 40 Mg Tablet Daily Active [facility] Glimepiride 2 Mg Tablet Daily Active [facility] Hydralazine Hcl 25 Mg Tab Active [facility] Loratadine 10 Mg Tablet Daily Active [facility] Pravastatin Sodium 40 Mg Tablet Daily Active [facility] Sitagliptin Phosphate (Januvia) 100 Mg Tablet Daily Active [facility] Allergies, Adverse Reactions, Alerts Substance Category Reaction Severity Reaction type Status Date Reported Comments Source No Known Medication Allergies Assertion Drug allergy [facility] Immunizations Immunization Date Given Site Status Last Updated Comments Source influenza virus vaccine, inactivated 06/21/2018 Left Deltoid completed Ty [facility] Results Order Name Results Value Reference [...] should be multiplied by the estimated BMI. [facility] CHEM PANEL AGAP 14.5 10.0 - 20.0 06/20/2018 [facility] CHEM PANEL Calcium Lvl 8.1 8.5 - 10.5 06/20/2018 [facility] CHEM PANEL CO2 19 24 - 32 06/20/2018 [facility] CHEM PANEL Chloride Lvl 104 95 - 109 06/20/2018 [facility] CHEM PANEL Potassium Lvl 3.5 3.5 - 5.1 06/20/2018 [facility] CHEM PANEL Creatinine Lvl 4.84 0.50 - 1.40 06/20/2018 [facility] CHEM PANEL BUN 53 7 - 22 06/20/2018 [facility] CHEM PANEL Sodium Lvl 134 135 - 145 06/20/2018 [facility] CHEM PANEL Glucose Lvl 156 70 - 99 06/20/2018 [facility] CHEM PANEL eGFR 10 06/19/2018 Result [...] should be multiplied by the estimated BMI. [facility] CHEM PANEL Chloride Lvl 107 95 - 109 06/19/2018 [facility] CHEM PANEL Sodium Lvl 140 135 - 145 06/19/2018 [facility] CHEM PANEL Creatinine Lvl 4.94 0.50 - 1.40 06/19/2018 [facility] CHEM PANEL BUN 56 7 - 22 06/19/2018 [facility] CHEM PANEL AGAP 17.7 10.0 - 20.0 06/19/2018 [facility] CHEM PANEL Calcium Lvl 7.9 8.5 - 10.5 06/19/2018 [facility] CHEM PANEL CO2 19 24 - 32 06/19/2018 [facility] CHEM PANEL Potassium Lvl 3.7 3.5 - 5.1 06/19/2018 [facility] CHEM PANEL Glucose Lvl 142 70 - 99 06/19/2018 [facility] CHEM PANEL eGFR 9 06/18/2018 Result [...] should be multiplied by the estimated BMI. [facility] CHEM PANEL AGAP 15.8 10.0 - 20.0 06/18/2018 [facility] CHEM PANEL CO2 18 24 - 32 06/18/2018 [facility] CHEM PANEL Calcium Lvl 7.7 8.5 - 10.5 06/18/2018 [facility] CHEM PANEL Chloride Lvl 107 95 - 109 06/18/2018 [facility] CHEM PANEL Potassium Lvl 3.8 3.5 - 5.1 06/18/2018 [facility] CHEM PANEL Sodium Lvl 137 135 - 145 06/18/2018 [facility] CHEM PANEL Creatinine Lvl 5.10 0.50 - 1.40 06/18/2018 [facility] CHEM PANEL BUN 58 7 - 22 06/18/2018 [facility] CHEM PANEL Glucose Lvl 117 70 - 99 06/18/2018 [facility] HEMATOLOGY Lymphocytes # 0.5 1.0 - 5.5 06/16/2018 [facility] HEMATOLOGY Monocytes # 1.6 0.0 - 0.8 06/16/2018 [facility] HEMATOLOGY Basophils # 0.1 0.0 - 0.2 06/16/2018 [facility] HEMATOLOGY Eosinophils 0.1 0.0 - 4.0 06/16/2018 [facility] HEMATOLOGY Monocytes 8.0 2.0 - 12.0 06/16/[address] [facility] Neutrophils # 17.9 1.5 - 8.1 06/16/[address] [facility] Basophils 0.3 0.0 - 1.0 06/16/2018 [facility] HEMATOLOGY Segs 89.1 45.0 - 75.0 [...] HEMATOLOGY WBC 20.1 3.7 - 10.4 06/16/2018 [facility] HEMATOLOGY MCV 88.1 80.0 - 98.0 06/16/2018 [facility] HEMATOLOGY Hct 29.3 36.0 - 48.0 06/16/2018 [facility] HEMATOLOGY MCH 27.8 27.0 - 31.0 06/16/2018 [facility] IMIPENEM:SUSC:PT:ISOLATE:ORDQN:KERVIN Gram Stain Report Many Gram Negative Rods Many Gram Positive Cocci Many Wbc 06/15/2018 [facility] IMIPENEM:SUSC:PT:ISOLATE:ORDQN:KERVIN Culture: Wound/Abscess w/Gram Stain Many Citrobacter Freundii Complex Growth In Subculture Broth Only : Enterococcus Species Many Pseudomonas aeruginosa Refer To Culture # [id number], collected on 06/15/18 For Susceptibility Results 06/15/2018 [facility] IMIPENEM:SUSC:PT:ISOLATE:ORDQN:KERVIN Citrobacter Freundii Complex Citrobacter Freundii Complex 06/15/2018 [facility] Culture: Anaerobic No Anaerobes Isolated 06/15/2018 [facility] Culture: Anaerobic Many Prevotella Species Beta Lactamase Negative . Many Bacteroides Species Beta Lactamase Positive 06/15/2018 [facility] CEFEPIME:SUSC:PT:ISOLATE:ORDQN:KERVIN Gram Stain Report Few Wbc'S; Moderate Gram Positive Cocci 06/15/2018 [facility] CEFEPIME:SUSC:PT:ISOLATE:ORDQN:KERVIN Culture: Wound/Abscess w/Gram Stain Few Pseudomonas aeruginosa Moderate Enterococcus Species . Few Yeast 06/15/2018 [facility] CEFEPIME:SUSC:PT:ISOLATE:ORDQN:KERVIN Enterococcus Species Enterococcus Species 06/15/2018 [facility] CEFEPIME:SUSC:PT:ISOLATE:ORDQN:KEVRIN Pseudomonas aeruginosa Pseudomonas aeruginosa 06/15/2018 [facility] BLOOD BANK RESULTS ABO/Rh B POS 06/15/2018 [facility] BLOOD BANK RESULTS Antibody Scrn Negative (06/15/18 7:13 AM) 06/15/2018 [facility] HEMATOLOGY Eosinophils # 0.1 0.0 - 0.5 06/15/2018 [facility] HEMATOLOGY Monocytes # 1.5 0.0 - 0.8 06/15/2018 [facility] HEMATOLOGY Basophils # 0.1 0.0 - 0.2 06/15/2018 [facility] HEMATOLOGY Lymphocytes # 0.7 1.0 - 5.5 06/15/2018 [facility] HEMATOLOGY Basophils 0.3 0.0 - 1.0 06/15/2018 [facility] HEMATOLOGY Neutrophils # 15.0 1.5 - 8.1 06/15/2018 [facility] HEMATOLOGY Segs 86.0 45.0 - 75.0 06/15/2018 [facility] HEMATOLOGY Lymphocytes 4.1 20.0 - 40.0 06/15/2018 [facility] HEMATOLOGY Monocytes 8.7 2.0 - 12.0 06/15/2018 [facility] HEMATOLOGY Eosinophils 0.9 0.0 - 4.0 [...] Plt Morph Normal (06/14/18 5:45 AM) 06/14/2018 [facility] HEMATOLOGY RBC Morph Normal (06/14/18 5:45 AM) 06/14/[address] [facility] Monocytes 9.1 2.0 - 12.0 06/14/[address] [facility] Eosinophils 0.6 0.0 - 4.0 06/14/[address] [facility] Lymphocytes 4.1 20.0 - 40.0 06/14/[address] [facility] Neutrophils # 15.6 1.5 - 8.1 06/14/2018 [facility] HEMATOLOGY Segs 85.9 45.0 - 75.0 06/14/2018 [facility] HEMATOLOGY Basophils 0.3 0.0 - 1.0 06/14/2018 [facility] HEMATOLOGY Platelet 337 133 - 450 06/14/2018 [facility] HEMATOLOGY RDW 15.3 11.5 - 14.5 06/14/2018 [facility] HEMATOLOGY Hct 29.8 36.0 - 48.0 06/14/2018 [facility] HEMATOLOGY RBC 3.43 4.20 - 5.40 06/14/2018 [facility] HEMATOLOGY Hgb 9.7 12.0 - 16.0 06/14/[address] [facility] MCV 86.8 80.0 - 98.0 06/14/[address] [facility] MPV 7.4 7.4 - 10.4 06/14/[address] [facility] MCHC 32.5 32.0 - 36.0 06/14/[address] [facility] MCH 28.2 27.0 - 31.0 06/14/2018 [facility] HEMATOLOGY WBC 18.1 3.7 - 10.4 06/14/2018 [facility] TOXICOLOGY Vanco Lvl 16.9 06/14/2018 [facility] BLOOD BANK RESULTS RBC product Product available 4 (06/13/18 2:59 PM) 06/13/2018 Result Comment: 06/13/2018 15:36 [id number]
spoke to [email or web address] on 06/13/2018 15:36 by Karri. [facility] CHEM PANEL Phosphorus 5.5 2.5 - 4.5 06/13/2018 [facility] CHEM PANEL Magnesium Lvl 1.8 1.8 - 2.4 06/13/2018 [facility] CHEM PANEL Phosphorus 5.8 2.5 - 4.5 06/12/2018 [facility] CHEM PANEL Magnesium Lvl 1.9 1.8 - 2.4 06/12/2018 [facility] HEMATOLOGY Eosinophils # 0.1 0.0 - 0.5 06/12/2018 [facility] SPECIAL CHEMISTRY Hgb A1C 6.3 <=5.6 % 06/12/2018 [facility] TOXICOLOGY Vanco Lvl 25.2 06/12/2018 [facility] ANEMIA STUDY Ferritin Lvl 839 5 - 204 06/11/2018 [facility] ANEMIA STUDY % [place] 26 12 - 57 06/11/2018 [facility] ANEMIA STUDY Iron 27 30 - 160 06/11/2018 [facility] ANEMIA STUDY TIBC 104 228 - 428 06/11/2018 [facility] ANEMIA STUDY UIBC 77 110 - 370 06/11/2018 [facility] TOXICOLOGY Vanco Lvl 26.6 06/11/2018 [facility] BLOOD BANK RESULTS ABO/Rh B POS 06/11/2018 [facility] BLOOD BANK RESULTS Antibody Scrn Negative (06/11/18 9:31 AM) 06/11/2018 [facility] CHEM PANEL Magnesium Lvl 2.1 1.8 - 2.4 06/11/2018 [facility] CHEM PANEL Phosphorus 6.6 2.5 - 4.5 06/11/2018 [facility] HEMATOLOGY Anisocyte 1+ *ABN* (06/11/18 5:01 AM) None Seen 06/11/2018 [facility] HEMATOLOGY Hypochrom 1+ (06/11/18 5:01 AM) None Seen 06/11/2018 [facility] HEMATOLOGY Plt Morph Normal (06/11/18 5:01 AM) 06/11/2018 [facility] URINE AND STOOL UA Glucose 150 mg/dL Negative mg/dL 06/10/2018 [facility] URINE AND STOOL UA Protein 100 mg/dL Negative mg/dL 06/10/2018 [facility] URINE AND STOOL UA pH 5.0 5.0 - 8.0 06/10/2018 [facility] URINE AND STOOL UA Color Ltyellow 06/10/2018 [facility] URINE AND STOOL UA Turbidity Slight *ABN* (06/10/18 2:04 PM) Clear 06/10/2018 [facility] URINE AND STOOL UA RBC 3 0 - 2 06/10/2018 [facility] URINE AND STOOL UA Bacteria Occasional /HPF None Seen /HPF 06/10/2018 [facility] URINE AND STOOL UA Sq Epi Occasional /LPF Few /LPF 06/10/2018 [facility] URINE AND STOOL UA WBC 24 0 - 5 06/10/2018 [facility] URINE AND STOOL UA Leuk Est Moderate *ABN* (06/10/18 2:04 PM) Negative 06/10/2018 [facility] URINE AND STOOL UA Urobilinogen <=1.0 mg/dL 0.1 - 1.0 06/10/2018 [facility] URINE AND STOOL UA Nitrite Negative (06/10/18 2:04 PM) Negative 06/10/2018 [facility] URINE AND STOOL UA Blood Small *ABN* (06/10/18 2:04 PM) Negative 06/10/2018 [facility] URINE AND STOOL UA Ketones Negative *NA* (06/10/18 2:04 PM) Negative 06/10/2018 [facility] URINE AND STOOL UA Bili Negative *NA* (06/10/18 2:04 PM) Negative 06/10/2018 [facility] URINE AND STOOL UA Spec Grav 1.008 <=1.030 06/10/2018 [facility] URINE CHEM U Protein 94.0 06/10/2018 [facility] URINE CHEM U Creatinine 32.30 06/10/2018 [facility] URINE CHEM U Prot/Creat 2.91 06/10/2018 [facility] CHEM PANEL ALT 32 0 - 65 06/10/2018 [facility] CHEM PANEL AST 22 0 - 37 06/10/2018 [facility] CHEM PANEL Alk Phos 78 39 - 136 06/10/2018 [facility] CHEM PANEL Bili Total 0.3 0.2 - 1.3 06/10/2018 [facility] CHEM PANEL Total Protein 7.4 6.4 - 8.4 06/10/2018 [facility] CHEM PANEL Albumin Lvl 2.1 3.5 - 5.0 06/10/2018 [facility] CHEM PANEL B/C Ratio 11 6 - 25 06/10/2018 [facility] CHEM PANEL A/G Ratio 0.4 0.7 - 1.6 06/10/2018 [facility] CHEM PANEL Globulin 5.3 2.7 - 4.2 06/10/2018 [facility] Capillary blood glucose measurement by glucometer (mass/volume) Capillary blood glucose measurement by glucometer (mass/volume) 92 70 - 120 2017 [facility] Automated blood basophil count (count/volume) Automated blood basophil count (count/volume) 0.0 0.0 - 0.1 2017 [facility] Automated blood basophil count as percentage of total leukocytes Automated blood basophil count as percentage of total leukocytes 0.5 0.0 - 1.0 2017 [facility] Automated blood eosinophil count Automated blood eosinophil count 0.3 0.0 - 0.4 2017 [facility] Automated blood eosinophil count as percentage of total leukocytes Automated blood eosinophil count as percentage of total leukocytes 4.9 0.0 - 6.0 2017 [facility] Automated blood hematocrit (volume fraction) Automated blood hematocrit (volume fraction) 24.9 34.2 - 44.1 2017 [facility] Automated blood lymphocyte count as percentage ot total leukocytes Automated blood lymphocyte count as percentage ot total leukocytes 11.0 18.0 - 39.1 2017 [facility] Automated blood monocyte count as percentage of total leukocytes Automated blood monocyte count as percentage of total leukocytes 18.4 4.4 - 11.3 2017 [facility] Automated blood neutrophil count Automated blood neutrophil count 3.7 2.1 - 6.9 2017 [facility] Automated blood platelet count (count/volume) Automated blood platelet count (count/volume) 207 140 - 360 2017 [facility] Automated blood segmented neutrophil count as percentage of total leukocytes Automated blood segmented neutrophil count as percentage of total leukocytes 64.5 38.7 - 80.0 2017 [facility] Automated erythrocyte mean corpuscular hemoglobin (mass per erythrocyte) Automated erythrocyte mean corpuscular hemoglobin (mass per erythrocyte) 26.8 28 - 32 2017 [facility] Automated erythrocyte mean corpuscular hemoglobin concentration measurement (mass/volume) Automated erythrocyte mean corpuscular hemoglobin concentration measurement (mass/volume) 32.9 31 - 35 2017 [facility] Automated erythrocyte mean corpuscular volume Automated erythrocyte mean corpuscular volume 81.4 81 - 99 2017 [facility] Blood erythrocytes automated count (number/volume) Blood erythrocytes automated count (number/volume) 3.06 3.6 - 5.1 2017 [facility] Blood hemoglobin measurement (moles/volume) Blood hemoglobin measurement (moles/volume) 8.2 12.0 - 16.0 2017 [facility] Blood leukocytes automated count (number/volume) Blood leukocytes automated count (number/volume) 5.75 4.8 - 10.8 2017 [facility] Blood lymphocytes count (number/volume) Blood lymphocytes count (number/volume) 0.6 1.0 - 3.2 2017 [facility] Blood monocytes automated count (number/volume) Blood monocytes automated count (number/volume) 1.1 0.2 - 0.8 2017 [facility] Estimated glomerular filtration rate (GFR) determination Estimated glomerular filtration rate (GFR) determination 8 60 2017 [facility] Glucose measurement Glucose measurement 41 74 - 118 2017 [facility] Serum or plasma anion gap Serum or plasma anion gap 14.8 8 - 16 2017 [facility] Serum or plasma calcium measurement (mass/volume) Serum or plasma calcium measurement (mass/volume) 7.9 8.4 - 10.2 2017 [facility] Serum or plasma carbon dioxide, total measurement (moles/volume) Serum or plasma carbon dioxide, total measurement (moles/volume) 23 22 - 29 2017 [facility] Serum or plasma chloride measurement (moles/volume) Serum or plasma chloride measurement (moles/volume) 99 98 - 107 2017 [facility] Serum or plasma creatinine measurement (mass/volume) Serum or plasma creatinine measurement (mass/volume) 6.09 0.57 - 1.11 2017 [facility] Serum or plasma potassium measurement (moles/volume) Serum or plasma potassium measurement (moles/volume) 3.8 3.5 - 5.1 2017 [facility] Serum or plasma sodium measurement (moles/volume) Serum or plasma sodium measurement (moles/volume) 133 136 - 145 2017 [facility] Serum or plasma urea nitrogen measurement (mass/volume) Serum or plasma urea nitrogen measurement (mass/volume) 63 7 - 26 2017 [facility] Serum or plasma urea nitrogen/creatinine mass ratio Serum or plasma urea nitrogen/creatinine mass ratio 10 6 - 25 2017 [facility] Red Cell Distribution Width 15.9 11.7 - 14.4 2017 [facility] IM GRANULOCYTES % 0.7 0.0 - 1.0 2017 [facility] Absolute Immature Granulocyte (auto 0.04 0 - 0.1 2017 [facility] Phosphorus measurement Phosphorus measurement 5.8 2.3 - 4.7 09/19/2017 [facility] Plasma globulin measurement (mass/volume) Plasma globulin measurement (mass/volume) 3.7 2.3 - 3.5 09/19/2017 [facility] Serum or plasma alanine aminotransferase measurement (enzymatic activity/volume) Serum or plasma alanine aminotransferase measurement (enzymatic activity/volume) 21 0 - 55 09/19/2017 [facility] Serum or plasma albumin measurement (mass/volume) Serum or plasma albumin measurement (mass/volume) 3.0 3.5 - 5.0 09/19/2017 [facility] Serum or plasma albumin/globulin mass ratio Serum or plasma albumin/globulin mass ratio 0.8 0.8 - 2.0 09/19/2017 [facility] Serum or plasma alkaline phosphatase measurement (enzymatic activity/volume) Serum or plasma alkaline phosphatase measurement (enzymatic activity/volume) 76 40 - 150 09/19/2017 [facility] Serum or plasma magnesium measurement (mass/volume) Serum or plasma magnesium measurement (mass/volume) 1.9 1.3 - 2.1 09/19/2017 [facility] Serum or plasma protein measurement (mass/volume) Serum or plasma protein measurement (mass/volume) 6.7 6.5 - 8.1 09/19/2017 [facility] Serum or plasma total bilirubin measurement (mass/volume) Serum or plasma total bilirubin measurement (mass/volume) 0.4 0.2 - 1.2 09/19/2017 [facility] Aspartate Amino Transf (AST/SGOT) 23 5 - 34 09/19/2017 [facility] B-Type Natriuretic Peptide 1274.1 0 - 100 09/19/2017 [facility] Blood cobalamin (vitamin B12) measurement (mass/volume) Blood cobalamin (vitamin B12) measurement (mass/volume) >2000 213 - 816 09/16/2017 [facility] Serum or plasma folate measurement (mass/volume) Serum or plasma folate measurement (mass/volume) >20.0 7.0 - 15.4 09/16/2017 [facility] Stool gastrointestinal hemoglobin detection Stool gastrointestinal hemoglobin detection NEGATIVE NEGATIVE 09/16/2017 [facility] Serum or plasma creatine kinase MB measurement (mass/volume) Serum or plasma creatine kinase MB measurement (mass/volume) 2.40 0 - 5.0 09/15/2017 [facility] Serum or plasma creatine kinase measurement (enzymatic activity/volume) Serum or plasma creatine kinase measurement (enzymatic activity/volume) 78 29 - 168 09/15/2017 [facility] Troponin I measurement by highly sensitive enzyme immunoassay Troponin I measurement by highly sensitive enzyme immunoassay 0.021 0 - 0.300 09/15/2017 [facility] Serum or plasma iron binding capacity measurement (mass/volume) Serum or plasma iron binding capacity measurement (mass/volume) 274 261 - 478 09/15/2017 [facility] Serum or plasma iron measurement (mass/volume) Serum or plasma iron measurement (mass/volume) 49 50 - 170 09/15/2017 [facility] Serum or plasma iron saturation measurement (mass fraction) Serum or plasma iron saturation measurement (mass fraction) 18 15 - 50 09/15/2017 [facility] Serum or plasma transferrin measurement (mass/volume) Serum or plasma transferrin measurement (mass/volume) 196 180 - 382 09/15/2017 [facility] Serum or plasma calcium measurement (mass/volume) Serum or plasma calcium measurement (mass/volume) 8.4 8.7 - 10.3 09/14/2017 [facility] Serum or plasma complement C3 measurement (mass/volume) Serum or plasma complement C3 measurement (mass/volume) 112 82 - 167 09/14/2017 [facility] Serum or plasma complement C4 measurement (mass/volume) Serum or plasma complement C4 measurement (mass/volume) 31 14 - 44 09/14/2017 [facility] Serum or plasma intact pararthyroid hormone measurement (mass/volume) Serum or plasma intact pararthyroid hormone measurement (mass/volume) 436 15 - 65 09/14/2017 [facility] Parathyroid Hormone Interpretation Comment . 09/14/2017 [facility] Activated partial thromboplastin time (aPTT) in platelet poor plasma bycoagulation assay Activated partial thromboplastin time (aPTT) in platelet poor plasma bycoagulation assay 33.6 23.8 - 35.5 09/14/2017 [facility] Automated urine sediment leukocyte count by microscopy (number/high power field) Automated urine sediment leukocyte count by microscopy (number/high power field) NONE 0 - 5 09/14/2017 [facility] Bacteria detection in urine sediment by light microscopy Bacteria detection in urine sediment by light microscopy NONE NONE 09/14/2017 [facility] Epithelial cells detection in urine sediment by light microscopy Epithelial cells detection in urine sediment by light microscopy MANY NONE 09/14/2017 [facility] Erythrocytes detection in urine sediment by light microscopy Erythrocytes detection in urine sediment by light microscopy NONE 0 - 5 09/14/2017 [facility] INR in Platelet poor plasma by Coagulation assay INR in Platelet poor plasma by Coagulation assay 1.28 09/14/2017 [facility] Prothrombin time (PT) in platelet poor plasma by coagulation assay Prothrombin time (PT) in platelet poor plasma by coagulation assay 15.0 11.9 - 14.5 09/14/2017 [facility] Serum or plasma lipase measurement (enzymatic activity/volume) Serum or plasma lipase measurement (enzymatic activity/volume) 19 8 - 78 09/14/2017 [facility] Serum or plasma thyrotropin measurement by detection limit <=0.005 miu/l (units/volume) Serum or plasma thyrotropin measurement by detection limit <=0.005 miu/l (units/volume) 0.747 0.350 - 4.940 09/14/2017 [facility] Specific gravity of Urine by Test strip Specific gravity of Urine by Test strip 1.010 1.010 - 1.025 09/14/2017 [facility] Urine clarity Urine clarity CLEAR CLEAR 09/14/2017 [facility] Urine color determination Urine color determination YELLOW YELLOW 09/14/2017 [facility] Urine erythrocytes detection Urine erythrocytes detection NEGATIVE NEGATIVE 09/14/2017 [facility] Urine glucose detection Urine glucose detection NEGATIVE NEGATIVE 09/14/2017 [facility] Urine ketones detection by automated test strip Urine ketones detection by automated test strip NEGATIVE NEGATIVE 09/14/2017 [facility] Urine leukocyte esterase detection by dipstick Urine leukocyte esterase detection by dipstick NEGATIVE NEGATIVE 09/14/2017 [facility] Urine nitrite detection Urine nitrite detection NEGATIVE NEGATIVE 09/14/2017 [facility] Urine pH measurement by automated test strip Urine pH measurement by automated test strip 6 5 - 7 09/14/2017 [facility] Urine protein measurement by test strip (mass/volume) Urine protein measurement by test strip (mass/volume) 2+ NEGATIVE 09/14/2017 [facility] Urine total bilirubin measurement (mass/volume) Urine total bilirubin measurement (mass/volume) NEGATIVE NEGATIVE 09/14/2017 [facility] Urine urobilinogen measurement by test strip (mass/volume) Urine urobilinogen measurement by test strip (mass/volume) 0.2 0.2 - 1 09/14/2017 [facility] 24 hour urine albumin/total protein ratio by electrophoresis 24 hour urine albumin/total protein ratio by electrophoresis 71.1 . 09/14/2017 [facility] 24 hour urine alpha 1 globulin/total protein by electrophoresis 24 hour urine alpha 1 globulin/total protein by electrophoresis 6.1 . 09/14/2017 [facility] 24 hour urine alpha 2 globulin/total protein by electrophoresis 24 hour urine alpha 2 globulin/total protein by electrophoresis 9.2 . 09/14/2017 [facility] 24 hour urine beta globulin/total protein ratio by electrophoresis 24 hour urine beta globulin/total protein ratio by electrophoresis 7.6 . 09/14/2017 [facility] 24 hour urine gamma globulin/total protein ratio by electrophoresis 24 hour urine gamma globulin/total protein ratio by electrophoresis 6.0 . 09/14/2017 [facility] Urine creatinine measurement (mass/volume) Urine creatinine measurement (mass/volume) 43.23 47 - 110 09/14/2017 [facility] Urine protein measurement (mass/volume) Urine protein measurement (mass/volume) 89.1 1 - 14 09/14/2017 [facility] Urine protein measurement (mass/volume) Urine protein measurement (mass/volume) 90.1 Not Estab. 09/14/2017 [facility] Urine protein monoclonal/total protein by electrophoresis Urine protein monoclonal/total protein by electrophoresis Not Observed Not Observed 09/14/2017 [facility] Urine sodium measurement (moles/volume) Urine sodium measurement (moles/volume) 79 09/14/2017 [facility] Protein Electrophoresis Note Comment . 09/14/2017 [facility] Pathology Reports No Data Provided for This Section Diagnostic Reports Report Value Date Source Ext Lower Arterial bilat w pressure US Please refer to heart lab report, located under Vascular in [facility]. 06/14/2018 [facility] Foot wo contrast MRI MRI left [...] may be consistent with neuropathic joint. SL: [id number] 06/13/2018 [facility] Foot wo contrast MRI MRI right [...] may be consistent with neuropathic joint. SL: [id number] 06/13/2018 [facility] Chest 1view DX Clinical Indication: Abnormal [...] of acute cardiopulmonary disease. RASHMI: RAYRAY 06/12/2018 [facility] Bone scan 3 phase NM Bone [...] of the feet as clinically indicated. SL: [id number] 06/11/2018 [facility] Ext Lower Arterial Doppler bilat US Patient Name: LEIGHTON GUERRERO : 1950; Age: 67 years y/o Female MR: [id number] Study: Ext Lower Arterial Doppler bilat US [...] left lower extremity arteries. SL: [id number] 06/10/2018 [facility] Foot 2 views bilateral DX Study: [...] and no radiographic evidence of osteomyelitis. SL: [id number] 06/10/2018 [facility] Retroperitoneal Complete US Retroperitoneal ultrasound, complete [...] 1. Unremarkable renal ultrasound. SL: [id number] 06/10/2018 [facility] Humerus AP lateral HISTORY: Fall, pain. RIGHT HUMERUS 2 VIEWS: No fracture subluxation or lesion. SL:13 06/11/2013 [facility] Shoulder series HISTORY: Trauma. RIGHT SHOULDER 3 VIEWS: No acute fracture subluxation or lesion is evident. SL:13 06/11/2013 [facility] Consultation Notes No Data Provided for This Section Discharge Summaries No Data Provided for This Section History and Physicals No Data Provided for This Section Vital Signs Vital Sign Value Date Comments Source Systolic (mm Hg) 185 06/21/2018 [facility] Diastolic (mm Hg) 76 06/21/2018 [facility] Heart Rate 88 06/21/2018 [facility] Temperature Oral (F) 98.5 F 06/21/2018 [facility] Heart Rate 82 06/20/2018 [facility] Systolic (mm Hg) 163 06/20/2018 [facility] Diastolic (mm Hg) 69 06/20/2018 [facility] Respitory Rate 18 06/20/2018 [facility] Temperature Oral (F) 98.5 F 06/20/2018 [facility] Systolic (mm Hg) 193 06/20/2018 [facility] Diastolic (mm Hg) 71 06/20/2018 [facility] Temperature Oral (F) 98.4 F 06/20/2018 [facility] Heart Rate 84 06/20/2018 [facility] Respitory Rate 16 06/19/2018 [facility] Respitory Rate 16 06/19/2018 [facility] BMI Calculated 29.88 06/10/2018 [facility] Weight 71.727 06/10/2018 [facility] Height 154.94 cm 06/10/2018 [facility] Weight 71.727 06/10/2018 [facility] BMI Calculated 29.88 06/10/2018 [facility] Height 154.94 cm 06/10/2018 [facility] Systolic (mm Hg) 184 06/12/2013 [facility] Temperature Oral (F) 98.6 F 06/12/2013 [facility] Respitory Rate 18 06/12/2013 [facility] Diastolic (mm Hg) 89 06/12/2013 [facility] Heart Rate 88 06/12/2013 [facility] Weight 81.818 06/12/2013 [facility] Diastolic (mm Hg) 84 06/12/2013 [facility] Heart Rate 95 06/12/2013 [facility] Respitory Rate 20 06/12/2013 [facility] Systolic (mm Hg) 200 06/12/2013 [facility] Temperature Oral (F) 98.3 F 06/12/2013 [facility] Encounters Location Location Details Encounter Type Encounter Number Reason For Visit Attending Provider ADM Date DC Date Status Source [facility] Outpatient [id number] ROUTINE SCREENING LYUBOV HURST 08/30/2011 Active [facility] Outpatient [id number] COMPLICATIONS AFFECTING OTHER SPECIFIED BODY SYSTEMS, Christiana ASHER 02/13/2012 Active [facility] Emergency [id number] SHOULDER PAIN OR INJURY PIERRE DELGADILLO 06/11/2013 06/11/2013 Active [facility] Discharged Inpatient [id number] LYUBOV HURST MD 09/14/2017 2017 [facility] Inpatient [id number] Magy Mougouris 06/10/2018 06/21/2018 [facility] Procedures Procedure Code Date Perfomer Comments Source Ultrasound, renal [id number] 09/15/2017 LAKESH[place] [facility] CT of abdomen and pelvis without contrast [id number] 09/14/2017 MOHAMUD [facility] Cataract surgery<sup>1</sup> [id number] bilateral eyes [facility] Assessment and Plan Assessment and Plan [...] 4.9, had similar course of hospitalization at [facility] [place]. Metabolic acidosis on p.o. bicarbonate. 3. [...] 06/20/18 Pulido Powell Fall Score 12 06/20/18 Hext Coma Score 15 06/20/18 Rivera Score 16 06/20/18 Pain Intensity NRS (0-10) 0 Lines, Tubes, and Drains: 06/18/2018 11:01 Peripheral Lines: Forearm Right 22 gauge Over the needle catheter Surgical Procedures: 06/15/18 15:13 ULCER / BONE DEBRIDEMENT, LORENZO HEEL [id number] Primary Surgeon: Mario Hurst DPM (Service: POD) [...] in Water IV (Dextrose 50% Syringe), acetaminophen-hydrocodone ([place] 7.5/325 oral tablet), acetaminophen, cloNIDine, glucagon, insulin [...] (JUN 18) L 7.5 (JUN 16) 06/21/2018 [facility] Plan of Care Plan of Care Date Source Discharge Date 09/20/17 2:58pm Disposition HOME, SELF-CARE Instructions/Education Provided Chest Pain - Noncardiac Prescriptions See Medication Section Referrals JAIRO ASHER MD (Internal Medicine) Order Date: 2 Weeks Entered Date: 2017 9:48am Address: [address] [place] [id number] Additional Instructions/Education ADA DIET ,ACTIVITY TOLERATED ` FLUID RESTRICTION 1200CC PER DAY,MONITOR BLOOD PRESSURE AND FASTING BLOOD SUGAR AT HOME HOLD BLOOD SUGAR MEDICATIONS IF FASTING BLOOD SUGARBELOW 90 , REPEAT BLOOD TEST CBC AND CMP AFTER 5 DAYS 2017 [facility] Social History Social History Date Source Social History TypeResponse Substance Abuse Use: None. Alcohol Past, Last use: 50 years ago. Previous treatment: None. Smoking Status Former smoker; Type: Cigarettes; Previous treatment: None; Concerns about tobacco use in household: No; Exposure to Tobacco Smoke None; Cigarette Smoking Last 365 Days No; Reg Smoking Cessation Counseling No; Stopped at age: 17; entered on: 06/10/18 06/10/2018 [facility] Social History Problem Response Recorded Date/Time [...] Smoker 2017 [facility] Family History Value Date Source Relationship Condition Age at Onset Recorded Date/Time 09 Brother Family history of diabetes mellitus Not Recorded 09/15/2017 2:50am 32 Mother Family history of acute myocardial infarction Not Recorded 09/15/2017 2:50am 33 Mother Family history of hypertension Not Recorded 09/15/2017 2:50am 2017 [facility] Advance Directives Order Name Results Value Date Source Advance Directives Advance Directives Directive Response Recorded Date/Time Does the patient have an advance directive? No 11/29/13 1:55pm If yes, is advance directive on file with [facility]? No 09/14/17 10:00pm If not on file with [facility] will patient provide a copy? No 11/29/13 1:55pm Do you have a Directive to Physician? No 09/14/17 5:37pm Do you have a Medical Power of Labor Service Representative? No 09/14/17 5:37pm Do you have an [...] 5:37pm 2017 [facility] Functional Status No Data Provided for This Section
[2019-02-15] MEDS ORDERED: SODIUM CHLORIDE 0.9% 1000ML 1,000 ML IV SCH (14:29)
[2019-02-15] MEDS ORDERED: ONDANSETRON HCL INJ 2MG/ML 2ML 2 MG/ML VIAL IV PRN (14:30)
[2019-02-15] MEDS ORDERED: PIPER-TAZ 3.375 GM 50 ML IV ONE (14:30)
[2019-02-15] MEDS ORDERED: DEXTROSE 50% SYRINGE 50 ML IV PRN (14:45)
--- OUTSIDE RECORDS SUMMARY | 2019-02-15 15:04 | XMS REPORT | Continuity of Care Document ---
Author Author [employer] Address Unknown Phone Unavailable Care Team Providers Care Conference Service Coordinator Name Role Phone [facility] Information [facility] Unavailable Unavailable Problems Problem Status Onset Date Classification Date Reported Comments Source Type 2 diabetes mellitus with other specified complication 06/27/2018 01/07/2019 [facility] DKA, ACUTE RENAL FAILURE Active 06/09/2018 [facility] SHOULDER PAIN OR INJURY Active 06/11/2013 [facility] COMPLICATIONS AFFECTING OTHER SPECIFIED BODY SYSTEMS, H Active 02/08/2012 [facility] ROUTINE SCREENING Active 08/24/2011 [facility] Anemia Active Problem 2017 [facility] Cardiomegaly Active Problem 2017 [facility] Congestive heart failure with left ventricular diastolic dysfunction Active Problem 2017 [facility] Kidney failure Active Problem 2017 [facility] Obesity Active Problem 2017 [facility] Weakness Active Problem 2017 [facility] Diabetes mellitus type 2 Active Problem 01/07/2019 [facility] HTN - Hypertension Active Problem 01/07/2019 [facility] Hyperlipidemia Active Problem 01/07/2019 [facility] Acute kidney failure, unspecified 01/07/2019 [facility] Gas gangrene 01/07/2019 [facility] Osteomyelitis, unspecified 01/07/2019 [facility] Non-pressure chronic ulcer of left heel and midfoot with unspecified severity 01/07/2019 [facility] Non-pressure chronic ulcer of right heel and midfoot with unspecified severity 01/07/2019 [facility] Hypertensive heart and chronic kidney disease with heart failure and with stage 5 chronic kidney disease, or end stage renal disease 01/07/2019 [facility] Hypo-osmolality and hyponatremia 01/07/2019 [facility] Acidosis 01/07/2019 [facility] Type 2 diabetes mellitus with diabetic peripheral angiopathy with gangrene 01/07/2019 [facility] Cutaneous abscess of left foot 01/07/2019 [facility] Cellulitis of left lower limb 01/07/2019 [facility] Type 2 diabetes mellitus with foot ulcer 01/07/2019 [facility] Type 2 diabetes mellitus with diabetic nephropathy 01/07/2019 [facility] Type 2 diabetes mellitus with hyperglycemia 01/07/2019 [facility] End stage renal disease 01/07/2019 [facility] Type 2 diabetes mellitus with unspecified diabetic retinopathy without macular edema 01/07/2019 [facility] Heart failure, unspecified 01/07/2019 [facility] Hyperlipidemia, unspecified 01/07/2019 [facility] Type 2 diabetes mellitus with diabetic polyneuropathy 01/07/2019 [facility] Patient's noncompliance with other medical treatment and regimen 01/07/2019 [facility] Personal history of nicotine dependence 01/07/2019 [facility] Hypokalemia 01/07/2019 [facility] 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 01/07/2019 [facility] Type 2 diabetes mellitus with diabetic chronic kidney disease 01/07/2019 [facility] ACUTE KIDNEY FAILURE, UNSPECIFIED Active [facility] SINGLE LIVEBORN INFANT, DELIVERED VAGINA Active [facility] Medications Medication Details Route Status Patient Instructions Ordering Provider Order Date Source Doxycycline 150 MG Oral Capsule 150 mg=1 cap, PO, BID, X 10 day, # 84 cap, 0 Refill(s), Pharmacy: [place] [id number] No Longer Active 06/20/2018 [facility] Ciprofloxacin 500 MG Oral Tablet [Cipro] 500 mg=1 tab, PO, Q12H, # 84 tab, 0 Refill(s), Pharmacy: [place] [id number] Inactive 06/20/2018 [facility] Hydralazine 10 mg, 0.5 mL, Route: IV, Drug form: INJ, ONCE, Dosing Weight 71.727, kg, Start date: 06/18/18 15:41:00 MATERIAL WORKER, Stop date: 06/18/18 15:41:00 CSTNotes: (Same as: Apresoline) Push over 5 minutes Inactive 06/18/2018 [facility] Acetaminophen 325 MG / Hydrocodone Bitartrate 7.5 MG Oral Tablet [[facility] 7.5/325] 1 tab, Route: PO, Drug Form: TAB, Dosing Weight 71.727, kg, Q6H, PRN Pain Score 4-6, Start date: 06/16/18 11:53:00 MATERIAL WORKER, Duration: 30 day, Stop date: 07/16/18 11:52:00 CSTNotes: Same as [facility] 325-7.5mg Do not exceed 4gm/day of acetaminophen. No Longer Active 06/16/2018 [facility] Oxycodone 5 mg, 1 tab, Route: PO, Drug form: TAB, Q4H, Dosing Weight 71.727, kg, PRN Pain Score 4-6, Start date: 06/15/18 16:21:00 MATERIAL WORKER, Duration: 30 day, Stop date: 07/15/18 16:20:00 CSTNotes: (Same as: Roxicodone) No Longer Active 06/15/2018 [facility] Acetaminophen 1,000 mg, 2 tab, Route: PO, Drug form: TAB, ONCE, Dosing Weight 71.727, kg, PRN Pain Score 1-3, Start date: 06/15/18 16:21:00 CSTNotes: Max acetaminophen 4000 mg/day (4 gm/day). (Same as: Tylenol Extra Strength) No Longer Active 06/15/2018 [facility] Labetalol 10 mg, 2 mL, Route: IVP, Drug form: INJ, Q5Min, Dosing Weight 71.727, kg, PRN Elevated BP, Start date: 06/15/18 16:21:00 MATERIAL WORKER, Duration: 5 doses or times, Stop date: Limited # of timesNotes: (Same as: No rmodyne, Trandate) Push over 2 minutes Give bolus over 2-3 minutes. No Longer Active 06/15/2018 [facility] Hydralazine 10 mg, 0.5 mL, Route: IVP, Drug form: INJ, Q20Min, Dosing Weight 71.727, kg, PRN Elevated BP, Start date: 06/15/18 16:21:00 MATERIAL WORKER, Duration: 2 doses or times, Stop date: Limited # of timesNotes: (Same as: Apresoline) Push over 5 minutes No Longer Active 06/15/2018 [facility] Ondansetron 4 mg, 2 mL, Route: IVP, Drug form: INJ, ONCE, Dosing Weight 71.727, kg, PRN Nausea & Vomiting, Start date: 06/15/18 16:21:00 CSTNotes: (Same as: Zofran) MEDICATION WASTE Product Size: 4 mg Product Wasted: ___ mg No Longer Active 06/15/2018 [facility] Diphenhydramine 12.5 mg, 0.25 mL, Route: IVP, Drug form: INJ, Q6H, Dosing Weight 71.727, kg, PRN Itching, Start date: 06/15/18 16:21:00 MATERIAL WORKER, Duration: 30 day, Stop date: 07/15/18 16:20:00 CSTNotes: (Same as: Manasa caballero) No Longer Active 06/15/2018 [facility] Naloxone 0.4 mg, 1 mL, Route: IVP, Drug form: INJ, Q2MIN, Dosing Weight 71.727, kg, PRN Narcotic Reversal, Start date: 06/15/18 16:21:00 MATERIAL WORKER, Duration: 8 doses or times, Stop date: Limited # of timesNotes: Same as Narcan No Longer Active 06/15/2018 [facility] Flumazenil 0.2 mg, 2 mL, Route: IVP, Drug form: INJ, PRN, Dosing Weight 71.727, kg, PRN Benzodiazepine Reversal, Initial dose, Start date: 06/15/18 16:21:00 MATERIAL WORKER, Duration: 30 day, Stop date: 07/15/18 16:20:00 C STNotes: (Same as: Romazicon) No Longer Active 06/15/2018 [facility] Fentanyl 50 microgram, 1 mL, Route: IVP, Drug form: INJ, Q5Min, Dosing Weight 71.727, kg, PRN Pain Score 7-10, Priority: Routine, Start date: 06/15/18 16:21:00 MATERIAL WORKER, Duration: 2 doses or times, Stop date: Limited # of timesNotes: (Same as: Sublimaze) Preservative free. No Longer Active 06/15/2018 [facility] Hydromorphone 0.5 mg, 0.5 mL, Route: IVP, Drug form: SOLN, Q5Min, Dosing Weight 71.727, kg, PRN Pain Score 7-10, Start date: 06/15/18 16:21:00 MATERIAL WORKER, Duration: 4 doses or times, Stop date: Limited # of timesNotes: ( Same as: Dilaudid) No Longer Active 06/15/2018 [facility] phenylephrine (ANES) Route: IV, Drug form: INJ, ONCE, Stop date: 06/15/18 16:03:00 MATERIAL WORKER Inactive 06/15/2018 [facility] metoclopramide (ANES) Route: IV, Drug form: INJ, ONCE, Stop date: 06/15/18 15:48:00 MATERIAL WORKER Inactive 06/15/2018 [facility] propofol (ANES) Route: IV, Drug form: INJ, ONCE, Stop date: 06/15/18 15:48:00 MATERIAL WORKER Inactive 06/15/2018 [facility] fentaNYL (ANES) Route: IV, Drug form: INJ, ONCE, Stop date: 06/15/18 15:48:00 MATERIAL WORKER Inactive 06/15/2018 [facility] lidocaine (ANES) Route: IV, Drug form: INJ, ONCE, Stop date: 06/15/18 15:48:00 MATERIAL WORKER Inactive 06/15/2018 [facility] ondansetron (ANES) Route: IV, Drug form: INJ, ONCE, Stop date: 06/15/18 15:48:00 MATERIAL WORKER Inactive 06/15/2018 [facility] midazolam (ANES) Route: IV, Drug form: SOLN, ONCE, Stop date: 06/15/18 15:43:00 MATERIAL WORKER Inactive 06/15/2018 [facility] Sodium Chloride 0.9% IV (ANES) 1000 mL Route: IV, Total Volume: 1,000, Start date: 06/15/18 14:58:00 MATERIAL WORKER, Stop date: 06/15/18 15:58:00 MATERIAL WORKER Inactive 06/15/2018 [facility] NS 500 mL 500 mL, Rate: 10 ml/hr, Infuse over: 50 hr, Route: IV, Dosing Weight 71.727 kg, Total Volume: 500, Start date: 06/15/18 13:53:00 MATERIAL WORKER, Duration: 1 day, Stop date: 06/16/18 13:52:00 MATERIAL WORKER, 1.78, m2 No Longer Active 06/15/2018 [facility] Clonidine 0.1 mg, 1 tab, Route: PO, Drug form: TAB, Q6H, Dosing Weight 71.727, kg, PRN Elevated BP, Start date: 06/14/18 6:40:00 MATERIAL WORKER, Duration: 30 day, Stop date: 07/14/18 6:39:00 CSTNotes: (Same As: Catapres) No Longer Active 06/14/2018 [facility] Lasix 40 mg, 4 mL, Route: IVP, Drug form: INJ, ONCE, Dosing Weight 71.727, kg, Start date: 06/13/18 17:48:00 MATERIAL WORKER, Stop date: 06/13/18 17:48:00 CSTNotes: (Same as: Lasix) MEDICATION WASTE Product Size: 40 mg Product Wasted: ___ mg Inactive 06/13/2018 [facility] Potassium Chloride 40 mEq, 2 tab, Route: PO, Drug form: ERTAB, ONCE, Dosing Weight 71.727, kg, Start date: 06/12/18 16:21:00 MATERIAL WORKER, Stop date: 06/12/18 16:21:00 CSTNotes: (Same as: K-Dur 20) "Do Not Crush" Give with food and full glass of water For patients unable to swallow tablet, dissolve in one half glass of water. Allow about 2 minutes for the tablets to disintegrate. Stir before giving to prepare slurry and administer. Please exclude Patients with feeding tube less than 14 [place] (Dobhoff, J-tube etc) and pediatric and patients. Inactive 06/12/2018 [facility] Zyvox 600 mg, 1 tab, Route: PO, Drug form: TAB, [id number], Dosing Weight 71.727, kg, Start date: 06/12/18 12:00:00 MATERIAL WORKER, Duration: 10 day, Stop date: 06/22/18 0:00:00 MATERIAL WORKER, ABX Indication: Bone/Joint InfectionNotes: Protect from light. (Same as: Zyvox) No Longer Active 06/12/2018 [facility] Acetaminophen 325 MG / Hydrocodone Bitartrate 5 MG Oral Tablet [[facility] 5/325] 1 tab, Route: PO, Drug Form: TAB, Dosing Weight 71.727, kg, Q8H, PRN Pain Score 7-10, Start date: 06/11/18 19:56:00 MATERIAL WORKER, Duration: 30 day, Stop date: 07/11/18 19:55:00 CSTNotes: (Same as: [facility] 325/5) Do not exceed 4gm/day of acetaminophen. No Longer Active 06/12/2018 [facility] Vancomycin Dosing Protocol Vancomycin Dosing Protocol, Reminder, Drug form: MISC, Route: MISC, Continuous, 06/11/18 13:30:00 MATERIAL WORKER, Duration: 30 day, Stop date: 07/11/18 13:29:00 MATERIAL WORKER No Longer Active 06/11/2018 [facility] Ceftriaxone 1 gm, Route: IVP, [id number], Dosing Weight 71.727, kg, Start date: 06/11/18 11:00:00 MATERIAL WORKER, Duration: 14 day, Stop date: 06/24/18 11:00:00 MATERIAL WORKER, ABX Indication: Bone/Joint InfectionNotes: (Same As: Rocephin). Use with 100 mL NS and infuse over 30 min MEDICATION WASTE Product Size: 1000 mg Product Wasted: ___ mg No Longer Active 06/11/2018 [facility] Vancomycin 1 ea, Route: MISC, ONCALL, Dosing Weight 71.727, kg, Start date: 06/11/18 11:00:00 MATERIAL WORKER, Duration: 14 day, Stop date: 06/25/18 10:59:00 MATERIAL WORKER, Pharmacy to dose, ABX Indication: Bone/Joint Infection Inactive 06/11/2018 [facility] Pravastatin 40 mg, 2 tab, Route: PO, Drug form: TAB, Daily, Dosing Weight 71.727, kg, Start date: 06/11/18 9:00:00 MATERIAL WORKER, Duration: 30 day, Stop date: 07/10/18 21:00:00 CSTNotes: (Same as: Pravachol) No Longer Active 06/11/2018 [facility] gabapentin 100 MG Oral Capsule 100 mg, 1 cap, Route: PO, Drug form: CAP, BID, Dosing Weight 71.727, kg, Start date: 06/11/18 9:00:00 MATERIAL WORKER, Duration: 30 day, Stop date: 07/10/18 17:00:00 MATERIAL WORKER No Longer Active 06/11/2018 [facility] Famotidine 40 mg, Route: PO, BID, Dosing Weight 71.727, kg, Start date: 06/11/18 9:00:00 MATERIAL WORKER, Duration: 30 day, Stop date: 07/10/18 17:00:00 MATERIAL WORKER No Longer Active 06/11/2018 [facility] Neurontin 50 mg, 1 mL, Route: PO, Drug form: SOLN, Q24H, Start date: 06/10/18 22:00:00 MATERIAL WORKER, Duration: 30 day, Stop date: 07/09/18 22:00:00 CSTNotes: (Same as: Neurontin) No Longer Active 06/11/2018 [facility] famotidine 20 mg, 1 tab, Route: PO, Drug form: TAB, Q24H, Start date: 06/10/18 22:00:00 MATERIAL WORKER, Duration: 30 day, Stop date: 07/09/18 22:00:00 CSTNotes: (Same as: Pepcid) No Longer Active 06/11/2018 [facility] Hydralazine Hydrochloride 50 MG Oral Tablet 50 mg, 1 tab, Route: PO, Drug form: TAB, BID, Dosing Weight 71.727, kg, Start date: 06/10/18 21:30:00 MATERIAL WORKER, Duration: 30 day, Stop date: 07/10/18 17:00:00 CSTNotes: (Same as: Apresoline) May interfere w/enteral feedings Take With Food No Longer Active 06/11/2018 [facility] carvedilol 25 mg, 2 tab, Route: PO, Drug form: TAB, BID, Dosing Weight 71.727, kg, Start date: 06/10/18 21:30:00 MATERIAL WORKER, Duration: 30 day, Stop date: 07/10/18 21:00:00 CSTNotes: Give with food. (Same As: Coreg) No Longer Active 06/11/2018 [facility] Glucagon 1 mg, Route: IM, PRN, Dosing Weight 71.727, kg, PRN Blood Glucose Results, Start date: 06/10/18 20:52:00 MATERIAL WORKER, Duration: 30 day, Stop date: 07/10/18 20:51:00 MATERIAL WORKER Inactive 06/11/2018 [facility] Dextrose 50% Syringe 50 mL, Route: IVP, Dosing Weight 71.727, kg, PRN, PRN Blood Glucose Results, Start date: 06/10/18 20:52:00 MATERIAL WORKER, Duration: 30 day, Stop date: 07/10/18 20:51:00 MATERIAL WORKER Inactive 06/11/2018 [facility] Insulin Lispro 2 unit, 0.02 mL, Route: SUB-Q, Drug form: SOLN, TID-Before Meals, Dosing Weight 71.727, kg, PRN Blood Glucose Results, Start date: 06/10/18 20:52:00 MATERIAL WORKER, Duration: 30 day, Stop date: 07/10/18 20:51:0 0 CSTNotes: (Same as: Humalog ) Roll in palms of hands gently; Do not shake `vigorously. "Single Patient Use Only " WASTE: F/P - Black; E - Municipal Trash Bin Stable for 28 days at room temperature. Expires in days from Date No Longer Active 06/11/2018 [facility] Vancomycin 1,000 mg, Route: IVPB, [id number], Dosing Weight 71.727, kg, Start date: 06/10/18 14:00:00 MATERIAL WORKER, Duration: 1 day, Stop date: 06/10/18 14:00:00 MATERIAL WORKER, ABX Indication: Bone/Joint InfectionNotes: TIME CRITICAL MEDICATION (Same As: Vancocin) Infusion rate 2001 mg: infuse over 2.5 hours For adult patients only: Round to nearest 250 mg per Medical Staff approval MEDICATION WASTE Product Size: 1000 mg Product Wasted: ___ mg Inactive 06/10/2018 [facility] Sodium Bicarbonate 650 mg, 1 tab, Route: PO, Drug form: TAB, TID, Dosing Weight 71.727, kg, Start date: 06/10/18 13:00:00 MATERIAL WORKER, Duration: 30 day, Stop date: 07/10/18 9:00:00 CSTNotes: "Dissolve tablet in a glass of water prior to oral administration. STOMACH WARNING: To avoid serious injury, do not take until tablet is completely dissolved. It is very important not to take this product when overly full from food or drink." No Longer Active 06/10/2018 [facility] Docusate 100 mg, 1 cap, Route: PO, Drug form: CAP, BID, Dosing Weight 71.727, kg, Start date: 06/10/18 9:00:00 MATERIAL WORKER, Duration: 30 day, Stop date: 07/09/18 17:00:00 CSTNotes: (Same as: Colace) (Do Not Crush) No Longer Active 06/10/2018 [facility] gabapentin 100 MG Oral Capsule 100 mg=1 cap, PO, BID, 0 Refill(s) Active 06/10/2018 [facility] Famotidine 40 mg, PO, BID, # 60 tab, 0 Refill(s) Active 06/10/2018 [facility] glimepiride 1 mg oral tablet 1 mg=1 tab, PO, Daily, 0 Refill(s) Active 06/10/2018 [facility] pravastatin 40 mg oral tablet 40 mg=1 tab, PO, Daily, 0 Refill(s) Active 06/10/2018 [facility] carvedilol 25 mg, PO, BID, 0 Refill(s) Active 06/10/2018 [facility] Hydralazine Hydrochloride 50 MG Oral Tablet 50 mg=1 tab, PO, BID, 0 Refill(s) Active 06/10/2018 [facility] Folic Acid 1 MG Oral Tablet 1 mg=1 tab, PO, Daily, 0 Refill(s) Active 06/10/2018 [facility] Furosemide 40 MG Oral Tablet 40 mg=1 tab, PO, Q8H, 0 Refill(s) Active 06/10/2018 [facility] Streptococcus pneumoniae serotype 1 capsular antigen diphtheria [id number] protein conjugate vaccine / Streptococcus pneumoniae serotype 14 capsular antigen diphtheria [id number] protein conjugate vaccine / Streptococcus pneumoniae serotype 18C capsular antigen d 0.5 mL, Route: IM, Drug Form: INJ, ONCALL, Start date: 06/10/18 1:56:07 MATERIAL WORKER, Stop date: 07/10/18 1:51:07 CSTNotes: Shake well prior to use (Same as: Prevnar 13) No Longer Active 06/10/2018 [facility] cefepime 1 gm, Route: IVPB, [id number], Dosing Weight 71.727, kg, (CrCl Notes: (Same As: Maxipime) MEDICATION WASTE Product Size: 1000 mg Product Wasted: ___ mg No Longer Active 06/10/2018 [facility] Clindamycin 600 mg, 50 mL, Route: IVPB, Drug form: INJ, [id number], Dosing Weight 71.727, kg, Start date: 06/10/18 1:00:00 MATERIAL WORKER, Duration: 7 day, Stop date: 06/16/18 17:00:00 MATERIAL WORKER, ABX Indication: Skin/Soft Tissue Inf ection No Longer Active 06/10/2018 [facility] Dextrose 50% Syringe 25 gm, Route: IVP, Dosing Weight 71.727, kg, ONCE, STAT, Start date: 06/10/18 0:39:00 MATERIAL WORKER, Stop date: 06/10/18 0:39:00 MATERIAL WORKER Inactive 06/10/2018 [facility] Insulin Lispro 4 unit, 0.04 mL, Route: SUB-Q, Drug form: SOLN, Bedtime, Dosing Weight 71.727, kg, PRN Blood Glucose Results, Start date: 06/10/18 0:27:00 MATERIAL WORKER, Duration: 30 day, Stop date: 07/10/18 0:26:00 CSTNotes: (S kris as: Humalog ) Roll in palms of hands gently; Do not shake `vigorously. "Single Patient Use Only " WASTE: F/P - Black; E - Municipal Trash Bin Stable for 28 days at room temperature. Expires in days from Date No Longer Active 06/10/2018 [facility] Dextrose 50% Syringe 25 gm, 50 mL, Route: IVP, Drug Form: INJ, Dosing Weight 71.727, kg, PRN, PRN Blood Glucose Results, Start date: 06/10/18 0:27:00 MATERIAL WORKER, Duration: 30 day, Stop date: 07/10/18 0:26:00 MATERIAL WORKER No Longer Active 06/10/2018 [facility] Glucagon 1 mg, Route: IM, Drug form: PDR/INJ, PRN, Dosing Weight 71.727, kg, PRN Blood Glucose Results, Start date: 06/10/18 0:27:00 MATERIAL WORKER, Duration: 30 day, Stop date: 07/10/18 0:26:00 MATERIAL WORKER Inactive 06/10/2018 [facility] NS 1,000 mL 1,000 mL, Rate: 75 ml/hr, Infuse over: 13.3 hr, Route: IV, Dosing Weight 71.727 kg, Total Volume: 1,000, Start date: 06/10/18 0:23:00 MATERIAL WORKER, Duration: 30 day, Stop date: 07/10/18 0:22:00 MATERIAL WORKER, 1.78, m2 No Longer Active 06/10/2018 [facility] Dextrose 50% Syringe 12.5 gm, 25 mL, Route: IVP, Drug Form: INJ, Dosing Weight 71.727, kg, PRN, PRN Blood Glucose Results, Start date: 06/10/18 0:20:00 MATERIAL WORKER, Duration: 30 day, Stop date: 07/10/18 0:19:00 MATERIAL WORKER No Longer Active 06/10/2018 [facility] Acetaminophen 650 mg, 2 tab, Route: PO, Drug form: TAB, Q4H, Dosing Weight 71.727, kg, PRN For Temp > 100.4 F, Start date: 06/10/18 0:20:00 MATERIAL WORKER, Duration: 30 day, Stop date: 07/10/18 0:19:00 CSTNotes: Do not exceed 4 gm/day. (Same as: Tylenol) No Longer Active 06/10/2018 [facility] Glucagon 1 mg, Route: IM, Drug form: PDR/INJ, PRN, Dosing Weight 71.727, kg, PRN Blood Glucose Results, Start date: 06/10/18 0:20:00 MATERIAL WORKER, Duration: 30 day, Stop date: 07/10/18 0:19:00 MATERIAL WORKER No Longer Active 06/10/2018 [facility] Glimepiride 2 Mg Tablet, 4 Mg Oral Active 2017 [facility] 5/325 oral tablet 1-2 tab, PO, Q4-6H, Pain, # 15 tab, 0 Refill(s) Active [facility] 06/12/2013 [facility] Zofran 4 mg, Route: IVP, Drug form: INJ, ONCE, Dosing Weight 81.818, kg, Priority: STAT, Start date: 06/11/13 20:36:00, Stop date: 06/11/13 20:36:00 Inactive [facility] 06/12/2013 [facility] morphine Sulfate 4 mg, Route: IVP, Drug form: INJ, ONCE, Dosing Weight 81.818, kg, Priority: STAT, Start date: 06/11/13 20:35:00, Stop date: 06/11/13 20:35:00 Inactive [facility] 06/12/2013 [facility] Amlodipine Besylate 10 Mg Tablet Daily Active [facility] Carvedilol 12.5 Mg Tablet Twice A Day Active [facility] Ferrous Sulfate 325 Mg Tablet.dr Daily Active [facility] Folic Acid 1 Mg Tablet Daily Active [facility] Furosemide 40 Mg Tablet Daily Active [facility] Glimepiride 2 Mg Tablet Daily Active [facility] Hydralazine Hcl 25 Mg Tab Active [facility] Loratadine 10 Mg Tablet Daily Active [facility] Pravastatin Sodium 40 Mg Tablet Daily Active [facility] Sitagliptin Phosphate (Januvia) 100 Mg Tablet Daily Active [facility] Allergies, Adverse Reactions, Alerts Substance Category Reaction Severity Reaction type Status Date Reported Comments Source No Known Medication Allergies Assertion Drug allergy [facility] Immunizations Immunization Date Given Site Status Last Updated Comments Source influenza virus vaccine, inactivated 06/21/2018 Left Deltoid completed Ty [facility] Results Order Name Results Value Reference Range [...] should be multiplied by the estimated BMI. [facility] CHEM PANEL AGAP 14.5 10.0 - 20.0 06/20/2018 [facility] CHEM PANEL Calcium Lvl 8.1 8.5 - 10.5 06/20/2018 [facility] CHEM PANEL CO2 19 24 - 32 06/20/2018 [facility] CHEM PANEL Chloride Lvl 104 95 - 109 06/20/2018 [facility] CHEM PANEL Potassium Lvl 3.5 3.5 - 5.1 06/20/2018 [facility] CHEM PANEL Creatinine Lvl 4.84 0.50 - 1.40 06/20/2018 [facility] CHEM PANEL BUN 53 7 - 22 06/20/2018 [facility] CHEM PANEL Sodium Lvl 134 135 - 145 06/20/2018 [facility] CHEM PANEL Glucose Lvl 156 70 - 99 06/20/2018 [facility] CHEM PANEL eGFR 10 06/19/2018 Result Comment: [...] should be multiplied by the estimated BMI. [facility] CHEM PANEL Chloride Lvl 107 95 - 109 06/19/2018 [facility] CHEM PANEL Sodium Lvl 140 135 - 145 06/19/2018 [facility] CHEM PANEL Creatinine Lvl 4.94 0.50 - 1.40 06/19/2018 [facility] CHEM PANEL BUN 56 7 - 22 06/19/2018 [facility] CHEM PANEL AGAP 17.7 10.0 - 20.0 06/19/2018 [facility] CHEM PANEL Calcium Lvl 7.9 8.5 - 10.5 06/19/2018 [facility] CHEM PANEL CO2 19 24 - 32 06/19/2018 [facility] CHEM PANEL Potassium Lvl 3.7 3.5 - 5.1 06/19/2018 [facility] CHEM PANEL Glucose Lvl 142 70 - 99 06/19/2018 [facility] CHEM PANEL eGFR 9 06/18/2018 Result Comment: [...] should be multiplied by the estimated BMI. [facility] CHEM PANEL AGAP 15.8 10.0 - 20.0 06/18/2018 [facility] CHEM PANEL CO2 18 24 - 32 06/18/2018 [facility] CHEM PANEL Calcium Lvl 7.7 8.5 - 10.5 06/18/2018 [facility] CHEM PANEL Chloride Lvl 107 95 - 109 06/18/2018 [facility] CHEM PANEL Potassium Lvl 3.8 3.5 - 5.1 06/18/2018 [facility] CHEM PANEL Sodium Lvl 137 135 - 145 06/18/2018 [facility] CHEM PANEL Creatinine Lvl 5.10 0.50 - 1.40 06/18/2018 [facility] CHEM PANEL BUN 58 7 - 22 06/18/2018 [facility] CHEM PANEL Glucose Lvl 117 70 - 99 06/18/2018 [facility] HEMATOLOGY Lymphocytes # 0.5 1.0 - 5.5 06/16/2018 [facility] HEMATOLOGY Monocytes # 1.6 0.0 - 0.8 06/16/2018 [facility] HEMATOLOGY Basophils # 0.1 0.0 - 0.2 06/16/2018 [facility] HEMATOLOGY Eosinophils 0.1 0.0 - 4.0 06/16/2018 [facility] HEMATOLOGY Monocytes 8.0 2.0 - 12.0 06/16/2018 [facility] Neutrophils # 17.9 1.5 - 8.1 06/16/2018 [facility] Basophils 0.3 0.0 - 1.0 06/16/2018 [facility] HEMATOLOGY Segs 89.1 45.0 - 75.0 06/16/2018 [facility] Lymphocytes 2.5 20.0 - 40.0 06/16/2018 [facility] RDW 15.5 11.5 - 14.5 06/16/2018 [facility] MCHC 31.6 32.0 - 36.0 06/16/2018 [facility] MPV 7.6 7.4 - 10.4 06/16/2018 [facility] Platelet 303 133 - 450 06/16/2018 [facility] Hgb 9.3 12.0 - 16.0 06/16/2018 [facility] RBC 3.32 4.20 - 5.40 06/16/2018 [facility] HEMATOLOGY WBC 20.1 3.7 - 10.4 06/16/2018 [facility] HEMATOLOGY MCV 88.1 80.0 - 98.0 06/16/2018 [facility] HEMATOLOGY Hct 29.3 36.0 - 48.0 06/16/2018 [facility] HEMATOLOGY MCH 27.8 27.0 - 31.0 06/16/2018 [facility] IMIPENEM:SUSC:PT:ISOLATE:ORDQN:KREVIN Gram Stain Report Many Gram Negative Rods Many Gram Positive Cocci Many Wbc 06/15/2018 [facility] IMIPENEM:SUSC:PT:ISOLATE:ORDQN:KERVIN Culture: Wound/Abscess w/Gram Stain Many Citrobacter Freundii Complex Growth In Subculture Broth Only : Enterococcus Species Many Pseudomonas aeruginosa Refer To Culture # [id number], collected on 06/15/18 For Susceptibility Results 06/15/2018 [facility] IMIPENEM:SUSC:PT:ISOLATE:ORDQN:KERVIN Citrobacter Freundii Complex Citrobacter Freundii Complex 06/15/2018 [facility] Culture: Anaerobic No Anaerobes Isolated 06/15/2018 [facility] Culture: Anaerobic Many Prevotella Species Beta Lactamase Negative . Many Bacteroides Species Beta Lactamase Positive 06/15/2018 [facility] CEFEPIME:SUSC:PT:ISOLATE:ORDQN:KERVIN Gram Stain Report Few Wbc'S; Moderate Gram Positive Cocci 06/15/2018 [facility] CEFEPIME:SUSC:PT:ISOLATE:ORDQN:KERVIN Culture: Wound/Abscess w/Gram Stain Few Pseudomonas aeruginosa Moderate Enterococcus Species . Few Yeast 06/15/2018 [facility] CEFEPIME:SUSC:PT:ISOLATE:ORDQN:KERVIN Enterococcus Species Enterococcus Species 06/15/2018 [facility] CEFEPIME:SUSC:PT:ISOLATE:ORDQN:KERVIN Pseudomonas aeruginosa Pseudomonas aeruginosa 06/15/2018 [facility] BLOOD BANK RESULTS ABO/Rh B POS 06/15/2018 [facility] BLOOD BANK RESULTS Antibody Scrn Negative (06/15/18 7:13 AM) 06/15/2018 [facility] HEMATOLOGY Eosinophils # 0.1 0.0 - 0.5 06/15/2018 [facility] HEMATOLOGY Monocytes # 1.5 0.0 - 0.8 06/15/2018 [facility] HEMATOLOGY Basophils # 0.1 0.0 - 0.2 06/15/2018 [facility] HEMATOLOGY Lymphocytes # 0.7 1.0 - 5.5 06/15/2018 [facility] HEMATOLOGY Basophils 0.3 0.0 - 1.0 06/15/2018 [facility] HEMATOLOGY Neutrophils # 15.0 1.5 - 8.1 06/15/2018 [facility] HEMATOLOGY Segs 86.0 45.0 - 75.0 06/15/2018 [facility] HEMATOLOGY Lymphocytes 4.1 20.0 - 40.0 06/15/2018 [facility] HEMATOLOGY Monocytes 8.7 2.0 - 12.0 06/15/2018 [facility] HEMATOLOGY Eosinophils 0.9 0.0 - 4.0 06/15/2018 [facility] MCHC 32.0 32.0 - 36.0 06/15/2018 [facility] RDW 15.3 11.5 - 14.5 06/15/2018 [facility] Platelet 365 133 - 450 06/15/2018 [facility] MPV 7.6 7.4 - 10.4 06/15/2018 [facility] WBC 17.4 3.7 - 10.4 06/15/2018 [facility] MCV 87.5 80.0 - 98.0 06/15/2018 [facility] MCH 28.0 27.0 - 31.0 06/15/2018 [facility] RBC 3.34 4.20 - 5.40 06/15/2018 [facility] Hgb 9.3 12.0 - 16.0 06/15/2018 [facility] Hct 29.2 36.0 - 48.0 06/15/2018 [facility] Basophils # 0.1 0.0 - 0.2 06/14/2018 [facility] Lymphocytes # 0.7 1.0 - 5.5 06/14/2018 [facility] Eosinophils # 0.1 0.0 - 0.5 06/14/2018 [facility] Monocytes # 1.7 0.0 - 0.8 06/14/2018 [facility] Plt Morph Normal (06/14/18 5:45 AM) 06/14/2018 [facility] HEMATOLOGY RBC Morph Normal (06/14/18 5:45 AM) 06/14/2018 [facility] Monocytes 9.1 2.0 - 12.0 06/14/2018 [facility] Eosinophils 0.6 0.0 - 4.0 06/14/2018 [facility] Lymphocytes 4.1 20.0 - 40.0 06/14/2018 [facility] Neutrophils # 15.6 1.5 - 8.1 06/14/2018 [facility] HEMATOLOGY Segs 85.9 45.0 - 75.0 06/14/2018 [facility] HEMATOLOGY Basophils 0.3 0.0 - 1.0 06/14/2018 [facility] HEMATOLOGY Platelet 337 133 - 450 06/14/2018 [facility] HEMATOLOGY RDW 15.3 11.5 - 14.5 06/14/2018 [facility] HEMATOLOGY Hct 29.8 36.0 - 48.0 06/14/2018 [facility] HEMATOLOGY RBC 3.43 4.20 - 5.40 06/14/2018 [facility] HEMATOLOGY Hgb 9.7 12.0 - 16.0 06/14/2018 [facility] MCV 86.8 80.0 - 98.0 06/14/2018 [facility] MPV 7.4 7.4 - 10.4 06/14/2018 [facility] MCHC 32.5 32.0 - 36.0 06/14/2018 [facility] MCH 28.2 27.0 - 31.0 06/14/2018 [facility] HEMATOLOGY WBC 18.1 3.7 - 10.4 06/14/2018 [facility] TOXICOLOGY Vanco Lvl 16.9 06/14/2018 [facility] BLOOD BANK RESULTS RBC product Product available 4 (06/13/18 2:59 PM) 06/13/2018 Result Comment: 06/13/2018 15:36 [id number]
spoke to [email or web address] on 06/13/2018 15:36 by Karri. [facility] CHEM PANEL Phosphorus 5.5 2.5 - 4.5 06/13/2018 [facility] CHEM PANEL Magnesium Lvl 1.8 1.8 - 2.4 06/13/2018 [facility] CHEM PANEL Phosphorus 5.8 2.5 - 4.5 06/12/2018 [facility] CHEM PANEL Magnesium Lvl 1.9 1.8 - 2.4 06/12/2018 [facility] HEMATOLOGY Eosinophils # 0.1 0.0 - 0.5 06/12/2018 [facility] SPECIAL CHEMISTRY Hgb A1C 6.3 <=5.6 % 06/12/2018 [facility] TOXICOLOGY Vanco Lvl 25.2 06/12/2018 [facility] ANEMIA STUDY Ferritin Lvl 839 5 - 204 06/11/2018 [facility] ANEMIA STUDY % [place] 26 12 - 57 06/11/2018 [facility] ANEMIA STUDY Iron 27 30 - 160 06/11/2018 [facility] ANEMIA STUDY TIBC 104 228 - 428 06/11/2018 [facility] ANEMIA STUDY UIBC 77 110 - 370 06/11/2018 [facility] TOXICOLOGY Vanco Lvl 26.6 06/11/2018 [facility] BLOOD BANK RESULTS ABO/Rh B POS 06/11/2018 [facility] BLOOD BANK RESULTS Antibody Scrn Negative (06/11/18 9:31 AM) 06/11/2018 [facility] CHEM PANEL Magnesium Lvl 2.1 1.8 - 2.4 06/11/2018 [facility] CHEM PANEL Phosphorus 6.6 2.5 - 4.5 06/11/2018 [facility] HEMATOLOGY Anisocyte 1+ *ABN* (06/11/18 5:01 AM) None Seen 06/11/2018 [facility] HEMATOLOGY Hypochrom 1+ (06/11/18 5:01 AM) None Seen 06/11/2018 [facility] HEMATOLOGY Plt Morph Normal (06/11/18 5:01 AM) 06/11/2018 [facility] URINE AND STOOL UA Glucose 150 mg/dL Negative mg/dL 06/10/2018 [facility] URINE AND STOOL UA Protein 100 mg/dL Negative mg/dL 06/10/2018 [facility] URINE AND STOOL UA pH 5.0 5.0 - 8.0 06/10/2018 [facility] URINE AND STOOL UA Color Ltyellow 06/10/2018 [facility] URINE AND STOOL UA Turbidity Slight *ABN* (06/10/18 2:04 PM) Clear 06/10/2018 [facility] URINE AND STOOL UA RBC 3 0 - 2 06/10/2018 [facility] URINE AND STOOL UA Bacteria Occasional /HPF None Seen /HPF 06/10/2018 [facility] URINE AND STOOL UA Sq Epi Occasional /LPF Few /LPF 06/10/2018 [facility] URINE AND STOOL UA WBC 24 0 - 5 06/10/2018 [facility] URINE AND STOOL UA Leuk Est Moderate *ABN* (06/10/18 2:04 PM) Negative 06/10/2018 [facility] URINE AND STOOL UA Urobilinogen <=1.0 mg/dL 0.1 - 1.0 06/10/2018 [facility] URINE AND STOOL UA Nitrite Negative (06/10/18 2:04 PM) Negative 06/10/2018 [facility] URINE AND STOOL UA Blood Small *ABN* (06/10/18 2:04 PM) Negative 06/10/2018 [facility] URINE AND STOOL UA Ketones Negative *NA* (06/10/18 2:04 PM) Negative 06/10/2018 [facility] URINE AND STOOL UA Bili Negative *NA* (06/10/18 2:04 PM) Negative 06/10/2018 [facility] URINE AND STOOL UA Spec Grav 1.008 <=1.030 06/10/2018 [facility] URINE CHEM U Protein 94.0 06/10/2018 [facility] URINE CHEM U Creatinine 32.30 06/10/2018 [facility] URINE CHEM U Prot/Creat 2.91 06/10/2018 [facility] CHEM PANEL ALT 32 0 - 65 06/10/2018 [facility] CHEM PANEL AST 22 0 - 37 06/10/2018 [facility] CHEM PANEL Alk Phos 78 39 - 136 06/10/2018 [facility] CHEM PANEL Bili Total 0.3 0.2 - 1.3 06/10/2018 [facility] CHEM PANEL Total Protein 7.4 6.4 - 8.4 06/10/2018 [facility] CHEM PANEL Albumin Lvl 2.1 3.5 - 5.0 06/10/2018 [facility] CHEM PANEL B/C Ratio 11 6 - 25 06/10/2018 [facility] CHEM PANEL A/G Ratio 0.4 0.7 - 1.6 06/10/2018 [facility] CHEM PANEL Globulin 5.3 2.7 - 4.2 06/10/2018 [facility] Capillary blood glucose measurement by glucometer (mass/volume) Capillary blood glucose measurement by glucometer (mass/volume) 92 70 - 120 2017 [facility] Automated blood basophil count (count/volume) Automated blood basophil count (count/volume) 0.0 0.0 - 0.1 2017 [facility] Automated blood basophil count as percentage of total leukocytes Automated blood basophil count as percentage of total leukocytes 0.5 0.0 - 1.0 2017 [facility] Automated blood eosinophil count Automated blood eosinophil count 0.3 0.0 - 0.4 2017 [facility] Automated blood eosinophil count as percentage of total leukocytes Automated blood eosinophil count as percentage of total leukocytes 4.9 0.0 - 6.0 2017 [facility] Automated blood hematocrit (volume fraction) Automated blood hematocrit (volume fraction) 24.9 34.2 - 44.1 2017 [facility] Automated blood lymphocyte count as percentage ot total leukocytes Automated blood lymphocyte count as percentage ot total leukocytes 11.0 18.0 - 39.1 2017 [facility] Automated blood monocyte count as percentage of total leukocytes Automated blood monocyte count as percentage of total leukocytes 18.4 4.4 - 11.3 2017 [facility] Automated blood neutrophil count Automated blood neutrophil count 3.7 2.1 - 6.9 2017 [facility] Automated blood platelet count (count/volume) Automated blood platelet count (count/volume) 207 140 - 360 2017 [facility] Automated blood segmented neutrophil count as percentage of total leukocytes Automated blood segmented neutrophil count as percentage of total leukocytes 64.5 38.7 - 80.0 2017 [facility] Automated erythrocyte mean corpuscular hemoglobin (mass per erythrocyte) Automated erythrocyte mean corpuscular hemoglobin (mass per erythrocyte) 26.8 28 - 32 2017 [facility] Automated erythrocyte mean corpuscular hemoglobin concentration measurement (mass/volume) Automated erythrocyte mean corpuscular hemoglobin concentration measurement (mass/volume) 32.9 31 - 35 2017 [facility] Automated erythrocyte mean corpuscular volume Automated erythrocyte mean corpuscular volume 81.4 81 - 99 2017 [facility] Blood erythrocytes automated count (number/volume) Blood erythrocytes automated count (number/volume) 3.06 3.6 - 5.1 2017 [facility] Blood hemoglobin measurement (moles/volume) Blood hemoglobin measurement (moles/volume) 8.2 12.0 - 16.0 2017 [facility] Blood leukocytes automated count (number/volume) Blood leukocytes automated count (number/volume) 5.75 4.8 - 10.8 2017 [facility] Blood lymphocytes count (number/volume) Blood lymphocytes count (number/volume) 0.6 1.0 - 3.2 2017 [facility] Blood monocytes automated count (number/volume) Blood monocytes automated count (number/volume) 1.1 0.2 - 0.8 2017 [facility] Estimated glomerular filtration rate (GFR) determination Estimated glomerular filtration rate (GFR) determination 8 60 2017 [facility] Glucose measurement Glucose measurement 41 74 - 118 2017 [facility] Serum or plasma anion gap Serum or plasma anion gap 14.8 8 - 16 2017 [facility] Serum or plasma calcium measurement (mass/volume) Serum or plasma calcium measurement (mass/volume) 7.9 8.4 - 10.2 2017 [facility] Serum or plasma carbon dioxide, total measurement (moles/volume) Serum or plasma carbon dioxide, total measurement (moles/volume) 23 22 - 29 2017 [facility] Serum or plasma chloride measurement (moles/volume) Serum or plasma chloride measurement (moles/volume) 99 98 - 107 2017 [facility] Serum or plasma creatinine measurement (mass/volume) Serum or plasma creatinine measurement (mass/volume) 6.09 0.57 - 1.11 2017 [facility] Serum or plasma potassium measurement (moles/volume) Serum or plasma potassium measurement (moles/volume) 3.8 3.5 - 5.1 2017 [facility] Serum or plasma sodium measurement (moles/volume) Serum or plasma sodium measurement (moles/volume) 133 136 - 145 2017 [facility] Serum or plasma urea nitrogen measurement (mass/volume) Serum or plasma urea nitrogen measurement (mass/volume) 63 7 - 26 2017 [facility] Serum or plasma urea nitrogen/creatinine mass ratio Serum or plasma urea nitrogen/creatinine mass ratio 10 6 - 25 2017 [facility] Red Cell Distribution Width 15.9 11.7 - 14.4 2017 [facility] IM GRANULOCYTES % 0.7 0.0 - 1.0 2017 [facility] Absolute Immature Granulocyte (auto 0.04 0 - 0.1 2017 [facility] Phosphorus measurement Phosphorus measurement 5.8 2.3 - 4.7 09/19/2017 [facility] Plasma globulin measurement (mass/volume) Plasma globulin measurement (mass/volume) 3.7 2.3 - 3.5 09/19/2017 [facility] Serum or plasma alanine aminotransferase measurement (enzymatic activity/volume) Serum or plasma alanine aminotransferase measurement (enzymatic activity/volume) 21 0 - 55 09/19/2017 [facility] Serum or plasma albumin measurement (mass/volume) Serum or plasma albumin measurement (mass/volume) 3.0 3.5 - 5.0 09/19/2017 [facility] Serum or plasma albumin/globulin mass ratio Serum or plasma albumin/globulin mass ratio 0.8 0.8 - 2.0 09/19/2017 [facility] Serum or plasma alkaline phosphatase measurement (enzymatic activity/volume) Serum or plasma alkaline phosphatase measurement (enzymatic activity/volume) 76 40 - 150 09/19/2017 [facility] Serum or plasma magnesium measurement (mass/volume) Serum or plasma magnesium measurement (mass/volume) 1.9 1.3 - 2.1 09/19/2017 [facility] Serum or plasma protein measurement (mass/volume) Serum or plasma protein measurement (mass/volume) 6.7 6.5 - 8.1 09/19/2017 [facility] Serum or plasma total bilirubin measurement (mass/volume) Serum or plasma total bilirubin measurement (mass/volume) 0.4 0.2 - 1.2 09/19/2017 [facility] Aspartate Amino Transf (AST/SGOT) 23 5 - 34 09/19/2017 [facility] B-Type Natriuretic Peptide 1274.1 0 - 100 09/19/2017 [facility] Blood cobalamin (vitamin B12) measurement (mass/volume) Blood cobalamin (vitamin B12) measurement (mass/volume) >2000 213 - 816 09/16/2017 [facility] Serum or plasma folate measurement (mass/volume) Serum or plasma folate measurement (mass/volume) >20.0 7.0 - 15.4 09/16/2017 [facility] Stool gastrointestinal hemoglobin detection Stool gastrointestinal hemoglobin detection NEGATIVE NEGATIVE 09/16/2017 [facility] Serum or plasma creatine kinase MB measurement (mass/volume) Serum or plasma creatine kinase MB measurement (mass/volume) 2.40 0 - 5.0 09/15/2017 [facility] Serum or plasma creatine kinase measurement (enzymatic activity/volume) Serum or plasma creatine kinase measurement (enzymatic activity/volume) 78 29 - 168 09/15/2017 [facility] Troponin I measurement by highly sensitive enzyme immunoassay Troponin I measurement by highly sensitive enzyme immunoassay 0.021 0 - 0.300 09/15/2017 [facility] Serum or plasma iron binding capacity measurement (mass/volume) Serum or plasma iron binding capacity measurement (mass/volume) 274 261 - 478 09/15/2017 [facility] Serum or plasma iron measurement (mass/volume) Serum or plasma iron measurement (mass/volume) 49 50 - 170 09/15/2017 [facility] Serum or plasma iron saturation measurement (mass fraction) Serum or plasma iron saturation measurement (mass fraction) 18 15 - 50 09/15/2017 [facility] Serum or plasma transferrin measurement (mass/volume) Serum or plasma transferrin measurement (mass/volume) 196 180 - 382 09/15/2017 [facility] Serum or plasma calcium measurement (mass/volume) Serum or plasma calcium measurement (mass/volume) 8.4 8.7 - 10.3 09/14/2017 [facility] Serum or plasma complement C3 measurement (mass/volume) Serum or plasma complement C3 measurement (mass/volume) 112 82 - 167 09/14/2017 [facility] Serum or plasma complement C4 measurement (mass/volume) Serum or plasma complement C4 measurement (mass/volume) 31 14 - 44 09/14/2017 [facility] Serum or plasma intact pararthyroid hormone measurement (mass/volume) Serum or plasma intact pararthyroid hormone measurement (mass/volume) 436 15 - 65 09/14/2017 [facility] Parathyroid Hormone Interpretation Comment . 09/14/2017 [facility] Activated partial thromboplastin time (aPTT) in platelet poor plasma bycoagulation assay Activated partial thromboplastin time (aPTT) in platelet poor plasma bycoagulation assay 33.6 23.8 - 35.5 09/14/2017 [facility] Automated urine sediment leukocyte count by microscopy (number/high power field) Automated urine sediment leukocyte count by microscopy (number/high power field) NONE 0 - 5 09/14/2017 [facility] Bacteria detection in urine sediment by light microscopy Bacteria detection in urine sediment by light microscopy NONE NONE 09/14/2017 [facility] Epithelial cells detection in urine sediment by light microscopy Epithelial cells detection in urine sediment by light microscopy MANY NONE 09/14/2017 [facility] Erythrocytes detection in urine sediment by light microscopy Erythrocytes detection in urine sediment by light microscopy NONE 0 - 5 09/14/2017 [facility] INR in Platelet poor plasma by Coagulation assay INR in Platelet poor plasma by Coagulation assay 1.28 09/14/2017 [facility] Prothrombin time (PT) in platelet poor plasma by coagulation assay Prothrombin time (PT) in platelet poor plasma by coagulation assay 15.0 11.9 - 14.5 09/14/2017 [facility] Serum or plasma lipase measurement (enzymatic activity/volume) Serum or plasma lipase measurement (enzymatic activity/volume) 19 8 - 78 09/14/2017 [facility] Serum or plasma thyrotropin measurement by detection limit <=0.005 miu/l (units/volume) Serum or plasma thyrotropin measurement by detection limit <=0.005 miu/l (units/volume) 0.747 0.350 - 4.940 09/14/2017 [facility] Specific gravity of Urine by Test strip Specific gravity of Urine by Test strip 1.010 1.010 - 1.025 09/14/2017 [facility] Urine clarity Urine clarity CLEAR CLEAR 09/14/2017 [facility] Urine color determination Urine color determination YELLOW YELLOW 09/14/2017 [facility] Urine erythrocytes detection Urine erythrocytes detection NEGATIVE NEGATIVE 09/14/2017 [facility] Urine glucose detection Urine glucose detection NEGATIVE NEGATIVE 09/14/2017 [facility] Urine ketones detection by automated test strip Urine ketones detection by automated test strip NEGATIVE NEGATIVE 09/14/2017 [facility] Urine leukocyte esterase detection by dipstick Urine leukocyte esterase detection by dipstick NEGATIVE NEGATIVE 09/14/2017 [facility] Urine nitrite detection Urine nitrite detection NEGATIVE NEGATIVE 09/14/2017 [facility] Urine pH measurement by automated test strip Urine pH measurement by automated test strip 6 5 - 7 09/14/2017 [facility] Urine protein measurement by test strip (mass/volume) Urine protein measurement by test strip (mass/volume) 2+ NEGATIVE 09/14/2017 [facility] Urine total bilirubin measurement (mass/volume) Urine total bilirubin measurement (mass/volume) NEGATIVE NEGATIVE 09/14/2017 [facility] Urine urobilinogen measurement by test strip (mass/volume) Urine urobilinogen measurement by test strip (mass/volume) 0.2 0.2 - 1 09/14/2017 [facility] 24 hour urine albumin/total protein ratio by electrophoresis 24 hour urine albumin/total protein ratio by electrophoresis 71.1 . 09/14/2017 [facility] 24 hour urine alpha 1 globulin/total protein by electrophoresis 24 hour urine alpha 1 globulin/total protein by electrophoresis 6.1 . 09/14/2017 [facility] 24 hour urine alpha 2 globulin/total protein by electrophoresis 24 hour urine alpha 2 globulin/total protein by electrophoresis 9.2 . 09/14/2017 [facility] 24 hour urine beta globulin/total protein ratio by electrophoresis 24 hour urine beta globulin/total protein ratio by electrophoresis 7.6 . 09/14/2017 [facility] 24 hour urine gamma globulin/total protein ratio by electrophoresis 24 hour urine gamma globulin/total protein ratio by electrophoresis 6.0 . 09/14/2017 [facility] Urine creatinine measurement (mass/volume) Urine creatinine measurement (mass/volume) 43.23 47 - 110 09/14/2017 [facility] Urine protein measurement (mass/volume) Urine protein measurement (mass/volume) 89.1 1 - 14 09/14/2017 [facility] Urine protein measurement (mass/volume) Urine protein measurement (mass/volume) 90.1 Not Estab. 09/14/2017 [facility] Urine protein monoclonal/total protein by electrophoresis Urine protein monoclonal/total protein by electrophoresis Not Observed Not Observed 09/14/2017 [facility] Urine sodium measurement (moles/volume) Urine sodium measurement (moles/volume) 79 09/14/2017 [facility] Protein Electrophoresis Note Comment . 09/14/2017 [facility] Pathology Reports No Data Provided for This Section Diagnostic Reports Report Value Date Source Ext Lower Arterial bilat w pressure US Please refer to heart lab report, located under Vascular in [facility]. 06/14/2018 [facility] Foot wo contrast MRI MRI left foot [...] may be consistent with neuropathic joint. SL: [id number] 06/13/2018 [facility] Foot wo contrast MRI MRI right foot [...] may be consistent with neuropathic joint. SL: [id number] 06/13/2018 [facility] Chest 1view DX Clinical Indication: Abnormal breath [...] of acute cardiopulmonary disease. RASHMI: RAYRAY 06/12/2018 [facility] Bone scan 3 phase NM Bone scan [...] of the feet as clinically indicated. SL: [id number] 06/11/2018 [facility] Ext Lower Arterial Doppler bilat US Patient Name: LEIGHTON GUERRERO : 1950; Age: 67 years y/o Female MR: [id number] Study: Ext Lower Arterial Doppler bilat US [...] left lower extremity arteries. SL: [id number] 06/10/2018 [facility] Foot 2 views bilateral DX Study: Bilateral [...] and no radiographic evidence of osteomyelitis. SL: [id number] 06/10/2018 [facility] Retroperitoneal Complete US Retroperitoneal ultrasound, complete Clinical [...] 1. Unremarkable renal ultrasound. SL: [id number] 06/10/2018 [facility] Humerus AP lateral HISTORY: Fall, pain. RIGHT HUMERUS 2 VIEWS: No fracture subluxation or lesion. SL:13 06/11/2013 [facility] Shoulder series HISTORY: Trauma. RIGHT SHOULDER 3 VIEWS: No acute fracture subluxation or lesion is evident. SL:13 06/11/2013 [facility] Consultation Notes No Data Provided for This Section Discharge Summaries No Data Provided for This Section History and Physicals No Data Provided for This Section Vital Signs Vital Sign Value Date Comments Source Systolic (mm Hg) 185 06/21/2018 [facility] Diastolic (mm Hg) 76 06/21/2018 [facility] Heart Rate 88 06/21/2018 [facility] Temperature Oral (F) 98.5 F 06/21/2018 [facility] Heart Rate 82 06/20/2018 [facility] Systolic (mm Hg) 163 06/20/2018 [facility] Diastolic (mm Hg) 69 06/20/2018 [facility] Respitory Rate 18 06/20/2018 [facility] Temperature Oral (F) 98.5 F 06/20/2018 [facility] Systolic (mm Hg) 193 06/20/2018 [facility] Diastolic (mm Hg) 71 06/20/2018 [facility] Temperature Oral (F) 98.4 F 06/20/2018 [facility] Heart Rate 84 06/20/2018 [facility] Respitory Rate 16 06/19/2018 [facility] Respitory Rate 16 06/19/2018 [facility] BMI Calculated 29.88 06/10/2018 [facility] Weight 71.727 06/10/2018 [facility] Height 154.94 cm 06/10/2018 [facility] Weight 71.727 06/10/2018 [facility] BMI Calculated 29.88 06/10/2018 [facility] Height 154.94 cm 06/10/2018 [facility] Systolic (mm Hg) 184 06/12/2013 [facility] Temperature Oral (F) 98.6 F 06/12/2013 [facility] Respitory Rate 18 06/12/2013 [facility] Diastolic (mm Hg) 89 06/12/2013 [facility] Heart Rate 88 06/12/2013 [facility] Weight 81.818 06/12/2013 [facility] Diastolic (mm Hg) 84 06/12/2013 [facility] Heart Rate 95 06/12/2013 [facility] Respitory Rate 20 06/12/2013 [facility] Systolic (mm Hg) 200 06/12/2013 [facility] Temperature Oral (F) 98.3 F 06/12/2013 [facility] Encounters Location Location Details Encounter Type Encounter Number Reason For Visit Attending Provider ADM Date DC Date Status Source [facility] Outpatient [id number] ROUTINE SCREENING LYUBOV HURST 08/30/2011 Active [facility] Outpatient [id number] COMPLICATIONS AFFECTING OTHER SPECIFIED BODY SYSTEMS, Christiana ASHER 02/13/2012 Active [facility] Emergency [id number] SHOULDER PAIN OR INJURY PIERRE DELGADILLO 06/11/2013 06/11/2013 Active [facility] Discharged Inpatient [id number] LYUBOV HURST MD 09/14/2017 2017 [facility] Inpatient [id number] Magy Mougouris 06/10/2018 06/21/2018 [facility] Procedures Procedure Code Date Perfomer Comments Source Ultrasound, renal [id number] 09/15/[address] [facility] CT of abdomen and pelvis without contrast [id number] 09/14/2017 MOHAMUD [facility] Cataract surgery<sup>1</sup> [id number] bilateral eyes [facility] Assessment and Plan Assessment and Plan Date [...] 4.9, had similar course of hospitalization at [facility] [place] 2. Metabolic acidosis on p.o. bicarbonate. 3. [...] 06/20/18 [place] Fall Score 12 06/20/18 [place] Score 15 06/20/18 Rivera Score 16 06/20/18 Pain Intensity NRS (0-10) 0 Lines, Tubes, and Drains: 06/18/2018 11:01 Peripheral Lines: Forearm Right 22 gauge Over the needle catheter Surgical Procedures: 06/15/18 15:13 ULCER / BONE DEBRIDEMENT, LORENZO HEEL [phone] Primary Surgeon: Mario Hurst DPM (Service: POD) [...] in Water IV (Dextrose 50% Syringe), acetaminophen-hydrocodone ([facility] 7.5/325 oral tablet), acetaminophen, cloNIDine, glucagon, insulin [...] (JUN 18) L 7.5 (JUN 16) 06/21/2018 [facility] Plan of Care Plan of Care Date Source Discharge Date 09/20/17 2:58pm Disposition HOME, SELF-CARE Instructions/Education Provided Chest Pain - Noncardiac Prescriptions See Medication Section Referrals JAIRO ASHER MD (Internal Medicine) Order Date: 2 Weeks Entered Date: 2017 9:48am Address: [address] [place] [id number] Additional Instructions/Education ADA DIET ,ACTIVITY TOLERATED ` FLUID RESTRICTION 1200CC PER DAY,MONITOR BLOOD PRESSURE AND FASTING BLOOD SUGAR AT HOME HOLD BLOOD SUGAR MEDICATIONS IF FASTING BLOOD SUGARBELOW 90 , REPEAT BLOOD TEST CBC AND CMP AFTER 5 DAYS 2017 [facility] Social History Social History Date Source Social History TypeResponse Substance Abuse Use: None. Alcohol Past, Last use: 50 years ago. Previous treatment: None. Smoking Status Former smoker; Type: Cigarettes; Previous treatment: None; Concerns about tobacco use in household: No; Exposure to Tobacco Smoke None; Cigarette Smoking Last 365 Days No; Reg Smoking Cessation Counseling No; Stopped at age: 17; entered on: 06/10/18 06/10/2018 [facility] Social History Problem Response Recorded Date/Time Onset [...] Start Date Stop Date Never Smoker 2017 [facility] Family History Value Date Source Relationship Condition Age at Onset Recorded Date/Time 09 Brother Family history of diabetes mellitus Not Recorded 09/15/2017 2:50am 32 Mother Family history of acute myocardial infarction Not Recorded 09/15/2017 2:50am 32 Mother Family history of hypertension Not Recorded 09/15/2017 2:50am 2017 [facility] Advance Directives Order Name Results Value Date Source Advance Directives Advance Directives Directive Response Recorded Date/Time Does the patient have an advance directive? No 11/29/13 1:55pm If yes, is advance directive on file with [facility]? No 09/14/17 10:00pm If not on file with [facility] will patient provide a copy? No 11/29/13 1:55pm Do you have a Directive to Physician? No 09/14/17 5:37pm Do you have a Medical Power of Timber [employer]iser? No 09/14/17 5:37pm Do you have an [...] rights and responsibilities? Yes 09/14/17 5:37pm 2017 [facility] Functional Status No Data Provided for This Section
[2019-02-15 15:15] LABS: BASOPHILS % 0.1 % (0.0-1.0); EOSINOPHILS % 0.1 % (0.0-6.0); HEMATOCRIT 27.8 % (34.2-44.1); HEMOGLOBIN 8.4 g/dL (12.0-16.0); LYMPHOCYTES # (AUTO) 1.1 (1.0-3.2); MEAN CORPUSCULAR HEMOGLOBIN 24.9 pg (28-32); MEAN CORPUSCULAR HGB CONC 30.2 g/dL (31-35); MEAN CORPUSCULAR VOLUME 82.5 fL (81-99); MONOCYTES % 7.2 % (4.4-11.3); NEUTROPHILS # (AUTO) 11.6 (2.1-6.9); NEUTROPHILS % 83.2 % (38.7-80.0); PLATELET COUNT 343 x10e3/uL (140-360); RED BLOOD COUNT 3.37 x10e6/uL (3.6-5.1); RED CELL DISTRIBUTION WIDTH 17.8 % (11.7-14.4)
[2019-02-15 15:40] LABS: ALBUMIN 1.8 g/dL (3.5-5.0); ALBUMIN/GLOBULIN RATIO 0.3 (0.8-2.0); ANION GAP 24.3 mmol/L (8-16); CALCIUM 7.6 mg/dL (8.4-10.2); CREATININE, SERUM 7.57 mg/dL (0.57-1.11); POTASSIUM 4.3 mmol/L (3.5-5.1)
[2019-02-15] MEDS: INSULIN REGULAR, HUMAN 100 UNIT/1 ML 3ML VIAL SQ SCH ×2 (16:33→21:00)
[2019-02-15] MEDS ORDERED: ACETAMINOPHEN/CODEINE 300MG - 30MG TAB PO PRN (18:15)
[2019-02-15] MEDS ORDERED: VANCOMYCIN 1GM/NS 250 ML 250 ML IV ONE (18:45)
[2019-02-15] MEDS: GABAPENTIN 100 MG CAP PO SCH (19:29)
--- NOTE | 2019-02-15 19:49 | NUR ---
PT PLACED ON TELEMETRY BOX #10.
--- NOTE | 2019-02-15 20:12 | NUR ---
FSBS 40, PT APPEARS LETHARGIC, ANSWERS QUESTIONS APPROPRIATELY, BUT SLOW TO RESPOND. D50 GIVEN,THEN PT GIVEN ORAGE JUICE AND DANGELO CRACKERS. TOLERATED WELL
[2019-02-15] MEDS: DEXTROSE 50% SYRINGE 50 ML IV PRN (20:13)
--- NOTE | 2019-02-15 20:40 | NUR ---
REPEAT FSBS 147, J ACOSTA PEGUERO AWARE, IVF'S CHANGED TO D5NS PER ACOSTA RICK. PT AWAKE ALERT SKIN W/D RESP NON LAB. NAD NOTED. PLACED ON BEDPAN TO VOID
[2019-02-15] MEDS ORDERED: DEXTROSE 5%/0.9% SOD CHL 1,000 ML IV ONE (20:45)
--- NOTE | 2019-02-15 20:59 | NUR ---
RECEIVED PT TO UNIT ROOM 214 VIA STRETCHER.PT AAO X 3.RESPIRATIONS EVEN/NON LABORED.IV TO RIGHT WRIST 20 G NOTED INTACT AND PATENT.ORIENTED PT TO ROOM,BATHROOM AND CALL LIGHT/TV REMOTE.INSTRUCTED PT TO CALL FOR ASSISTANCE NEEDED BY PRESSING CALL LIGHT.PT VERBALIZED UNDERSTANDING. AT BEDSIDE.BED IN LOWEST/LOCKED POSITION.CALL LIGHT WITHIN EASY REACH.
[2019-02-15 21:20] VITALS: BP 149/84
--- NOTE | 2019-02-15 21:49 | History and Physical ---
CHIEF COMPLAINT: A 68-year-old female patient presented to emergency room with ALTERED mental status, infection, and had a low blood sugar. HISTORY OF PRESENT ILLNESS: Ms. Mehreen Vargas is a 68-year-old female patient with history of diabetes mellitus, chronic kidney disease, hypertension, and anemia presented to the emergency room with confusion, lethargic and patient was having low blood sugar of 43. PAST MEDICAL HISTORY: The patient has history of hypertension, diabetes mellitus, CKD and anemia. Bilateral heel ulceration and chronic osteomyelitis with diabetic foot. The patient was advised to have including extensive surgery possibly amputation, but patient has refused and patient was on home oral antibiotic. The patient is also seeing Podiatry, Dr. Mario Hurst. PAST SURGICAL HISTORY: Foot debridement. ALLERGIES: NO KNOWN DRUG ALLERGIES. MEDICATIONS: The patient was on glimepiride, now on hold and doxycycline. SOCIAL HISTORY: Denies smoking. Denies using alcohol. FAMILY HISTORY: Diabetes mellitus, hypertension. REVIEW OF SYSTEMS: As per history of present illness. A detailed review of systems examination was done. PHYSICAL EXAMINATION: HEENT: Normocephalic, atraumatic. NECK: No JVD. No lymphadenopathy. LUNGS: Bilateral equal air entry. No rales, no rhonchi. HEART: S1, S2 regular. Systolic murmur. ABDOMEN: Soft. Bowel sounds are present. NEUROLOGIC: No focal neurological deficit. The patient is alert and oriented x3. EXTREMITIES: The patient has bilateral lower extremity edema. ADMITTING IMPRESSION/DIAGNOSES: Hypoglycemia , bilateral leg osteomyelitis and chronic wound, diabetes mellitus and worsening renal failure with chronic kidney disease and hypertension. PLAN: The patient will be admitted with the above diagnosis. We will hold the patient's Amaryl and we will give IV fluids and monitor her blood sugar and also obtain and give the patient IV antibiotic and we will obtain Nephrology consultation. Patient's hypoglycemia probably has to be secondary with infection in the foot and worsening renal failure. MD SASHA Hay/EFRAIN /[id number] MTDOzzy
[2019-02-15] MEDS: PRAVASTATIN 20 MG TAB PO SCH (21:50)
[2019-02-15] MEDS: FUROSEMIDE 40 MG TAB PO SCH (21:50)
[2019-02-15 21:54] VITALS: BP 149/84
--- NOTE | 2019-02-15 22:54 | NUR ---
CONSULT TO DR BURCIAGA CALLED,PROMPTED TO LEAVE MESSAGE.MESSAGE LEFT WITH CALL BACK NUMBER.
--- NOTE | 2019-02-15 22:56 | NUR ---
CONSULT TO DR KELLEY CALLED,PROMPTED TO LEAVE MESSAGE.MESSAGE LEFT WITH CALL BACK NUMBER.
[2019-02-16] VITALS (7 sets, daily range): BP systolic 116–141; BP diastolic 63–78
[2019-02-16] MEDS: ACETAMINOPHEN/CODEINE 300MG - 30MG TAB PO PRN (05:14)
[2019-02-16 05:32] LABS: BASOPHILS % 0.2 % (0.0-1.0); EOSINOPHILS % 0.2 % (0.0-6.0); HEMOGLOBIN 7.7 g/dL (12.0-16.0); LYMPHOCYTES # (AUTO) 1.4 (1.0-3.2); LYMPHOCYTES % 11.1 % (18.0-39.1); MEAN CORPUSCULAR HEMOGLOBIN 25.3 pg (28-32); MEAN CORPUSCULAR HGB CONC 30.8 g/dL (31-35); MEAN CORPUSCULAR VOLUME 82.2 fL (81-99); MONOCYTES # (AUTO) 1.2 (0.2-0.8); MONOCYTES % 9.4 % (4.4-11.3); NEUTROPHILS # (AUTO) 9.8 (2.1-6.9); PLATELET COUNT 314 x10e3/uL (140-360); RED BLOOD COUNT 3.04 x10e6/uL (3.6-5.1); RED CELL DISTRIBUTION WIDTH 17.8 % (11.7-14.4)
[2019-02-16 05:46] LABS: ALBUMIN 1.6 g/dL (3.5-5.0); ALBUMIN/GLOBULIN RATIO 0.3 (0.8-2.0); CALCIUM 7.6 mg/dL (8.4-10.2); CREATININE, SERUM 7.08 mg/dL (0.57-1.11)
[2019-02-16 05:59] LABS: ANION GAP 22.2 mmol/L (8-16)
[2019-02-16 06:04] LABS: POTASSIUM 5.2 mmol/L (3.5-5.1)
[2019-02-16] MEDS: DEXTROSE 50% SYRINGE 50 ML IV PRN (06:10)
--- NOTE | 2019-02-16 06:13 | NUR ---
LAB CALLED AND REPORTED BLOOD SUGAR OF 37,PT NOTED LETHARGIC BUT ANSWERS QUESTIONS READILY.FINGERSTICK BLOOD SUGAR DONE AT BEDSIDE AND NOTED 56. D50 ADMINISTERED PER SEP.WILL RECHECK BLOOD SUGAR.
--- NOTE | 2019-02-16 06:21 | NUR ---
RECHECKED BLOOD SUGAR AND NOTED 140.PT RESTING IN BED WITH NO S/S OF DISTRESS.PAGED DR Bethany MOE TO NOTIFY.WILL CONTINUE TO MONITOR.
[2019-02-16] MEDS: GABAPENTIN 100 MG CAP PO SCH ×2 (06:36→17:23)
[2019-02-16] MEDS: FUROSEMIDE 40 MG TAB PO SCH ×3 (06:36→22:05)
--- NOTE | 2019-02-16 07:15 | NUR ---
REPORT GIVEN TO ONCOMING NURSE,WALKING ROUNDS MADE.PT RESTING IN BED WITH NO S/S OF DISTRESS.
[2019-02-16] MEDS: INSULIN REGULAR, HUMAN 100 UNIT/1 ML 3ML VIAL SQ SCH ×4 (07:30→21:00)
[2019-02-16] MEDS: HYDRALAZINE HCL 25 MG TAB PO SCH ×2 (08:23→17:23)
[2019-02-16] MEDS: CARVEDILOL 12.5 MG TAB PO SCH ×2 (08:23→17:23)
[2019-02-16] MEDS ORDERED: SOD POLYSTYRENE SULFONATE SUSP 15 GM/60 ML BTL PO NR (08:45)
[2019-02-16] MEDS ORDERED: NON-FORMULARY MEDICATION (Pravastatin Sodium 40 MG) PO SCH (09:00)
[2019-02-16] MEDS ORDERED: MINOCYCLINE HCL 50 MG CAP PO SCH (09:00)
[2019-02-16] MEDS: SODIUM BICARBONATE 650 MG TAB PO SCH ×2 (10:11→17:23)
--- NOTE | 2019-02-16 10:12 | Consultation ---
DATE OF CONSULTATION: REASON FOR CONSULTATION: Acute on chronic kidney disease, stage 5. HISTORY OF PRESENT ILLNESS: The patient is a 68-year-old female known to us from previous hospitalization and from our office, who is noncompliant with office visit and refuses dialysis, has history of CKD stage 5; diabetes type 2; hypertension; cataract; and CHF, who was admitted with persistent hypoglycemia. According to the patient, she was not taking any medicine for diabetes as her blood sugar was running low. The patient denies having any nausea, vomiting, or diarrhea, and states she eats as much as she can. She was found to be confused, unresponsive so, she was sent to the emergency room and found to have a blood sugar of 43. The patient got D10 and was admitted for observation of blood sugar. Currently, the patient is eating breakfast. the patient's creatinine is at 7 with GFR of 7 mL per minute. The patient continues to refuse to be on dialysis. Denies having any nausea, vomiting, or diarrhea. PAST MEDICAL HISTORY: As above. PAST SURGICAL HISTORY: Retinal repair in 2013. ALLERGIES: NO KNOWN DRUG ALLERGIES. MEDICATIONS: Currently the patient is on carvedilol, minocycline, Lasix 40 mg p.o. 8 hours, pravastatin, gabapentin, and hydralazine. REVIEW OF SYSTEMS: Pertinent positives ones as per HPI. PHYSICAL EXAMINATION: VITAL SIGNS: Blood pressure 138/78, pulse of 92, respirations are 18, and 96% on room air. GENERAL: Awake and alert. Not in apparent distress. HEENT: PERRLA. Extraocular movements were intact. NECK: No JVD. No mass. HEART: S1 and S2. Regular rate and rhythm. No murmur, gallop, or rub. LUNGS: Clear to auscultation bilaterally with decreased breath sounds at the bases. No added sounds. ABDOMEN: Soft, nontender, and nondistended. Bowel sounds are positive. No organomegaly. EXTREMITIES: Positive bilateral extremity edema. NEUROLOGIC: The patient is awake and alert. Moves all extremities. Oriented x3 now. LABORATORY DATA: Sodium 142, potassium 5.2, chloride 107, and CO2 of 18. BUN 97 and creatinine 7.08. Glucose 37. White count 12.6, hemoglobin 7.7, and platelet count is 314. Alk phos 94, AST 49, and ALT 29. ASSESSMENT AND PLAN: 1. Chronic kidney disease, stage 5. The patient refuses to be on dialysis, moderate for now. The patient understands the risk of uremia and sudden cardiac from hyperkalemia, but refuses to be on dialysis. 2. Hyperkalemia, need to be on chronic kidney disease low K diet, give a dose of Kayexalate today. 3. Metabolic acidosis. Start the patient on sodium bicarbonate. 4. Diabetes type 2 with hypoglycemia, primary team is managing. 5. Hypertension, controlled. 6. Lower extremity chronic wound with osteomyelitis, on minocycline. Thank you Dr. Hurst for the consult. MD DANIELLA Alberto/MODL /[id number]
[2019-02-16] MEDS: PIPERACILLIN/TAZO 2.25 GM 50 ML IV SCH ×2 (14:52→22:05)
--- NOTE | 2019-02-16 14:52 | Consultation ---
DATE OF CONSULTATION: 02/16/2019 INFECTIOUS DISEASE CONSULT REASON FOR CONSULTATION: Osteomyelitis. Thank you, Dr. Hurst, for asking me to see this patient, who was admitted through the emergency department. HISTORY OF PRESENT ILLNESS: The patient is a 68-year-old woman, who was referred for osteomyelitis. She presented to the emergency department yesterday with confusion and disorientation. She was not acting right and the home blood glucose monitoring was 43. The patient stated that she did not prepare her food because she was not feeling hungry and claimed that she did not take her oral hypoglycemic agent. She denies fever and chills. She has large heel ulcers and she underwent debridement of the left heel wound last month during hospitalization. She stated that wound care provider came to the house 3 times a week for wound care after discharge. PAST MEDICAL HISTORY: Diabetes mellitus type 2 with peripheral neuropathy, hypertension, chronic kidney disease stage 5, peripheral arterial disease, bilateral heel ulcers, medically blind. PAST SURGICAL HISTORY: Eye surgery and multiple heel wound debridement. ALLERGIES: NO KNOWN DRUG ALLERGIES. MEDICATIONS: See MAR. The current antibiotic is minocycline 100 mg by mouth twice a day. She received Zosyn 3.375 g IV piggyback once and vancomycin 1 g IV piggyback once in the emergency room. IMMUNIZATION: She received tetanus-diphtheria vaccine on January 17, 2019. She received pneumococcal vaccination in 2018. FAMILY HISTORY: Significant for diabetes mellitus and hypertension. SOCIAL HISTORY: No alcohol, tobacco, or recreational drug use. REVIEW OF SYSTEMS: As per history of present illness. PHYSICAL EXAMINATION: GENERAL: The patient is still lethargic, but easily aroused, and in no acute distress. VITAL SIGNS: T-max 97.2, pulse rate 89, respiratory rate 18, blood pressure 126/75, and weight 140 pounds. HEENT: Normocephalic. There is markedly decreased vision in both eyes. There is no icterus or injection of conjunctivae. There is no ear or nasal discharge. Moist oral mucosa. No pharyngeal erythema or exudate. NECK: Supple. No meningismus. LUNGS: Good air entry bilaterally. HEART: Normal S1 and S2. Regular. ABDOMEN: Soft and nontender. EXTREMITIES: There is hyperpigmentation of the distal legs. There is large ulcer of the left heel with exposed bone and malodorous discharge. There is also a right heel ulcer. The dorsalis pedis and posterior tibial pulses are difficult to palpate in both feet. 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 There is decreased sensation to monofilament test on feet. LABORATORY AND DIAGNOSTIC DATA: WBC 12,600, down from 13,880, hemoglobin 7.7, platelet 314,000, neutrophils 78, lymphocytes 11.1, monocytes 9.4, eosinophils 0.2, and basophils 0.2. BUN 101 and creatinine 7.57. Blood glucose 157. IMPRESSION: 1. Probable left heel wound infection with contiguous osteomyelitis of the left calcaneus, present on admission. 2. Encephalopathy due to hypoglycemia. 3. Severe peripheral arterial disease. 4. Chronic kidney disease, stage 5- patient has continued to decline dialysis. 5. Diabetes mellitus type 2 with peripheral neuropathy, retinopathy and nephropathy. PLAN: 1. Continue Zosyn 2.25 g IV piggyback q.8 hours. Hold minocycline. 2. Check vancomycin random level on Monday morning. 3. Podiatry followup. MD KENDRA Tran/EFRAIN /[id number] MTDD
--- NOTE | 2019-02-16 15:43 | NUR ---
Nutrition Screen Note RD Recommendation for Physician:Continue diet as ordered Plan of Care: RD following, monitoring for tolerance and adequacy Nutrition reason for involvement: Nutrition Risk Trigger - MST Primary Diagnose(s): hypoglycemia, diabetes ulcers PMH: bilateral diabetes foot wounds/osteomyelitis, T2DM, CKD Ht:62 in Wt:140lb BMI:25.6 kg/m2 IBW:110lb +/-10% RD Assessment: (02/16/2019) Chart reviewed. Labs and meds reviewed. Initial encounter with patient. Reviewed EMR from previous visits. Pt just admitted to hospital and she still has on street clothes and RD was unable to perform a Nutrition focused physical assessment. 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 Pt has limited acceptance of therapeutic diet ordered. Family member present at time of visit also confirming that Pt has been eating well and RD questioned bouts of hypoglycemia. Per H&P pt did eat lunch because she was not hungry, but Pt nor family member could not elaborate on hypoglycemia. Will provide Glucerna Shake with meals Current Diet: Renal diet Malnutrition Evaluation (02/16/2019) The patient does not meet criteria for a specified degree of malnutrition at this time. Will re-evaluate at follow-up as appropriate. Diet Education Needs Assessment: Diet education not indicated. Nutrition Care Level: Low Signed: Elijah Penny RD, LD, [facility]
[2019-02-16] MEDS: PRAVASTATIN 20 MG TAB PO SCH (21:58)
[2019-02-17] VITALS (8 sets, daily range): BP systolic 108–140; BP diastolic 57–84
[2019-02-17] MEDS: GABAPENTIN 100 MG CAP PO SCH ×2 (05:50→17:34)
[2019-02-17] MEDS: FUROSEMIDE 40 MG TAB PO SCH ×3 (05:50→21:36)
[2019-02-17] MEDS: PIPERACILLIN/TAZO 2.25 GM 50 ML IV SCH ×3 (05:50→23:02)
[2019-02-17 06:44] LABS: CREATININE, SERUM 6.65 mg/dL (0.57-1.11)
--- NOTE | 2019-02-17 07:09 | NUR ---
REPORT GIVEN TO ONCOMING NURSE,WALKING ROUNDS MADE.PT RESTING IN BED WITH NO S/S OF DISTRESS.
[2019-02-17] MEDS: INSULIN REGULAR, HUMAN 100 UNIT/1 ML 3ML VIAL SQ SCH ×4 (07:30→21:00)
[2019-02-17] MEDS: HYDRALAZINE HCL 25 MG TAB PO SCH ×2 (08:44→17:33)
[2019-02-17] MEDS: SODIUM BICARBONATE 650 MG TAB PO SCH ×2 (08:44→17:33)
[2019-02-17] MEDS: CARVEDILOL 12.5 MG TAB PO SCH ×2 (08:44→17:33)
[2019-02-17] MEDS: PRAVASTATIN 20 MG TAB PO SCH (21:36)
[2019-02-18] VITALS (7 sets, daily range): BP systolic 11–146; BP diastolic 53–93
[2019-02-18 06:06] LABS: BASOPHILS % 0.3 % (0.0-1.0); EOSINOPHILS % 0.3 % (0.0-6.0); HEMATOCRIT 25.2 % (34.2-44.1); HEMOGLOBIN 7.6 g/dL (12.0-16.0); LYMPHOCYTES # (AUTO) 1.3 (1.0-3.2); LYMPHOCYTES % 10.8 % (18.0-39.1); MEAN CORPUSCULAR HEMOGLOBIN 24.9 pg (28-32); MEAN CORPUSCULAR HGB CONC 30.2 g/dL (31-35); MEAN CORPUSCULAR VOLUME 82.6 fL (81-99); MONOCYTES # (AUTO) 0.9 (0.2-0.8); MONOCYTES % 7.5 % (4.4-11.3); NEUTROPHILS # (AUTO) 9.4 (2.1-6.9); NEUTROPHILS % 79.9 % (38.7-80.0); PLATELET COUNT 284 x10e3/uL (140-360); RED BLOOD COUNT 3.05 x10e6/uL (3.6-5.1); RED CELL DISTRIBUTION WIDTH 17.8 % (11.7-14.4)
[2019-02-18 06:38] LABS: ALBUMIN 1.5 g/dL (3.5-5.0); ALBUMIN/GLOBULIN RATIO 0.3 (0.8-2.0); ANION GAP 18.8 mmol/L (8-16); CREATININE, SERUM 6.63 mg/dL (0.57-1.11); POTASSIUM 3.8 mmol/L (3.5-5.1)
[2019-02-18] MEDS: PIPERACILLIN/TAZO 2.25 GM 50 ML IV SCH ×3 (06:41→20:10)
[2019-02-18] MEDS: GABAPENTIN 100 MG CAP PO SCH ×2 (06:41→18:30)
[2019-02-18] MEDS: FUROSEMIDE 40 MG TAB PO SCH ×3 (06:41→20:10)
[2019-02-18] MEDS: INSULIN REGULAR, HUMAN 100 UNIT/1 ML 3ML VIAL SQ SCH ×4 (07:30→19:57)
--- NOTE | 2019-02-18 08:31 | NUR ---
Patient up in bed, assisted her to feed breakfast , patient tolerated 60% of it, denies any pain or SOB, Not in any distress, call light in reach, keep monitoring, at bed side
[2019-02-18] MEDS: CARVEDILOL 12.5 MG TAB PO SCH ×2 (09:00→17:05)
[2019-02-18] MEDS: HYDRALAZINE HCL 25 MG TAB PO SCH ×2 (09:00→17:05)
[2019-02-18] MEDS: SODIUM BICARBONATE 650 MG TAB PO SCH ×2 (09:19→17:05)
--- NOTE | 2019-02-18 10:15 | NUR ---
Spoke with Dr. Hurst regarding DC plan. He states pt needs to be inpatient due to bad infection in bilateral legs, if pt discharges home today, she will readmit. He is consulted podiatry.
--- NOTE | 2019-02-18 12:09 | NUR ---
Paged X2 Dr Bethany Garcia regarding the consult he put in for Sales Marketing Manager Dr Mario garcia, that he is not coming here any more. awaiting call back
--- NOTE | 2019-02-18 16:44 | NUR ---
wound consultation for patient with bilateral lower extremity wounds. Unable to palpate pulses on either foot. Unable to detect capillary refill to L forefoot. R foot cap refill greater than 3 secs. Patient has Charcot joint on L foot, and and gangrenous changes with eschars in multiple areas. The L leg is 2-3 times the size of the R leg. The posterior leg with large eschar posteriorly. R Foot is warm to touch but the plantar aspect is discolored as well. Hx of illness, is that patient is unable to be revascularized. A recommendation for amputation was done on the last hospitalization according to attending. Conservative care was discussed with Dr. Hurst and a consultation is pending with Dr. Tsang. There is ID on the case with a culture pending. Wounds noted as follows. L foot: Anterior 3 x 2.5 x 0.5 100% eschar 1st met head 4 x 3 eschar Anterior great toe 2 x 2 eschar L heel 10.5 x 9.5 x 1.8 10% gran, 20% eschar, 70% slough- foul odor, copious drainage serious ang. L post leg 5.0 x 1.0 100% eschar R leg: R lat foot 2 x 2 100% eschar R heel 6.5 x 6.5 100% eschar Recommendations: [place] dressings to trevor heel ulcers daily. All other foot wounds, keep dry and stable. Elevate legs on pillows. Patient has no sacral wound at this time. Turn q 2 hrs Alt pressure mattress
--- NOTE | 2019-02-18 19:00 | NUR ---
RECEIVED REPORT FROM DAY NURSE. PATIENT IS RESTING COMFORTABLY IN BED. BED IS IN LOWEST POSITION AND CALL MAHONEY IS WITHIN REACH. WILL CONTINUE TO MONITOR PATIENT.
[2019-02-18] MEDS: PRAVASTATIN 20 MG TAB PO SCH (20:10)
--- NOTE | 2019-02-18 20:27 | Diagnostic Imaging Report ---
EXAM: FOOT COMPLETE BILATERAL DATE: 02/18/2019 6:14 PM INDICATION: ^osteomyelitis ^[id number] ^[id number] COMPARISON: Bilateral feet, 01/16/2019 FINDINGS: Left foot: 3 views of the left foot are somewhat suboptimal due to positioning. Again noted is a marked soft tissue defect over the left heel with mixed lytic and sclerotic changes in the calcaneus. Elsewhere the bones are diffusely demineralized. Suboptimal positioning and demineralization precludes adequate evaluation of the digits. Extensive small vessel arterial calcification is again noted. Right foot: 3 views of the right foot show the bones diffusely demineralized. Again noted is an extensive soft tissue defect over the posterior aspect of the right heel. Sclerosis in the posterior aspect of the calcaneus is again noted without obvious cortical destruction. Evaluation of the digits is markedly suboptimal due to positioning, demineralization and technique. Extensive small vessel arterial calcification again noted. There are extensive degenerative changes at the tarsal metatarsal joints. IMPRESSION: 1. Extensive soft tissue defect over the left heel. Stable mixed destructive and sclerotic lesions in the calcaneus. 2. Smaller soft tissue defect over the posterior aspect of the right heel again noted. There is sclerosis in the posterior aspect of the calcaneus, stable from last exam, without obvious cortical destruction. 3. The digits of both feet are not well visualized due to demineralization, positioning and radiographic technique. Signed by: Dr. Jose Auguste M.D. on 02/18/2019 8:24 PM
[2019-02-18] MEDS: ACETAMINOPHEN/CODEINE 300MG - 30MG TAB PO PRN (20:30)
[2019-02-19] VITALS (8 sets, daily range): BP systolic 107–150; BP diastolic 55–72
--- NOTE | 2019-02-19 01:50 | Consultation ---
DATE OF CONSULTATION: 02/18/2019 REASON FOR CONSULTATION: Grade 4 ulcers to both lower extremities with the patient having diabetes and peripheral arterial disease. HISTORY OF PRESENT ILLNESS: This is a 68-year-old Afro-[place] female was seen at bedside, accompanied by spouse, who presented to the emergency room several days ago due to her blood glucose falling down to 40 and the patient is following. The patient is currently denying any history of fever, chills, nausea, or vomiting. Has had some heel ulcerations to both lower extremities for more than 6 months and secondary to very poor circulation, her left foot is already osteomyelitic and pregangrenous. The patient does not want to have any type of surgical intervention, which will include below or phfzv-wef-uney amputation just want to have her ulcers treated conservatively with local wound care and possible surgical debridements. PAST MEDICAL HISTORY: Remarkable for ada-qtaigwl-eardfsuar diabetes, congestive heart failure, hypertension, peripheral arterial disease. PAST SURGICAL HISTORY: Remarkable for multiple ulceration debridements of both lower extremities. ALLERGIES: THE PATIENT DENIES. SOCIAL HISTORY: Denies any smoking, drinking, or recreational drug use. FAMILY HISTORY: Was remarkable for diabetes. Both parents . VITAL SIGNS: Afebrile, pulse rate 102, respiration 16, blood pressure 119/60, and O2 saturation 99%. REVIEW OF SYSTEMS: CARDIAC: She is denying any palpitations or arrhythmias. RESPIRATORY: Denies any shortness of breath or cough. GASTROINTESTINAL: Denies any abdominal pain. LABORATORY DATA: Noted, has a white blood cell count dropping from 13.8 to 11.7, hemoglobin 7.6, hematocrit 25.2 with a platelet count of 284. The patient has a blood glucose of 143. PODIATRIC PHYSICAL EXAMINATION: VASCULATURE: Pedal pulses of both the DP and PT of both lower extremities are greatly diminished and nonpalpable. Skin temperature warm and cool to touch. Gangrenous changes noted to the forefoot and plantar aspect of the left foot compared to the right. NEUROLOGICAL: Shows some loss of protective sensation when utilizing Palmer-Lian 5.07 monofilament wire. MUSCULOSKELETAL: Muscle mass to be symmetrical and wasted. Muscle strength to be 3/5 to 4/5 to all muscle groups. DERMATOLOGICAL: Grade 4 ulcer down to bone with bone exposed plantar aspect of left heel measuring more than 7 to 8 cm in diameter, has a grade 3/4 ulceration in plantar aspect of right foot, very close to bone with some foul smell present, measuring more than 4 to 5 cm in diameter. ASSESSMENT: Gangrene, left foot with a grade 4 ulceration, osteomyelitis with a grade 4 ulcer, right foot with severe peripheral arterial disease bilaterally. PLAN: We will treat the patient conservatively with Santyl followed by diluted wet-to-dry Betadine. X-rays of both feet, 3 views were ordered. Continue offloading. The patient instructed she needs to have a sgqqm-rmg-rvgs or wjcan-qmc-ucdr amputation, does not want any type of surgical intervention. We will treat conservatively for now with local wound care and IV antibiotics such as Zosyn. BUSTER Britt/MODL /[id number]
[2019-02-19] MEDS: PIPERACILLIN/TAZO 2.25 GM 50 ML IV SCH ×3 (05:48→20:46)
[2019-02-19] MEDS: GABAPENTIN 100 MG CAP PO SCH ×2 (05:48→17:48)
[2019-02-19] MEDS: FUROSEMIDE 40 MG TAB PO SCH ×3 (05:48→20:46)
[2019-02-19 05:52] LABS: BASOPHILS % 0.1 % (0.0-1.0); EOSINOPHILS % 0.3 % (0.0-6.0); LYMPHOCYTES # (AUTO) 1.1 (1.0-3.2); LYMPHOCYTES % 8.2 % (18.0-39.1); MEAN CORPUSCULAR HEMOGLOBIN 25.6 pg (28-32); MEAN CORPUSCULAR HGB CONC 30.9 g/dL (31-35); MEAN CORPUSCULAR VOLUME 82.8 fL (81-99); MONOCYTES # (AUTO) 1.1 (0.2-0.8); MONOCYTES % 7.6 % (4.4-11.3); NEUTROPHILS # (AUTO) 11.5 (2.1-6.9); NEUTROPHILS % 82.6 % (38.7-80.0); PLATELET COUNT 260 x10e3/uL (140-360); RED BLOOD COUNT 2.62 x10e6/uL (3.6-5.1); RED CELL DISTRIBUTION WIDTH 17.9 % (11.7-14.4)
[2019-02-19 06:04] LABS: ALBUMIN 1.4 g/dL (3.5-5.0); ALBUMIN/GLOBULIN RATIO 0.3 (0.8-2.0); ANION GAP 20.6 mmol/L (8-16); CREATININE, SERUM 6.78 mg/dL (0.57-1.11); POTASSIUM 3.6 mmol/L (3.5-5.1)
[2019-02-19 06:05] LABS: HEMATOCRIT 21.7 % (34.2-44.1); HEMOGLOBIN 6.7 g/dL (12.0-16.0)
--- NOTE | 2019-02-19 06:13 | NUR ---
received critical lab this morning, patients hemoglobin is 6.7. MD paged, awaiting call from doctor.
--- NOTE | 2019-02-19 06:41 | NUR ---
report given to day nurse. patient is resting comfortably in bed. bed is in lowest position and call soni is within reach.
[2019-02-19 07:10] LABS: CALCIUM 6.9 mg/dL (8.4-10.2)
--- NOTE | 2019-02-19 07:10 | NUR ---
Paged Dr Bethany Hrust regarding critical Ca 6.9, awaiting call back
[2019-02-19] MEDS: INSULIN REGULAR, HUMAN 100 UNIT/1 ML 3ML VIAL SQ SCH ×4 (07:30→20:00)
--- NOTE | 2019-02-19 08:05 | NUR ---
Call recvd from Dr Bethany Hurst, new order to repeat hgb and consult Dr Molina, and to let occupational therapy co director know about low Ca
--- NOTE | 2019-02-19 08:07 | NUR ---
paged Dr Jeter regarding low Ca
--- NOTE | 2019-02-19 08:55 | NUR ---
Dr Tsang at bed side, debridement done on rt foot, patient tolerated well, no bleeding
[2019-02-19] MEDS: HYDRALAZINE HCL 25 MG TAB PO SCH ×2 (09:04→17:48)
[2019-02-19] MEDS: SODIUM BICARBONATE 650 MG TAB PO SCH ×2 (09:04→17:48)
[2019-02-19] MEDS: CARVEDILOL 12.5 MG TAB PO SCH ×2 (09:04→17:48)
[2019-02-19 09:24] LABS: BASOPHILS % 0.3 % (0.0-1.0); EOSINOPHILS # (AUTO) 0.1 (0.0-0.4); EOSINOPHILS % 0.5 % (0.0-6.0); LYMPHOCYTES # (AUTO) 1.1 (1.0-3.2); LYMPHOCYTES % 8.5 % (18.0-39.1); MEAN CORPUSCULAR HEMOGLOBIN 25.3 pg (28-32); MEAN CORPUSCULAR HGB CONC 30.7 g/dL (31-35); MEAN CORPUSCULAR VOLUME 82.4 fL (81-99); MONOCYTES % 7.5 % (4.4-11.3); NEUTROPHILS # (AUTO) 10.5 (2.1-6.9); NEUTROPHILS % 82.1 % (38.7-80.0); PLATELET COUNT 267 x10e3/uL (140-360); RED BLOOD COUNT 2.73 x10e6/uL (3.6-5.1)
[2019-02-19 09:28] LABS: HEMATOCRIT 22.5 % (34.2-44.1); HEMOGLOBIN 6.9 g/dL (12.0-16.0)
[2019-02-19] MEDS ORDERED: DEXAMETHASONE PHOS 10MG INJ 20 MG in SODIUM CHLORIDE 0.9% 50ML 50 ML IV ONE (10:00)
[2019-02-19] MEDS ORDERED: CALCIUM GLUCONATE 10% INJ 4.65 MEQ in SODIUM CHLORIDE 0.9% 50ML 50 ML IV ONE (10:20)
[2019-02-19] MEDS ORDERED: DIPHENHYDRAMINE HCL INJ 25 MG in SODIUM CHLORIDE 0.9% 50ML 50 ML IV ONE (10:30)
[2019-02-19] MEDS ORDERED: FAMOTIDINE INJ 20 MG in SODIUM CHLORIDE 0.9% 50ML 50 ML IV ONE (11:00)
[2019-02-19] MEDS ORDERED: IRON DEXTRAN INJ 50 MG in SODIUM CHLORIDE 0.9% 100 ML IV ONE (11:45)
--- NOTE | 2019-02-19 12:13 | NUR ---
Spoke to pt and her at bedside regarding LTAC eval order. Pt stated that she is not going anywhere. Wants to go home on discharge. Pt's states that he can take care of her at home. Will learn to administer IV abx if needed. They also stated that pt already on service with [facility] so home health can help them. CM informed them that home health does not come out daily for service. They acknowledged and pt continued to state that she wants to go home on discharge. CM informed pt she has the right to make decision in her care so will let MD know that she does not want to go to LTAC. TAJ informed BALDEMAR Mckeon of pt's decision regarding LTAC. He states he will notify MD. TAJ left message on chart for .
[2019-02-19] MEDS ORDERED: IRON DEXTRAN INJ 500 MG in SODIUM CHLORIDE 0.9% 500ML 500 ML IV PRN (12:30)
[2019-02-19] MEDS: ACETAMINOPHEN/CODEINE 300MG - 30MG TAB PO PRN ×2 (13:18→22:33)
--- NOTE | 2019-02-19 14:45 | NUR ---
Visit made by the Spiritual Care Department Pastoral Visitor, Beryl Lee. Pt sleeping soundly and no family present. Pastoral Visitor left a card describing availability of dinkey skinner and instructions on how to contact a dinkey skinner. JORDAN TIRADO Scarf And Anneal Operator Spiritual Care Department O: [phone] Pager: [phone] ([phone] number calling from)
--- NOTE | 2019-02-19 14:55 | Progress Note ---
DATE: 02/19/2019 SUBJECTIVE: The patient at bedside, doing well. Denies any history of fever, chills, nausea, or vomiting. OBJECTIVE: VITAL SIGNS: Afebrile, pulse rate 96, respirations 20, blood pressure 150/66, and O2 saturation 97%. EXTREMITIES: Ulcerations to both lower extremities inspected. Has a grade 4 ulcer bilaterally with dry gangrenous changes noted to the left foot and forefoot aspect of the left lower extremity. Pedal pulses diminished. Has a grade 4 ulcer plantar aspect right heel, measuring more than 5 to 6 cm in diameter with some bone exposed and also some foul smell present. X-rays were taken revealing no gas in the tissue, but signs consistent with osteomyelitis to both lower extremities. Pedal pulses diminished bilaterally. LABORATORY DATA: Labs noted, has a white blood cell count of 13.8, hemoglobin 6.7, hematocrit 21.7 with a platelet count of 260 and a blood glucose of 81. ASSESSMENT: Grade 4 ulcers bilaterally, gangrene left foot, peripheral arterial disease. PLAN: After discussing different options under no anesthesia secondary to her neuropathy, sharp excisional debridement of the ulceration to the right foot was performed down to bone. The bone was scraped until viable bleeding tissue was achieved. Sterile dressing was applied. The patient understands she will end up needing ifdtw-mum-zwop amputations eventually to both lower extremity secondary to her very poor circulation. The patient is refusing to have anything done other than IV antibiotics, local wound care, and serial debridements. The left foot was not debrided due to the fact that the debridement will not do any good at this point. Plan as described above. We will continue IV antibiotics, local wound care, and offloading. Debridement was performed utilizing a sterile 10 blade until good viable bleeding tissue was achieved. BUSTER Britt/EFRAIN /[id number]
--- NOTE | 2019-02-19 19:00 | NUR ---
received report from day nurse. patient is resting comfortably in bed. bed is in lowest position and call soni is within reach. will continue to monitor patient.
[2019-02-19] MEDS: PRAVASTATIN 20 MG TAB PO SCH (20:46)
[2019-02-20] VITALS (8 sets, daily range): BP systolic 126–198; BP diastolic 59–90
[2019-02-20] MEDS: GABAPENTIN 100 MG CAP PO SCH ×2 (05:17→17:55)
[2019-02-20] MEDS: PIPERACILLIN/TAZO 2.25 GM 50 ML IV SCH ×3 (05:17→21:25)
[2019-02-20] MEDS: FUROSEMIDE 40 MG TAB PO SCH ×3 (05:17→21:27)
[2019-02-20 05:27] LABS: BASOPHILS % 0.1 % (0.0-1.0); HEMATOCRIT 23.9 % (34.2-44.1); HEMOGLOBIN 7.2 g/dL (12.0-16.0); LYMPHOCYTES # (AUTO) 0.5 (1.0-3.2); LYMPHOCYTES % 6.6 % (18.0-39.1); MEAN CORPUSCULAR HEMOGLOBIN 25.1 pg (28-32); MEAN CORPUSCULAR HGB CONC 30.1 g/dL (31-35); MEAN CORPUSCULAR VOLUME 83.3 fL (81-99); MONOCYTES # (AUTO) 0.1 (0.2-0.8); MONOCYTES % 1.8 % (4.4-11.3); NEUTROPHILS # (AUTO) 6.6 (2.1-6.9); NEUTROPHILS % 90.1 % (38.7-80.0); PLATELET COUNT 295 x10e3/uL (140-360); RED BLOOD COUNT 2.87 x10e6/uL (3.6-5.1); RED CELL DISTRIBUTION WIDTH 18.1 % (11.7-14.4)
[2019-02-20 07:00] LABS: PLATELET ESTIMATE ADEQUATE; PLATELET MORPHOLOGY COMMENT NORMAL; RBC MORPHOLOGY COMMENT ABNORMAL
--- NOTE | 2019-02-20 07:00 | NUR ---
BEDSIDE SHIFT REPORT RECEIVED FROM THE PLATE GLASS POLISHER RN. PT FAMILY AT BEDSIDE. FALL SAFETY PRECAUTIONS IMPLEMENTED. EDUCATED PT ABOUT FALL PRECAUTIONS. CALL LIGHT WITH IN EASY REACH. INSTRUCTED PT TO USE CALL LIGHT FOR ANY NEEDS. BED IS LOCKED AND AT THE LOWEST POSITION. PT DENIES NEEDS AT THIS TIME.
[2019-02-20 07:04] LABS: ANISOCYTOSIS SLIGHT; POIKILOCYTOSIS SLIGHT
[2019-02-20] MEDS: HYDRALAZINE HCL 25 MG TAB PO SCH ×2 (08:00→17:55)
[2019-02-20] MEDS: CARVEDILOL 12.5 MG TAB PO SCH ×2 (08:00→17:55)
[2019-02-20] MEDS: INSULIN REGULAR, HUMAN 100 UNIT/1 ML 3ML VIAL SQ SCH ×4 (08:00→20:47)
[2019-02-20] MEDS: SODIUM BICARBONATE 650 MG TAB PO SCH ×2 (08:22→17:55)
[2019-02-20] MEDS: EPOETIN ALFA 10000 UNIT/ML VIAL SC SCH (09:30)
[2019-02-20] MEDS: COLLAGENASE OINTMENT 30 GM TUBE TP SCH (09:30)
--- NOTE | 2019-02-20 11:41 | NUR ---
Dr. Hurst thinks pt needs LTAC, if she discharges home, will be readmitted. CM spoke to pt at bedside and informed her of MD's recommendations. Pt states she spoke with him this morning and is adamant about going home once discharged from the hospital. Pt does not want LTAC or SNF. States she has home healthcare and wants to return home upon discharge.
[2019-02-20] MEDS ORDERED: SODIUM CHLORIDE 0.9% 250ML 250 ML ONE (13:00)
--- NOTE | 2019-02-20 13:16 | Progress Note ---
DATE: 02/20/2019 SUBJECTIVE: The patient at bedside. Denying any history of fever, chills, nausea, or vomiting. Relates that she is feeling somewhat better. Decreased shortness of breath. OBJECTIVE: VITAL SIGNS: Afebrile, pulse rate 93, respirations 20, blood pressure 198/92, and saturation 95%. EXTREMITIES: Ulcerations to both lower extremities about the same, left worse than right. Bone exposed to both lower extremities with the ulceration to the left lower extremity, much bigger with gangrenous changes noted to the forefoot aspect, left foot. Has a grade 4 ulcer also to the plantar aspect of the right heel. Has some granulation tissue noted where the debridement was performed. Everything surrounding the debridement site is still necrotic secondary to very poor circulation. LABORATORY DATA: Labs noted, has a hemoglobin of 7.2, white blood cell count of 7.28 with a platelet count of 295. ASSESSMENT: Severe peripheral arterial disease with grade 4 ulcerations, osteomyelitis with neuropathy. PLAN: The patient instructed she needs to have possible wuibu-pdi-uwlf amputation or jzrdn-tim-benp amputations to both lower extremities. The patient refused to have any type of procedure done. We will continue IV antibiotics, local wound care, and offloading for now. Continue Santyl, followed by diluted wet-to-dry to both lower extremities. BUSTER Britt/EFRAIN /[id number]
[2019-02-20] MEDS ORDERED: ONDANSETRON HCL 4 MG ORAL DISINTEGRATING TAB PO PRN (16:00)
--- NOTE | 2019-02-20 19:00 | NUR ---
BEDSIDE SHIFT REPORT GIVEN TO THE COOK HELPER PASTRY RN. PT FAMILY AT BEDSIDE. PT DENIED FURTHER NEEDS.
[2019-02-20] MEDS: ACETAMINOPHEN/CODEINE 300MG - 30MG TAB PO PRN (19:53)
[2019-02-20] MEDS: PRAVASTATIN 20 MG TAB PO SCH (21:27)
[2019-02-21] VITALS (7 sets, daily range): BP systolic 108–151; BP diastolic 56–85
[2019-02-21] MEDS: GABAPENTIN 100 MG CAP PO SCH ×2 (05:55→17:28)
[2019-02-21] MEDS: FUROSEMIDE 40 MG TAB PO SCH ×3 (05:55→21:18)
[2019-02-21] MEDS: PIPERACILLIN/TAZO 2.25 GM 50 ML IV SCH ×3 (06:00→22:08)
[2019-02-21] MEDS: ACETAMINOPHEN/CODEINE 300MG - 30MG TAB PO PRN ×2 (06:18→17:45)
--- NOTE | 2019-02-21 06:55 | NUR ---
REPORT GIVEN TO ONCOMING NURSE.WALKING ROUNDS MADE. PT RESTING IN BED WITH NO S/S OF DISTRESS.
--- NOTE | 2019-02-21 07:00 | NUR ---
BEDSIDE SHIFT REPORT RECEIVED FROM THE SOFTWARE VERIFICATION ENGINEER RN. PT DENIES NEEDS AT THIS TIME.
[2019-02-21] MEDS: INSULIN REGULAR, HUMAN 100 UNIT/1 ML 3ML VIAL SQ SCH ×4 (08:15→21:18)
[2019-02-21] MEDS: HYDRALAZINE HCL 25 MG TAB PO SCH ×2 (08:38→17:28)
[2019-02-21] MEDS: SODIUM BICARBONATE 650 MG TAB PO SCH ×2 (08:38→17:29)
[2019-02-21] MEDS: CARVEDILOL 12.5 MG TAB PO SCH ×2 (08:38→17:28)
[2019-02-21] MEDS: COLLAGENASE OINTMENT 30 GM TUBE TP SCH (08:40)
[2019-02-21] MEDS ORDERED: MINOCYCLINE HCL50 MG PO (11:35)
[2019-02-21] MEDS ORDERED: METRONIDAZOLE500 MG PO (11:39)
--- NOTE | 2019-02-21 14:53 | Progress Note ---
DATE: 02/21/2019 SUBJECTIVE: The patient at bedside, accompanied by spouse, having some discomfort to both lower extremities, left a little bit worse than right, is denying any history of fever, chills, nausea, or vomiting. OBJECTIVE: VITAL SIGNS: Afebrile, pulse rate 93, respirations 18, blood pressure 146/85, and O2 saturation 100%. EXTREMITIES: Ulcerations to both lower extremity about the same, not any better, getting actually worse. There is foul smell to both lower extremities with bone exposed. Pedal pulses are barely to nonpalpable to the left lower extremity with skin temperature warm to touch to the right foot. LABORATORY DATA: Labs show a white blood cell count dropping to 7.2, hemoglobin 7.2, hematocrit 23.9 with a platelet count of 295. ASSESSMENT: Gangrenous changes forefoot aspect left foot with a grade 4 ulcer bilaterally, left worse than right with bone exposed and foul smell. PLAN: The patient instructed that we will continue just local wound care and offloading. No further debridement will need to be done due to the fact that the patient will not respond. The patient will end up needing cvkbw-ami-lybq amputations to both lower extremities down the road. The patient refused to have anything done at this time. We will continue IV and local wound care with offloading. BUSTER Britt/EFRAIN /[id number]
--- NOTE | 2019-02-21 15:00 | NUR ---
LEFT WRIST IV REMOVED DUE TO LEAKING. NO BLEEDING NOTED. TIP INTACT. DRESSING APPLIED. PT HAS NO IV ACCESS. CHARGE NURSE NOTIFIED. PT DENIED FURTHER NEEDS.
--- NOTE | 2019-02-21 16:00 | NUR ---
PT HAS NO IV ACCESS . MULTIPLE ATTEMPTS. INFORMED DR. MOE. PAGED DR. KELLEY PER THE INSTRUCTION FROM DR. MOE.
--- NOTE | 2019-02-21 16:15 | NUR ---
MULTIPLE ATTEMPTS TO GET IV ACCESS BY CHARGE NURSE. NO IV ACCESS YET. INFORMED DR. MOE
--- NOTE | 2019-02-21 18:00 | NUR ---
PAGED DR. KELLEY REGARDING PO ABX. WAITING FOR THE CALL BACK.
--- NOTE | 2019-02-21 19:00 | NUR ---
BEDSIDE SHIFT REPORT GIVEN TO THE ANTHROPOLOGY FACULTY MEMBER RN. PT FAMILY AT BEDSIDE. PT DENIED FURTHER NEEDS.
--- NOTE | 2019-02-21 20:07 | NUR ---
CALLED DR KELLEY AT THIS TIME REGARDING PO ABX.PROMPTED TO LEAVE MESSAGE,MESSAGE LEFT WITH CALL BACK NUMBER.
[2019-02-21] MEDS: PRAVASTATIN 20 MG TAB PO SCH (21:18)
[2019-02-22 05:03] VITALS: BP 115/57
[2019-02-22 05:33] LABS: BASOPHILS % 0.2 % (0.0-1.0); EOSINOPHILS # (AUTO) 0.1 (0.0-0.4); EOSINOPHILS % 0.7 % (0.0-6.0); LYMPHOCYTES # (AUTO) 1.4 (1.0-3.2); LYMPHOCYTES % 13.3 % (18.0-39.1); MEAN CORPUSCULAR HEMOGLOBIN 25.3 pg (28-32); MEAN CORPUSCULAR HGB CONC 30.3 g/dL (31-35); MEAN CORPUSCULAR VOLUME 83.5 fL (81-99); MONOCYTES # (AUTO) 1.2 (0.2-0.8); MONOCYTES % 10.8 % (4.4-11.3); NEUTROPHILS # (AUTO) 7.4 (2.1-6.9); NEUTROPHILS % 69.3 % (38.7-80.0); PLATELET COUNT 280 x10e3/uL (140-360); RED BLOOD COUNT 2.61 x10e6/uL (3.6-5.1); RED CELL DISTRIBUTION WIDTH 18.4 % (11.7-14.4)
[2019-02-22 05:54] LABS: ALBUMIN 1.4 g/dL (3.5-5.0); ALBUMIN/GLOBULIN RATIO 0.3 (0.8-2.0); ANION GAP 17.5 mmol/L (8-16); CREATININE, SERUM 6.18 mg/dL (0.57-1.11); POTASSIUM 3.5 mmol/L (3.5-5.1)
[2019-02-22 06:02] LABS: CALCIUM 6.6 mg/dL (8.4-10.2); HEMATOCRIT 21.8 % (34.2-44.1); HEMOGLOBIN 6.6 g/dL (12.0-16.0)
[2019-02-22] MEDS: PIPERACILLIN/TAZO 2.25 GM 50 ML IV SCH ×2 (06:02→12:27)
[2019-02-22] MEDS: FUROSEMIDE 40 MG TAB PO SCH ×2 (06:02→12:27)
[2019-02-22] MEDS: GABAPENTIN 100 MG CAP PO SCH ×2 (06:02→16:50)
--- NOTE | 2019-02-22 06:12 | NUR ---
CALL PLACED TO DR BURCIAGA TO NOTIFY CRITICAL CALCIUM LEVEL.PROMPTED TO LEAVE MESSAGE.MESSAGE LEFT WITH CALL BACK NUMBER.
--- NOTE | 2019-02-22 06:18 | NUR ---
CALLED AND SPOKE WITH DR DENTON AND REPORTED HEMOGLOBIN LEVEL OF 6.6 .NO NEW ORDERS RECEIVED AT THIS TIME.
--- NOTE | 2019-02-22 06:47 | NUR ---
DR BURCIAGA CALLED BACK REPORTED CALCIUM LEVEL.N/O RECEIVED AND ENTERED.
--- NOTE | 2019-02-22 07:15 | NUR ---
BEDSIDE SHIFT REPORT GIVEN TO ONCOMING NURSE.PT RESTING IN BED WITH NO S/S OF DISTRESS.
[2019-02-22] MEDS: INSULIN REGULAR, HUMAN 100 UNIT/1 ML 3ML VIAL SQ SCH ×3 (07:30→16:30)
[2019-02-22 08:27] VITALS: BP 131/60
[2019-02-22 08:30] LABS: EOSINOPHILS % (MANUAL) 2 % (0-7); LYMPHOCYTES % (MANUAL) 20 % (19-48); MONOCYTES % (MANUAL) 9 % (3.4-9.0); NEUTROPHILS % (MANUAL) 69 % (40-74)
[2019-02-22 08:31] LABS: POIKILOCYTOSIS MODERATE
[2019-02-22] MEDS: HYDRALAZINE HCL 25 MG TAB PO SCH ×2 (08:31→16:30)
[2019-02-22] MEDS: ACETAMINOPHEN/CODEINE 300MG - 30MG TAB PO PRN ×2 (08:31→14:39)
[2019-02-22 08:32] LABS: ANISOCYTOSIS MODERATE; MICROCYTOSIS SLIGHT; OVALOCYTES FEW; PLATELET ESTIMATE ADEQUATE; PLATELET MORPHOLOGY COMMENT NORMAL; RBC MORPHOLOGY COMMENT ABNORMAL
[2019-02-22] MEDS: CALCIUM CARBONATE 500 MG CHEWABLE TABS PO SCH ×2 (08:32→16:30)
[2019-02-22] MEDS: EPOETIN ALFA 10000 UNIT/ML VIAL SC SCH (08:32)
[2019-02-22] MEDS: SODIUM BICARBONATE 650 MG TAB PO SCH ×2 (08:32→16:30)
[2019-02-22] MEDS: CARVEDILOL 12.5 MG TAB PO SCH ×2 (08:32→16:30)
[2019-02-22 08:33] VITALS: BP 131/60
[2019-02-22] MEDS ORDERED: POTASSIUM CHLORIDE 20 MEQ TAB CR PO ONE (09:00)
[2019-02-22] MEDS ORDERED: HUMALOG SQ (10:53)
[2019-02-22] MEDS ORDERED: SODIUM CHLORIDE 0.9% 250ML 250 ML IV ONE (11:00)
--- NOTE | 2019-02-22 11:48 | NUR ---
TAJ called and spoke with Lynda with intake at [facility]. Informed her we are anticipating dc today. Notified her CM will be sending resumption orders. Order and clinicals faxed to [facility] Gave Lynda VANG's contact information if any other clinicals needed.
--- NOTE | 2019-02-22 11:54 | NUR ---
Per PT, they are recommending wheelchair and sliding board for discharge home. CM called Dr. Hurst's office and spoke to Kalyn. She will give message to Dr. Hurst.
[2019-02-22 12:12] VITALS: BP 99/53
[2019-02-22] MEDS ORDERED: CLINDAMYCIN HC150 MG PO (12:37)
--- NOTE | 2019-02-22 13:02 | Progress Note ---
DATE: 02/22/2019 SUBJECTIVE: The patient at bedside, in no distress with in room. OBJECTIVE: VITAL SIGNS: Afebrile, pulse rate 95, respirations 16, blood pressure 115/57, and O2 saturation 96%. EXTREMITIES: Has a foul smell to both lower extremities with bone exposed. Some drainage noted through the dressing. Heel protectors on with pedal pulses greatly diminished, left worse than right. LABORATORY DATA: Labs show hemoglobin of 6.6, white blood cell count of 10.6 with a platelet count of 280. ASSESSMENT: Gangrenous changes noted to the forefoot aspect, left foot with grade 4 ulcers bilateral with severe peripheral arterial disease. PLAN: We will continue local wound care, offloading, as this is what the patient wishes. The patient does not want to do any type of surgical debridement. We will continue IV and treat her conservatively. The patient understands that she will end up losing both legs down the road or become septic. BUSTER Britt/EFRAIN /[id number]
[2019-02-22] MEDS: COLLAGENASE OINTMENT 30 GM TUBE TP SCH (14:38)
--- NOTE | 2019-02-22 15:14 | NUR ---
Received order for wheelchair and sliding board. Spoke to pt and at bedside. They signed choice letter for [facility]. Signed letter placed in chart. Copy to pt's . Referral was sent to [facility] Earlene with [facility] was notified of referral. Informed her of anticipated discharge for today.
--- NOTE | 2019-02-22 16:00 | NUR ---
Spoke with Letty from [place]. She is having DME dispatched to hospital now.
[2019-02-22 16:36] VITALS: BP 132/63
--- NOTE | 2019-02-22 18:01 | NUR ---
Nutrition Follow-up Note RD Recommendation for Physician: Continue diet as ordered Plan of Care: RD following, monitoring for tolerance and adequacy Nutrition reason for involvement: Follow up Primary Diagnose(s): hypoglycemia, diabetes ulcers PMH: bilateral diabetes foot wounds/osteomyelitis, T2DM, CKD Ht:62 in Wt:140lb; 143lb BMI:25.6 kg/m2 IBW:110lb +/-10% RD Assessment: (02/22) Visited pt in the room. Pt reported good appetite. PCT recorded 75-100% meal intake since admission. LBM 02/21. No GI complains reported. Plan to discharge home today. (02/16/2019) Chart reviewed. Labs and meds reviewed. Initial encounter with patient. Reviewed EMR from previous visits. Pt just admitted to hospital and she still has on street clothes and RD was unable to perform a Nutrition focused physical assessment. 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 Pt has limited acceptance of therapeutic diet ordered. Family member present at time of visit also confirming that Pt has been eating well and RD questioned bouts of hypoglycemia. Per H&P pt did eat lunch because she was not hungry, but Pt nor family member could not elaborate on hypoglycemia. Current Diet: Renal diet Malnutrition Evaluation (02/16/2019) The patient does not meet criteria for a specified degree of malnutrition at this time. Will re-evaluate at follow-up as appropriate. Diet Education Needs Assessment: Diet education not indicated. Pt is not interested. Nutrition Care Level: Low Signed: Neva Novak, MS, RD, LD
--- NOTE | 2019-02-22 19:15 | NUR ---
Report given to oncoming nurse of patient's status. Aware of orders to call with cbc result. No s/s of acute distress noted. at bedside
[2019-02-22 19:22] LABS: BASOPHILS % 0.2 % (0.0-1.0); EOSINOPHILS # (AUTO) 0.1 (0.0-0.4); EOSINOPHILS % 0.4 % (0.0-6.0); HEMOGLOBIN 9.2 g/dL (12.0-16.0); LYMPHOCYTES # (AUTO) 1.3 (1.0-3.2); MEAN CORPUSCULAR HEMOGLOBIN 25.8 pg (28-32); MEAN CORPUSCULAR HGB CONC 31.7 g/dL (31-35); MEAN CORPUSCULAR VOLUME 81.2 fL (81-99); MONOCYTES # (AUTO) 1.7 (0.2-0.8); MONOCYTES % 9.9 % (4.4-11.3); NEUTROPHILS # (AUTO) 13.3 (2.1-6.9); NEUTROPHILS % 78.9 % (38.7-80.0); PLATELET COUNT 314 x10e3/uL (140-360); RED BLOOD COUNT 3.57 x10e6/uL (3.6-5.1); RED CELL DISTRIBUTION WIDTH 17.5 % (11.7-14.4)
--- NOTE | 2019-02-22 19:32 | NUR ---
paged Dr.V. Hurst to notify of lab results.
--- NOTE | 2019-02-22 19:35 | NUR ---
Patient received lying in bed. at bedside. Patient had no complaints of pain. No signs of respiratory distress. Fall precautions implemented. Patient instructed to call for assistance when needed. Call light within reach.
--- NOTE | 2019-02-22 20:10 | NUR ---
Dr. Hurst notified of lab results. stated it was OK for patient to be discharged, but to confirm with Dr. Shelton.
--- NOTE | 2019-02-22 20:13 | NUR ---
Dr. Shelton notified of WBC results going from 10.62 to 16.78. stated it was OK to discharge from his standpoint.
--- NOTE | 2019-02-22 20:40 | NUR ---
Patient given discharge instructions along with prescriptions . Patient verbalized understanding. IV removed with tip intact. Patient transported via W/C to private auto accompanied by her . Patient in stable condition.
--- NOTE | 2019-02-23 05:57 | Discharge Summary ---
She is a 68-year-old female patient of mine presented with a complaint of hypoglycemia and bilateral leg diabetic infected wound with osteomyelitis and gangrene. ADMITTING IMPRESSION AND DIAGNOSES: Hypoglycemia, bilateral leg osteomyelitis, gangrene and diabetic foot ulcers, worsening renal failure, hypertensive heart disease and worsening anemia. HOSPITAL COURSE/SUMMARY: The patient was admitted with the above diagnosis. The patient's renal function has gotten worse and now creatinine is 7. The patient's glimepiride was discontinued and the patient was started on insulin sliding scale. Nephrology and ID consultation were done. The patient was started on IV antibiotic, Zosyn. The patient was advised again for hemodialysis treatment, but the patient had refused. Aggressive wound care was given and the patient has a podiatric consultation done Dr. Tsang. Wound debridement and cleaning was done. His recommendation was to do a below-knee amputation, but the patient has refused for below-knee amputation. The patient was advised to be transferred to the LTAC. Continue her IV antibiotics and monitor her, but patient had refused for that also. The patient was given IV iron for the anemia. The patient's hemoglobin improved little bit. Mainly, the patient had refused curative treatment like amputation and to take care. So, the patient's hemoglobin today is 6.6, so we will check with the Hematology for possible blood transfusion prior to discharge, and the patient has also received Epogen. So upon stabilization, probably after receiving a blood transfusion, the patient will be discharged home on oral antibiotics, metronidazole and minocycline. The patient will be also given home health care for wound care. The patient need to follow up as outpatient with my office, Hematology, kidney specialist as well as Podiatry. MD SASHA Hay/ROCIOL /[id number]
== END 2019-02-22 20:40 | disposition home or self-care (01) | DRG 628 ==
LOC: ER 13:58 → ERHOLD 14:29 → MED/SURG2 20:59 → OBSVTOIN 02-18 10:20
PROVIDERS: ADMIT Internal Medicine; ATTEND Internal Medicine
PROC: 0QBL0ZZ Excision of Right Tarsal, Open Approach (ICD-10-PCS; principal; 2019-02-19)
DX: E11.69 Type 2 diabetes mellitus with other specified complication (principal); G93.41 Metabolic encephalopathy; E11.52 Type 2 diabetes mellitus with diabetic peripheral angiopathy with gangrene; I96 Gangrene, not elsewhere classified; M86.8X7 Other osteomyelitis, ankle and foot; L97.424 Non-pressure chronic ulcer of left heel and midfoot with necrosis of bone; L97.414 Non-pressure chronic ulcer of right heel and midfoot with necrosis of bone; E87.2 Acidosis; I12.0 Hypertensive chronic kidney disease with stage 5 chronic kidney disease or end stage renal disease; E11.65 Type 2 diabetes mellitus with hyperglycemia; Z79.4 Long term (current) use of insulin; E11.621 Type 2 diabetes mellitus with foot ulcer; Z53.29 Procedure and treatment not carried out because of patient's decision for other reasons; E11.22 Type 2 diabetes mellitus with diabetic chronic kidney disease; D63.8 Anemia in other chronic diseases classified elsewhere; N18.5 Chronic kidney disease, stage 5; E87.6 Hypokalemia; E11.649 Type 2 diabetes mellitus with hypoglycemia without coma; E11.42 Type 2 diabetes mellitus with diabetic polyneuropathy; E87.5 Hyperkalemia
CPT/HCPCS: 36415; 80048; 80053; 82948; 84100; 85025; 86850; 86900; 86920; 93005; 97139; 99284; G0378; J0610; J1100; J1200; J1750; J1817; J2543; J3370; J7030; J7040; J7042; J7050; J7799; P9016; Q4081